=== PATIENT | male | born 1955 | race Native Hawaiian/Other Pacific Islander ===

== ENCOUNTER 2017-06-15 15:06 | Inpatient (IN) | payer OTHER ==
[2017-06-15 16:38] LABS: BASO # 0.1 K/uL (0.0-0.2); BASO % 0.7 % (0.0-2.0); EOS # 0.5 K/uL (0.0-0.7); LYMPH # 0.6 K/uL (1.0-4.3); MEAN CELL VOLUME 83.8 fL (80.0-94.0); MEAN CORPUSCULAR HEMOGLOBIN 27.2 pg (27.0-31.0); MEAN CORPUSCULAR HGB CONC 32.4 g/dL (33.0-37.0); MEAN PLATELET VOLUME 7.4 fL (7.2-11.7); MONO # 0.5 K/uL (0.0-0.8); MONO % 4.5 % (0.0-10.0); NEUT # 8.9 K/uL (1.8-7.0); NEUT % 83.8 % (50.0-75.0); NRBC % 0.1 % (0.0-2.0); PLATELET COUNT 265 K/uL (130-400); RBC 1.84 Mil/uL (4.40-5.90); RED CELL DISTRIBUTION WIDTH 15.8 % (11.5-14.5); WHITE BLOOD COUNT 10.6 K/uL (4.8-10.8)
[2017-06-15 16:48] LABS: INR 1.1; PROTHROMBIN TIME 12.4 SECONDS (9.7-12.2)
--- NOTE | 2017-06-15 16:54 | RAD ---
HISTORY: SOB, Renal failure, anemia COMPARISON: None available. TECHNIQUE: Chest, one view. FINDINGS: LUNGS: Patchy opacities within the lateral right upper lobe and bilateral lower lobes may reflect multifocal infiltrate or atelectasis. Increased lucencies especially within the bilateral upper lung erickson compatible with underlying emphysema. Please note that chest x-ray has limited sensitivity for the detection of pulmonary masses. PLEURA: No significant pleural effusion identified. No definite pneumothorax . CARDIOVASCULAR: Mild cardiomegaly. Atherosclerotic calcifications of an ectatic aorta. OSSEOUS STRUCTURES: No acute osseous abnormality identified. VISUALIZED UPPER ABDOMEN: Unremarkable. OTHER FINDINGS: None. IMPRESSION: Patchy opacities within the lateral right upper lobe and bilateral lower lobes may reflect multifocal infiltrate or atelectasis. Emphysematous changes.
[2017-06-15 16:55] LABS: ALB/GLOB RATIO 1.1 (1.0-2.1); ALBUMIN 3.4 g/dL (3.5-5.0); CALCIUM 6.5 mg/dl (8.6-10.4)
[2017-06-15 17:05] LABS: TROPONIN I 0.08 ng/mL (0.00-0.120)
[2017-06-15 17:58] LABS: ANISOCYTOSIS SLIGHT; EOSINOPHIL 7 % (0-4); LYMPHOCYTE 3 % (20-40); NEUTROPHIL 90 % (50-75); PLATELET ESTIMATE NORMAL (NORMAL); TOTAL CELLS COUNTED 100
[2017-06-15 18:03] LABS: HYPOCHROMIC SLIGHT; POLYCHROMIC SLIGHT
--- NOTE | 2017-06-15 18:18 | C.PDOC ---
Time Seen by Provider: 06/15/17 15:51 Chief Complaint (Nursing): Shortness Of Breath History Per: Patient Onset/Duration Of Symptoms: Days (about 2 weeks) Current Symptoms Are (Timing): Still Present Exacerbating Factor(s): Exertion Severity: Moderate Associated Symptoms: Light-headedness Reports Recently: Treated By A Physician Additional History Per: Prior Records Past Medical History Reviewed: Historical Data, Nursing Documentation, Vital Signs Vital Signs: Last Vital Signs Temp 97.6 F 06/15/17 15:12 Pulse 88 06/15/17 18:53 Resp 20 06/15/17 18:53 BP 152/89 H 06/15/17 18:59 Pulse Ox 100 06/15/17 18:53 - Medical History PMH: HTN (noncompliant with meds) Other PMH: GI bleed Family History: States: Unknown Family Hx - Social History Hx Alcohol Use: No Hx Substance Use: No Review Of Systems Except As Marked, All Systems Reviewed And Found Negative. Constitutional: Positive for: Weakness. Negative for: Fever Cardiovascular: Negative for: Chest Pain Respiratory: Positive for: SOB with Excertion. Negative for: Hemoptysis Gastrointestinal: Positive for: Hematochezia. Negative for: Vomiting, Abdominal Pain Genitourinary: Negative for: Dysuria Musculoskeletal: Negative for: Neck Pain, Back Pain Neurological: Negative for: Weakness, Numbness Physical Exam - Physical Exam Appears: Chronically Ill Skin: Warm, Dry, Pale Head: Atraumatic, Normacephalic Eye(s): bilateral: PERRL, EOMI, Conjunctiva Pale Neck: Normal ROM, Supple Cardiovascular: Rhythm Regular Respiratory: No Accessory Muscle Use, Rales (mild scattered) Gastrointestinal/Abdominal: Soft, No Tenderness Rectal: Heme Positive, Hemorrhoids, Other (Brown stool) Back: No CVA Tenderness Extremity: Normal ROM, No Pedal Edema, No Calf Tenderness Neurological/Psych: Oriented x3, Normal Motor, Normal Sensation ED Course And Treatment - Laboratory Results Result Diagrams: 06/15/17 16:35 06/15/17 16:35 Lab Interpretation: Abnormal Interpretation Of Abnormal: Severe anemia. Renal failure. UTI. ECG: Interpreted By Me, Viewed By Me ECG Rhythm: Sinus Rhythm, Nonspecific Changes ECG Interpretation: Abnormal Interpretation Of ECG: LVH Rate From EC O2 Sat by Pulse Oximetry: 100 Pulse Ox Interpretation: Normal - Radiology CXR: Viewed By Me, Read By Radiologist CXR Interpretation: Yes: COPD, Cardiomegaly, Other (Patchy opacities within the lateral right upper lobe and bilateral lower lobes may reflect multifocal infiltrate or atelectasis.) Progress Note: Blood transfusion ordered. - Physician Consult Information Physician Contacted: Barbara Mckeon (Renal) Outcome Of Conversation: She recommended hinojosa catheter, Lasix and she will see pt in the hospital. Progress - Interventions Interventions:: Observation, Oxygen - Medications Administered Intravenous: Diuretic, Other (PPI. Abx.) - Data Reviewed Data Reviewed: Lab, Diagnostic imaging, EKG, Old records - Patient Status Patient status: Partially improved - Critical Care Citical Care: Excluding Proc Time Critical Care Time: 45 minutes - Continuity of Care Discussed patient case with:: Patient, ED Nurse, On-call PMD-pt unassigned Discussed pt. case with is consultant/specialty: Nephrology - Patient Plan Patient Plan: Admission, Telemetry Disposition Discussed With DrLoyda: Javier Cunningham Comment: He accepted pt on hospitalist service. Counseled Patient/Family Regarding: Studies Performed, Diagnosis - Disposition Disposition: HOSPITALIZED Disposition Time: 18:00 Condition: SERIOUS - Clinical Impression Clinical Impression: ARF (acute renal failure), UTI (urinary tract infection), Severe anemia
[2017-06-15 19:18] LABS: URINE BACTERIA MOD (<OCC); URINE BILIRUBIN NEGATIVE (NEGATIVE); URINE BLOOD 1+ (NEGATIVE); URINE CLARITY Hazy (Clear); URINE COLOR YELLOW (YELLOW); URINE GLUCOSE (UA) NORMAL (Normal); URINE LEUKOCYTE ESTERASE 3+ Leu/uL (Negative); URINE PROTEIN 2+ mg/dL (NEGATIVE); URINE UROBILINOGEN NORMAL mg/dL (0.2-1.0)
[2017-06-15] MEDS ORDERED: cefTRIAXone IV 1 gm in Dextros 50 ML IVPB STA (19:24)
[2017-06-15 22:12] LABS: CREATININE, RANDOM URINE 65.7 mg/dL
[2017-06-15] MEDS ORDERED: Iohexol 240 (50 ml) ONE (23:16)
--- NOTE | 2017-06-15 23:58 | CP.PCM.HP ---
<Belkis ReaLoyda - Last Filed: 06/16/17 03:42> History of Present Illness - History of Present Illness History of Present Illness: HPI: Patient is a 61 y/o male with past medical history of HTN, upper GI bleed, TIA, and sleep apnea, who presents to the ED with complaint of shortness of breath, wheezing, and blood in stool. He states the shortness of breath began about 2 weeks ago as he was walking to work, and now he cannot walk more than 2 blocks without feeling short of breath. The shortness of breath worsens upon any physical exertion and gets better with rest. As per patient, the shortness of breath is also present while sleeping and he needs to prop himself up in bed in order to sleep. Furthermore, within the same two weeks, he also noticed bright red blood in the toilet after defecation. He states the stool itself is brown in color, but there is blood in the toilet and on the paper after he wipes himself. His last bowel movement was this morning. Patient denies any of these events happening in the past. Patient currently has dyspnea on exertion, chronic dry cough, lightheadedness, general weakness, hemtaochezia, nocturia, and orthopnea. He denies fever, chills, CASTRO, vision changes, sore throat, dizziness, CP, abdominal pain, n/v, weight changes, and recent sick contacts. PMD: Dr. Dottie Alonzo Nephro: Dr. 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 absent: Chills, Fever, Headache - EENT Eyes: absent: Change in Vision Ears: Dizziness - Cardiovascular Cardiovascular: Dyspnea, Dyspnea on Exertion. absent: Chest Pain, Edema, Leg Edema, Palpitations, Pedal Edema - Respiratory Respiratory: Cough (dry), Dyspnea on Exertion, Wheezing - Gastrointestinal Gastrointestinal: absent: Abdominal Pain, Constipation, Diarrhea, Hematemesis, Hematochezia, Nausea, Vomiting - Genitourinary Genitourinary: Nocturia. absent: Difficulty Urinating, Dysuria, Hematuria - Neurological Neurological: Dizziness, Weakness. absent: Headaches - Endocrine Endocrine: Polyuria. absent: Palpitations Past Patient History - Past Social History Smoking Status: Heavy Smoker > 10 Cigarettes Daily - CARDIAC Hx Hypertension: Yes (noncompliant with meds) - PSYCHIATRIC Hx Substance Use: No - SURGICAL HISTORY Hx Surgeries: Yes - ANESTHESIA Hx Anesthesia: Yes Hx Anesthesia Reactions: No Hx Malignant Hyperthermia: No Meds Allergies/Adverse Reactions: Allergies Allergy/AdvReac Type Severity Reaction Status Date / Time No Known Allergies Allergy Unverified 06/15/17 15:11 Physical Exam - Constitutional Appears: No Acute Distress - Head Exam Head Exam: ATRAUMATIC, NORMOCEPHALIC - Eye Exam Eye Exam: EOMI, Normal appearance, PERRL - ENT Exam ENT Exam: Mucous Membranes Moist - Neck Exam Neck exam: Positive for: Normal Inspection - Respiratory Exam Respiratory Exam: Rales, NORMAL BREATHING PATTERN. absent: Clear to Auscultation Bilateral, Rhonchi, Wheezes, Respiratory Distress - Cardiovascular Exam Cardiovascular Exam: REGULAR RHYTHM, +S1, +S2 - GI/Abdominal Exam GI & Abdominal Exam: Normal Bowel Sounds, Soft. absent: Distended, Firm, Guarding, Tenderness - Rectal Exam Rectal Exam: absent: Deferred (Performed by ER physician) - Extremities Exam Extremities exam: Positive for: pedal pulses present. Negative for: pedal edema , tenderness - Neurological Exam Neurological exam: Alert, Oriented x3 - Psychiatric Exam Psychiatric exam: Normal Affect, Normal Mood - Skin Skin Exam: Dry, Intact, Pallor, Warm Results - Vital Signs Recent Vital Signs: Last Vital Signs Temp 97.9 F 06/15/17 23:37 Pulse 87 06/15/17 23:37 Resp 23 06/15/17 23:37 BP 154/74 H 06/15/17 23:37 Pulse Ox 100 06/15/17 23:37 - Labs Result Diagrams: 06/15/17 16:35 06/15/17 16:35 Labs: Laboratory Results - last 24 hr 06/15/17 06/15/17 06/15/17 16:35 16:35 16:35 WBC 10.6 RBC 1.84 L Hgb 5.0 L* Hct 15.4 L MCV 83.8 MCH 27.2 MCHC 32.4 L RDW 15.8 H Plt Count 265 MPV 7.4 Neut % (Auto) 83.8 H Lymph % (Auto) 6.0 L [place] % (Auto) 4.5 Eos % (Auto) 5.0 H Baso % (Auto) 0.7 Neut # (Auto) 8.9 H Lymph # (Auto) 0.6 L [place] # (Auto) 0.5 Eos # (Auto) 0.5 Baso # (Auto) 0.1 Neutrophils % (Manual) 90 H Lymphocytes % (Manual) 3 L Monocytes % (Manual) TEST NOT PERFORMED Eosinophils % (Manual) 7 H Platelet Estimate Normal Polychromasia Slight Hypochromasia (manual) Slight Anisocytosis (manual) Slight PT 12.4 H INR 1.1 APTT 33 Sodium 140 Potassium 4.4 Chloride 107 Carbon Dioxide 13 L Anion Gap 25 H BUN 143 H* Creatinine 15.8 H* Est GFR ( Amer) 4 Est GFR (Non-Af Amer) 3 Random Glucose 105 Calcium 6.5 L Total Bilirubin 0.3 AST 20 ALT 27 Alkaline Phosphatase 61 Troponin I 0.0800 NT-Pro-B Natriuret Pep 64938 H Total Protein 6.4 Albumin 3.4 L Globulin 3.0 Albumin/Globulin Ratio 1.1 Urine Color Urine Clarity Urine pH Ur Specific [place] Urine Protein Urine Glucose (UA) Urine Ketones Urine Blood Urine Nitrate Urine Bilirubin Urine Urobilinogen Ur Leukocyte Esterase Urine WBC (Auto) Urine RBC (Auto) Urine Bacteria Ur Random Creatinine U Random Total Protein Stool Occult Blood Blood Type Blood Type Confirm Antibody Screen 06/15/17 06/15/17 06/15/17 16:35 16:44 19:03 WBC RBC Hgb Hct MCV MCH MCHC RDW Plt Count MPV Neut % (Auto) Lymph % (Auto) [place] % (Auto) Eos % (Auto) Baso % (Auto) Neut # (Auto) Lymph # (Auto) [place] # (Auto) Eos # (Auto) Baso # (Auto) Neutrophils % (Manual) Lymphocytes % (Manual) Monocytes % (Manual) Eosinophils % (Manual) Platelet Estimate Polychromasia Hypochromasia (manual) Anisocytosis (manual) PT INR APTT Sodium Potassium Chloride Carbon Dioxide Anion Gap BUN Creatinine Est GFR ( Amer) Est GFR (Non-Af Amer) Random Glucose Calcium Total Bilirubin AST ALT Alkaline Phosphatase Troponin I NT-Pro-B Natriuret Pep Total Protein Albumin Globulin Albumin/Globulin Ratio Urine Color Yellow Urine Clarity Hazy Urine pH 5.0 Ur Specific [place] 1.011 Urine Protein 2+ H Urine Glucose (UA) Normal Urine Ketones Negative Urine Blood 1+ H Urine Nitrate Negative Urine Bilirubin Negative Urine Urobilinogen Normal Ur Leukocyte Esterase 3+ H Urine WBC (Auto) 36 H Urine RBC (Auto) 4 H Urine Bacteria Mod H Ur Random Creatinine U Random Total Protein Stool Occult Blood Positive H Blood Type B POSITIVE Blood Type Confirm B POSITIVE Antibody Screen Negative 06/15/17 22:01 WBC RBC Hgb Hct MCV MCH MCHC RDW Plt Count MPV Neut % (Auto) Lymph % (Auto) [place] % (Auto) Eos % (Auto) Baso % (Auto) Neut # (Auto) Lymph # (Auto) [place] # (Auto) Eos # (Auto) Baso # (Auto) Neutrophils % (Manual) Lymphocytes % (Manual) Monocytes % (Manual) Eosinophils % (Manual) Platelet Estimate Polychromasia Hypochromasia (manual) Anisocytosis (manual) PT INR APTT Sodium Potassium Chloride Carbon Dioxide Anion Gap BUN Creatinine Est GFR ( Amer) Est GFR (Non-Af Amer) Random Glucose Calcium Total Bilirubin AST ALT Alkaline Phosphatase Troponin I NT-Pro-B Natriuret Pep Total Protein Albumin Globulin Albumin/Globulin Ratio Urine Color Urine Clarity Urine pH Ur Specific [place] Urine Protein Urine Glucose (UA) Urine Ketones Urine Blood Urine Nitrate Urine Bilirubin Urine Urobilinogen Ur Leukocyte Esterase Urine WBC (Auto) Urine RBC (Auto) Urine Bacteria Ur Random Creatinine 65.7 U Random Total Protein 136.0 H Stool Occult Blood Blood Type Blood Type Confirm Antibody Screen Assessment & Plan (1) Severe anemia Assessment and Plan: At admission: Hgb 5 Type and cross Transfusing 2 units PRBC Stool occult: + Iron studies: f/u results Monitor H/H Monitor on telemetry GI consulted, Dr. Barnard, help appreciated Status: Acute (2) Dyspnea on exertion Assessment and Plan: Possibly secondary to severe anemia In the ED, Lasix 40mg IV given once Chest xray: patchy opacities within lateral right upper lobe and b/l lower lobes may reflect multifocal infiltrate or atelectasis Echo: f/u results O2 via nasal cannula prn Status: Acute (3) ARF (acute renal failure) Assessment and Plan: At admission: BUN 147, Cr 15.8 Nephrology consulted, Dr. Mckeon; help appreciated Urine protein: f/u results Urine creatine: f/u results Urine eosinophils: f/u results Renal US: f/u results Abdomen/Pelv CT: f/u results Hepatitis panel: f/u result Complement: f/u results Monitor urine output Feliz Sodium Bicarb tablets Status: Acute (4) UTI (urinary tract infection) Assessment and Plan: UA: 2+ protein, 1+ blood, 3+ LE, 36 WBC, 4RBC, moderate bacteria Asymptomatic In the ED, Rocephin given once Urine cx: f/u results Status: Acute (5) Prophylactic measure Assessment and Plan: NO chemical anticoagulation due to severe anemia SCDs Protonix 40mg IV daily Renal diet Status: Acute <Alfredo Singh P - Last Filed: 06/16/17 07:29> Results - Vital Signs Recent Vital Signs: Last Vital Signs Temp 97.9 F 06/16/17 04:01 Pulse 82 06/16/17 04:01 Resp 22 06/16/17 04:01 BP 164/98 H 06/16/17 04:01 Pulse Ox 100 06/16/17 04:01 - Labs Result Diagrams: 06/16/17 06:18 06/16/17 06:18 Labs: Laboratory Results - last 24 hr 06/15/17 06/15/17 06/15/17 16:35 16:35 16:35 WBC 10.6 RBC 1.84 L Hgb 5.0 L* Hct 15.4 L MCV 83.8 MCH 27.2 MCHC 32.4 L RDW 15.8 H Plt Count 265 MPV 7.4 Neut % (Auto) 83.8 H Lymph % (Auto) 6.0 L [place] % (Auto) 4.5 Eos % (Auto) 5.0 H Baso % (Auto) 0.7 Neut # (Auto) 8.9 H Lymph # (Auto) 0.6 L [place] # (Auto) 0.5 Eos # (Auto) 0.5 Baso # (Auto) 0.1 Neutrophils % (Manual) 90 H Lymphocytes % (Manual) 3 L Monocytes % (Manual) TEST NOT PERFORMED Eosinophils % (Manual) 7 H Platelet Estimate Normal Polychromasia Slight Hypochromasia (manual) Slight Anisocytosis (manual) Slight PT 12.4 H INR 1.1 APTT 33 Sodium 140 Potassium 4.4 Chloride 107 Carbon Dioxide 13 L Anion Gap 25 H BUN 143 H* Creatinine 15.8 H* Est GFR ( Amer) 4 Est GFR (Non-Af Amer) 3 Random Glucose 105 Calcium 6.5 L Phosphorus Magnesium Iron TIBC % Saturation Total Bilirubin 0.3 AST 20 ALT 27 Alkaline Phosphatase 61 Troponin I 0.0800 NT-Pro-B Natriuret Pep 56196 H Total Protein 6.4 Albumin 3.4 L Globulin 3.0 Albumin/Globulin Ratio 1.1 Urine Color Urine Clarity Urine pH Ur Specific [place] Urine Protein Urine Glucose (UA) Urine Ketones Urine Blood Urine Nitrate Urine Bilirubin Urine Urobilinogen Ur Leukocyte Esterase Urine WBC (Auto) Urine RBC (Auto) Urine Bacteria Ur Random Creatinine U Random Total Protein Stool Occult Blood Blood Type Blood Type Confirm Antibody Screen 06/15/17 06/15/17 06/15/17 16:35 16:44 19:03 WBC RBC Hgb Hct MCV MCH MCHC RDW Plt Count MPV Neut % (Auto) Lymph % (Auto) [place] % (Auto) Eos % (Auto) Baso % (Auto) Neut # (Auto) Lymph # (Auto) [place] # (Auto) Eos # (Auto) Baso # (Auto) Neutrophils % (Manual) Lymphocytes % (Manual) Monocytes % (Manual) Eosinophils % (Manual) Platelet Estimate Polychromasia Hypochromasia (manual) Anisocytosis (manual) PT INR APTT Sodium Potassium Chloride Carbon Dioxide Anion Gap BUN Creatinine Est GFR ( Amer) Est GFR (Non-Af Amer) Random Glucose Calcium Phosphorus Magnesium Iron TIBC % Saturation Total Bilirubin AST ALT Alkaline Phosphatase Troponin I NT-Pro-B Natriuret Pep Total Protein Albumin Globulin Albumin/Globulin Ratio Urine Color Yellow Urine Clarity Hazy Urine pH 5.0 Ur Specific [place] 1.011 Urine Protein 2+ H Urine Glucose (UA) Normal Urine Ketones Negative Urine Blood 1+ H Urine Nitrate Negative Urine Bilirubin Negative Urine Urobilinogen Normal Ur Leukocyte Esterase 3+ H Urine WBC (Auto) 36 H Urine RBC (Auto) 4 H Urine Bacteria Mod H Ur Random Creatinine U Random Total Protein Stool Occult Blood Positive H Blood Type B POSITIVE Blood Type Confirm B POSITIVE Antibody Screen Negative 06/15/17 06/16/17 06/16/17 22:01 06:18 06:18 WBC 11.0 H RBC 2.08 L Hgb 5.8 L* Hct 17.2 L MCV 82.9 MCH 28.0 MCHC 33.8 RDW 15.2 H Plt Count 243 MPV 8.0 Neut % (Auto) 78.9 H Lymph % (Auto) 7.1 L [place] % (Auto) 6.8 Eos % (Auto) 6.5 H Baso % (Auto) 0.7 Neut # (Auto) 8.6 H Lymph # (Auto) 0.8 L [place] # (Auto) 0.7 Eos # (Auto) 0.7 Baso # (Auto) 0.1 Neutrophils % (Manual) Lymphocytes % (Manual) Monocytes % (Manual) Eosinophils % (Manual) Platelet Estimate Polychromasia Hypochromasia (manual) Anisocytosis (manual) PT INR APTT Sodium 140 Potassium 4.3 Chloride 111 H Carbon Dioxide 12 L Anion Gap 21 H BUN 137 H* Creatinine 15.5 H* Est GFR ( Amer) 4 Est GFR (Non-Af Amer) 3 Random Glucose 86 Calcium 6.1 L Phosphorus 9.1 H Magnesium 1.8 Iron TIBC % Saturation Total Bilirubin 0.3 AST 20 ALT 25 Alkaline Phosphatase 59 Troponin I NT-Pro-B Natriuret Pep Total Protein 5.8 L Albumin 3.0 L Globulin 2.9 Albumin/Globulin Ratio 1.0 Urine Color Urine Clarity Urine pH Ur Specific [place] Urine Protein Urine Glucose (UA) Urine Ketones Urine Blood Urine Nitrate Urine Bilirubin Urine Urobilinogen Ur Leukocyte Esterase Urine WBC (Auto) Urine RBC (Auto) Urine Bacteria Ur Random Creatinine 65.7 U Random Total Protein 136.0 H Stool Occult Blood Blood Type Blood Type Confirm Antibody Screen 06/16/17 06:18 WBC RBC Hgb Hct MCV MCH MCHC RDW Plt Count MPV Neut % (Auto) Lymph % (Auto) [place] % (Auto) Eos % (Auto) Baso % (Auto) Neut # (Auto) Lymph # (Auto) [place] # (Auto) Eos # (Auto) Baso # (Auto) Neutrophils % (Manual) Lymphocytes % (Manual) Monocytes % (Manual) Eosinophils % (Manual) Platelet Estimate Polychromasia Hypochromasia (manual) Anisocytosis (manual) PT INR APTT Sodium Potassium Chloride Carbon Dioxide Anion Gap BUN Creatinine Est GFR ( Amer) Est GFR (Non-Af Amer) Random Glucose Calcium Phosphorus Magnesium Iron 14 L TIBC 289 % Saturation 5 L Total Bilirubin AST ALT Alkaline Phosphatase Troponin I NT-Pro-B Natriuret Pep Total Protein Albumin Globulin Albumin/Globulin Ratio Urine Color Urine Clarity Urine pH Ur Specific [place] Urine Protein Urine Glucose (UA) Urine Ketones Urine Blood Urine Nitrate Urine Bilirubin Urine Urobilinogen Ur Leukocyte Esterase Urine WBC (Auto) Urine RBC (Auto) Urine Bacteria Ur Random Creatinine U Random Total Protein Stool Occult Blood Blood Type Blood Type Confirm Antibody Screen Attending/Attestation - Attestation I have personally seen and examined this patient.: Yes I have fully participated in the care of the patient.: Yes I have reviewed all pertinent clinical information: Yes Notes (Text): Assessment * Patient probably has some degree CRI and secondary anemia but both worsened with subacute gi bleeding apparent from form low iron and patient history suggesting lower gi bleeding, formed stool from blood. * Symptomatic anemia * Acute on chronic renal insufficiency, with raised creat, acidosis, euvolemic or on lower side volume, non oliguric. * H/o UGI bleeding * Lung disease apparent from ct with broncheactasis, h/o chronic tobacco abuse Plan * Prbc * PPI * CRI w/u with hepatitis panel, complement level, urinalysis, 24 hr quantity, protienuria * CT abd/pelvis without contrast see liver and kidney * USG, renal art doppler * Renal, GI consult * DVT prophylaxis scd.
--- NOTE | 2017-06-16 01:33 | CT ---
EXAM: CT Abdomen and Pelvis With Intravenous Contrast EXAM DATE/TIME: 06/15/2017 9:13 PM CLINICAL HISTORY: 61 years old, male; Pain; Abdominal pain and other: R/O bleed; Additional info: R/O gi bleed TECHNIQUE: Axial computed tomography images of the abdomen and pelvis with intravenous contrast. All CT scans at this facility use one or more dose reduction techniques, viz.: automated exposure control; ma/kV adjustment per patient size (including targeted exams where dose is matched to indication; i.e. head); or iterative reconstruction technique. Coronal and sagittal reformatted images were created and reviewed. CONTRAST: 240 mL of oral administered intravenously. COMPARISON: No relevant prior studies available. FINDINGS: Lower thorax: Extensive chronic disease in the lower lungs including fibrosis. ABDOMEN: The gallbladder, spleen, pancreas are grossly normal. Liver: There is a subcentimeter hypodense lesion within the right hepatic lobe image 49 incompletely characterized secondary to lack of intravenous contrast and small size. Gallbladder and bile ducts: Unremarkable. No calcified stones. No ductal dilation. Pancreas: Unremarkable. No mass. No ductal dilation. Spleen: Unremarkable. No splenomegaly. Adrenals: Unremarkable. No mass. Kidneys and ureters: Low-attenuation renal lesions some of which represent cysts some of which are too small to accurately characterize. Stomach and bowel: The gastric wall appears diffusely thickened at least partly due to incomplete distention. No stranding in the surrounding fat to suggest active inflammatory/infectious process Appendix: A normal appendix is identified [id number]. PELVIS: Bladder: Feliz catheter. There is air in the urinary bladder and diffuse wall thickening, findings felt to be secondary to Feliz placement and decompression. Correlation with urinalysis could be performed to exclude a superimposed infectious/inflammatory process. Reproductive: Unremarkable as visualized. ABDOMEN and PELVIS: Intraperitoneal space: Unremarkable. No free air. No significant fluid collection. Bones/joints: No acute fracture. No dislocation. Soft tissues: Unremarkable. Vasculature: Unremarkable. No abdominal aortic aneurysm. Lymph nodes: Unremarkable. No enlarged lymph nodes. IMPRESSION: Air in the urinary bladder and diffuse wall thickening, findings felt to be secondary to Feliz placement and decompression. Correlation with urinalysis could be performed to exclude a superimposed infectious/inflammatory process.
[2017-06-16 06:33] LABS: BASO # 0.1 K/uL (0.0-0.2); BASO % 0.7 % (0.0-2.0); EOS # 0.7 K/uL (0.0-0.7); EOS % 6.5 % (0.0-4.0); LYMPH # 0.8 K/uL (1.0-4.3); LYMPH % 7.1 % (20.0-40.0); MEAN CELL VOLUME 82.9 fL (80.0-94.0); MEAN CORPUSCULAR HGB CONC 33.8 g/dL (33.0-37.0); MONO # 0.7 K/uL (0.0-0.8); MONO % 6.8 % (0.0-10.0); NEUT # 8.6 K/uL (1.8-7.0); NEUT % 78.9 % (50.0-75.0); NRBC % 0.1 % (0.0-2.0); PLATELET COUNT 243 K/uL (130-400); RBC 2.08 Mil/uL (4.40-5.90); RED CELL DISTRIBUTION WIDTH 15.2 % (11.5-14.5)
[2017-06-16 06:44] LABS: IRON 14 ug/dL (49-181)
[2017-06-16 06:49] LABS: CALCIUM 6.1 mg/dl (8.6-10.4)
[2017-06-16 06:53] LABS: % IRON SATURATION 5 (20-55); TOTAL IRON BINDING CAPACITY 289 ug/dL (250-450)
[2017-06-16 07:07] LABS: HEMOGLOBIN 5.8 g/dL (12.0-18.0)
[2017-06-16 07:17] LABS: HEPATITIS B SURFACE AG Negative (NEGATIVE)
[2017-06-16 07:23] LABS: HEPATITIS A IGM NEGATIVE (NEGATIVE); HEPATITIS B CORE AB NEGATIVE (NEGATIVE)
[2017-06-16 07:34] LABS: HEPATITIS C ANTIBODY NEGATIVE (NEGATIVE)
[2017-06-16 09:07] LABS: EOSINOPHIL 9 % (0-4); LYMPHOCYTE 5 % (20-40); MONOCYTE 2 % (0-10); NEUTROPHIL 84 % (50-75); TOTAL CELLS COUNTED 100
[2017-06-16 09:08] LABS: ANISOCYTOSIS SLIGHT; PLATELET ESTIMATE NORMAL (NORMAL)
[2017-06-16 09:09] LABS: HYPOCHROMIC MODERATE; POLYCHROMIC SLIGHT; TARGET CELLS SLIGHT
[2017-06-16] MEDS ORDERED: Sodium Bicarbonate 8.4% 50 MEQ in Dextrose 5% In Water 1,000 ML IV SCH ×2 (09:30)
[2017-06-16] MEDS ORDERED: Desmopressin 15 MCG in Sodium Chloride 0.9% 50 ML IV ONE (10:45)
--- NOTE | 2017-06-16 11:37 | CP.PCM.CON ---
<Murtaza Tena - Last Filed: 06/16/17 12:49> History of Present Illness - History of Present Illness History of Present Illness: PGY-[address] Varner CC: Blood in stool and SOB HPI: 61 year old male with a PMHx of HTN, UGIB in 2012, TIA in 2010 and sleep apnea, was seen in ER with complaints of bright red blood in toilet bowel which began 2 weeks ago. The bloody stool has occurred once a day for the past two weeks. Last occurrence was yesterday. A few days ago the patient began feeling lightheaded and dizzy and also started becoming short of breath on ambulation. He went to his PMD Dr Dottie Jacome who performed blood work and upon seeing results directed the patient to the ER. In 2012 the patient had episodes of black stool and was worked up at [facility]. He is unsure of the exact diagnosis or EGD/Colonoscopy findings but stated that he was told to take omeprazole for 18 months. He denies fever/chills, dietary changes, weight loss, early satiety. PMD: Dr. Dottie Alonzo Nephro: Dr. 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 absent: Chills, Fever - EENT Eyes: absent: Change in Vision - Cardiovascular Cardiovascular: Dyspnea on Exertion, Lightheadedness. absent: Chest Pain, Dyspnea, Palpitations - Respiratory Respiratory: Dyspnea on Exertion. absent: Cough, Hemoptysis - Gastrointestinal Gastrointestinal: Hematochezia. absent: Abdominal Pain, Diarrhea, Hematemesis, Nausea, Vomiting - Genitourinary Genitourinary: absent: Dysuria - Integumentary Integumentary: absent: Bleeding Lesions Additional comments: 3 inch diameter ecchymotic lesion on left arm in cubital fossa - Neurological Neurological: Dizziness. absent: Focal Weakness Past Patient History - Past Social History Smoking Status: Heavy Smoker > 10 Cigarettes Daily - CARDIAC Hx Hypertension: Yes (noncompliant with meds) - PSYCHIATRIC Hx Substance Use: No - SURGICAL HISTORY Hx Surgeries: Yes - ANESTHESIA Hx Anesthesia: Yes Hx Anesthesia Reactions: No Hx Malignant Hyperthermia: No Meds Allergies/Adverse Reactions: Allergies Allergy/AdvReac Type Severity Reaction Status Date / Time No Known Allergies Allergy Unverified 06/15/17 15:11 - Medications Medications: Current Medications Calcium Acetate (Phoslo) 1,334 mg PO TIDCC SELINA Ferric Sodium Gluconate Complex (Ferrlecit) 125 mg IVPB DAILY SELINA Stop: 06/23/17 10:01 Sodium Bicarbonate 50 meq/ (Dextrose) 1,050 mls @ 60 mls/hr IV .[id number] SELINA Pantoprazole Sodium 80 mg/ (Sodium Chloride) 100 mls @ 10 mls/hr IV .Q10H SELINA PRN Reason: 8 MG/HR Vitamin B Complex/Vit C/Folic Acid (Nephro-Magdalena) 1 tab PO 0800 SELINA Physical Exam - Constitutional Appears: In Acute Distress - Head Exam Head Exam: ATRAUMATIC, NORMAL INSPECTION - Eye Exam Eye Exam: EOMI - ENT Exam ENT Exam: Mucous Membranes Moist - Respiratory Exam Respiratory Exam: Wheezes Additional comments: Diffuse bilateral wheezing - Cardiovascular Exam Cardiovascular Exam: REGULAR RHYTHM, +S1, +S2. absent: Bradycardia, Tachycardia , Systolic Murmur - GI/Abdominal Exam GI & Abdominal Exam: Normal Bowel Sounds, Soft. absent: Distended, Guarding, Tenderness - Rectal Exam Additional comments: Performed by ER physician, Heme Positive, Hemorrhoids, Other (Brown stool) - Neurological Exam Neurological exam: Oriented x3 - Skin Skin Exam: Dry, Intact, Normal Color, Warm Results - Vital Signs Recent Vital Signs: Last Vital Signs Temp 97.9 F 06/16/17 11:18 Pulse 84 06/16/17 11:18 Resp 18 06/16/17 11:18 BP 203/107 H 06/16/17 11:18 Pulse Ox 100 06/16/17 11:18 - Labs Result Diagrams: 06/16/17 06:18 06/16/17 06:18 Labs: Laboratory Results - last 24 hr 06/15/17 06/15/17 06/15/17 16:35 16:35 16:35 WBC 10.6 RBC 1.84 L Hgb 5.0 L* Hct 15.4 L MCV 83.8 MCH 27.2 MCHC 32.4 L RDW 15.8 H Plt Count 265 MPV 7.4 Neut % (Auto) 83.8 H Lymph % (Auto) 6.0 L Crosby % (Auto) 4.5 Eos % (Auto) 5.0 H Baso % (Auto) 0.7 Neut # (Auto) 8.9 H Lymph # (Auto) 0.6 L Crosby # (Auto) 0.5 Eos # (Auto) 0.5 Baso # (Auto) 0.1 Neutrophils % (Manual) 90 H Lymphocytes % (Manual) 3 L Monocytes % (Manual) TEST NOT PERFORMED Eosinophils % (Manual) 7 H Platelet Estimate Normal Polychromasia Slight Hypochromasia (manual) Slight Anisocytosis (manual) Slight Target Cells Retic Count PT 12.4 H INR 1.1 APTT 33 Sodium 140 Potassium 4.4 Chloride 107 Carbon Dioxide 13 L Anion Gap 25 H BUN 143 H* Creatinine 15.8 H* Est GFR ( Amer) 4 Est GFR (Non-Af Amer) 3 Random Glucose 105 Calcium 6.5 L Phosphorus Magnesium Iron TIBC % Saturation Ferritin Total Bilirubin 0.3 AST 20 ALT 27 Alkaline Phosphatase 61 Troponin I 0.0800 NT-Pro-B Natriuret Pep 15868 H Total Protein 6.4 Albumin 3.4 L Globulin 3.0 Albumin/Globulin Ratio 1.1 Urine Color Urine Clarity Urine pH Ur Specific Luther Urine Protein Urine Glucose (UA) Urine Ketones Urine Blood Urine Nitrate Urine Bilirubin Urine Urobilinogen Ur Leukocyte Esterase Urine WBC (Auto) Urine RBC (Auto) Urine Bacteria Urine Eosinophils Ur Random Creatinine U Random Total Protein Stool Occult Blood Hepatitis A IgM Ab Hep Bs Antigen Hep B Core IgM Ab Hepatitis C Antibody Blood Type Blood Type Confirm Antibody Screen 06/15/17 06/15/17 06/15/17 16:35 16:44 19:03 WBC RBC Hgb Hct MCV MCH MCHC RDW Plt Count MPV Neut % (Auto) Lymph % (Auto) Crosby % (Auto) Eos % (Auto) Baso % (Auto) Neut # (Auto) Lymph # (Auto) Crosby # (Auto) Eos # (Auto) Baso # (Auto) Neutrophils % (Manual) Lymphocytes % (Manual) Monocytes % (Manual) Eosinophils % (Manual) Platelet Estimate Polychromasia Hypochromasia (manual) Anisocytosis (manual) Target Cells Retic Count PT INR APTT Sodium Potassium Chloride Carbon Dioxide Anion Gap BUN Creatinine Est GFR ( Amer) Est GFR (Non-Af Amer) Random Glucose Calcium Phosphorus Magnesium Iron TIBC % Saturation Ferritin Total Bilirubin AST ALT Alkaline Phosphatase Troponin I NT-Pro-B Natriuret Pep Total Protein Albumin Globulin Albumin/Globulin Ratio Urine Color Yellow Urine Clarity Hazy Urine pH 5.0 Ur Specific Luther 1.011 Urine Protein 2+ H Urine Glucose (UA) Normal Urine Ketones Negative Urine Blood 1+ H Urine Nitrate Negative Urine Bilirubin Negative Urine Urobilinogen Normal Ur Leukocyte Esterase 3+ H Urine WBC (Auto) 36 H Urine RBC (Auto) 4 H Urine Bacteria Mod H Urine Eosinophils Ur Random Creatinine U Random Total Protein Stool Occult Blood Positive H Hepatitis A IgM Ab Hep Bs Antigen Hep B Core IgM Ab Hepatitis C Antibody Blood Type B POSITIVE Blood Type Confirm B POSITIVE Antibody Screen Negative 06/15/17 06/15/17 06/16/17 22:01 22:01 06:18 WBC 11.0 H RBC 2.08 L Hgb 5.8 L* Hct 17.2 L MCV 82.9 MCH 28.0 MCHC 33.8 RDW 15.2 H Plt Count 243 MPV 8.0 Neut % (Auto) 78.9 H Lymph % (Auto) 7.1 L Crosby % (Auto) 6.8 Eos % (Auto) 6.5 H Baso % (Auto) 0.7 Neut # (Auto) 8.6 H Lymph # (Auto) 0.8 L Crosby # (Auto) 0.7 Eos # (Auto) 0.7 Baso # (Auto) 0.1 Neutrophils % (Manual) 84 H Lymphocytes % (Manual) 5 L Monocytes % (Manual) 2 Eosinophils % (Manual) 9 H Platelet Estimate Normal Polychromasia Slight Hypochromasia (manual) Moderate Anisocytosis (manual) Slight Target Cells Slight Retic Count 3.1 H PT INR APTT Sodium Potassium Chloride Carbon Dioxide Anion Gap BUN Creatinine Est GFR ( Amer) Est GFR (Non-Af Amer) Random Glucose Calcium Phosphorus Magnesium Iron TIBC % Saturation Ferritin Total Bilirubin AST ALT Alkaline Phosphatase Troponin I NT-Pro-B Natriuret Pep Total Protein Albumin Globulin Albumin/Globulin Ratio Urine Color Urine Clarity Urine pH Ur Specific Luther Urine Protein Urine Glucose (UA) Urine Ketones Urine Blood Urine Nitrate Urine Bilirubin Urine Urobilinogen Ur Leukocyte Esterase Urine WBC (Auto) Urine RBC (Auto) Urine Bacteria Urine Eosinophils Positive H Ur Random Creatinine 65.7 U Random Total Protein 136.0 H Stool Occult Blood Hepatitis A IgM Ab Hep Bs Antigen Hep B Core IgM Ab Hepatitis C Antibody Blood Type Blood Type Confirm Antibody Screen 06/16/17 06/16/17 06/16/17 06:18 06:18 06:18 WBC RBC Hgb Hct MCV MCH MCHC RDW Plt Count MPV Neut % (Auto) Lymph % (Auto) Crosby % (Auto) Eos % (Auto) Baso % (Auto) Neut # (Auto) Lymph # (Auto) Crosby # (Auto) Eos # (Auto) Baso # (Auto) Neutrophils % (Manual) Lymphocytes % (Manual) Monocytes % (Manual) Eosinophils % (Manual) Platelet Estimate Polychromasia Hypochromasia (manual) Anisocytosis (manual) Target Cells Retic Count PT INR APTT Sodium 140 Potassium 4.3 Chloride 111 H Carbon Dioxide 12 L Anion Gap 21 H BUN 137 H* Creatinine 15.5 H* Est GFR ( Amer) 4 Est GFR (Non-Af Amer) 3 Random Glucose 86 Calcium 6.1 L Phosphorus 9.1 H Magnesium 1.8 Iron 14 L TIBC 289 % Saturation 5 L Ferritin Total Bilirubin 0.3 AST 20 ALT 25 Alkaline Phosphatase 59 Troponin I NT-Pro-B Natriuret Pep Total Protein 5.8 L Albumin 3.0 L Globulin 2.9 Albumin/Globulin Ratio 1.0 Urine Color Urine Clarity Urine pH Ur Specific Luther Urine Protein Urine Glucose (UA) Urine Ketones Urine Blood Urine Nitrate Urine Bilirubin Urine Urobilinogen Ur Leukocyte Esterase Urine WBC (Auto) Urine RBC (Auto) Urine Bacteria Urine Eosinophils Ur Random Creatinine U Random Total Protein Stool Occult Blood Hepatitis A IgM Ab Negative Hep Bs Antigen Negative Hep B Core IgM Ab Negative Hepatitis C Antibody Negative Blood Type Blood Type Confirm Antibody Screen 06/16/17 06:18 WBC RBC Hgb Hct MCV MCH MCHC RDW Plt Count MPV Neut % (Auto) Lymph % (Auto) Crosby % (Auto) Eos % (Auto) Baso % (Auto) Neut # (Auto) Lymph # (Auto) Crosby # (Auto) Eos # (Auto) Baso # (Auto) Neutrophils % (Manual) Lymphocytes % (Manual) Monocytes % (Manual) Eosinophils % (Manual) Platelet Estimate Polychromasia Hypochromasia (manual) Anisocytosis (manual) Target Cells Retic Count PT INR APTT Sodium Potassium Chloride Carbon Dioxide Anion Gap BUN Creatinine Est GFR ( Amer) Est GFR (Non-Af Amer) Random Glucose Calcium Phosphorus Magnesium Iron TIBC % Saturation Ferritin 41.3 Total Bilirubin AST ALT Alkaline Phosphatase Troponin I NT-Pro-B Natriuret Pep Total Protein Albumin Globulin Albumin/Globulin Ratio Urine Color Urine Clarity Urine pH Ur Specific Luther Urine Protein Urine Glucose (UA) Urine Ketones Urine Blood Urine Nitrate Urine Bilirubin Urine Urobilinogen Ur Leukocyte Esterase Urine WBC (Auto) Urine RBC (Auto) Urine Bacteria Urine Eosinophils Ur Random Creatinine U Random Total Protein Stool Occult Blood Hepatitis A IgM Ab Hep Bs Antigen Hep B Core IgM Ab Hepatitis C Antibody Blood Type Blood Type Confirm Antibody Screen Assessment & Plan - Assessment and Plan (Free Text) Assessment: 61 year old male w/ PMHx of HTN, UGIB, TIA here for anemia 2/2 BRBPR with inadequate response to pRBC transfusion, and also in ARF: GI: [facility] GI Dr Barnard on board * Will perform EGD today s/p 2 units pRBC - inadequate response, Hgb improved from 5.0 to 5.8 Will receive another 2 units pRBC today NPO Protonix Drip CT abd/pelvis w/ PO contrast: "Air in the urinary bladder and diffuse wall thickening, findings felt to be secondary to Feliz placement and decompression. 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 Findings likely represent interstitial pneumonitis and the differential consideration includes mainly UIP and less likely nonspecific interstitial pneumonitis, desquamative interstitial pneumonia and chronic hypersensitivity pneumonitis. Foci of consolidation noted at the right lung along the right fissure may represent lung nodule or pleural thickening 3 months follow-up reassessment is recommended. Mild emphysema seen. ID: UTI Urine Cx grew gram negative rods * Asymptomatic and without leukocytosis - will hold off on Abx for now F/U Blood Cx Cardio: Elevated ProBNP; Mild Cardiomegaly ProBNP 85383 CT Chest showed Mild Cardiomegaly Troponin NEGATIVE F/U Echo Report PPx: No ppx anticoagulation due to GI bleed On protonix drip <Isac Varner - Last Filed: 06/16/17 17:50> Meds - Medications Medications: Current Medications Calcium Acetate (Phoslo) 1,334 mg PO TIDCC SELINA Epoetin Connor (Procrit) 8,000 unit IV TTS SELINA Ferric Sodium Gluconate Complex (Ferrlecit) 125 mg IVPB DAILY SELINA Stop: 06/23/17 10:01 Pantoprazole Sodium 80 mg/ (Sodium Chloride) 100 mls @ 10 mls/hr IV .Q10H SELINA PRN Reason: 8 MG/HR Sodium Bicarbonate 50 meq/ (Dextrose) 1,050 mls @ 60 mls/hr IV .[id number] SELINA Vitamin B Complex/Vit C/Folic Acid (Nephro-Magdalena) 1 tab PO 0800 [facility] Results - Vital Signs Recent Vital Signs: Last Vital Signs Temp 98.1 F 06/16/17 17:00 Pulse 86 06/16/17 17:05 Resp 14 06/16/17 17:05 BP 194/104 H 06/16/17 17:05 Pulse Ox 98 06/16/17 17:05 - Labs Result Diagrams: 06/16/17 06:18 06/16/17 06:18 Labs: Laboratory Results - last 24 hr 06/15/17 06/15/17 06/15/17 16:35 16:35 16:35 WBC RBC Hgb Hct MCV MCH MCHC RDW Plt Count MPV Neut % (Auto) Lymph % (Auto) Crosby % (Auto) Eos % (Auto) Baso % (Auto) Neut # (Auto) Lymph # (Auto) Crosby # (Auto) Eos # (Auto) Baso # (Auto) Neutrophils % (Manual) 90 H Lymphocytes % (Manual) 3 L Monocytes % (Manual) TEST NOT PERFORMED Eosinophils % (Manual) 7 H Platelet Estimate Normal Polychromasia Slight Hypochromasia (manual) Slight Anisocytosis (manual) Slight Target Cells Retic Count Sodium Potassium Chloride Carbon Dioxide Anion Gap BUN 143 H* Creatinine Est GFR ( Amer) Est GFR (Non-Af Amer) Random Glucose Calcium Phosphorus Magnesium Iron TIBC % Saturation Ferritin Total Bilirubin AST ALT Alkaline Phosphatase Total Creatine Kinase CK-MB (Mass) Troponin I NT-Pro-B Natriuret Pep 29299 H Total Protein Albumin Globulin Albumin/Globulin Ratio Urine Color Urine Clarity Urine pH Ur Specific Luther Urine Protein Urine Glucose (UA) Urine Ketones Urine Blood Urine Nitrate Urine Bilirubin Urine Urobilinogen Ur Leukocyte Esterase Urine WBC (Auto) Urine RBC (Auto) Urine Bacteria Urine Eosinophils Ur Random Creatinine U Random Total Protein Complement C3 Complement C4 Hepatitis A IgM Ab Hep Bs Antigen Hep B Core IgM Ab Hepatitis C Antibody Blood Type B POSITIVE Blood Type Confirm B POSITIVE Antibody Screen Negative 06/15/17 06/15/17 06/15/17 19:03 22:01 22:01 WBC RBC Hgb Hct MCV MCH MCHC RDW Plt Count MPV Neut % (Auto) Lymph % (Auto) Crosby % (Auto) Eos % (Auto) Baso % (Auto) Neut # (Auto) Lymph # (Auto) Crosby # (Auto) Eos # (Auto) Baso # (Auto) Neutrophils % (Manual) Lymphocytes % (Manual) Monocytes % (Manual) Eosinophils % (Manual) Platelet Estimate Polychromasia Hypochromasia (manual) Anisocytosis (manual) Target Cells Retic Count Sodium Potassium Chloride Carbon Dioxide Anion Gap BUN Creatinine Est GFR ( Amer) Est GFR (Non-Af Amer) Random Glucose Calcium Phosphorus Magnesium Iron TIBC % Saturation Ferritin Total Bilirubin AST ALT Alkaline Phosphatase Total Creatine Kinase CK-MB (Mass) Troponin I NT-Pro-B Natriuret Pep Total Protein Albumin Globulin Albumin/Globulin Ratio Urine Color Yellow Urine Clarity Hazy Urine pH 5.0 Ur Specific Luther 1.011 Urine Protein 2+ H Urine Glucose (UA) Normal Urine Ketones Negative Urine Blood 1+ H Urine Nitrate Negative Urine Bilirubin Negative Urine Urobilinogen Normal Ur Leukocyte Esterase 3+ H Urine WBC (Auto) 36 H Urine RBC (Auto) 4 H Urine Bacteria Mod H Urine Eosinophils Positive H Ur Random Creatinine 65.7 U Random Total Protein 136.0 H Complement C3 Complement C4 Hepatitis A IgM Ab Hep Bs Antigen Hep B Core IgM Ab Hepatitis C Antibody Blood Type Blood Type Confirm Antibody Screen 06/16/17 06/16/17 06/16/17 06:18 06:18 06:18 WBC 11.0 H RBC 2.08 L Hgb 5.8 L* Hct 17.2 L MCV 82.9 MCH 28.0 MCHC 33.8 RDW 15.2 H Plt Count 243 MPV 8.0 Neut % (Auto) 78.9 H Lymph % (Auto) 7.1 L Crosby % (Auto) 6.8 Eos % (Auto) 6.5 H Baso % (Auto) 0.7 Neut # (Auto) 8.6 H Lymph # (Auto) 0.8 L Crosby # (Auto) 0.7 Eos # (Auto) 0.7 Baso # (Auto) 0.1 Neutrophils % (Manual) 84 H Lymphocytes % (Manual) 5 L Monocytes % (Manual) 2 Eosinophils % (Manual) 9 H Platelet Estimate Normal Polychromasia Slight Hypochromasia (manual) Moderate Anisocytosis (manual) Slight Target Cells Slight Retic Count 3.1 H Sodium 140 Potassium 4.3 Chloride 111 H Carbon Dioxide 12 L Anion Gap 21 H BUN 137 H* Creatinine 15.5 H* Est GFR ( Amer) 4 Est GFR (Non-Af Amer) 3 Random Glucose 86 Calcium 6.1 L Phosphorus 9.1 H Magnesium 1.8 Iron 14 L TIBC 289 % Saturation 5 L Ferritin Total Bilirubin 0.3 AST 20 ALT 25 Alkaline Phosphatase 59 Total Creatine Kinase CK-MB (Mass) Troponin I NT-Pro-B Natriuret Pep Total Protein 5.8 L Albumin 3.0 L Globulin 2.9 Albumin/Globulin Ratio 1.0 Urine Color Urine Clarity Urine pH Ur Specific Luther Urine Protein Urine Glucose (UA) Urine Ketones Urine Blood Urine Nitrate Urine Bilirubin Urine Urobilinogen Ur Leukocyte Esterase Urine WBC (Auto) Urine RBC (Auto) Urine Bacteria Urine Eosinophils Ur Random Creatinine U Random Total Protein Complement C3 Complement C4 Hepatitis A IgM Ab Hep Bs Antigen Hep B Core IgM Ab Hepatitis C Antibody Blood Type Blood Type Confirm Antibody Screen 06/16/17 06/16/17 06/16/17 06:18 06:18 11:38 WBC RBC Hgb Hct MCV MCH MCHC RDW Plt Count MPV Neut % (Auto) Lymph % (Auto) Crosby % (Auto) Eos % (Auto) Baso % (Auto) Neut # (Auto) Lymph # (Auto) Crosby # (Auto) Eos # (Auto) Baso # (Auto) Neutrophils % (Manual) Lymphocytes % (Manual) Monocytes % (Manual) Eosinophils % (Manual) Platelet Estimate Polychromasia Hypochromasia (manual) Anisocytosis (manual) Target Cells Retic Count Sodium Potassium Chloride Carbon Dioxide Anion Gap BUN Creatinine Est GFR ( Amer) Est GFR (Non-Af Amer) Random Glucose Calcium Phosphorus Magnesium Iron TIBC % Saturation Ferritin 41.3 Total Bilirubin AST ALT Alkaline Phosphatase Total Creatine Kinase CK-MB (Mass) Troponin I NT-Pro-B Natriuret Pep Total Protein Albumin Globulin Albumin/Globulin Ratio Urine Color Urine Clarity Urine pH Ur Specific Luther Urine Protein Urine Glucose (UA) Urine Ketones Urine Blood Urine Nitrate Urine Bilirubin Urine Urobilinogen Ur Leukocyte Esterase Urine WBC (Auto) Urine RBC (Auto) Urine Bacteria Urine Eosinophils Ur Random Creatinine U Random Total Protein Complement C3 104.0 Complement C4 36.2 Hepatitis A IgM Ab Negative Hep Bs Antigen Negative Hep B Core IgM Ab Negative Hepatitis C Antibody Negative Blood Type Blood Type Confirm Antibody Screen 06/16/17 11:38 WBC RBC Hgb Hct MCV MCH MCHC RDW Plt Count MPV Neut % (Auto) Lymph % (Auto) Crosby % (Auto) Eos % (Auto) Baso % (Auto) Neut # (Auto) Lymph # (Auto) Crosby # (Auto) Eos # (Auto) Baso # (Auto) Neutrophils % (Manual) Lymphocytes % (Manual) Monocytes % (Manual) Eosinophils % (Manual) Platelet Estimate Polychromasia Hypochromasia (manual) Anisocytosis (manual) Target Cells Retic Count Sodium Potassium Chloride Carbon Dioxide Anion Gap BUN Creatinine Est GFR ( Amer) Est GFR (Non-Af Amer) Random Glucose Calcium Phosphorus Magnesium Iron TIBC % Saturation Ferritin Total Bilirubin AST ALT Alkaline Phosphatase Total Creatine Kinase 264 H CK-MB (Mass) 3.77 H Troponin I 0.2710 H* NT-Pro-B Natriuret Pep Total Protein Albumin Globulin Albumin/Globulin Ratio Urine Color Urine Clarity Urine pH Ur Specific Luther Urine Protein Urine Glucose (UA) Urine Ketones Urine Blood Urine Nitrate Urine Bilirubin Urine Urobilinogen Ur Leukocyte Esterase Urine WBC (Auto) Urine RBC (Auto) Urine Bacteria Urine Eosinophils Ur Random Creatinine U Random Total Protein Complement C3 Complement C4 Hepatitis A IgM Ab Hep Bs Antigen Hep B Core IgM Ab Hepatitis C Antibody Blood Type Blood Type Confirm Antibody Screen Attending/Attestation - Attestation I have personally seen and examined this patient.: Yes I have fully participated in the care of the patient.: Yes I have reviewed all pertinent clinical information: Yes Notes (Text): 06/16/17 17:41 I have seen and examined the patient. Medical records, lab studies, and imaging were reviewed by me and a management plan was formulated on multidisciplinary rounds with resident Dr. De Leon. I agree with their documented assessment and plan. Patient is hemodynamically stable. EGD only found a non-bleeding ulcer. Transfusing 2 units PRBC. Patient now getting dialysis. Further workup for glomerulonephritis with kidney biopsy expected on Monday, Renal - Dr. Enciso. Critical Care Time 35 minutes. Multi-disciplinary rounds were performed with house staff, nursing, speech therapy, respiratory therapy, pharmacy and nutrition with integrated input from the primary team/attending and other consulting services. The documented time is cumulative and includes review of patient data/exams/labs/chart review and examination of the patient on rounds and throughout the day; time is exclusive of any procedures or teaching time. 06/16/17 17:49 06/16/17 17:50
--- NOTE | 2017-06-16 11:47 | CT ---
PROCEDURE: CT Chest without contrast HISTORY: sob COMPARISON: None. TECHNIQUE: Contiguous axial images were obtained through the chest without intravenous contrast enhancement. Sagittal and coronal reconstructions were performed. Radiation dose (DLP): 311.54 mGy-cm. This CT exam was performed using one or more of the following dose reduction techniques: Automated exposure control, adjustment of the mA and/or kV according to patient size, and/or use of iterative reconstruction technique. FINDINGS: LUNGS: There are foci of ground-glass opacity associated with interstitial septal thickening and mild bronchiectasis noted mainly at the mid and lower portion of the lungs bilaterally. Findings suspicious for pneumonitis and the differential consideration includes UIP, nonspecific interstitial pneumonia and desquamative interstitial pneumonia. The differential consideration also includes chronic hypersensitivity pneumonitis. There is spiculated portal focal consolidation/nodule noted at the right lung along the right fissure may represent lung nodule or focal thickening in the pleural. Mild central bronchiectasis is also noted. There is a 4 millimeter calcified nodule at the left lung upper lobe with adjacent linear opacity likely represent sequela of prior infection or inflammatory process. There are also scar tissue seen at upper lobes. Mild emphysematous changes are noted with the paraseptal emphysema predominant in the upper lobes. MEDIASTINUM: Ectatic thoracic aorta and focal mild dilate a marie of the aortic arch measures up to 3.8 centimeter is noted. The heart is mildly enlarged. Main pulmonary artery is mildly enlarged. Slightly prominent AP window and precarinal lymph nodes are noted. PLEURA: Foci of pleural thickening and possible trace pleural effusion noted at the lower portion of the chest bilaterally. BONES: No fracture. No destructive lesion. UPPER ABDOMEN: Mild diffuse enlargement of the adrenal glands noted bilaterally may represent adrenal hyperplasia. Cystic lesion noted in the visualized portion of the kidneys. OTHER FINDINGS: None. IMPRESSION: Patchy foci of ground-glass opacities associated with septal thickening and mild bronchiectasis and also associated with foci of honeycombing. Findings likely represent interstitial pneumonitis and the differential consideration includes mainly UIP and less likely nonspecific interstitial pneumonitis, desquamative interstitial pneumonia and chronic hypersensitivity pneumonitis. Foci of consolidation noted at the right lung along the right fissure may represent lung nodule or pleural thickening 3 months follow-up reassessment is recommended. Mild emphysema. Mild cardiomegaly.
[2017-06-16 12:08] LABS: COMPLEMENT C4 36.2 mg/dL (14.0-44.0)
[2017-06-16 12:18] LABS: CK-MB 3.77 ng/mL (0.0-3.38)
--- NOTE | 2017-06-16 12:51 | CP.PCM.CON ---
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 Will plan for HD today and tomorrow as ordered. d/w pt about risks/benefits/indications, pros/ cons, he understood and agreed with dialysis. consent obtained. please consult surgery to obtain dialysis access. Hypertension control with meds as ordered.No ACEI/ARB due to RUPERTO. can start norvasc 10 mg and prn hydralazine or labetalol IV after HD if BP remains elevated pt planned for endoscopic eval today by GI Monitor Input/Output, daily weights and renal function with basic metabolic panel will start phos binders, nephrovite, IV iron and epogen. pt for PRBC 06/16/17. d/c bicarb drip once pt on HD. renal artery doppler can be deferred. 24 hr urine collection not needed Checking further GN work up as KADEN, Anti dsDNA, ANCA (MPO and HI-3), Anti GBM antibody will plan for kidney biopsy early next week once pt stable and uti better empiric treatment such as steroid depending upon endoscopic eval, will consider if no upper GI/peptic ulcer bleed. Dose meds/antibiotics for reduced GFR. Avoid fleets enema/magnesium based laxatives. Avoid nephrotoxins/NSAIDs/ iodinated contrast (unless needed emergently) Glycemic control. pt to abstain from etoh and smoking Further work up/management as per primary team Thanks for allowing me to participate in care of your patient. Will follow patient with you. Please call if any Qs. d/w team. Dr Austyn Enciso Office: [phone] Chief Complaint; SOB and fatigue reason for consult: RPUERTO HPI: Pt is a 61 M with hx of hypertension (few years) when diagnosed with TIA, chronic sinusitis, activ smoker and etoh on weekends, hasn't been taking BP meds for last 1 year due to insurance issues presented with complaints of sickness x 2 weeks with fatigue, body aches and exertional dyspnoea. reports hx of hemrrhoids and bright red blood in stool and toilet paper Denies OTC/herbal meds or NSAIDs No recent iodinated contrast exposure. No obvious episodes of low BP. no recent antibiotics denies any renal issues in past ROS: Cardiovascular: No chest pain. Pulmonary: c/o shortness of breath Gastrointestinal: denies abdominal pain No nausea. No vomiting. c/o blood in stool Genitourinary: No pain while urinating. Denies blood in urine. All other negative except as in HPI Physical Examination: General Appearance: ill appearing, co-operative . Vitals reviewed and noted as below Head; Atraumatic, normocephalic ENT: no ulcers no thrush. Tongue is midline. Oropharynx: no rash or ulcers. EYES: Pupils are equal, round and reactive to light accommodation. Eye muscles and extraocular movement intact. Sclera is anicteric. Neck; supple no lymphadenopathy, no thyromegaly or bruit Lungs: Increased respiratory rate/effort. Breath sounds bilateral equal and with basal rales Heart: Normal rate. s1s2 normal. No rub or gallop. Extremities: no edema. No varicose veins Neurological: Patient is alert, awake and oriented to person, place and time. No focal deficit. Strength bilateral appropriate and equal Skin: Warm and dry. Normal turgor. No rash. Palpitation: Normal elasticity for age Abdomen: Abdomen is soft. Bowel sounds +. There is no abdominal tenderness, no guarding/rigidity no organomegaly Psych: normal insight and normal affect/mood MSK: no joint tenderness or swelling. Digits and nails normal, no deformity : kidney or bladder not palpable Labs/imaging reviewed. Past medical history, past surgical history, family history, social history, allergy reviewed and noted as below Family hx: no hx of CKD. Rest non-contributory Work up: UA done by me with 2+ protein and moderate blood with numerous WBC and RBC in microscopy, with cellular casts urine pro/cr: 2 gram/day normal complements and urine cx: GNR TSAT 5% Ferritin 40 imaging: no obstruction Past Patient History - Past Social History Smoking Status: Heavy Smoker > 10 Cigarettes Daily - CARDIAC Hx Hypertension: Yes (noncompliant with meds) - PSYCHIATRIC Hx Substance Use: No - SURGICAL HISTORY Hx Surgeries: Yes - ANESTHESIA Hx Anesthesia: Yes Hx Anesthesia Reactions: No Hx Malignant Hyperthermia: No Meds Allergies/Adverse Reactions: Allergies Allergy/AdvReac Type Severity Reaction Status Date / Time No Known Allergies Allergy Unverified 06/15/17 15:11 - Medications Medications: Current Medications Calcium Acetate (Phoslo) 1,334 mg PO TIDCC SELINA Epoetin Connor (Procrit) 8,000 unit IV TTS [facility] Ferric Sodium Gluconate Complex (Ferrlecit) 125 mg IVPB DAILY SELINA Stop: 06/23/17 10:01 Pantoprazole Sodium 80 mg/ (Sodium Chloride) 100 mls @ 10 mls/hr IV .Q10H SELINA PRN Reason: 8 MG/HR Sodium Bicarbonate 50 meq/ (Dextrose) 1,050 mls @ 60 mls/hr IV .[id number] SELINA Vitamin B Complex/Vit C/Folic Acid (Nephro-Magdalena) 1 tab PO 0800 [facility] Results - Vital Signs Recent Vital Signs: Last Vital Signs Temp 98.3 F 06/16/17 12:00 Pulse 82 06/16/17 12:00 Resp 24 06/16/17 12:00 BP 184/103 H 06/16/17 12:00 Pulse Ox 100 06/16/17 12:00 - Labs Result Diagrams: 06/16/17 06:18 06/16/17 06:18 Labs: Laboratory Results - last 24 hr 06/15/17 06/15/17 06/15/17 16:35 16:35 16:35 WBC 10.6 RBC 1.84 L Hgb 5.0 L* Hct 15.4 L MCV 83.8 MCH 27.2 MCHC 32.4 L RDW 15.8 H Plt Count 265 MPV 7.4 Neut % (Auto) 83.8 H Lymph % (Auto) 6.0 L Mccreary % (Auto) 4.5 Eos % (Auto) 5.0 H Baso % (Auto) 0.7 Neut # (Auto) 8.9 H Lymph # (Auto) 0.6 L Mccreary # (Auto) 0.5 Eos # (Auto) 0.5 Baso # (Auto) 0.1 Neutrophils % (Manual) 90 H Lymphocytes % (Manual) 3 L Monocytes % (Manual) TEST NOT PERFORMED Eosinophils % (Manual) 7 H Platelet Estimate Normal Polychromasia Slight Hypochromasia (manual) Slight Anisocytosis (manual) Slight Target Cells Retic Count PT 12.4 H INR 1.1 APTT 33 Sodium 140 Potassium 4.4 Chloride 107 Carbon Dioxide 13 L Anion Gap 25 H BUN 143 H* Creatinine 15.8 H* Est GFR ( Amer) 4 Est GFR (Non-Af Amer) 3 Random Glucose 105 Calcium 6.5 L Phosphorus Magnesium Iron TIBC % Saturation Ferritin Total Bilirubin 0.3 AST 20 ALT 27 Alkaline Phosphatase 61 Total Creatine Kinase CK-MB (Mass) Troponin I 0.0800 NT-Pro-B Natriuret Pep 55156 H Total Protein 6.4 Albumin 3.4 L Globulin 3.0 Albumin/Globulin Ratio 1.1 Urine Color Urine Clarity Urine pH Ur Specific [place] Urine Protein Urine Glucose (UA) Urine Ketones Urine Blood Urine Nitrate Urine Bilirubin Urine Urobilinogen Ur Leukocyte Esterase Urine WBC (Auto) Urine RBC (Auto) Urine Bacteria Urine Eosinophils Ur Random Creatinine U Random Total Protein Stool Occult Blood Complement C3 Complement C4 Hepatitis A IgM Ab Hep Bs Antigen Hep B Core IgM Ab Hepatitis C Antibody Blood Type Blood Type Confirm Antibody Screen 06/15/17 06/15/17 06/15/17 16:35 16:44 19:03 WBC RBC Hgb Hct MCV MCH MCHC RDW Plt Count MPV Neut % (Auto) Lymph % (Auto) Mccreary % (Auto) Eos % (Auto) Baso % (Auto) Neut # (Auto) Lymph # (Auto) Mccreary # (Auto) Eos # (Auto) Baso # (Auto) Neutrophils % (Manual) Lymphocytes % (Manual) Monocytes % (Manual) Eosinophils % (Manual) Platelet Estimate Polychromasia Hypochromasia (manual) Anisocytosis (manual) Target Cells Retic Count PT INR APTT Sodium Potassium Chloride Carbon Dioxide Anion Gap BUN Creatinine Est GFR ( Amer) Est GFR (Non-Af Amer) Random Glucose Calcium Phosphorus Magnesium Iron TIBC % Saturation Ferritin Total Bilirubin AST ALT Alkaline Phosphatase Total Creatine Kinase CK-MB (Mass) Troponin I NT-Pro-B Natriuret Pep Total Protein Albumin Globulin Albumin/Globulin Ratio Urine Color Yellow Urine Clarity Hazy Urine pH 5.0 Ur Specific [place] 1.011 Urine Protein 2+ H Urine Glucose (UA) Normal Urine Ketones Negative Urine Blood 1+ H Urine Nitrate Negative Urine Bilirubin Negative Urine Urobilinogen Normal Ur Leukocyte Esterase 3+ H Urine WBC (Auto) 36 H Urine RBC (Auto) 4 H Urine Bacteria Mod H Urine Eosinophils Ur Random Creatinine U Random Total Protein Stool Occult Blood Positive H Complement C3 Complement C4 Hepatitis A IgM Ab Hep Bs Antigen Hep B Core IgM Ab Hepatitis C Antibody Blood Type B POSITIVE Blood Type Confirm B POSITIVE Antibody Screen Negative 06/15/17 06/15/17 06/16/17 22:01 22:01 06:18 WBC 11.0 H RBC 2.08 L Hgb 5.8 L* Hct 17.2 L MCV 82.9 MCH 28.0 MCHC 33.8 RDW 15.2 H Plt Count 243 MPV 8.0 Neut % (Auto) 78.9 H Lymph % (Auto) 7.1 L Mccreary % (Auto) 6.8 Eos % (Auto) 6.5 H Baso % (Auto) 0.7 Neut # (Auto) 8.6 H Lymph # (Auto) 0.8 L Mccreary # (Auto) 0.7 Eos # (Auto) 0.7 Baso # (Auto) 0.1 Neutrophils % (Manual) 84 H Lymphocytes % (Manual) 5 L Monocytes % (Manual) 2 Eosinophils % (Manual) 9 H Platelet Estimate Normal Polychromasia Slight Hypochromasia (manual) Moderate Anisocytosis (manual) Slight Target Cells Slight Retic Count 3.1 H PT INR APTT Sodium Potassium Chloride Carbon Dioxide Anion Gap BUN Creatinine Est GFR ( Amer) Est GFR (Non-Af Amer) Random Glucose Calcium Phosphorus Magnesium Iron TIBC % Saturation Ferritin Total Bilirubin AST ALT Alkaline Phosphatase Total Creatine Kinase CK-MB (Mass) Troponin I NT-Pro-B Natriuret Pep Total Protein Albumin Globulin Albumin/Globulin Ratio Urine Color Urine Clarity Urine pH Ur Specific [place] Urine Protein Urine Glucose (UA) Urine Ketones Urine Blood Urine Nitrate Urine Bilirubin Urine Urobilinogen Ur Leukocyte Esterase Urine WBC (Auto) Urine RBC (Auto) Urine Bacteria Urine Eosinophils Positive H Ur Random Creatinine 65.7 U Random Total Protein 136.0 H Stool Occult Blood Complement C3 Complement C4 Hepatitis A IgM Ab Hep Bs Antigen Hep B Core IgM Ab Hepatitis C Antibody Blood Type Blood Type Confirm Antibody Screen 06/16/17 06/16/17 06/16/17 06:18 06:18 06:18 WBC RBC Hgb Hct MCV MCH MCHC RDW Plt Count MPV Neut % (Auto) Lymph % (Auto) Mccreary % (Auto) Eos % (Auto) Baso % (Auto) Neut # (Auto) Lymph # (Auto) Mccreary # (Auto) Eos # (Auto) Baso # (Auto) Neutrophils % (Manual) Lymphocytes % (Manual) Monocytes % (Manual) Eosinophils % (Manual) Platelet Estimate Polychromasia Hypochromasia (manual) Anisocytosis (manual) Target Cells Retic Count PT INR APTT Sodium 140 Potassium 4.3 Chloride 111 H Carbon Dioxide 12 L Anion Gap 21 H BUN 137 H* Creatinine 15.5 H* Est GFR ( Amer) 4 Est GFR (Non-Af Amer) 3 Random Glucose 86 Calcium 6.1 L Phosphorus 9.1 H Magnesium 1.8 Iron 14 L TIBC 289 % Saturation 5 L Ferritin Total Bilirubin 0.3 AST 20 ALT 25 Alkaline Phosphatase 59 Total Creatine Kinase CK-MB (Mass) Troponin I NT-Pro-B Natriuret Pep Total Protein 5.8 L Albumin 3.0 L Globulin 2.9 Albumin/Globulin Ratio 1.0 Urine Color Urine Clarity Urine pH Ur Specific [place] Urine Protein Urine Glucose (UA) Urine Ketones Urine Blood Urine Nitrate Urine Bilirubin Urine Urobilinogen Ur Leukocyte Esterase Urine WBC (Auto) Urine RBC (Auto) Urine Bacteria Urine Eosinophils Ur Random Creatinine U Random Total Protein Stool Occult Blood Complement C3 Complement C4 Hepatitis A IgM Ab Negative Hep Bs Antigen Negative Hep B Core IgM Ab Negative Hepatitis C Antibody Negative Blood Type Blood Type Confirm Antibody Screen 06/16/17 06/16/17 06/16/17 06:18 11:38 11:38 WBC RBC Hgb Hct MCV MCH MCHC RDW Plt Count MPV Neut % (Auto) Lymph % (Auto) Mccreary % (Auto) Eos % (Auto) Baso % (Auto) Neut # (Auto) Lymph # (Auto) Mccreary # (Auto) Eos # (Auto) Baso # (Auto) Neutrophils % (Manual) Lymphocytes % (Manual) Monocytes % (Manual) Eosinophils % (Manual) Platelet Estimate Polychromasia Hypochromasia (manual) Anisocytosis (manual) Target Cells Retic Count PT INR APTT Sodium Potassium Chloride Carbon Dioxide Anion Gap BUN Creatinine Est GFR ( Amer) Est GFR (Non-Af Amer) Random Glucose Calcium Phosphorus Magnesium Iron TIBC % Saturation Ferritin 41.3 Total Bilirubin AST ALT Alkaline Phosphatase Total Creatine Kinase 264 H CK-MB (Mass) 3.77 H Troponin I NT-Pro-B Natriuret Pep Total Protein Albumin Globulin Albumin/Globulin Ratio Urine Color Urine Clarity Urine pH Ur Specific [place] Urine Protein Urine Glucose (UA) Urine Ketones Urine Blood Urine Nitrate Urine Bilirubin Urine Urobilinogen Ur Leukocyte Esterase Urine WBC (Auto) Urine RBC (Auto) Urine Bacteria Urine Eosinophils Ur Random Creatinine U Random Total Protein Stool Occult Blood Complement C3 104.0 Complement C4 36.2 Hepatitis A IgM Ab Hep Bs Antigen Hep B Core IgM Ab Hepatitis C Antibody Blood Type Blood Type Confirm Antibody Screen
[2017-06-16 12:53] LABS: TROPONIN I 0.271 ng/mL (0.00-0.120)
--- NOTE | 2017-06-16 13:26 | CP.PCM.CON ---
History of Present Illness - History of Present Illness History of Present Illness: Vascular surgery consult note for Dr. Sotelo-Edwina Dos Santos, PGY-1 Pt S & E at bedside. 61M w/PMH sig for HTN, UGI bleed, hx TIA consulted for ARF requiring dialysis access. Pt reports continued generalized weakness, chills, ALBERTS, Bright red blood per rectum. Denies changes to bowel or bladder habits, melena, hematemesis , other complaints. Cr 15.5, BUN 137. PMH: HTN, UGI bleed, hx TIA w/residual generalized weakness PSH: septoplasty, Uvulopalatopharyngoplasty All: NKDA SH: Admits to 1/ ppd x 44 yrs, ETOH- 8 drinks per weekend, denies illicit drug use Initial Post-operative Note - Surgeon's Notes Surgeon: Dr. Sotelo Sawmill Tally Clerk: Edwina Dos Santos, PGY-1 Anesthesia Administered By: Local administered by surgery Pre-Operative Diagnosis: Acute renal failure requiring dialysis access Date of OP: 06/16/17 Procedure: Insertion of Right femoral dialysis catheter Post-Operative Diagnosis: Acute renal failure requiring dialysis access Decription of Operation: Right groin infiltrated with 5 cc lidocaine, ultrasound used to identify femoral vein, femoral vein accessed with 18 gauge venopuncture, guidewire introduced, needle removed, track dilated, catheter placed over guidewire. Guidewire removed, all ports with good blood return, flushed with 5 cc sterile saline. Catheter secured with bilateral sutures after lidocaine 5cc introduced into skin. Sterile dressing applied. Operative Findings: See op report Specimen Removed: None Estimated Blood Loss: 5 (insertion of catheter done under supervision of Dr. Sotelo) Review of Systems - Review of Systems All systems: reviewed and no additional remarkable complaints except - Constitutional Constitutional: Chills, Weakness (chronic). absent: Fever - EENT Eyes: absent: Change in Vision Ears: absent: Dizziness - Cardiovascular Cardiovascular: Dyspnea on Exertion. absent: Chest Pain, Lightheadedness, Syncope - Respiratory Respiratory: absent: Cough - Gastrointestinal Gastrointestinal: absent: Abdominal Pain, Nausea, Vomiting - Genitourinary Genitourinary: absent: Change in Urinary Stream - Musculoskeletal Musculoskeletal: absent: Numbness, Tingling - Integumentary Integumentary: absent: Rash - Neurological Neurological: Weakness (chronic since TIA) - Psychiatric Psychiatric: absent: Change in Appetite Past Patient History - Past Social History Smoking Status: Heavy Smoker > 10 Cigarettes Daily - CARDIAC Hx Hypertension: Yes (noncompliant with meds) - PSYCHIATRIC Hx Substance Use: No - SURGICAL HISTORY Hx Surgeries: Yes - ANESTHESIA Hx Anesthesia: Yes Hx Anesthesia Reactions: No Hx Malignant Hyperthermia: No Meds Allergies/Adverse Reactions: Allergies Allergy/AdvReac Type Severity Reaction Status Date / Time No Known Allergies Allergy Unverified 06/15/17 15:11 - Medications Medications: Current Medications Calcium Acetate (Phoslo) 1,334 mg PO TIDCC SELINA Epoetin Connor (Procrit) 8,000 unit IV TTS [facility] Ferric Sodium Gluconate Complex (Ferrlecit) 125 mg IVPB DAILY SELINA Stop: 06/23/17 10:01 Pantoprazole Sodium 80 mg/ (Sodium Chloride) 100 mls @ 10 mls/hr IV .Q10H SELINA PRN Reason: 8 MG/HR Sodium Bicarbonate 50 meq/ (Dextrose) 1,050 mls @ 60 mls/hr IV .[id number] SELINA Vitamin B Complex/Vit C/Folic Acid (Nephro-Magdalena) 1 tab PO 0800 SELINA Physical Exam - Constitutional Appears: Non-toxic, No Acute Distress - Head Exam Head Exam: ATRAUMATIC, NORMAL INSPECTION, NORMOCEPHALIC - Eye Exam Eye Exam: EOMI, Normal appearance - ENT Exam ENT Exam: Mucous Membranes Moist, Normal Exam - Neck Exam Neck exam: Positive for: Full Rom, Normal Inspection - Respiratory Exam Respiratory Exam: NORMAL BREATHING PATTERN - Cardiovascular Exam Cardiovascular Exam: REGULAR RHYTHM, +S1, +S2 - GI/Abdominal Exam GI & Abdominal Exam: Soft. absent: Tenderness - Extremities Exam Extremities exam: Positive for: normal inspection - Neurological Exam Neurological exam: Alert, CN II-XII Intact, Oriented x3 - Psychiatric Exam Psychiatric exam: Normal Affect, Normal Mood - Skin Skin Exam: Dry, Intact, Normal Color, Warm Results - Vital Signs Recent Vital Signs: Last Vital Signs Temp 98.3 F 06/16/17 12:00 Pulse 82 06/16/17 12:00 Resp 24 06/16/17 12:00 BP 184/103 H 06/16/17 12:00 Pulse Ox 100 06/16/17 12:00 - Labs Result Diagrams: 06/16/17 06:18 06/16/17 06:18 Labs: Laboratory Results - last 24 hr 06/15/17 06/15/17 06/15/17 16:35 16:35 16:35 WBC 10.6 RBC 1.84 L Hgb 5.0 L* Hct 15.4 L MCV 83.8 MCH 27.2 MCHC 32.4 L RDW 15.8 H Plt Count 265 MPV 7.4 Neut % (Auto) 83.8 H Lymph % (Auto) 6.0 L [place] % (Auto) 4.5 Eos % (Auto) 5.0 H Baso % (Auto) 0.7 Neut # (Auto) 8.9 H Lymph # (Auto) 0.6 L [place] # (Auto) 0.5 Eos # (Auto) 0.5 Baso # (Auto) 0.1 Neutrophils % (Manual) 90 H Lymphocytes % (Manual) 3 L Monocytes % (Manual) TEST NOT PERFORMED Eosinophils % (Manual) 7 H Platelet Estimate Normal Polychromasia Slight Hypochromasia (manual) Slight Anisocytosis (manual) Slight Target Cells Retic Count PT 12.4 H INR 1.1 APTT 33 Sodium 140 Potassium 4.4 Chloride 107 Carbon Dioxide 13 L Anion Gap 25 H BUN 143 H* Creatinine 15.8 H* Est GFR ( Amer) 4 Est GFR (Non-Af Amer) 3 Random Glucose 105 Calcium 6.5 L Phosphorus Magnesium Iron TIBC % Saturation Ferritin Total Bilirubin 0.3 AST 20 ALT 27 Alkaline Phosphatase 61 Total Creatine Kinase CK-MB (Mass) Troponin I 0.0800 NT-Pro-B Natriuret Pep 05671 H Total Protein 6.4 Albumin 3.4 L Globulin 3.0 Albumin/Globulin Ratio 1.1 Urine Color Urine Clarity Urine pH Ur Specific [place] Urine Protein Urine Glucose (UA) Urine Ketones Urine Blood Urine Nitrate Urine Bilirubin Urine Urobilinogen Ur Leukocyte Esterase Urine WBC (Auto) Urine RBC (Auto) Urine Bacteria Urine Eosinophils Ur Random Creatinine U Random Total Protein Stool Occult Blood Complement C3 Complement C4 Hepatitis A IgM Ab Hep Bs Antigen Hep B Core IgM Ab Hepatitis C Antibody Blood Type Blood Type Confirm Antibody Screen 06/15/17 06/15/17 06/15/17 16:35 16:44 19:03 WBC RBC Hgb Hct MCV MCH MCHC RDW Plt Count MPV Neut % (Auto) Lymph % (Auto) [place] % (Auto) Eos % (Auto) Baso % (Auto) Neut # (Auto) Lymph # (Auto) [place] # (Auto) Eos # (Auto) Baso # (Auto) Neutrophils % (Manual) Lymphocytes % (Manual) Monocytes % (Manual) Eosinophils % (Manual) Platelet Estimate Polychromasia Hypochromasia (manual) Anisocytosis (manual) Target Cells Retic Count PT INR APTT Sodium Potassium Chloride Carbon Dioxide Anion Gap BUN Creatinine Est GFR ( Amer) Est GFR (Non-Af Amer) Random Glucose Calcium Phosphorus Magnesium Iron TIBC % Saturation Ferritin Total Bilirubin AST ALT Alkaline Phosphatase Total Creatine Kinase CK-MB (Mass) Troponin I NT-Pro-B Natriuret Pep Total Protein Albumin Globulin Albumin/Globulin Ratio Urine Color Yellow Urine Clarity Hazy Urine pH 5.0 Ur Specific [place] 1.011 Urine Protein 2+ H Urine Glucose (UA) Normal Urine Ketones Negative Urine Blood 1+ H Urine Nitrate Negative Urine Bilirubin Negative Urine Urobilinogen Normal Ur Leukocyte Esterase 3+ H Urine WBC (Auto) 36 H Urine RBC (Auto) 4 H Urine Bacteria Mod H Urine Eosinophils Ur Random Creatinine U Random Total Protein Stool Occult Blood Positive H Complement C3 Complement C4 Hepatitis A IgM Ab Hep Bs Antigen Hep B Core IgM Ab Hepatitis C Antibody Blood Type B POSITIVE Blood Type Confirm B POSITIVE Antibody Screen Negative 06/15/17 06/15/17 06/16/17 22:01 22:01 06:18 WBC 11.0 H RBC 2.08 L Hgb 5.8 L* Hct 17.2 L MCV 82.9 MCH 28.0 MCHC 33.8 RDW 15.2 H Plt Count 243 MPV 8.0 Neut % (Auto) 78.9 H Lymph % (Auto) 7.1 L [place] % (Auto) 6.8 Eos % (Auto) 6.5 H Baso % (Auto) 0.7 Neut # (Auto) 8.6 H Lymph # (Auto) 0.8 L [place] # (Auto) 0.7 Eos # (Auto) 0.7 Baso # (Auto) 0.1 Neutrophils % (Manual) 84 H Lymphocytes % (Manual) 5 L Monocytes % (Manual) 2 Eosinophils % (Manual) 9 H Platelet Estimate Normal Polychromasia Slight Hypochromasia (manual) Moderate Anisocytosis (manual) Slight Target Cells Slight Retic Count 3.1 H PT INR APTT Sodium Potassium Chloride Carbon Dioxide Anion Gap BUN Creatinine Est GFR ( Amer) Est GFR (Non-Af Amer) Random Glucose Calcium Phosphorus Magnesium Iron TIBC % Saturation Ferritin Total Bilirubin AST ALT Alkaline Phosphatase Total Creatine Kinase CK-MB (Mass) Troponin I NT-Pro-B Natriuret Pep Total Protein Albumin Globulin Albumin/Globulin Ratio Urine Color Urine Clarity Urine pH Ur Specific [place] Urine Protein Urine Glucose (UA) Urine Ketones Urine Blood Urine Nitrate Urine Bilirubin Urine Urobilinogen Ur Leukocyte Esterase Urine WBC (Auto) Urine RBC (Auto) Urine Bacteria Urine Eosinophils Positive H Ur Random Creatinine 65.7 U Random Total Protein 136.0 H Stool Occult Blood Complement C3 Complement C4 Hepatitis A IgM Ab Hep Bs Antigen Hep B Core IgM Ab Hepatitis C Antibody Blood Type Blood Type Confirm Antibody Screen 06/16/17 06/16/17 06/16/17 06:18 06:18 06:18 WBC RBC Hgb Hct MCV MCH MCHC RDW Plt Count MPV Neut % (Auto) Lymph % (Auto) [place] % (Auto) Eos % (Auto) Baso % (Auto) Neut # (Auto) Lymph # (Auto) [place] # (Auto) Eos # (Auto) Baso # (Auto) Neutrophils % (Manual) Lymphocytes % (Manual) Monocytes % (Manual) Eosinophils % (Manual) Platelet Estimate Polychromasia Hypochromasia (manual) Anisocytosis (manual) Target Cells Retic Count PT INR APTT Sodium 140 Potassium 4.3 Chloride 111 H Carbon Dioxide 12 L Anion Gap 21 H BUN 137 H* Creatinine 15.5 H* Est GFR ( Amer) 4 Est GFR (Non-Af Amer) 3 Random Glucose 86 Calcium 6.1 L Phosphorus 9.1 H Magnesium 1.8 Iron 14 L TIBC 289 % Saturation 5 L Ferritin Total Bilirubin 0.3 AST 20 ALT 25 Alkaline Phosphatase 59 Total Creatine Kinase CK-MB (Mass) Troponin I NT-Pro-B Natriuret Pep Total Protein 5.8 L Albumin 3.0 L Globulin 2.9 Albumin/Globulin Ratio 1.0 Urine Color Urine Clarity Urine pH Ur Specific [place] Urine Protein Urine Glucose (UA) Urine Ketones Urine Blood Urine Nitrate Urine Bilirubin Urine Urobilinogen Ur Leukocyte Esterase Urine WBC (Auto) Urine RBC (Auto) Urine Bacteria Urine Eosinophils Ur Random Creatinine U Random Total Protein Stool Occult Blood Complement C3 Complement C4 Hepatitis A IgM Ab Negative Hep Bs Antigen Negative Hep B Core IgM Ab Negative Hepatitis C Antibody Negative Blood Type Blood Type Confirm Antibody Screen 06/16/17 06/16/17 06/16/17 06:18 11:38 11:38 WBC RBC Hgb Hct MCV MCH MCHC RDW Plt Count MPV Neut % (Auto) Lymph % (Auto) [place] % (Auto) Eos % (Auto) Baso % (Auto) Neut # (Auto) Lymph # (Auto) [place] # (Auto) Eos # (Auto) Baso # (Auto) Neutrophils % (Manual) Lymphocytes % (Manual) Monocytes % (Manual) Eosinophils % (Manual) Platelet Estimate Polychromasia Hypochromasia (manual) Anisocytosis (manual) Target Cells Retic Count PT INR APTT Sodium Potassium Chloride Carbon Dioxide Anion Gap BUN Creatinine Est GFR ( Amer) Est GFR (Non-Af Amer) Random Glucose Calcium Phosphorus Magnesium Iron TIBC % Saturation Ferritin 41.3 Total Bilirubin AST ALT Alkaline Phosphatase Total Creatine Kinase 264 H CK-MB (Mass) 3.77 H Troponin I 0.2710 H* NT-Pro-B Natriuret Pep Total Protein Albumin Globulin Albumin/Globulin Ratio Urine Color Urine Clarity Urine pH Ur Specific [place] Urine Protein Urine Glucose (UA) Urine Ketones Urine Blood Urine Nitrate Urine Bilirubin Urine Urobilinogen Ur Leukocyte Esterase Urine WBC (Auto) Urine RBC (Auto) Urine Bacteria Urine Eosinophils Ur Random Creatinine U Random Total Protein Stool Occult Blood Complement C3 104.0 Complement C4 36.2 Hepatitis A IgM Ab Hep Bs Antigen Hep B Core IgM Ab Hepatitis C Antibody Blood Type Blood Type Confirm Antibody Screen Assessment & Plan - Assessment and Plan (Free Text) Assessment: 61M w/ARF requiring dialysis Plan: Consent in chart Will place R groin HD catheter DW attending Raya, PGY-1 - Date & Time Date: 06/16/17 Time: 13:25
--- NOTE | 2017-06-16 13:47 | CP.PCM.PN ---
Subjective - Date & Time of Evaluation Date of Evaluation: 06/16/17 Time of Evaluation: 09:45 - Subjective Subjective: Patient was seen in the ER earlier in the morning. The patient as described in the above note by the resident was short of breath as well as reporting bright red blood per rectum. He was not actively bleeding when we saw him however he still looked tired and short of breath. It was found that he had a very elevated BUN/Creatine. When he came in overnight he had a Hgb of 5.0 and after two units of PRBCs it only came up to 5.8. His blood pressure was stable and when I talked to him he was appropriate to questions and exam. The new lab work however showed worsening metabolic acidosis with the serum bicarb dropping to 11 down from 15. We placed patient on a slow D5 with 1 amp of bicarb @ 60 cc /hr as well as additional PRBCs, and also DDAVP 30 mcg x 1 Because of his worsening acidosis as well as ongoing anemia, and he was still short of breath, he was moved to the ICU for further monitoring. Nephrology and GI has also already seen patient and he will need dialysis catheter as well as endoscopy. Objective - Vital Signs/Intake and Output Vital Signs (last 24 hours): Temp Pulse Resp BP Pulse Ox 98.3 F 82 24 184/103 H 100 06/16/17 12:00 06/16/17 12:00 06/16/17 12:00 06/16/17 12:00 06/16/17 12:00 Intake and Output: 06/16/17 06/16/17 06:59 18:59 Intake Total 1160 50 Output Total 1000 Balance 160 50 - Medications Medications: Current Medications Calcium Acetate (Phoslo) 1,334 mg PO TIDCC SELINA Epoetin Connor (Procrit) 8,000 unit IV TTS [facility] Ferric Sodium Gluconate Complex (Ferrlecit) 125 mg IVPB DAILY SELINA Stop: 06/23/17 10:01 Pantoprazole Sodium 80 mg/ (Sodium Chloride) 100 mls @ 10 mls/hr IV .Q10H SELINA PRN Reason: 8 MG/HR Sodium Bicarbonate 50 meq/ (Dextrose) 1,050 mls @ 60 mls/hr IV .[id number] [facility] Vitamin B Complex/Vit C/Folic Acid (Nephro-Magdalena) 1 tab PO 0800 SELINA - Labs Labs: 06/16/17 06:18 06/16/17 06:18 PT 12.4 SECONDS (9.7-12.2) H 06/15/17 16:35 INR 1.1 06/15/17 16:35 APTT 33 SECONDS (21-34) 06/15/17 16:35 - Constitutional Appears: Toxic, Unkempt, Chronically Ill - Head Exam Head Exam: NORMAL INSPECTION, NORMOCEPHALIC - Eye Exam Eye Exam: EOMI, Normal appearance - GI/Abdominal Exam GI & Abdominal Exam: Soft. absent: Guarding, Rigid, Tenderness, Diminished Bowel Sounds - Rectal Exam Rectal Exam: Bloody Stool - Neurological Exam Neurological Exam: Alert, Awake, CN II-XII Intact Neuro motor strength exam: Left Upper Extremity: 4, Right Upper Extremity: 4, Left Lower Extremity: 4, Right Lower Extremity: 4 - Psychiatric Exam Psychiatric exam: Depressed, Flat Affect - Skin Skin Exam: Dry, Warm Assessment and Plan - Assessment and Plan (Free Text) Assessment: Assessment & Plan (1) Severe anemia Assessment and Plan: 06/16: On admission Hgb was 5, however after two units of PRBCs only was 5.8 He was still short of breath. 2 More additional units ordered Because of uremia on labwork we also ordered 30 DDAVP x 1 dose now as he may have uremic bleeding Pending (2) Dyspnea on exertion Assessment and Plan: 06/16: Multifocal - he has severe anemia as well as some sort of underlying lung disease. We ordered a CT of the chest and the final read is pending however it looks almost honey combing/atelecatis appearance. Pending echo. Chest xray: patchy opacities within lateral right upper lobe and b/l lower lobes may reflect multifocal infiltrate or atelectasis (3) ARF (acute renal failure) Assessment and Plan: 06/16: Patient was seen by nephrology in the ER. Per discussion with nephrology he will need HD cather and dialysis later today. This maybe an autoimmune ARF At admission: BUN 147, Cr 15.8 Follow I and Os There is a pending renal ultrasound (4) Metabolic acidosis secondary to renal failure Assessment and Plan: 06/16: Per discussion with nephrology will need HD now He will be getting HD cathter today and HD today Pending ABG (5) UTI (urinary tract infection) Assessment and Plan: UA: 2+ protein, 1+ blood, 3+ LE, 36 WBC, 4RBC, moderate bacteria Follow urine cultures (5) Prophylactic measure Assessment and Plan: NO chemical anticoagulation due to severe anemia SCDs Protonix 40mg IV daily Renal diet
[2017-06-16] MEDS: Pantoprazole 80 MG in Sodium Chloride 0.9% 100 ML IV SCH ×2 (17:00→20:30)
--- NOTE | 2017-06-16 17:22 | NM ---
PROCEDURE: Nuclear medicine gastrointestinal bleeding scan. HISTORY: G I BLEEDING / ANEMIA COMPARISON: None available. TECHNIQUE: 4 cc of patient blood was withdrawn and mixed with 20 of technetium ultra tagged. Images of the abdomen and pelvis were obtained in the anterior and posterior projection at 1 min intervals over a period of 45 min. FINDINGS: The small area of increased activity in the same plane is the upper abdominal aorta which is a nonspecific finding and is unlikely to represent gastric active gastrointestinal bleeding as it does not move throughout the entire examination. This is something that may be seen in cases of tumor or better, abdominal aortic aneurysm. Neither of those is clearly evident in the unenhanced abdomen and pelvis CT examination 06/16/2017 earlier today just after midnight. Physiologic activity was seen in the heart, liver, spleen and blood vessels. IMPRESSION: No nuclear evidence of active gastrointestinal bleeding.
--- NOTE | 2017-06-16 17:31 | CARD ---
APPROVED REPORT EKG Measurement Heart [id number] <Conclusion> Normal sinus rhythm Minimal voltage criteria for LVH, may be normal variant T wave abnormality, consider lateral ischemia Prolonged QT Abnormal ECG
--- NOTE | 2017-06-16 18:13 | CARD ---
APPROVED REPORT EXAM: Two-dimensional and M-mode echocardiogram with Doppler and color Doppler. Other Information Quality : GoodRhythm : INDICATION Dyspnea RUPERTO, ACUTE RENAL FAILURE RISK FACTORS Hypertension 2D DIMENSIONS IVSd1.0 (0.7-1.1cm)LVDd5.7 (3.9-5.9cm) PWd1.0 (0.7-1.1cm)LVDs4.2 (2.5-4.0cm) FS (%) 26.4 %LVEF (%)51.0 (>50%) M-Mode DIMENSIONS RVDd1.88 (2.1-3.2cm)Left Atrium (MM)4.40 (2.5-4.0cm) IVSd1.25 (0.7-1.1cm)Aortic Root3.00 (2.2-3.7cm) LVDd5.79 (4.0-5.6cm)Aortic Cusp Exc.2.06 (1.5-2.0cm) PWd1.14 (0.7-1.1cm)FS (%) 24 % LVDs4.43 (2.0-3.8cm)LVEF (%)46 (>50%) Mitral Valve MV E Fzbcrbqw565.1cm/sMV A Kcywxdpd341.3cm/sE/A ratio0.7 TDI E/Lateral E'0.0E/Medial E'0.0 Tricuspid Valve TR Peak Fcawduty132ns/sTR Peak Gr.[id number] LEFT VENTRICLE The left ventricle is normal size. There is mild concentric left ventricular hypertrophy. The Ejection Fraction is 45-50%. There is global hypokinesis of the left ventricle. Transmitral Doppler flow pattern is Grade I-abnormal relaxation pattern. The left atrial pressure is moderately elevated. RIGHT VENTRICLE The right ventricle is normal size. The right ventricular systolic function is normal. ATRIA The left atrium is mildly dilated. The right atrium size is normal. The interatrial septum is intact with no evidence for an atrial septal defect. AORTIC VALVE The aortic valve is mildly sclerotic. The aortic valve is trileaflet. No aortic regurgitation is present. MITRAL VALVE The mitral valve is mildly thickened. Mitral regurgitation is moderate. TRICUSPID VALVE The tricuspid valve is normal in structure. There is mild tricuspid regurgitation. Right ventricular systolic pressure is estimated at 38 mmHg. There is mild pulmonary hypertension. PULMONIC VALVE The pulmonary valve is normal in structure. There is mild pulmonic valvular regurgitation. GREAT VESSELS The aortic root is normal in size. The IVC is normal in size and collapses >50% with inspiration. PERICARDIAL EFFUSION There is no pericardial effusion. <Conclusion> The left ventricle is normal size. There is mild concentric left ventricular hypertrophy. The Ejection Fraction is 45-50%. Transmitral Doppler flow pattern is Grade I-abnormal relaxation pattern. The left atrial pressure is moderately elevated. There is global hypokinesis of the left ventricle. The left atrium is mildly dilated. Mitral regurgitation is moderate. There is mild tricuspid regurgitation. Right ventricular systolic pressure is estimated at 38 mmHg. There is mild pulmonary hypertension.
[2017-06-16] MEDS: Ferric Sodium Gluconat Complex 62.5 mg/5 ml Vial IVPB SCH (18:58)
[2017-06-16] MEDS: Sodium Bicarbonate 8.4% 50 MEQ in Dextrose 5% In Water 1,000 ML IV SCH (19:00)
[2017-06-16 20:30] LABS: CK-MB 2.88 ng/mL (0.0-3.38); TROPONIN I 0.245 ng/mL (0.00-0.120)
[2017-06-16] MEDS ORDERED: Labetalol 25mg/5ml Syringe IVP STA ×2 (20:38→22:05)
[2017-06-16] MEDS ORDERED: Labetalol 25mg/5ml Syringe ONE (22:11)
[2017-06-16 23:08] LABS: EOS # 0.3 K/uL (0.0-0.7); NEUT # 10.2 K/uL (1.8-7.0); NRBC % 0.1 % (0.0-2.0); RED CELL DISTRIBUTION WIDTH 14.8 % (11.5-14.5)
[2017-06-16 23:13] LABS: BASO % 0.3 % (0.0-2.0); EOS % 2.3 % (0.0-4.0); LYMPH # 0.4 K/uL (1.0-4.3); LYMPH % 3.9 % (20.0-40.0); MEAN CELL VOLUME 83.8 fL (80.0-94.0); MEAN CORPUSCULAR HEMOGLOBIN 28.6 pg (27.0-31.0); MEAN CORPUSCULAR HGB CONC 34.1 g/dL (33.0-37.0); MEAN PLATELET VOLUME 7.6 fL (7.2-11.7); MONO # 0.4 K/uL (0.0-0.8); MONO % 3.8 % (0.0-10.0); NEUT % 89.7 % (50.0-75.0); PLATELET COUNT 225 K/uL (130-400); RBC 3.05 Mil/uL (4.40-5.90); WHITE BLOOD COUNT 11.4 K/uL (4.8-10.8)
[2017-06-16 23:21] LABS: HEMOGLOBIN 8.7 g/dL (12.0-18.0)
[2017-06-17 00:52] LABS: EOSINOPHIL 1 % (0-4); LYMPHOCYTE 1 % (20-40); MONOCYTE 2 % (0-10); NEUTROPHIL 93 % (50-75); PLATELET ESTIMATE NORMAL (NORMAL); REACTIVE LYMPHOCYTES 3 % (0-0); TOTAL CELLS COUNTED 100
[2017-06-17 00:53] LABS: ANISOCYTOSIS SLIGHT
[2017-06-17 00:54] LABS: POIKILOCYTOSIS SLIGHT
[2017-06-17 00:55] LABS: HELMET CELLS SLIGHT; OVALOCYTES SLIGHT
[2017-06-17] MEDS: Pantoprazole 80 MG in Sodium Chloride 0.9% 100 ML IV SCH ×3 (01:28→15:39)
[2017-06-17 06:58] LABS: BASO # 0.1 K/uL (0.0-0.2); BASO % 0.7 % (0.0-2.0); EOS # 0.5 K/uL (0.0-0.7); EOS % 4.8 % (0.0-4.0); HEMOGLOBIN 8.6 g/dL (12.0-18.0); LYMPH # 0.8 K/uL (1.0-4.3); LYMPH % 7.2 % (20.0-40.0); MEAN CELL VOLUME 83.9 fL (80.0-94.0); MEAN CORPUSCULAR HEMOGLOBIN 28.7 pg (27.0-31.0); MEAN CORPUSCULAR HGB CONC 34.2 g/dL (33.0-37.0); MEAN PLATELET VOLUME 8.2 fL (7.2-11.7); MONO # 0.6 K/uL (0.0-0.8); MONO % 5.7 % (0.0-10.0); NEUT # 8.8 K/uL (1.8-7.0); NEUT % 81.6 % (50.0-75.0); PLATELET COUNT 255 K/uL (130-400); RBC 2.99 Mil/uL (4.40-5.90); RED CELL DISTRIBUTION WIDTH 14.9 % (11.5-14.5); WHITE BLOOD COUNT 10.8 K/uL (4.8-10.8)
[2017-06-17 07:04] LABS: BARBITURATES, UR NEGATIVE (NEGATIVE); BENZODIAZEPINES, UR NEGATIVE (NEGATIVE); OPIATES, UR NEGATIVE (NEGATIVE); PHENCYCLIDINE, UR NEGATIVE (NEGATIVE)
[2017-06-17 07:40] LABS: ALB/GLOB RATIO 1.1 (1.0-2.1); ALBUMIN 3.1 g/dL (3.5-5.0); CALCIUM 6.8 mg/dl (8.6-10.4)
[2017-06-17] MEDS ORDERED: Multivitamin Vitamin B Complex (Nephro-Vite) Tab PO SCH (08:00)
--- NOTE | 2017-06-17 08:14 | RAD ---
Chest x-ray single frontal view History: Pneumonitis. Comparison: 06/13/2017 Findings: Confluent somewhat ill-defined opacity projecting over the lateral aspect of the right upper to mid lung zone. This is of uncertain clinical etiology and correlation with chest CT may be helpful if clinically indicated. Prominent diffuse increased interstitial lung markings which may represent underlying edema and or infiltrate. Fibrotic changes. Scattered nodular densities in both lung erickson. Right hilar prominence. Tortuous aorta. Degenerative changes in the spine and shoulders. Impression: Confluent somewhat ill-defined opacity projecting over the lateral aspect of the right upper to mid lung zone. This is of uncertain clinical etiology and correlation with chest CT may be helpful if clinically indicated. Prominent diffuse increased interstitial lung markings which may represent underlying edema and or infiltrate. Fibrotic changes. Scattered nodular densities in both lung erickson. Right hilar prominence.
[2017-06-17] MEDS: Sodium Bicarbonate 8.4% 50 MEQ in Dextrose 5% In Water 1,000 ML IV SCH (08:17)
[2017-06-17] MEDS: Multivitamin Vitamin B Complex (Nephro-Vite) Tab PO SCH (08:29)
[2017-06-17 09:46] LABS: EOSINOPHIL 8 % (0-4); LYMPHOCYTE 6 % (20-40); MONOCYTE 4 % (0-10); NEUTROPHIL 82 % (50-75); PLATELET ESTIMATE NORMAL (NORMAL); TOTAL CELLS COUNTED 100
[2017-06-17 09:52] LABS: ANISOCYTOSIS SLIGHT; HYPOCHROMIC SLIGHT; LARGE PLATELETS PRESENT; POLYCHROMIC SLIGHT; TOXIC GRANULATION PRESENT
[2017-06-17] MEDS ORDERED: EPOETIN ALFA 4,000 UNIT/ML ML Dialysis IV SCH (10:00)
--- NOTE | 2017-06-17 10:03 | CP.PCM.PN ---
Subjective - Date & Time of Evaluation Date of Evaluation: 06/17/17 Time of Evaluation: 08:00 - Subjective Subjective: Vascular Surgery- Dr. Sotelo Patient seen and examined at bedside this AM. no acute events overnight. R. femoral shiley in place. Feliz in. Underwent dialysis yesterday successfully. Denies F/C CP/SOB N/V/D Objective - Vital Signs/Intake and Output Vital Signs (last 24 hours): Temp Pulse Resp BP Pulse Ox 98.3 F 73 17 144/81 95 06/17/17 04:00 06/17/17 07:01 06/17/17 07:01 06/17/17 07:01 06/17/17 06:30 Intake and Output: 06/17/17 06/17/17 06:59 18:59 Intake Total 960 10 Output Total 250 0 Balance 710 10 - Medications Medications: Current Medications Calcium Acetate (Phoslo) 1,334 mg PO TIDCC [facility] Last Admin: 06/17/17 08:29 Dose: 1,334 mg Epoetin Connor (Procrit) 8,000 unit IV TTS [facility] Ferric Sodium Gluconate Complex (Ferrlecit) 125 mg IVPB DAILY [facility] Stop: 06/23/17 10:01 Last Admin: 06/16/17 18:58 Dose: Not Given Pantoprazole Sodium 80 mg/ (Sodium Chloride) 100 mls @ 10 mls/hr IV .Q10H [facility] PRN Reason: 8 MG/HR Last Admin: 06/17/17 06:13 Dose: Not Given Sodium Bicarbonate 50 meq/ (Dextrose) 1,050 mls @ 60 mls/hr IV .[id number] [facility] Last Admin: 06/17/17 08:17 Dose: Not Given Vitamin B Complex/Vit C/Folic Acid (Nephro-Magdalena) 1 tab PO 0800 [facility] Last Admin: 06/17/17 08:29 Dose: 1 tab - Labs Labs: 06/17/17 06:47 06/17/17 06:47 PT 12.4 SECONDS (9.7-12.2) H 06/15/17 16:35 INR 1.1 06/15/17 16:35 APTT 33 SECONDS (21-34) 06/15/17 16:35 - Constitutional Appears: Non-toxic, No Acute Distress - Head Exam Head Exam: ATRAUMATIC - Eye Exam Eye Exam: EOMI. absent: Scleral icterus - ENT Exam ENT Exam: Mucous Membranes Moist - Respiratory Exam Respiratory Exam: NORMAL BREATHING PATTERN. absent: Accessory Muscle Use, Respiratory Distress - Cardiovascular Exam Cardiovascular Exam: +S1, +S2. absent: Bradycardia, Tachycardia - GI/Abdominal Exam GI & Abdominal Exam: Soft. absent: Firm, Guarding, Rigid, Tenderness - Extremities Exam Additional comments: R. Femoral catheter in place Feliz in - Neurological Exam Neurological Exam: Alert, Awake, Oriented x3 - Skin Skin Exam: Intact, Warm Assessment and Plan - Assessment and Plan (Free Text) Assessment: 61M s/p R. Femoral temporary dialysis catheter placement Plan: -ok to use catheter for dialysis -medical management per primary and medical team -thank you for allowing us to participate in this patients care -reconsult PRN -further recs per Dr. Sotelo surgical attending Merchant [email or web address]
[2017-06-17] MEDS: Ferric Sodium Gluconat Complex 62.5 mg/5 ml Vial IVPB SCH (12:00)
--- NOTE | 2017-06-17 12:37 | CP.PCM.PN ---
Subjective - Date & Time of Evaluation Date of Evaluation: 06/17/17 Time of Evaluation: 12:15 - Subjective Subjective: Patient reported he was feeling ok. He now has a right side femoral dialysis catheter. The patient has now had two HD treatments His Hgb is now increased to 8.6. He had endoscopy yesterday which showed hiatal hernia, esophagitis, gastric ulcer, normal duodenum. He is on CLD Objective - Vital Signs/Intake and Output Vital Signs (last 24 hours): Temp Pulse Resp BP Pulse Ox 98 F 69 22 157/101 H 97 06/17/17 10:20 06/17/17 12:20 06/17/17 12:20 06/17/17 12:20 06/17/17 12:20 Intake and Output: 06/17/17 06/17/17 06:59 18:59 Intake Total 960 10 Output Total 250 0 Balance 710 10 - Medications Medications: Current Medications Acetaminophen (Tylenol 325mg Tab) 650 mg PO Q6 PRN PRN Reason: Pain, Mild (1-3) Calcium Acetate (Phoslo) 1,334 mg PO TIDCC [facility] Last Admin: 06/17/17 08:29 Dose: 1,334 mg Epoetin Connor (Procrit) 8,000 unit IV TTS [facility] Ferric Sodium Gluconate Complex (Ferrlecit) 125 mg IVPB DAILY [facility] Stop: 06/23/17 10:01 Last Admin: 06/16/17 18:58 Dose: Not Given Pantoprazole Sodium 80 mg/ (Sodium Chloride) 100 mls @ 10 mls/hr IV .Q10H [facility] PRN Reason: 8 MG/HR Last Admin: 06/17/17 06:13 Dose: Not Given Nifedipine (Procardia Xl) 60 mg PO DAILY [facility] Vitamin B Complex/Vit C/Folic Acid (Nephro-Magdalena) 1 tab PO 0800 [facility] Last Admin: 06/17/17 08:29 Dose: 1 tab - Labs Labs: 06/17/17 06:47 06/17/17 06:47 PT 12.4 SECONDS (9.7-12.2) H 06/15/17 16:35 INR 1.1 06/15/17 16:35 APTT 33 SECONDS (21-34) 06/15/17 16:35 - Constitutional Appears: No Acute Distress, Chronically Ill - Head Exam Head Exam: NORMAL INSPECTION, NORMOCEPHALIC - Eye Exam Eye Exam: EOMI, Normal appearance - ENT Exam ENT Exam: Mucous Membranes Moist - Respiratory Exam Respiratory Exam: Decreased Breath Sounds, Rales - Cardiovascular Exam Cardiovascular Exam: REGULAR RHYTHM - GI/Abdominal Exam GI & Abdominal Exam: Soft, Normal Bowel Sounds. absent: Firm, Guarding, Rigid, Tenderness - Neurological Exam Neurological Exam: Alert, Awake, CN II-XII Intact, Oriented x3 Neuro motor strength exam: Left Upper Extremity: 4, Right Upper Extremity: 4 - Psychiatric Exam Psychiatric exam: Normal Affect, Normal Mood - Skin Skin Exam: Normal Color, Warm Assessment and Plan - Assessment and Plan (Free Text) Assessment: Assessment & Plan (1) Severe anemia Assessment and Plan: 06/17: Hgb now 8.6, remains on Protonix ggt. He had endoscopy yesterday showing hiatal hernia, esophagitis, gastric ulcer, and a normal duodenum 06/16: On admission Hgb was 5, however after two units of PRBCs only was 5.8 He was still short of breath. 2 More additional units ordered Because of uremia on labwork we also ordered 30 DDAVP x 1 dose now as he may have uremic bleeding Pending (2) Dyspnea on exertion Assessment and Plan: 06/17: Patient reports not short of breath at rest. 06/16: Multifocal - he has severe anemia as well as some sort of underlying lung disease. We ordered a CT of the chest and the final read is pending however it looks almost honey combing/atelecatis appearance. Pending echo. Chest xray: patchy opacities within lateral right upper lobe and b/l lower lobes may reflect multifocal infiltrate or atelectasis (3) ARF (acute renal failure) Assessment and Plan: 06/17: Now has right femoral dialysis catheter, has had two HD so far today. The serum bicarb is better than yesterday. I held the IVF with bicarb in it. 06/16: Patient was seen by nephrology in the ER. Per discussion with nephrology he will need HD cather and dialysis later today. This maybe an autoimmune ARF At admission: BUN 147, Cr 15.8 Follow I and Os There is a pending renal ultrasound (4) Metabolic acidosis secondary to renal failure Assessment and Plan: 06/16: Per discussion with nephrology will need HD now He will be getting HD cathter today and HD today Pending ABG (5) UTI (urinary tract infection) Assessment and Plan: 06/17: The urine culture shows E coli. Will start abx now. 06/16: UA: 2+ protein, 1+ blood, 3+ LE, 36 WBC, 4RBC, moderate bacteria Follow urine cultures (5) Prophylactic measure Assessment and Plan: NO chemical anticoagulation due to severe anemia SCDs Protonix 40mg IV daily CLD
[2017-06-17] MEDS: NIFEdipine 60 mg ER Tab PO SCH (13:33)
--- NOTE | 2017-06-17 18:47 | CP.PCM.PN ---
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 severe Anemia with iron def and GI blood loss acidosis Hyperphosphatemia (E83.39), HTN (I12.9) active smoker and etoh on weekends hx of TIA, chronic sinusitis possible UTI Plan renal replacement therapy initiation at this time indicated. HD second session today serologies back, complements normal UA positive for blood and about 1.5 grams of protein I have ordered a renal USG to evaluate the kidney. assess tomorrow for hd needs ] Hypertension control with meds as ordered pt planned for endoscopic eval today by GI Monitor Input/Output, daily weights and renal function with basic metabolic panel will start phos binders, nephrovite, IV iron and epogen. Physical Examination: General Appearance: ill appearing, co-operative . Head; Atraumatic, normocephalic ENT: no ulcers no thrush. Tongue is midline. Oropharynx: no rash or ulcers. EYES:. Sclera is anicteric. Neck; supple no lymphadenopathy, no thyromegaly or bruit Lungs: Increased respiratory rate/effort. Breath sounds bilateral equal and with basal rales Heart: Normal rate. s1s2 normal. No rub or gallop. Extremities: no edema. No varicose veins Neurological: Patient is alert, awake and oriented to person, place and time. No focal deficit. Strength bilateral appropriate and equal Skin: Warm and dry. Normal turgor. No rash. Palpitation: Normal elasticity for age Abdomen: Abdomen is soft. Bowel sounds +. There is no abdominal tenderness, no guarding/rigidity no organomegaly Psych: normal insight and normal affect/mood Objective - Vital Signs/Intake and Output Vital Signs (last 24 hours): Temp Pulse Resp BP Pulse Ox 97.9 F 69 17 193/83 H 100 06/17/17 12:00 06/17/17 13:07 06/17/17 13:07 06/17/17 13:07 06/17/17 13:07 Intake and Output: 06/17/17 06/17/17 06:59 18:59 Intake Total 960 50 Output Total 250 0 Balance 710 50 - Medications Medications: Current Medications Acetaminophen (Tylenol 325mg Tab) 650 mg PO Q6 PRN PRN Reason: Pain, Mild (1-3) Last Admin: 06/17/17 18:00 Dose: 650 mg Calcium Acetate (Phoslo) 1,334 mg PO TIDCC [facility] Last Admin: 06/17/17 18:00 Dose: 1,334 mg Epoetin Connor (Procrit) 8,000 unit IV TTS [facility] Last Admin: 06/17/17 12:39 Dose: 8,000 unit Ferric Sodium Gluconate Complex (Ferrlecit) 125 mg IVPB DAILY [facility] Stop: 06/23/17 10:01 Last Admin: 06/17/17 12:00 Dose: 125 mg Pantoprazole Sodium 80 mg/ (Sodium Chloride) 100 mls @ 10 mls/hr IV .Q10H [facility] PRN Reason: 8 MG/HR Last Admin: 06/17/17 15:39 Dose: 10 mls/hr Nifedipine (Procardia Xl) 60 mg PO DAILY [facility] Last Admin: 06/17/17 13:33 Dose: 60 mg Vitamin B Complex/Vit C/Folic Acid (Nephro-Magdalena) 1 tab PO 0800 [facility] Last Admin: 06/17/17 08:29 Dose: 1 tab - Labs Labs: 06/17/17 06:47 06/17/17 06:47 PT 12.4 SECONDS (9.7-12.2) H 06/15/17 16:35 INR 1.1 06/15/17 16:35 APTT 33 SECONDS (21-34) 06/15/17 16:35
[2017-06-18] MEDS: Pantoprazole 80 MG in Sodium Chloride 0.9% 100 ML IV SCH ×3 (03:00→22:19)
[2017-06-18 06:25] LABS: BASO # 0.1 K/uL (0.0-0.2); BASO % 0.8 % (0.0-2.0); EOS # 0.6 K/uL (0.0-0.7); EOS % 5.4 % (0.0-4.0); HEMOGLOBIN 8.9 g/dL (12.0-18.0); LYMPH % 8.9 % (20.0-40.0); MEAN CORPUSCULAR HEMOGLOBIN 27.9 pg (27.0-31.0); MEAN CORPUSCULAR HGB CONC 33.2 g/dL (33.0-37.0); MONO # 0.9 K/uL (0.0-0.8); MONO % 7.9 % (0.0-10.0); NEUT # 8.8 K/uL (1.8-7.0); NRBC % 0.1 % (0.0-2.0); PLATELET COUNT 242 K/uL (130-400); RBC 3.19 Mil/uL (4.40-5.90); RED CELL DISTRIBUTION WIDTH 14.8 % (11.5-14.5); WHITE BLOOD COUNT 11.4 K/uL (4.8-10.8)
[2017-06-18 06:48] LABS: CALCIUM 6.8 mg/dl (8.6-10.4)
[2017-06-18 08:25] LABS: EOSINOPHIL 6 % (0-4); LYMPHOCYTE 8 % (20-40); MONOCYTE 4 % (0-10); NEUTROPHIL 82 % (50-75); PLATELET ESTIMATE NORMAL (NORMAL); TOTAL CELLS COUNTED 100
[2017-06-18] MEDS: Multivitamin Vitamin B Complex (Nephro-Vite) Tab PO SCH (08:25)
[2017-06-18 08:26] LABS: ANISOCYTOSIS SLIGHT; HYPOCHROMIC SLIGHT; POLYCHROMIC SLIGHT
[2017-06-18 08:27] LABS: POIKILOCYTOSIS SLIGHT; TOXIC GRANULATION PRESENT
[2017-06-18 08:28] LABS: OVALOCYTES SLIGHT
[2017-06-18] MEDS: Ferric Sodium Gluconat Complex 62.5 mg/5 ml Vial IVPB SCH (10:17)
[2017-06-18] MEDS: NIFEdipine 60 mg ER Tab PO SCH (10:18)
--- NOTE | 2017-06-18 12:07 | CP.PCM.PN ---
Subjective - Date & Time of Evaluation Date of Evaluation: 06/18/17 Time of Evaluation: 11:30 - Subjective Subjective: Patient was seen and examined by me He reports feeling well overnight. He denied chest pain, denied shortness of breath, denied palpitations, denied abdominal pain, denied headache, denied fever. He had a BM this morning and reported seeing again bright red blood when wiping. The Hgb is 8.9 today He has had 2 sessions of HD so far. The serum bicarb is now 26. I stopped the IVF with bicarb in it yesterday since he was notw getting HD Objective - Vital Signs/Intake and Output Vital Signs (last 24 hours): Temp Pulse Resp BP Pulse Ox 98.2 F 73 17 130/79 96 06/18/17 04:00 06/18/17 04:00 06/18/17 04:00 06/18/17 04:00 06/18/17 04:00 Intake and Output: 06/18/17 06/18/17 06:59 18:59 Intake Total 400 Output Total 350 Balance 50 - Medications Medications: Current Medications Acetaminophen (Tylenol 325mg Tab) 650 mg PO Q6 PRN PRN Reason: Pain, Mild (1-3) Last Admin: 06/17/17 18:00 Dose: 650 mg Calcium Acetate (Phoslo) 1,334 mg PO TIDCC [facility] Last Admin: 06/18/17 11:22 Dose: 1,334 mg Epoetin Connor (Procrit) 8,000 unit IV TTS [facility] Last Admin: 06/17/17 12:39 Dose: 8,000 unit Ferric Sodium Gluconate Complex (Ferrlecit) 125 mg IVPB DAILY [facility] Stop: 06/23/17 10:01 Last Admin: 06/18/17 10:17 Dose: 125 mg Pantoprazole Sodium 80 mg/ (Sodium Chloride) 100 mls @ 10 mls/hr IV .Q10H [facility] PRN Reason: 8 MG/HR Last Admin: 06/18/17 03:00 Dose: 10 mls/hr Nifedipine (Procardia Xl) 60 mg PO DAILY [facility] Last Admin: 06/18/17 10:18 Dose: 60 mg Vitamin B Complex/Vit C/Folic Acid (Nephro-Magdalena) 1 tab PO 0800 [facility] Last Admin: 06/18/17 08:25 Dose: 1 tab - Labs Labs: 06/18/17 06:18 06/18/17 06:18 PT 12.4 SECONDS (9.7-12.2) H 06/15/17 16:35 INR 1.1 06/15/17 16:35 APTT 33 SECONDS (21-34) 06/15/17 16:35 - Constitutional Appears: No Acute Distress, Unkempt, Chronically Ill - Head Exam Head Exam: NORMAL INSPECTION, NORMOCEPHALIC - Eye Exam Eye Exam: EOMI, Normal appearance - ENT Exam ENT Exam: Mucous Membranes Moist - Respiratory Exam Respiratory Exam: Clear to Ausculation Bilateral, NORMAL BREATHING PATTERN - Cardiovascular Exam Cardiovascular Exam: REGULAR RHYTHM - GI/Abdominal Exam GI & Abdominal Exam: Soft, Normal Bowel Sounds. absent: Guarding, Rigid, Tenderness - Neurological Exam Neurological Exam: Alert, Awake, Oriented x3 Neuro motor strength exam: Left Upper Extremity: 5, Right Upper Extremity: 5, Left Lower Extremity: 5, Right Lower Extremity: 5 - Psychiatric Exam Psychiatric exam: Normal Affect, Normal Mood - Skin Skin Exam: Normal Color, Warm Assessment and Plan - Assessment and Plan (Free Text) Assessment: Assessment & Plan (1) Severe anemia from a lower GI etiology and from renal failure. Assessment and Plan: 06/18: Today 8.9, he had a GI bleeding nuclear study done - this reported negative. That being said earlier today he had a BM and reportedly he saw blood when he was wiping. He is getting IV ferrlcit 06/17: Hgb now 8.6, remains on Protonix ggt. He had endoscopy yesterday showing hiatal hernia, esophagitis, gastric ulcer, and a normal duodenum 06/16: On admission Hgb was 5, however after two units of PRBCs only was 5.8 He was still short of breath. 2 More additional units ordered Because of uremia on labwork we also ordered 30 DDAVP x 1 dose now as he may have uremic bleeding Pending (2) Dyspnea on exertion Assessment and Plan: 06/18: Echo returned, there is global left ventricular hypokinesis, moderate pulmonary HTN, and also EF 45% 06/17: Patient reports not short of breath at rest. 06/16: Multifocal - he has severe anemia as well as some sort of underlying lung disease. We ordered a CT of the chest and the final read is pending however it looks almost honey combing/atelecatis appearance. Pending echo. Chest xray: patchy opacities within lateral right upper lobe and b/l lower lobes may reflect multifocal infiltrate or atelectasis (3) ARF (acute renal failure) Assessment and Plan: 06/18: He has had two HD sessions now. The hinojosa was removed 06/17: Now has right femoral dialysis catheter, has had two HD so far today. The serum bicarb is better than yesterday. I held the IVF with bicarb in it. 06/16: Patient was seen by nephrology in the ER. Per discussion with nephrology he will need HD cather and dialysis later today. This maybe an autoimmune ARF At admission: BUN 147, Cr 15.8 Follow I and Os There is a pending renal ultrasound (4) Metabolic acidosis secondary to renal failure Assessment and Plan: 06/18: Yesterday I stopped the IVF with bicarb in it. He's now had two sessions of HD, today serum bicarb is ok 06/16: Per discussion with nephrology will need HD now He will be getting HD cathter today and HD today Pending ABG (5) UTI (urinary tract infection) Assessment and Plan: 06/17: The urine culture shows E coli. Will start abx now. 06/16: UA: 2+ protein, 1+ blood, 3+ LE, 36 WBC, 4RBC, moderate bacteria Follow urine cultures (5) Prophylactic measure Assessment and Plan: NO chemical anticoagulation due to severe anemia SCDs Protonix 40mg IV daily [facility]
--- NOTE | 2017-06-18 14:32 | US ---
Renal ultrasound History: Acute renal insufficiency. Comparison: None available. Technique: Real-time sonography was performed through the kidneys. Findings: Right kidney: 8.1 x 3.1 x 3.9 centimeters. Increased echogenicity of the renal parenchymal cortex suggestive for medical renal disease. Multiple small hypoechoic cysts for example in the upper pole measuring 1.1 x 0.8 x 1.0 centimeters. No calculi or hydronephrosis. Left kidney: 8.7 x 4.9 x 4.1 centimeters. Increased echogenicity of the renal parenchymal cortex suggestive for medical renal disease. No calculi or hydronephrosis. Small hypoechoic cystic foci/cysts. The largest of which is seen in the midpole measuring 1.8 x 1.8 x 1.8 centimeters. Visualized aorta is preserved. Calcification and plaque within the aorta. Underdistended urinary bladder somewhat limits evaluation. Partially imaged spleen appears grossly preserved. Impression: Increased echogenicity of the bilateral renal parenchymal cortices suggestive for medical renal disease. Bilateral renal cysts.
--- NOTE | 2017-06-18 16:31 | CP.PCM.PN ---
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 severe Anemia with iron def and GI blood loss acidosis Hyperphosphatemia (E83.39), HTN (I12.9) active smoker and etoh on weekends hx of TIA, chronic sinusitis possible UTI Plan no hd today, will assess tomorrow serologies back, complements normal UA positive for blood and about 1.5 grams of protein USG reviewed, echogenic kidneys 8cm size b/l Hypertension control with meds as ordered pt planned for endoscopic eval today by GI Monitor Input/Output, daily weights and renal function with basic metabolic panel continue phos binders, nephrovite, IV iron and epogen. Physical Examination: General Appearance: ill appearing, co-operative . Head; Atraumatic, normocephalic ENT: no ulcers no thrush. Tongue is midline. EYES:. Sclera is anicteric. Neck; supple no lymphadenopathy, no thyromegaly or bruit Lungs: Increased respiratory rate/effort. Breath sounds bilateral equal and with basal rales Heart: Normal rate. s1s2 normal. No rub or gallop. Extremities: no edema. No varicose veins Neurological: Patient is alert, awake and oriented to person, place and time. No focal deficit. Strength bilateral appropriate and equal Skin: Warm and dry. Normal turgor. No rash. Palpitation: Normal elasticity for age Abdomen: Abdomen is soft. Bowel sounds +. There is no abdominal tenderness, no guarding/rigidity no organomegaly Psych: normal insight and normal affect/mood Objective - Vital Signs/Intake and Output Vital Signs (last 24 hours): Temp Pulse Resp BP Pulse Ox 98.0 F 76 18 130/79 97 06/18/17 12:00 06/18/17 12:00 06/18/17 12:00 06/18/17 04:00 06/18/17 12:00 Intake and Output: 06/18/17 06/18/17 06:59 18:59 Intake Total 400 Output Total 350 Balance 50 - Medications Medications: Current Medications Acetaminophen (Tylenol 325mg Tab) 650 mg PO Q6 PRN PRN Reason: Pain, Mild (1-3) Last Admin: 06/17/17 18:00 Dose: 650 mg Calcium Acetate (Phoslo) 1,334 mg PO TIDCC [facility] Last Admin: 06/18/17 11:22 Dose: 1,334 mg Epoetin Connor (Procrit) 8,000 unit IV TTS [facility] Last Admin: 06/17/17 12:39 Dose: 8,000 unit Ferric Sodium Gluconate Complex (Ferrlecit) 125 mg IVPB DAILY [facility] Stop: 06/23/17 10:01 Last Admin: 06/18/17 10:17 Dose: 125 mg Pantoprazole Sodium 80 mg/ (Sodium Chloride) 100 mls @ 10 mls/hr IV .Q10H [facility] PRN Reason: 8 MG/HR Last Admin: 06/18/17 12:00 Dose: 10 mls/hr Nifedipine (Procardia Xl) 60 mg PO DAILY [facility] Last Admin: 06/18/17 10:18 Dose: 60 mg Vitamin B Complex/Vit C/Folic Acid (Nephro-Magdalena) 1 tab PO 0800 [facility] Last Admin: 06/18/17 08:25 Dose: 1 tab - Labs Labs: 06/18/17 06:18 06/18/17 06:18 PT 12.4 SECONDS (9.7-12.2) H 06/15/17 16:35 INR 1.1 06/15/17 16:35 APTT 33 SECONDS (21-34) 06/15/17 16:35
[2017-06-19] MEDS: Albuterol-Ipratrop 3 mg / 0.5 (3 ml) UD INH SCH ×3 (08:38→19:32)
[2017-06-19] MEDS: Pantoprazole 80 MG in Sodium Chloride 0.9% 100 ML IV SCH (08:44)
[2017-06-19] MEDS: Multivitamin Vitamin B Complex (Nephro-Vite) Tab PO SCH (08:44)
[2017-06-19] MEDS: Ferric Sodium Gluconat Complex 62.5 mg/5 ml Vial IVPB SCH (10:01)
[2017-06-19] MEDS: NIFEdipine 60 mg ER Tab PO SCH (11:00)
--- NOTE | 2017-06-19 14:49 | CP.PCM.PN ---
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 No ACEI/ARB for now due to possible RUPERTO. add coreg. Monitor Input/Output, daily weights and renal function with basic metabolic panel continue with phos binders, nephrovite, IV iron and epogen. pt had PRBC 06/16/17. GN work up as KADEN, Anti dsDNA, ANCA (MPO and MN-3), Anti GBM antibody pending will plan for kidney biopsy to clarify on RUPERTO versus ESRD. plan for kidney biopsy tomorrow Dose meds/antibiotics for reduced GFR. Avoid fleets enema/magnesium based laxatives. Avoid nephrotoxins/NSAIDs/ iodinated contrast (unless needed emergently) Glycemic control. pt to abstain from etoh and smoking Further work up/management as per primary team SW consult for outpt HD placement initiation Thanks for allowing me to participate in care of your patient. Will follow patient with you. Please call if any Qs. d/w team. Dr Austyn Enciso Office: [phone] HPI: Pt is a 61 M with hx of hypertension (few years) when diagnosed with TIA, chronic sinusitis, activ smoker and etoh on weekends, hasn't been taking BP meds for last 1 year due to insurance issues presented with complaints of sickness x 2 weeks with fatigue, body aches and exertional dyspnoea. reports hx of hemrrhoids and bright red blood in stool and toilet paper Denies OTC/herbal meds or NSAIDs No recent iodinated contrast exposure. No obvious episodes of low BP. no recent antibiotics denies any renal issues in past ROS: Cardiovascular: No chest pain. Pulmonary: improved shortness of breath Gastrointestinal: denies abdominal pain No nausea. No vomiting. c/o bright blood per rectum in stool Genitourinary: No pain while urinating. Denies blood in urine. All other negative except as in HPI Physical Examination: General Appearance: ill appearing, co-operative . Vitals reviewed and noted as below Head; Atraumatic, normocephalic ENT: no ulcers no thrush. Tongue is midline. Oropharynx: no rash or ulcers. EYES: Pupils are equal, round and reactive to light accommodation. Eye muscles and extraocular movement intact. Sclera is anicteric. Neck; supple no lymphadenopathy, no thyromegaly or bruit Lungs: normal respiratory rate/effort. Breath sounds bilateral equal and with basal rales Heart: Normal rate. s1s2 normal. No rub or gallop. Extremities: no edema. No varicose veins Neurological: Patient is alert, awake and oriented to person, place and time. No focal deficit. Strength bilateral appropriate and equal Skin: Warm and dry. Normal turgor. No rash. Palpitation: Normal elasticity for age Abdomen: Abdomen is soft. Bowel sounds +. There is no abdominal tenderness, no guarding/rigidity no organomegaly Psych: normal insight and normal affect/mood MSK: no joint tenderness or swelling. Digits and nails normal, no deformity : kidney or bladder not palpable Labs/imaging reviewed. Past medical history, past surgical history, family history, social history, allergy reviewed and noted as below Family hx: no hx of CKD. Rest non-contributory Work up: urine pro/cr: 2 gram/day normal complements and urine cx: GNR TSAT 5% Ferritin 40 imaging: no obstruction Objective - Vital Signs/Intake and Output Vital Signs (last 24 hours): Temp Pulse Resp BP Pulse Ox 97.6 F 92 H 20 173/90 H 95 06/19/17 08:00 06/19/17 08:00 06/19/17 08:00 06/19/17 08:00 06/19/17 08:00 Intake and Output: 06/19/17 06/19/17 06:59 18:59 Intake Total 260 Balance 260 - Medications Medications: Current Medications Acetaminophen (Tylenol 325mg Tab) 650 mg PO Q6 PRN PRN Reason: Pain, Mild (1-3) Last Admin: 06/17/17 18:00 Dose: 650 mg Albuterol/Ipratropium (Duoneb 3 Mg/0.5 Mg (3 Ml) Ud) 3 ml INH RQ6 [facility] Last Admin: 06/19/17 13:38 Dose: 3 ml Calcium Acetate (Phoslo) 1,334 mg PO TIDCC [facility] Last Admin: 06/19/17 12:19 Dose: Not Given Ciprofloxacin (Cipro) 250 mg PO BID [facility] Stop: 06/24/17 18:01 Epoetin Connor (Procrit) 8,000 unit IV MWF [facility] Ferric Sodium Gluconate Complex (Ferrlecit) 125 mg IVPB DAILY [facility] Stop: 06/23/17 10:01 Last Admin: 06/19/17 10:01 Dose: 125 mg Fluconazole (Diflucan) 50 mg PO DAILY [facility] Stop: 07/03/17 10:01 Fluconazole (Diflucan) 100 mg PO ONCE ONE Stop: 06/19/17 19:01 Nifedipine (Procardia Xl) 60 mg PO DAILY [facility] Last Admin: 06/19/17 11:00 Dose: 60 mg Pantoprazole Sodium (Protonix Inj) 40 mg IVP Q12H [facility] Vitamin B Complex/Vit C/Folic Acid (Nephro-Magdalena) 1 tab PO 0800 [facility] Last Admin: 06/19/17 08:44 Dose: Not Given - Labs Labs: 06/18/17 06:18 06/18/17 06:18 PT 12.4 SECONDS (9.7-12.2) H 06/15/17 16:35 INR 1.1 06/15/17 16:35 APTT 33 SECONDS (21-34) 06/15/17 16:35
[2017-06-19] MEDS ORDERED: HEPARIN-NS 5,000 UNITS/500 ML 0 UNIT/0 ML BAG IV ONE (14:57)
[2017-06-19] MEDS ORDERED: Lidocaine 1% Inj (20ml) ONE (14:57)
[2017-06-19] MEDS ORDERED: Iohexol 240 (50 ml) ONE (15:28)
[2017-06-19] MEDS ORDERED: Midazolam 2 MG/2 ML VIAL ONE (15:35)
[2017-06-19] MEDS ORDERED: HYDROmorphone 0.5 mg/0.5 ml ISec IVP PRN (16:00)
--- NOTE | 2017-06-19 16:08 | PCM.SURG1 ---
Surgeon's Initial Post Op Note - Surgeon's Notes Surgeon: Dr. Sotelo Coupler: PGY1 Pre-Operative Diagnosis: Acute Kidney Injury Operative Findings: see op note Post-Operative Diagnosis: as above Operation Performed: Caitlyn ANTUNEZ Permacath placement Specimen/Specimens Removed: none Estimated Blood Loss: EBL {In ML}: 5 Post-Op Condition: Good Date of Surgery/Procedure: 06/19/17 Time of Surgery/Procedure: 16:07
--- NOTE | 2017-06-19 17:01 | RAD ---
HISTORY: s/p Permacath placement COMPARISON: Chest x-ray performed 06/17/17 TECHNIQUE: Chest, one view. FINDINGS: Right-sided PermCath extends to the right atrium/ SVC junction. LUNGS: Patchy/ streaky ill-defined opacity within the lateral right upper lobe. Mildly prominent interstitial markings. Fibrotic changes. Please note that chest x-ray has limited sensitivity for the detection of pulmonary masses. PLEURA: No significant pleural effusion identified. No definite pneumothorax. CARDIOVASCULAR: Heart size appears top normal. Atherosclerotic calcification of the aortic knob. OSSEOUS STRUCTURES: No acute osseous abnormality identified. VISUALIZED UPPER ABDOMEN: Unremarkable. OTHER FINDINGS: None. IMPRESSION: Right-sided PermCath extends to the right atrium/ SVC junction. Patchy/ streaky ill-defined opacity within the lateral right upper lobe. Mildly prominent interstitial markings. Fibrotic changes.
--- NOTE | 2017-06-19 17:31 | CP.PCM.PN ---
<Marimar John - Last Filed: 06/19/17 17:07> Subjective - Date & Time of Evaluation Date of Evaluation: 06/19/17 Time of Evaluation: 09:00 - Subjective Subjective: Medicine Note for Hospitalist Service- Dr. Roy Patient was seen and examined at bedside. Patient reports he feels better today. Ambulating well and was tolerating diet, prior to being NPO. Denied fever , chills, chest pain, abdominal pain, n/v/d/c, or urinary symptoms. Objective - Vital Signs/Intake and Output Vital Signs (last 24 hours): Temp Pulse Resp BP Pulse Ox 97.6 F 92 H 20 173/90 H 95 06/19/17 08:00 06/19/17 08:00 06/19/17 08:00 06/19/17 08:00 06/19/17 08:00 Intake and Output: 06/19/17 06/19/17 06:59 18:59 Intake Total 260 100 Balance 260 100 - Medications Medications: Current Medications Acetaminophen (Tylenol 325mg Tab) 650 mg PO Q6 PRN PRN Reason: Pain, Mild (1-3) Last Admin: 06/17/17 18:00 Dose: 650 mg Albuterol/Ipratropium (Duoneb 3 Mg/0.5 Mg (3 Ml) Ud) 3 ml INH RQ6 [facility] Last Admin: 06/19/17 13:38 Dose: 3 ml Calcium Acetate (Phoslo) 1,334 mg PO TIDCC [facility] Last Admin: 06/19/17 12:19 Dose: Not Given Carvedilol (Coreg) 6.25 mg PO BID [facility] Ciprofloxacin (Cipro) 250 mg PO BID [facility] Stop: 06/24/17 18:01 Epoetin Connor (Procrit) 8,000 unit IV MWF [facility] Ferric Sodium Gluconate Complex (Ferrlecit) 125 mg IVPB DAILY [facility] Stop: 06/23/17 10:01 Last Admin: 06/19/17 10:01 Dose: 125 mg Fluconazole (Diflucan) 50 mg PO DAILY [facility] Stop: 07/03/17 10:01 Fluconazole (Diflucan) 100 mg PO ONCE ONE Stop: 06/19/17 19:01 Hydromorphone HCl (Dilaudid) 0.5 mg IVP Q10M PRN PRN Reason: Pain, moderate (4-7) Stop: 06/19/17 18:01 Last Admin: 06/19/17 16:58 Dose: 0.5 mg Nifedipine (Procardia Xl) 60 mg PO DAILY [facility] Last Admin: 06/19/17 11:00 Dose: 60 mg Ondansetron HCl (Zofran Inj) 4 mg IVP ONCE PRN PRN Reason: Nausea/Vomiting Stop: 06/19/17 18:02 Pantoprazole Sodium (Protonix Inj) 40 mg IVP Q12H [facility] Vitamin B Complex/Vit C/Folic Acid (Nephro-Magdalena) 1 tab PO 0800 [facility] Last Admin: 06/19/17 08:44 Dose: Not Given - Labs Labs: 06/18/17 06:18 06/18/17 06:18 PT 12.4 SECONDS (9.7-12.2) H 06/15/17 16:35 INR 1.1 06/15/17 16:35 APTT 33 SECONDS (21-34) 06/15/17 16:35 - Additional Findings Additional findings: - Constitutional Appears: No Acute Distress, Unkempt, Chronically Ill - Head Exam Head Exam: NORMAL INSPECTION, NORMOCEPHALIC - Eye Exam Eye Exam: EOMI, Normal appearance - ENT Exam ENT Exam: Mucous Membranes Moist - Respiratory Exam Respiratory Exam: Clear to Ausculation Bilateral, NORMAL BREATHING PATTERN - Cardiovascular Exam Cardiovascular Exam: REGULAR RHYTHM - GI/Abdominal Exam GI & Abdominal Exam: Soft, Normal Bowel Sounds. 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 Sotelo consulted - help appreciated Nephrology- Dr. Mckeon - help appreciated S/P Permacath 06/19/17 Dialysis MWF Renal Biopsy - tomorrow with IR F/U nephro workup Imaging: Renal US: Increased echogenicity of the bilateral renal parenchymal cortices suggestive for medical renal disease. Bilateral renal cysts. Meds: Procrit MWF, Nephro-Magdalena, Phoslo Nonbleeding Gastric Ulcer Severe anemia from a lower GI Etiology and from renal failure GI consulted - Dr. Barnard- help appreciated On admission Hgb was 5 Because of uremia on labwork we also ordered 30 DDAVP x 1 dose now as he may have uremic bleeding S/P EGD: showing hiatal hernia, esophagitis, gastric ulcer, and a normal duodenum Nuclear Bleeding Scan: negative S/P 4 units PRBCs Anemia Ferrlecit x 8 days UTI (urinary tract infection) UA: 2+ protein, 1+ blood, 3+ LE, 36 WBC, 4RBC, moderate bacteria The urine culture shows E. Coli Started Cipro 250mg PO BID, f/u repeat UC Esophageal Candiasis Started diflucan 100mg PO once, then Diflucan 50mg PO daily x 13 Dyspnea on exertion Echo: global left ventricular hypokinesis, moderate pulmonary HTN, and also EF 45% Chest xray: patchy opacities within lateral right upper lobe and b/l lower lobes may reflect multifocal infiltrate or atelectasis CT Chest: Patchy foci of ground-glass opacities associated with septal thickening and mild bronchiectasis and also associated with foci of honeycombing. Findings likely represent interstitial pneumonitis and the differential consideration includes mainly UIP and less likely nonspecific interstitial pneumonitis, desquamative interstitial pneumonia and chronic hypersensitivity pneumonitis. Foci of consolidation noted at the right lung along the right fissure may represent lung nodule or pleural thickening 3 months follow-up reassessment is recommended. Mild emphysema. Mild cardiomegaly. Hx of HTN Echo: global left ventricular hypokinesis, moderate pulmonary HTN, and also EF 45% Coreg 6.25mg PO BID Procardia XL 60mg PO daily Prophylactic measure NO chemical anticoagulation due to severe anemia SCDs Protonix 40mg IV Q12H PT EVAL Marimar Nava Dr., DO, PGY-1 <Aylin Roy - Last Filed: 06/20/17 18:52> Objective - Vital Signs/Intake and Output Vital Signs (last 24 hours): Temp Pulse Resp BP Pulse Ox 98.1 F 69 20 157/88 H 94 L 06/20/17 16:34 06/20/17 16:34 06/20/17 16:34 06/20/17 16:34 06/20/17 16:34 Intake and Output: 06/20/17 06/20/17 06:59 18:59 Intake Total 250 Balance 250 - Medications Medications: Current Medications Acetaminophen (Tylenol 325mg Tab) 650 mg PO Q6 PRN PRN Reason: Pain, Mild (1-3) Last Admin: 06/17/17 18:00 Dose: 650 mg Albuterol/Ipratropium (Duoneb 3 Mg/0.5 Mg (3 Ml) Ud) 3 ml INH RQ6 [facility] Last Admin: 06/20/17 13:24 Dose: 3 ml Calcium Acetate (Phoslo) 1,334 mg PO TIDCC [facility] Last Admin: 06/20/17 18:08 Dose: 1,334 mg Carvedilol (Coreg) 6.25 mg PO BID [facility] Last Admin: 06/20/17 18:08 Dose: 6.25 mg Ciprofloxacin (Cipro) 250 mg PO BID [facility] Stop: 06/24/17 18:01 Last Admin: 06/20/17 18:08 Dose: 250 mg Epoetin Connor (Procrit) 8,000 unit IV MWF [facility] Last Admin: 06/19/17 21:33 Dose: 8,000 unit Ergocalciferol (Drisdol 50,000 Intl Units Cap) 1 cap PO Q7D [facility] Last Admin: 06/20/17 09:53 Dose: 1 cap Ferric Sodium Gluconate Complex (Ferrlecit) 125 mg IVPB DAILY [facility] Stop: 06/23/17 10:01 Last Admin: 06/20/17 09:53 Dose: 125 mg Fluconazole (Diflucan) 50 mg PO DAILY [facility] Stop: 07/03/17 10:01 Last Admin: 06/20/17 09:53 Dose: 50 mg Nifedipine (Procardia Xl) 60 mg PO DAILY [facility] Last Admin: 06/20/17 09:54 Dose: 60 mg Pantoprazole Sodium (Protonix Inj) 40 mg IVP Q12H [facility] Last Admin: 06/20/17 09:54 Dose: 40 mg Tramadol HCl (Ultram) 25 mg PO TID PRN PRN Reason: Pain, severe (8-10) Vitamin B Complex/Vit C/Folic Acid (Nephro-Magdalena) 1 tab PO 0800 [facility] Last Admin: 06/20/17 08:48 Dose: 1 tab - Labs Labs: 06/20/17 06:42 06/20/17 06:42 PT 13.0 SECONDS (9.7-12.2) H 06/20/17 06:42 INR 1.2 06/20/17 06:42 APTT 35 SECONDS (21-34) H 06/20/17 06:42 Attending/Attestation - Attestation I have personally seen and examined this patient.: Yes I have fully participated in the care of the patient.: Yes I have reviewed all pertinent clinical information, including history, physical exam and plan: Yes Notes (Text): Patient was seen and examined Denies pain,no sob Plan discussed with Dr Enciso spoke to CW about out patient dialysis arrangements Kidney biopsy tomorrow. remove femoral line after perma cath On Cipro for UTI,started on diflucan renal dose for Esophageal candidiasis I agree with the resident's documentation of the assessment and the plan
[2017-06-19] MEDS: EPOETIN ALFA 4,000 UNIT/ML ML Dialysis IV SCH (21:33)
[2017-06-20] MEDS: Albuterol-Ipratrop 3 mg / 0.5 (3 ml) UD INH SCH ×4 (02:21→19:56)
--- NOTE | 2017-06-20 02:37 | OP ---
PROCEDURE DATE: 06/19/2017 PREOPERATIVE DIAGNOSIS: Renal failure. POSTOPERATIVE DIAGNOSIS: Renal failure. PROCEDURE CARRIED OUT: Perm-A-Cath in right jugular vein with C-arm fluoroscopy with ultrasound-guided puncture and micropuncture technique. SURGEON: Nahum Sotelo Jr., MD DIRECTOR INDEX: Dr. Rubin. ANESTHESIOLOGIST: Dr. Dave. INDICATION: The patient is a middle-aged man with renal insufficiency with a temporary femoral catheter inserted who now requires a Perm-A-Cath for more permanent access. OPERATIVE FINDINGS: Using ultrasound guidance and micropuncture technique, the right jugular vein was punctured. Under fluoroscopic control, the guidewire was advanced centrally. This was subsequently exchanged for a #35 wire and sheath dilator was passed over this. Catheter was then positioned on the right chest wall originating and chest wall terminating through the jugular vein and in the superior vena cava right atrium. It was flushed with heparinized saline with good return and was secured to the skin with sutures. Blood loss during the procedure was less than 5 cc. The operation carried out was Perm-A-Cath in right jugular vein with C-arm fluoroscopy with ultrasound-guided puncture and micropuncture technique. Ultrasound images of the neck showed that the vein was 12 mm in diameter with normal compressibility, and no intraluminal thrombosis. Nahum Sotelo Jr., MD
[2017-06-20 07:00] LABS: BASO # 0.1 K/uL (0.0-0.2); BASO % 0.8 % (0.0-2.0); EOS # 0.6 K/uL (0.0-0.7); EOS % 5.9 % (0.0-4.0); LYMPH # 0.7 K/uL (1.0-4.3); LYMPH % 6.7 % (20.0-40.0); MEAN CELL VOLUME 84.7 fL (80.0-94.0); MEAN CORPUSCULAR HGB CONC 34.2 g/dL (33.0-37.0); MEAN PLATELET VOLUME 7.9 fL (7.2-11.7); MONO # 0.8 K/uL (0.0-0.8); MONO % 7.2 % (0.0-10.0); NEUT # 8.6 K/uL (1.8-7.0); NEUT % 79.4 % (50.0-75.0); NRBC % 0.1 % (0.0-2.0); PLATELET COUNT 287 K/uL (130-400); RBC 3.09 Mil/uL (4.40-5.90); RED CELL DISTRIBUTION WIDTH 14.7 % (11.5-14.5); WHITE BLOOD COUNT 10.8 K/uL (4.8-10.8)
[2017-06-20 07:04] LABS: INR 1.2
[2017-06-20 07:20] LABS: ALB/GLOB RATIO 1.1 (1.0-2.1); ALBUMIN 3.1 g/dL (3.5-5.0); CALCIUM 7.7 mg/dl (8.6-10.4)
--- NOTE | 2017-06-20 08:18 | CP.PCM.PN ---
<Marimar John - Last Filed: 06/20/17 10:23> Subjective - Date & Time of Evaluation Date of Evaluation: 06/20/17 Time of Evaluation: 07:00 - Subjective Subjective: Medicine Note for Hospitalist Service- Dr. Roy Patient was seen and examined at bedside. Patient reports he is feeling well. He ambulates well and is tolerating diet. He is currently NPO for renal biopsy. He reports being unable to lay flat so he must sleep at a 45' angle. He denied any SOB when ambulating to the bathroom. He will be working with PT today after the renal biopsy. Denied fever, chills, chest pain, SOB, abdominal pain, n/v/d/c , or urinary symptoms. Objective - Vital Signs/Intake and Output Vital Signs (last 24 hours): Temp Pulse Resp BP Pulse Ox 98.2 F 82 20 134/82 98 06/20/17 01:00 06/20/17 01:00 06/20/17 01:00 06/20/17 01:00 06/20/17 01:00 Intake and Output: 06/20/17 06/20/17 06:59 18:59 Intake Total 250 Balance 250 - Medications Medications: Current Medications Acetaminophen (Tylenol 325mg Tab) 650 mg PO Q6 PRN PRN Reason: Pain, Mild (1-3) Last Admin: 06/17/17 18:00 Dose: 650 mg Albuterol/Ipratropium (Duoneb 3 Mg/0.5 Mg (3 Ml) Ud) 3 ml INH RQ6 [facility] Last Admin: 06/20/17 07:39 Dose: 3 ml Calcium Acetate (Phoslo) 1,334 mg PO TIDCC [facility] Last Admin: 06/19/17 17:45 Dose: 1,334 mg Carvedilol (Coreg) 6.25 mg PO BID [facility] Last Admin: 06/19/17 17:58 Dose: 6.25 mg Ciprofloxacin (Cipro) 250 mg PO BID [facility] Stop: 06/24/17 18:01 Last Admin: 06/19/17 17:20 Dose: 250 mg Epoetin Connor (Procrit) 8,000 unit IV MWF [facility] Last Admin: 06/19/17 21:33 Dose: 8,000 unit Ferric Sodium Gluconate Complex (Ferrlecit) 125 mg IVPB DAILY [facility] Stop: 06/23/17 10:01 Last Admin: 06/19/17 10:01 Dose: 125 mg Fluconazole (Diflucan) 50 mg PO DAILY [facility] Stop: 07/03/17 10:01 Nifedipine (Procardia Xl) 60 mg PO DAILY [facility] Last Admin: 06/19/17 11:00 Dose: 60 mg Pantoprazole Sodium (Protonix Inj) 40 mg IVP Q12H [facility] Last Admin: 06/19/17 22:55 Dose: 40 mg Vitamin B Complex/Vit C/Folic Acid (Nephro-Magdalena) 1 tab PO 0800 [facility] Last Admin: 06/19/17 08:44 Dose: Not Given - Labs Labs: 06/20/17 06:42 06/20/17 06:42 PT 13.0 SECONDS (9.7-12.2) H 06/20/17 06:42 INR 1.2 06/20/17 06:42 APTT 35 SECONDS (21-34) H 06/20/17 06:42 - Additional Findings Additional findings: - Constitutional Appears: No Acute Distress, Unkempt, Chronically Ill - Head Exam Head Exam: NORMAL INSPECTION, NORMOCEPHALIC - Eye Exam Eye Exam: EOMI, Normal appearance - ENT Exam ENT Exam: Mucous Membranes Moist - Respiratory Exam Respiratory Exam: Clear to Ausculation Bilateral, NORMAL BREATHING PATTERN - Cardiovascular Exam Cardiovascular Exam: REGULAR RHYTHM - GI/Abdominal Exam GI & Abdominal Exam: Soft, Normal Bowel Sounds. 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 Sotelo consulted - help appreciated Nephrology- Dr. Mckeon/ Dr. Enciso - help appreciated S/P Permacath 06/19/17 Dialysis MWF Creatinine improving Renal Biopsy - today with IR F/U nephro workup Imaging: Renal US: Increased echogenicity of the bilateral renal parenchymal cortices suggestive for medical renal disease. Bilateral renal cysts. Meds: Procrit MWF, Nephro-Magdalena, Phoslo Nonbleeding Gastric Ulcer Severe anemia from a lower GI Etiology and from renal failure GI consulted - Dr. Xander lua appreciated On admission Hgb was 5 Because of uremia on labwork we also ordered 30 DDAVP x 1 dose now as he may have uremic bleeding S/P EGD: showing hiatal hernia, esophagitis, gastric ulcer, and a normal duodenum Nuclear Bleeding Scan: negative S/P 4 units PRBCs Anemia Bacteriuria Ferrlecit x 8 days Continue to monitor Asymptomatic Bacturia UA: 2+ protein, 1+ blood, 3+ LE, 36 WBC, 4RBC, moderate bacteria The urine culture shows E. Coli Started Cipro 250mg PO BID x 5 days, f/u repeat UC Esophageal Candiasis Started diflucan 100mg PO once, then Diflucan 50mg PO daily x 13 Dyspnea on exertion Pulmonology consulted - Dr. Karen lua appreciated Echo: global left ventricular hypokinesis, moderate pulmonary HTN, and also EF 45% Chest xray: patchy opacities within lateral right upper lobe and b/l lower lobes may reflect multifocal infiltrate or atelectasis CT Chest: Patchy foci of ground-glass opacities associated with septal thickening and mild bronchiectasis and also associated with foci of honeycombing. Findings likely represent interstitial pneumonitis and the differential consideration includes mainly UIP and less likely nonspecific interstitial pneumonitis, desquamative interstitial pneumonia and chronic hypersensitivity pneumonitis. Foci of consolidation noted at the right lung along the right fissure may represent lung nodule or pleural thickening 3 months follow-up reassessment is recommended. Mild emphysema. Mild cardiomegaly. Hx of HTN Echo: global left ventricular hypokinesis, moderate pulmonary HTN, and also EF 45% Coreg 6.25mg PO BID Procardia XL 60mg PO daily Prophylactic measure NO chemical anticoagulation due to severe anemia SCDs Protonix 40mg IV Q12H PT [facility] Marimar Nava Dr., DO, PGY-1 <Aylin Roy - Last Filed: 06/20/17 18:59> Objective - Vital Signs/Intake and Output Vital Signs (last 24 hours): Temp Pulse Resp BP Pulse Ox 98.1 F 69 20 157/88 H 94 L 06/20/17 16:34 06/20/17 16:34 06/20/17 16:34 06/20/17 16:34 06/20/17 16:34 Intake and Output: 06/20/17 06/20/17 06:59 18:59 Intake Total 250 Balance 250 - Medications Medications: Current Medications Acetaminophen (Tylenol 325mg Tab) 650 mg PO Q6 PRN PRN Reason: Pain, Mild (1-3) Last Admin: 06/17/17 18:00 Dose: 650 mg Albuterol/Ipratropium (Duoneb 3 Mg/0.5 Mg (3 Ml) Ud) 3 ml INH RQ6 [facility] Last Admin: 06/20/17 13:24 Dose: 3 ml Calcium Acetate (Phoslo) 1,334 mg PO TIDCC [facility] Last Admin: 06/20/17 18:08 Dose: 1,334 mg Carvedilol (Coreg) 6.25 mg PO BID [facility] Last Admin: 06/20/17 18:08 Dose: 6.25 mg Ciprofloxacin (Cipro) 250 mg PO BID [facility] Stop: 06/24/17 18:01 Last Admin: 06/20/17 18:08 Dose: 250 mg Epoetin Connor (Procrit) 8,000 unit IV MWF [facility] Last Admin: 06/19/17 21:33 Dose: 8,000 unit Ergocalciferol (Drisdol 50,000 Intl Units Cap) 1 cap PO Q7D [facility] Last Admin: 06/20/17 09:53 Dose: 1 cap Ferric Sodium Gluconate Complex (Ferrlecit) 125 mg IVPB DAILY [facility] Stop: 06/23/17 10:01 Last Admin: 06/20/17 09:53 Dose: 125 mg Fluconazole (Diflucan) 50 mg PO DAILY [facility] Stop: 07/03/17 10:01 Last Admin: 06/20/17 09:53 Dose: 50 mg Nifedipine (Procardia Xl) 60 mg PO DAILY [facility] Last Admin: 06/20/17 09:54 Dose: 60 mg Pantoprazole Sodium (Protonix Inj) 40 mg IVP Q12H [facility] Last Admin: 06/20/17 09:54 Dose: 40 mg Tramadol HCl (Ultram) 25 mg PO TID PRN PRN Reason: Pain, severe (8-10) Last Admin: 06/20/17 18:46 Dose: 25 mg Vitamin B Complex/Vit C/Folic Acid (Nephro-Magdalena) 1 tab PO 0800 [facility] Last Admin: 06/20/17 08:48 Dose: 1 tab - Labs Labs: 06/20/17 06:42 06/20/17 06:42 PT 13.0 SECONDS (9.7-12.2) H 06/20/17 06:42 INR 1.2 06/20/17 06:42 APTT 35 SECONDS (21-34) H 06/20/17 06:42 Attending/Attestation - Attestation I have personally seen and examined this patient.: Yes I have fully participated in the care of the patient.: Yes I have reviewed all pertinent clinical information, including history, physical exam and plan: Yes Notes (Text): Patient was seen and examined s/p renal biopsy. complaining of pain at the site.No bleeding or swelling at the site Femoral line removed Continue dialysis as per nephrology. CT chest with multiple lung pathology - Pulmonary consult requested Echo showed EF 45% and global hypokinesis of left ventricle- Asked for time clock repairer evaluation I agree with the documentation of the resident's assessment and the plan ]
[2017-06-20 08:26] LABS: ANISOCYTOSIS SLIGHT; EOSINOPHIL 6 % (0-4); HYPOCHROMIC SLIGHT; LYMPHOCYTE 10 % (20-40); MONOCYTE 6 % (0-10); NEUTROPHIL 78 % (50-75); PLATELET ESTIMATE NORMAL (NORMAL); POIKILOCYTOSIS SLIGHT; TOTAL CELLS COUNTED 100
[2017-06-20 08:27] LABS: BURR CELLS SLIGHT; GIANT PLATELETS PRESENT; LARGE PLATELETS PRESENT; MICROCYTOSIS SLIGHT; OVALOCYTES SLIGHT; TEARDROP CELLS SLIGHT
[2017-06-20] MEDS: Multivitamin Vitamin B Complex (Nephro-Vite) Tab PO SCH (08:48)
--- NOTE | 2017-06-20 09:04 | CP.PCM.PN ---
Subjective - Date & Time of Evaluation Date of Evaluation: 06/20/17 Time of Evaluation: 08:30 - Subjective Subjective: Vascular Surgery- Dr. Sotelo patient seen and examined at bedside this AM. No acute events overnight. RIJ permcath in place. dressing C/D/I Objective - Vital Signs/Intake and Output Vital Signs (last 24 hours): Temp Pulse Resp BP Pulse Ox 98.2 F 82 20 134/82 98 06/20/17 01:00 06/20/17 01:00 06/20/17 01:00 06/20/17 01:00 06/20/17 01:00 Intake and Output: 06/20/17 06/20/17 06:59 18:59 Intake Total 250 Balance 250 - Medications Medications: Current Medications Acetaminophen (Tylenol 325mg Tab) 650 mg PO Q6 PRN PRN Reason: Pain, Mild (1-3) Last Admin: 06/17/17 18:00 Dose: 650 mg Albuterol/Ipratropium (Duoneb 3 Mg/0.5 Mg (3 Ml) Ud) 3 ml INH RQ6 [facility] Last Admin: 06/20/17 07:39 Dose: 3 ml Calcium Acetate (Phoslo) 1,334 mg PO TIDCC [facility] Last Admin: 06/20/17 08:48 Dose: 1,334 mg Carvedilol (Coreg) 6.25 mg PO BID [facility] Last Admin: 06/19/17 17:58 Dose: 6.25 mg Ciprofloxacin (Cipro) 250 mg PO BID [facility] Stop: 06/24/17 18:01 Last Admin: 06/19/17 17:20 Dose: 250 mg Epoetin Connor (Procrit) 8,000 unit IV MWF [facility] Last Admin: 06/19/17 21:33 Dose: 8,000 unit Ferric Sodium Gluconate Complex (Ferrlecit) 125 mg IVPB DAILY [facility] Stop: 06/23/17 10:01 Last Admin: 06/19/17 10:01 Dose: 125 mg Fluconazole (Diflucan) 50 mg PO DAILY [facility] Stop: 07/03/17 10:01 Nifedipine (Procardia Xl) 60 mg PO DAILY [facility] Last Admin: 06/19/17 11:00 Dose: 60 mg Pantoprazole Sodium (Protonix Inj) 40 mg IVP Q12H [facility] Last Admin: 02/26/18 22:55 Dose: 40 mg Vitamin B Complex/Vit C/Folic Acid (Nephro-Magdalena) 1 tab PO 0800 [facility] Last Admin: 06/20/17 08:48 Dose: 1 tab - Labs Labs: 06/20/17 06:42 06/20/17 06:42 PT 13.0 SECONDS (9.7-12.2) H 06/20/17 06:42 INR 1.2 06/20/17 06:42 APTT 35 SECONDS (21-34) H 06/20/17 06:42 - Constitutional Appears: Non-toxic, No Acute Distress - Head Exam Head Exam: ATRAUMATIC - Eye Exam Eye Exam: EOMI. absent: Scleral icterus - ENT Exam ENT Exam: Mucous Membranes Moist - Respiratory Exam Respiratory Exam: NORMAL BREATHING PATTERN. absent: Accessory Muscle Use, Respiratory Distress - Cardiovascular Exam Cardiovascular Exam: +S1, +S2. absent: Bradycardia, Tachycardia - GI/Abdominal Exam GI & Abdominal Exam: Soft. absent: Distended, Firm, Guarding, Rigid, Tenderness - Extremities Exam Additional comments: R.IJ permcath in place. C/D/I - Neurological Exam Neurological Exam: Alert, Awake, Oriented x3 - Psychiatric Exam Psychiatric exam: Normal Affect - Skin Skin Exam: Intact, Warm Assessment and Plan - Assessment and Plan (Free Text) Assessment: 61M s/p R.IJ permacath placement Plan: - will remove shiley today - ok to use R.IJ permacath for dialysis - medical management per primary and nephro team - discussed w/ Dr. Sotelo surgical attending PGY1
[2017-06-20] MEDS: Ferric Sodium Gluconat Complex 62.5 mg/5 ml Vial IVPB SCH (09:53)
[2017-06-20] MEDS: Ergocalciferol 50,000 Intl Units Cap PO SCH (09:53)
[2017-06-20] MEDS: NIFEdipine 60 mg ER Tab PO SCH (09:54)
[2017-06-20] MEDS ORDERED: Midazolam 2 MG/2 ML VIAL ONE (10:33)
[2017-06-20] MEDS ORDERED: Absorbable Gelatin Sponge Size 12-7 ONE (10:43)
--- NOTE | 2017-06-20 10:57 | CP.PCM.PN ---
Subjective - Date & Time of Evaluation Date of Evaluation: 06/20/17 Time of Evaluation: 10:57 - Subjective Subjective: pt not seen as he was getting kidney biopsy plan for HD tomorrow started vit D used permacath yesterday, please d/c femoral shiley today Objective - Vital Signs/Intake and Output Vital Signs (last 24 hours): Temp Pulse Resp BP Pulse Ox 98.2 F 82 20 134/82 98 06/20/17 01:00 06/20/17 01:00 06/20/17 01:00 06/20/17 01:00 06/20/17 01:00 Intake and Output: 06/20/17 06/20/17 06:59 18:59 Intake Total 250 Balance 250 - Medications Medications: Current Medications Acetaminophen (Tylenol 325mg Tab) 650 mg PO Q6 PRN PRN Reason: Pain, Mild (1-3) Last Admin: 06/17/17 18:00 Dose: 650 mg Albuterol/Ipratropium (Duoneb 3 Mg/0.5 Mg (3 Ml) Ud) 3 ml INH RQ6 [facility] Last Admin: 06/20/17 07:39 Dose: 3 ml Calcium Acetate (Phoslo) 1,334 mg PO TIDCC [facility] Last Admin: 06/20/17 08:48 Dose: 1,334 mg Carvedilol (Coreg) 6.25 mg PO BID [facility] Last Admin: 06/20/17 09:53 Dose: 6.25 mg Ciprofloxacin (Cipro) 250 mg PO BID [facility] Stop: 06/24/17 18:01 Last Admin: 06/20/17 09:53 Dose: 250 mg Epoetin Connor (Procrit) 8,000 unit IV MWF [facility] Last Admin: 06/19/17 21:33 Dose: 8,000 unit Ergocalciferol (Drisdol 50,000 Intl Units Cap) 1 cap PO Q7D [facility] Last Admin: 06/20/17 09:53 Dose: 1 cap Ferric Sodium Gluconate Complex (Ferrlecit) 125 mg IVPB DAILY [facility] Stop: 06/23/17 10:01 Last Admin: 06/20/17 09:53 Dose: 125 mg Fluconazole (Diflucan) 50 mg PO DAILY [facility] Stop: 07/03/17 10:01 Last Admin: 06/20/17 09:53 Dose: 50 mg Nifedipine (Procardia Xl) 60 mg PO DAILY [facility] Last Admin: 06/20/17 09:54 Dose: 60 mg Pantoprazole Sodium (Protonix Inj) 40 mg IVP Q12H [facility] Last Admin: 06/20/17 09:54 Dose: 40 mg Vitamin B Complex/Vit C/Folic Acid (Nephro-Magdalena) 1 tab PO 0800 [facility] Last Admin: 06/20/17 08:48 Dose: 1 tab - Labs Labs: 06/20/17 06:42 06/20/17 06:42 PT 13.0 SECONDS (9.7-12.2) H 06/20/17 06:42 INR 1.2 06/20/17 06:42 APTT 35 SECONDS (21-34) H 06/20/17 06:42
--- NOTE | 2017-06-20 11:06 | PCM.SURG1 ---
Surgeon's Initial Post Op Note - Surgeon's Notes Surgeon: Enma Figueroa Guest Service Host: NONE Type of Anesthesia: IV Sedation Pre-Operative Diagnosis: Renal failure Operative Findings: US showed echogenic kidneys. CT showed cysts within the left kidney. Post-Operative Diagnosis: Renal failure Operation Performed: CT guided right renal biopsy. Five 18 gauge core specimen obtained. Biopsy tract embolized with gelfoam. Specimen/Specimens Removed: 18 g core x 5 Estimated Blood Loss: EBL {In ML}: 1 Blood Products Given: N/A Drains Used: No Drains Post-Op Condition: Fair Date of Surgery/Procedure: 06/20/17 Time of Surgery/Procedure: 11:00
--- NOTE | 2017-06-20 12:34 | RAD ---
PROCEDURE: HISTORY: COMPARISON: None TECHNIQUE: Total fluoroscopic time utilized during the procedure: 3.9 seconds ; 0.17 mGy cm 2 FINDINGS: Submitted images from the current procedure: 2 Please refer to the physician's notes performing the procedure. IMPRESSION: Less than 1 hour fluoroscopic time utilized during performance of the procedure
[2017-06-20] MEDS ORDERED: Tramadol 25 mg PO ONE (13:15)
--- NOTE | 2017-06-20 13:44 | CT ---
PROCEDURE: Date of procedure: 06/20/2017 Procedure: CT-guided right renal biopsy, CPT 45594 CT scan guidance for biopsy, [address]111 Medications: The patient sedated by anesthesiologist along with physiologic monitoring. 8cc 1 percent lidocaine Radiation: 583.72 mGy-cm HISTORY: Renal failure TECHNIQUE: Following informed consent, the Pt's back was marked. The Pt was placed prone on the CT table and procedure time out was performed. A noncontrast CT scan was performed. The patient's back was prepped and draped in the usual sterile fashion. After patient sedated by the anesthesiologist and the skin anesthetized with 1% lidocaine, an 18 gauge core needle was advanced percutaneously towards the lower pole cortex of the right kidney. Upon confirmation of needle position, five-18 gauge core specimens were obtained and sent for routine pathology. There was no bleeding. The biopsy track was then embolized with Gelfoam. A post biopsy CT scan showed no hematoma. There were no immediate complications. IMPRESSION: CT-guided biopsy of right kidney.
[2017-06-20] MEDS ORDERED: Tramadol 25 mg PO PRN (18:25)
[2017-06-21] MEDS: Albuterol-Ipratrop 3 mg / 0.5 (3 ml) UD INH SCH ×4 (01:18→20:16)
[2017-06-21 02:08] LABS: ANCA SCREEN NEGATIVE (NEGATIVE)
[2017-06-21 07:29] LABS: BASO # 0.1 K/uL (0.0-0.2); BASO % 0.8 % (0.0-2.0); EOS # 0.6 K/uL (0.0-0.7); EOS % 5.1 % (0.0-4.0); HEMOGLOBIN 8.5 g/dL (12.0-18.0); LYMPH # 0.9 K/uL (1.0-4.3); LYMPH % 8.1 % (20.0-40.0); MEAN CELL VOLUME 85.8 fL (80.0-94.0); MEAN CORPUSCULAR HEMOGLOBIN 29.1 pg (27.0-31.0); MEAN CORPUSCULAR HGB CONC 33.9 g/dL (33.0-37.0); MEAN PLATELET VOLUME 7.8 fL (7.2-11.7); MONO # 0.8 K/uL (0.0-0.8); MONO % 7.3 % (0.0-10.0); NEUT # 8.9 K/uL (1.8-7.0); NEUT % 78.7 % (50.0-75.0); NRBC % 0.1 % (0.0-2.0); PLATELET COUNT 252 K/uL (130-400); RBC 2.92 Mil/uL (4.40-5.90); RED CELL DISTRIBUTION WIDTH 15.2 % (11.5-14.5); WHITE BLOOD COUNT 11.3 K/uL (4.8-10.8)
[2017-06-21 08:16] LABS: ALBUMIN 2.9 g/dL (3.5-5.0); CALCIUM 7.5 mg/dl (8.6-10.4)
[2017-06-21] MEDS: Multivitamin Vitamin B Complex (Nephro-Vite) Tab PO SCH (08:37)
[2017-06-21 09:00] LABS: ANISOCYTOSIS SLIGHT; BANDS 1 % (0-2); EOSINOPHIL 5 % (0-4); HYPOCHROMIC SLIGHT; LYMPHOCYTE 8 % (20-40); MONOCYTE 5 % (0-10); NEUTROPHIL 81 % (50-75); PLATELET ESTIMATE NORMAL (NORMAL); POIKILOCYTOSIS SLIGHT; TARGET CELLS SLIGHT; TOTAL CELLS COUNTED 100
[2017-06-21 09:01] LABS: OVALOCYTES SLIGHT; TOXIC GRANULATION PRESENT
--- NOTE | 2017-06-21 10:18 | CP.PCM.PN ---
<Josh Johna - Last Filed: 06/21/17 10:14> Subjective - Date & Time of Evaluation Date of Evaluation: 06/21/17 Time of Evaluation: 09:00 - Subjective Subjective: Medicine Note for Hospitalist Service- Dr. Roy Patient was seen and examined at bedside. Patient reported he felt better today. No more pain from the renal biopsy. Denied fever, chills, chest pain, SOB , abdominal pain, n/v/d/c, or urinary symptoms. Objective - Vital Signs/Intake and Output Vital Signs (last 24 hours): Temp Pulse Resp BP Pulse Ox 98.2 F 75 16 168/95 H 99 06/21/17 09:10 06/21/17 09:40 06/21/17 09:40 06/21/17 09:40 06/21/17 09:40 Intake and Output: 06/21/17 06/21/17 06:59 18:59 Intake Total 480 Balance 480 - Medications Medications: Current Medications Acetaminophen (Tylenol 325mg Tab) 650 mg PO Q6 PRN PRN Reason: Pain, Mild (1-3) Last Admin: 06/17/17 18:00 Dose: 650 mg Albuterol/Ipratropium (Duoneb 3 Mg/0.5 Mg (3 Ml) Ud) 3 ml INH RQ6 [facility] Last Admin: 06/21/17 07:00 Dose: 3 ml Calcium Acetate (Phoslo) 1,334 mg PO TIDCC [facility] Last Admin: 06/21/17 08:37 Dose: 1,334 mg Carvedilol (Coreg) 6.25 mg PO BID [facility] Last Admin: 06/20/17 18:08 Dose: 6.25 mg Ciprofloxacin (Cipro) 250 mg PO BID [facility] Stop: 06/24/17 18:01 Last Admin: 06/20/17 18:08 Dose: 250 mg Epoetin Connor (Procrit) 8,000 unit IV MWF [facility] Last Admin: 06/19/17 21:33 Dose: 8,000 unit Ergocalciferol (Drisdol 50,000 Intl Units Cap) 1 cap PO Q7D [facility] Last Admin: 06/20/17 09:53 Dose: 1 cap Ferric Sodium Gluconate Complex (Ferrlecit) 125 mg IVPB DAILY [facility] Stop: 06/23/17 10:01 Last Admin: 06/20/17 09:53 Dose: 125 mg Fluconazole (Diflucan) 50 mg PO DAILY [facility] Stop: 07/03/17 10:01 Last Admin: 06/20/17 09:53 Dose: 50 mg Nifedipine (Procardia Xl) 60 mg PO DAILY [facility] Last Admin: 06/20/17 09:54 Dose: 60 mg Pantoprazole Sodium (Protonix Inj) 40 mg IVP Q12H [facility] Last Admin: 06/20/17 21:53 Dose: 40 mg Tramadol HCl (Ultram) 25 mg PO TID PRN PRN Reason: Pain, severe (8-10) Last Admin: 06/20/17 18:46 Dose: 25 mg Vitamin B Complex/Vit C/Folic Acid (Nephro-Magdalena) 1 tab PO 0800 [facility] Last Admin: 06/21/17 08:37 Dose: 1 tab - Labs Labs: 06/21/17 07:12 06/21/17 07:12 PT 13.0 SECONDS (9.7-12.2) H 06/20/17 06:42 INR 1.2 06/20/17 06:42 APTT 35 SECONDS (21-34) H 06/20/17 06:42 - Additional Findings Additional findings: - Constitutional Appears: No Acute Distress - Head Exam Head Exam: NORMAL INSPECTION, NORMOCEPHALIC - Eye Exam Eye Exam: EOMI, Normal appearance - ENT Exam ENT Exam: Mucous Membranes Moist - Respiratory Exam Respiratory Exam: Clear to Ausculation Bilateral, NORMAL BREATHING PATTERN - Cardiovascular Exam Cardiovascular Exam: REGULAR RHYTHM - GI/Abdominal Exam GI & Abdominal Exam: Soft, Normal Bowel Sounds. 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 Sotelo consulted - help appreciated Nephrology- Dr. Mckeon/ Dr. Enciso - help appreciated S/P Permacath 06/19/17 Dialysis MWF Creatinine improving S/P Renal Biopsy - with IR - pending pathology F/U nephro workup Imaging: Renal US: Increased echogenicity of the bilateral renal parenchymal cortices suggestive for medical renal disease. Bilateral renal cysts. Meds: Procrit MWF, Nephro-Magdalena, Phoslo Nonbleeding Gastric Ulcer Severe anemia from a lower GI Etiology and from renal failure GI consulted - Dr. Barnard- chanell appreciated On admission Hgb was 5 Because of uremia on labwork we also ordered 30 DDAVP x 1 dose now as he may have uremic bleeding S/P EGD: showing hiatal hernia, esophagitis, gastric ulcer, and a normal duodenum Nuclear Bleeding Scan: negative S/P 4 units PRBCs Anemia Bacteriuria Ferrlecit x 8 days Continue to monitor Asymptomatic Bacturia UA: 2+ protein, 1+ blood, 3+ LE, 36 WBC, 4RBC, moderate bacteria The urine culture shows E. Coli Started Cipro 250mg PO BID x 5 days, f/u repeat UC Esophageal Candiasis Started diflucan 100mg PO once, then Diflucan 50mg PO daily x 13 Dyspnea on exertion Pulmonology consulted - Dr. Pierson- chanell appreciated Echo: global left ventricular hypokinesis, moderate pulmonary HTN, and also EF 45% Chest xray: patchy opacities within lateral right upper lobe and b/l lower lobes may reflect multifocal infiltrate or atelectasis CT Chest: Patchy foci of ground-glass opacities associated with septal thickening and mild bronchiectasis and also associated with foci of honeycombing. Findings likely represent interstitial pneumonitis and the differential consideration includes mainly UIP and less likely nonspecific interstitial pneumonitis, desquamative interstitial pneumonia and chronic hypersensitivity pneumonitis. Foci of consolidation noted at the right lung along the right fissure may represent lung nodule or pleural thickening 3 months follow-up reassessment is recommended. Mild emphysema. Mild cardiomegaly. Hx of HTN Echo: global left ventricular hypokinesis, moderate pulmonary HTN, and also EF 45% Coreg 6.25mg PO BID Procardia XL 60mg PO daily Prophylactic measure NO chemical anticoagulation due to severe anemia SCDs Protonix 40mg IV Q12H PT EVAL - DC HOME: RESTING RA-95%, ROOM AIR EXERTION AMB 50 F X 1- SPO2 88%, 2L NC O2 EXERTION AMB AND T/.F 50 F SPO2 95% Disposition: Pending results of renal biopsy. Pending outpatient dialysis set up by case management. Will continue PT - to assess if patient needs home O2. DW Marimar Barfield DO, PGY-1 <Aylin Roy - Last Filed: 06/21/17 16:41> Objective - Vital Signs/Intake and Output Vital Signs (last 24 hours): Temp Pulse Resp BP Pulse Ox 98.2 F 70 16 181/101 H 83 L 06/21/17 09:10 06/21/17 12:30 06/21/17 12:30 06/21/17 12:30 06/21/17 12:00 Intake and Output: 06/21/17 06/21/17 06:59 18:59 Intake Total 480 Balance 480 - Medications Medications: Current Medications Acetaminophen (Tylenol 325mg Tab) 650 mg PO Q6 PRN PRN Reason: Pain, Mild (1-3) Last Admin: 06/17/17 18:00 Dose: 650 mg Albuterol/Ipratropium (Duoneb 3 Mg/0.5 Mg (3 Ml) Ud) 3 ml INH RQ6 [facility] Last Admin: 06/21/17 13:23 Dose: 3 ml Calcium Acetate (Phoslo) 1,334 mg PO TIDCC [facility] Last Admin: 06/21/17 12:14 Dose: Not Given Carvedilol (Coreg) 12.5 mg PO BID [facility] Ciprofloxacin (Cipro) 250 mg PO BID [facility] Stop: 06/24/17 18:01 Last Admin: 06/21/17 10:19 Dose: Not Given Epoetin Connor (Procrit) 8,000 unit IV MWF [facility] Last Admin: 06/21/17 11:05 Dose: 8,000 unit Ergocalciferol (Drisdol 50,000 Intl Units Cap) 1 cap PO Q7D [facility] Last Admin: 06/20/17 09:53 Dose: 1 cap Ferric Sodium Gluconate Complex (Ferrlecit) 125 mg IVPB DAILY [facility] Stop: 06/23/17 10:01 Last Admin: 06/21/17 11:47 Dose: 125 mg Fluconazole (Diflucan) 50 mg PO DAILY [facility] Stop: 07/03/17 10:01 Last Admin: 06/21/17 10:20 Dose: Not Given Losartan Potassium (Cozaar) 50 mg PO QPM [facility] Nifedipine (Procardia Xl) 60 mg PO DAILY [facility] Last Admin: 06/21/17 15:50 Dose: 60 mg Pantoprazole Sodium (Protonix Inj) 40 mg IVP Q12H [facility] Last Admin: 06/21/17 10:19 Dose: Not Given Vitamin B Complex/Vit C/Folic Acid (Nephro-Magdalena) 1 tab PO 0800 [facility] Last Admin: 06/21/17 08:37 Dose: 1 tab - Labs Labs: 06/21/17 07:12 06/21/17 07:12 PT 13.0 SECONDS (9.7-12.2) H 06/20/17 06:42 INR 1.2 06/20/17 06:42 APTT 35 SECONDS (21-34) H 06/20/17 06:42 Attending/Attestation - Attestation I have personally seen and examined this patient.: Yes I have fully participated in the care of the patient.: Yes I have reviewed all pertinent clinical information, including history, physical exam and plan: Yes Notes (Text): Patient was seen at dialysis unit No complain.Feels better. No pain s/p Renal biopsy. follow biopsy report. Dialysis as per local government legislator. patient's BP is high .continue lorsartan,coreg and nifedipine monitor BP continue cipro for 5 days for UTI Diflucan renal dose for Esophageal shonna I agree with the resident's documented of the assessment and the plan.
[2017-06-21] MEDS: NIFEdipine 60 mg ER Tab PO SCH ×2 (10:19→15:50)
[2017-06-21] MEDS: EPOETIN ALFA 4,000 UNIT/ML ML Dialysis IV SCH (11:05)
[2017-06-21] MEDS: Ferric Sodium Gluconat Complex 62.5 mg/5 ml Vial IVPB SCH (11:47)
--- NOTE | 2017-06-21 12:38 | CP.PCM.CON ---
History of Present Illness - History of Present Illness History of Present Illness: 61-year-old with history of hypertension, obstructive sleep apnea post corrective surgery was admitted with acute kidney injury planned to be on hemodialysis today. His creatinine improved to 6. Renal biopsy was done. From the cardiac viewpoint he had a borderline LV systolic function on echocardiogram. The ejection fraction was 50-55%. He is with shortness of breath on beta vincenzo. [place] inhibitor will be added once he is on hemodialysis and workup of ischemic etiology would be done as outpatient. No shortness of breath is probably a diastolic dysfunction due to renal failure. Review of Systems - Constitutional Constitutional: Anorexia, Weakness - EENT Eyes: absent: Discharge Ears: absent: Ear Discharge, Dizziness Nose/Mouth/Throat: absent: Epistaxis - Cardiovascular Cardiovascular: absent: Acrocyanosis, Chest Pain, Diaphoresis - Respiratory Respiratory: absent: Cough, Dyspnea, Hemoptysis - Gastrointestinal Gastrointestinal: absent: Abdominal Pain - Genitourinary Genitourinary: Change in Urinary Stream Past Patient History - Past Medical History & Family History Past Medical History?: Yes - Past Social History Smoking Status: Light Smoker < 10 Cigarettes Daily - CARDIAC Hx Hypertension: Yes (noncompliant with meds) - MUSCULOSKELETAL/RHEUMATOLOGICAL Hx Falls: No - PSYCHIATRIC Hx Substance Use: No - SURGICAL HISTORY Hx Surgeries: Yes - ANESTHESIA Hx Anesthesia: Yes Hx Anesthesia Reactions: No Hx Malignant Hyperthermia: No Meds Allergies/Adverse Reactions: Allergies Allergy/AdvReac Type Severity Reaction Status Date / Time No Known Allergies Allergy Unverified 06/15/17 15:11 - Medications Medications: Current Medications Acetaminophen (Tylenol 325mg Tab) 650 mg PO Q6 PRN PRN Reason: Pain, Mild (1-3) Last Admin: 06/17/17 18:00 Dose: 650 mg Albuterol/Ipratropium (Duoneb 3 Mg/0.5 Mg (3 Ml) Ud) 3 ml INH RQ6 [facility] Last Admin: 06/21/17 07:00 Dose: 3 ml Calcium Acetate (Phoslo) 1,334 mg PO TIDCC [facility] Last Admin: 06/21/17 12:14 Dose: Not Given Carvedilol (Coreg) 12.5 mg PO BID [facility] Ciprofloxacin (Cipro) 250 mg PO BID [facility] Stop: 06/24/17 18:01 Last Admin: 06/21/17 10:19 Dose: Not Given Epoetin Connor (Procrit) 8,000 unit IV MWF [facility] Last Admin: 06/21/17 11:05 Dose: 8,000 unit Ergocalciferol (Drisdol 50,000 Intl Units Cap) 1 cap PO Q7D [facility] Last Admin: 06/20/17 09:53 Dose: 1 cap Ferric Sodium Gluconate Complex (Ferrlecit) 125 mg IVPB DAILY [facility] Stop: 06/23/17 10:01 Last Admin: 06/21/17 11:47 Dose: 125 mg Fluconazole (Diflucan) 50 mg PO DAILY [facility] Stop: 07/03/17 10:01 Last Admin: 06/21/17 10:20 Dose: Not Given Losartan Potassium (Cozaar) 50 mg PO QPM [facility] Nifedipine (Procardia Xl) 60 mg PO DAILY [facility] Last Admin: 06/21/17 10:19 Dose: Not Given Pantoprazole Sodium (Protonix Inj) 40 mg IVP Q12H [facility] Last Admin: 06/21/17 10:19 Dose: Not Given Vitamin B Complex/Vit C/Folic Acid (Nephro-Magdalena) 1 tab PO 0800 [facility] Last Admin: 06/21/17 08:37 Dose: 1 tab Physical Exam - Constitutional Appears: Non-toxic - Head Exam Head Exam: ATRAUMATIC - Eye Exam Eye Exam: EOMI - ENT Exam ENT Exam: Mucous Membranes Moist - Neck Exam Neck exam: Negative for: Lymphadenopathy, Thyromegaly - Respiratory Exam Respiratory Exam: Clear to Auscultation Bilateral. absent: Rales - Cardiovascular Exam Cardiovascular Exam: REGULAR RHYTHM, Systolic Murmur - GI/Abdominal Exam GI & Abdominal Exam: Normal Bowel Sounds. absent: Organomegaly - Rectal Exam Rectal Exam: Deferred - Extremities Exam Extremities exam: Positive for: normal capillary refill. Negative for: calf tenderness - Neurological Exam Neurological exam: Alert, Oriented x3 - Psychiatric Exam Psychiatric exam: Normal Mood - Skin Skin Exam: Dry Results - Vital Signs Recent Vital Signs: Last Vital Signs Temp 98.2 F 06/21/17 09:10 Pulse 70 06/21/17 12:30 Resp 16 06/21/17 12:30 BP 181/101 H 06/21/17 12:30 Pulse Ox 83 L 06/21/17 12:00 - Labs Result Diagrams: 06/21/17 07:12 06/21/17 07:12 Labs: Laboratory Results - last 24 hr 06/16/17 06/21/17 06/21/17 11:38 07:12 07:12 WBC 11.3 H RBC 2.92 L Hgb 8.5 L Hct 25.1 L MCV 85.8 MCH 29.1 MCHC 33.9 RDW 15.2 H Plt Count 252 MPV 7.8 Neut % (Auto) 78.7 H Lymph % (Auto) 8.1 L Elbert % (Auto) 7.3 Eos % (Auto) 5.1 H Baso % (Auto) 0.8 Neut # (Auto) 8.9 H Lymph # (Auto) 0.9 L Elbert # (Auto) 0.8 Eos # (Auto) 0.6 Baso # (Auto) 0.1 Neutrophils % (Manual) 81 H Band Neutrophils % 1 Lymphocytes % (Manual) 8 L Monocytes % (Manual) 5 Eosinophils % (Manual) 5 H Toxic Granulation Present Platelet Estimate Normal Hypochromasia (manual) Slight Poikilocytosis (manual Slight Anisocytosis (manual) Slight Macrocytosis (manual) Slight Target Cells Slight Ovalocytes Slight Sodium 135 Potassium 4.1 Chloride 97 L Carbon Dioxide 25 Anion Gap 18 BUN 36 H Creatinine 8.7 H* D Est GFR ( Amer) 8 Est GFR (Non-Af Amer) 6 Random Glucose 82 Calcium 7.5 L Phosphorus 5.7 H Magnesium 1.7 Total Bilirubin 0.4 AST 30 ALT 23 Alkaline Phosphatase 62 Total Protein 5.7 L Albumin 2.9 L Globulin 2.8 Albumin/Globulin Ratio 1.0 KADEN Nuclear Membr Pat Positive H ANCA Screen Negative c-ANCA Titer TNP Proteinase 3 (PR3) <1.0 p-ANCA Titer TNP Atypical p-ANCA Titer TNP Myeloperoxidase Ab <1.0 Assessment & Plan (1) CHF (congestive heart failure), NYHA class II Status: Acute Comment: Acute over chronic diastolic left ventricular heart failure due to renal failure and water retention. Will be on hemodialysis to manage with it. Normal ejection fraction heart failure. [place] inhibitor should be added once he is on hemodialysis, ischemic workup as outpatient (2) ARF (acute renal failure) Status: Acute (3) Severe anemia Status: Acute
--- NOTE | 2017-06-21 17:21 | CP.PCM.PN ---
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 Also discussed with the patient about other dialysis Options such as PD patient will think and decided on. Hypertension control with meds as ordered. Will start losartan also increase Coreg Monitor Input/Output, daily weights and renal function with basic metabolic panel continue with phos binders, nephrovite, IV iron and epogen. pt had PRBC 06/16/17. Follow-up kidney biopsy results Dose meds/antibiotics for reduced GFR. Avoid fleets enema/magnesium based laxatives. Avoid nephrotoxins/NSAIDs/ iodinated contrast (unless needed emergently) Glycemic control. pt to abstain from etoh and smoking Further work up/management as per primary team SW consult for outpt HD placement initiation. Thanks for allowing me to participate in care of your patient. Will follow patient with you. Please call if any Qs. d/w team. Dr Austyn Enciso Office: [phone] HPI: Pt is a 61 M with hx of hypertension (few years) when diagnosed with TIA, chronic sinusitis, activ smoker and etoh on weekends, hasn't been taking BP meds for last 1 year due to insurance issues presented with complaints of sickness x 2 weeks with fatigue, body aches and exertional dyspnoea. reports hx of hemrrhoids and bright red blood in stool and toilet paper Denies OTC/herbal meds or NSAIDs No recent iodinated contrast exposure. No obvious episodes of low BP. no recent antibiotics denies any renal issues in past ROS: Cardiovascular: No chest pain. Pulmonary: improved shortness of breath Gastrointestinal: denies abdominal pain No nausea. No vomiting. Genitourinary: No pain while urinating. Denies blood in urine. All other negative except as in HPI Physical Examination: General Appearance: better appearing, co-operative . Vitals reviewed and noted as below Head; Atraumatic, normocephalic ENT: no ulcers no thrush. Tongue is midline. Oropharynx: no rash or ulcers. EYES: Pupils are equal, round and reactive to light accommodation. Eye muscles and extraocular movement intact. Sclera is anicteric. Neck; supple no lymphadenopathy, no thyromegaly or bruit Lungs: normal respiratory rate/effort. Breath sounds bilateral equal and with basal rales Heart: Normal rate. s1s2 normal. No rub or gallop. Extremities: no edema. No varicose veins Neurological: Patient is alert, awake and oriented to person, place and time. No focal deficit. Strength bilateral appropriate and equal Skin: Warm and dry. Normal turgor. No rash. Palpitation: Normal elasticity for age Abdomen: Abdomen is soft. Bowel sounds +. There is no abdominal tenderness, no guarding/rigidity no organomegaly Psych: normal insight and normal affect/mood MSK: no joint tenderness or swelling. Digits and nails normal, no deformity : kidney or bladder not palpable Dialysis accessIn right chest permacath Labs/imaging reviewed. Past medical history, past surgical history, family history, social history, allergy reviewed and noted as below Family hx: no hx of CKD. Rest non-contributory Work up: urine pro/cr: 2 gram/day normal complements and urine cx: GNR TSAT 5% Ferritin 40 imaging: no obstruction Objective - Vital Signs/Intake and Output Vital Signs (last 24 hours): Temp Pulse Resp BP Pulse Ox 98.7 F 86 20 141/88 95 06/21/17 16:43 06/21/17 16:43 06/21/17 16:43 06/21/17 16:43 06/21/17 16:43 Intake and Output: 06/21/17 06/21/17 06:59 18:59 Intake Total 480 Balance 480 - Medications Medications: Current Medications Acetaminophen (Tylenol 325mg Tab) 650 mg PO Q6 PRN PRN Reason: Pain, Mild (1-3) Last Admin: 06/17/17 18:00 Dose: 650 mg Albuterol/Ipratropium (Duoneb 3 Mg/0.5 Mg (3 Ml) Ud) 3 ml INH RQ6 [facility] Last Admin: 06/21/17 13:23 Dose: 3 ml Calcium Acetate (Phoslo) 1,334 mg PO TIDCC [facility] Last Admin: 06/21/17 12:14 Dose: Not Given Carvedilol (Coreg) 12.5 mg PO BID [facility] Ciprofloxacin (Cipro) 250 mg PO BID [facility] Stop: 06/24/17 18:01 Last Admin: 06/21/17 10:19 Dose: Not Given Epoetin Connor (Procrit) 8,000 unit IV MWF [facility] Last Admin: 06/21/17 11:05 Dose: 8,000 unit Ergocalciferol (Drisdol 50,000 Intl Units Cap) 1 cap PO Q7D [facility] Last Admin: 06/20/17 09:53 Dose: 1 cap Ferric Sodium Gluconate Complex (Ferrlecit) 125 mg IVPB DAILY [facility] Stop: 06/23/17 10:01 Last Admin: 06/21/17 11:47 Dose: 125 mg Fluconazole (Diflucan) 50 mg PO DAILY [facility] Stop: 07/03/17 10:01 Last Admin: 06/21/17 10:20 Dose: Not Given Losartan Potassium (Cozaar) 50 mg PO QPM [facility] Nifedipine (Procardia Xl) 60 mg PO DAILY [facility] Last Admin: 06/21/17 15:50 Dose: 60 mg Pantoprazole Sodium (Protonix Inj) 40 mg IVP Q12H [facility] Last Admin: 06/21/17 10:19 Dose: Not Given Vitamin B Complex/Vit C/Folic Acid (Nephro-Magdalena) 1 tab PO 0800 [facility] Last Admin: 06/21/17 08:37 Dose: 1 tab - Labs Labs: 06/21/17 07:12 06/21/17 07:12 PT 13.0 SECONDS (9.7-12.2) H 06/20/17 06:42 INR 1.2 06/20/17 06:42 APTT 35 SECONDS (21-34) H 06/20/17 06:42
[2017-06-22] MEDS: Albuterol-Ipratrop 3 mg / 0.5 (3 ml) UD INH SCH ×4 (02:16→20:20)
[2017-06-22 07:30] LABS: BASO # 0.1 K/uL (0.0-0.2); BASO % 0.6 % (0.0-2.0); EOS # 0.4 K/uL (0.0-0.7); EOS % 2.6 % (0.0-4.0); HEMOGLOBIN 8.5 g/dL (12.0-18.0); LYMPH # 0.9 K/uL (1.0-4.3); LYMPH % 5.8 % (20.0-40.0); MEAN CELL VOLUME 86.8 fL (80.0-94.0); MEAN CORPUSCULAR HEMOGLOBIN 28.4 pg (27.0-31.0); MEAN CORPUSCULAR HGB CONC 32.7 g/dL (33.0-37.0); MEAN PLATELET VOLUME 7.7 fL (7.2-11.7); MONO # 1.4 K/uL (0.0-0.8); NEUT # 12.3 K/uL (1.8-7.0); NRBC % 0.3 % (0.0-2.0); PLATELET COUNT 253 K/uL (130-400); RBC 2.98 Mil/uL (4.40-5.90); RED CELL DISTRIBUTION WIDTH 15.7 % (11.5-14.5); WHITE BLOOD COUNT 15.1 K/uL (4.8-10.8)
[2017-06-22] MEDS: Multivitamin Vitamin B Complex (Nephro-Vite) Tab PO SCH (07:54)
[2017-06-22 09:17] LABS: ANISOCYTOSIS SLIGHT; EOSINOPHIL 2 % (0-4); LYMPHOCYTE 3 % (20-40); MONOCYTE 3 % (0-10); NEUTROPHIL 92 % (50-75); PLATELET ESTIMATE NORMAL (NORMAL); TOTAL CELLS COUNTED 100
[2017-06-22 09:18] LABS: HYPOCHROMIC SLIGHT; POLYCHROMIC SLIGHT
[2017-06-22 09:20] LABS: ALBUMIN 2.9 g/dL (3.5-5.0); CALCIUM 7.2 mg/dl (8.6-10.4)
[2017-06-22] MEDS: Ferric Sodium Gluconat Complex 62.5 mg/5 ml Vial IVPB SCH (09:48)
[2017-06-22] MEDS: NIFEdipine 60 mg ER Tab PO SCH (09:50)
--- NOTE | 2017-06-22 09:52 | CP.PCM.PN ---
<Josh Johna - Last Filed: 06/22/17 12:17> Subjective - Date & Time of Evaluation Date of Evaluation: 06/22/17 Time of Evaluation: 09:00 - Subjective Subjective: Medicine Note for Hospitalist Service- Dr. Roy Patient was seen and examined at bedside. Patient has no acute complaints. Pending renal biopsy results and outpatient dialysis placement. Denied fever, chills, chest pain, SOB, abdominal pain, n/v/d/c, or urinary symptoms. Objective - Vital Signs/Intake and Output Vital Signs (last 24 hours): Temp Pulse Resp BP Pulse Ox 98.9 F 92 H 20 135/83 95 06/22/17 08:53 06/22/17 08:53 06/22/17 08:53 06/22/17 08:53 06/22/17 08:53 Intake and Output: 06/22/17 06/22/17 06:59 18:59 Intake Total 350 Balance 350 - Medications Medications: Current Medications Acetaminophen (Tylenol 325mg Tab) 650 mg PO Q6 PRN PRN Reason: Pain, Mild (1-3) Last Admin: 06/17/17 18:00 Dose: 650 mg Albuterol/Ipratropium (Duoneb 3 Mg/0.5 Mg (3 Ml) Ud) 3 ml INH RQ6 [facility] Last Admin: 06/22/17 07:33 Dose: 3 ml Calcium Acetate (Phoslo) 1,334 mg PO TIDCC [facility] Last Admin: 06/22/17 07:54 Dose: 1,334 mg Carvedilol (Coreg) 12.5 mg PO BID [facility] Last Admin: 06/21/17 18:02 Dose: 12.5 mg Ciprofloxacin (Cipro) 250 mg PO BID [facility] Stop: 06/24/17 18:01 Last Admin: 06/21/17 18:01 Dose: 250 mg Epoetin Connor (Procrit) 8,000 unit IV MWF [facility] Last Admin: 06/21/17 11:05 Dose: 8,000 unit Ergocalciferol (Drisdol 50,000 Intl Units Cap) 1 cap PO Q7D [facility] Last Admin: 06/20/17 09:53 Dose: 1 cap Ferric Sodium Gluconate Complex (Ferrlecit) 125 mg IVPB DAILY [facility] Stop: 06/23/17 10:01 Last Admin: 06/21/17 11:47 Dose: 125 mg Fluconazole (Diflucan) 50 mg PO DAILY [facility] Stop: 07/03/17 10:01 Last Admin: 06/21/17 10:20 Dose: Not Given Losartan Potassium (Cozaar) 50 mg PO QPM [facility] Last Admin: 06/21/17 18:04 Dose: 50 mg Nifedipine (Procardia Xl) 60 mg PO DAILY [facility] Last Admin: 06/21/17 15:50 Dose: 60 mg Pantoprazole Sodium (Protonix Inj) 40 mg IVP DAILY [facility] Vitamin B Complex/Vit C/Folic Acid (Nephro-Magdalena) 1 tab PO 0800 [facility] Last Admin: 06/22/17 07:54 Dose: 1 tab - Labs Labs: 06/22/17 07:16 06/22/17 07:16 PT 13.0 SECONDS (9.7-12.2) H 06/20/17 06:42 INR 1.2 06/20/17 06:42 APTT 35 SECONDS (21-34) H 06/20/17 06:42 - Additional Findings Additional findings: - Constitutional Appears: No Acute Distress - Head Exam Head Exam: NORMAL INSPECTION, NORMOCEPHALIC - Eye Exam Eye Exam: EOMI, Normal appearance - ENT Exam ENT Exam: Mucous Membranes Moist - Respiratory Exam Respiratory Exam: Clear to Ausculation Bilateral, NORMAL BREATHING PATTERN - Cardiovascular Exam Cardiovascular Exam: REGULAR RHYTHM - GI/Abdominal Exam GI & Abdominal Exam: Soft, Normal Bowel Sounds. absent: Guarding, Rigid, Tenderness - Neurological Exam Neurological Exam: Alert, Awake, Oriented x3 Neuro motor strength exam: Left Upper Extremity: 5, Right Upper Extremity: 5, Left Lower Extremity: 5, Right Lower Extremity: 5 - Psychiatric Exam Psychiatric exam: Normal Affect, Normal Mood - Skin Skin Exam: Normal Color, Warm Assessment and Plan - Assessment and Plan (Free Text) Plan: Severe RUPERTO Underlying CKD General Surgery- Dr. Sotelo consulted - help appreciated Nephrology- Dr. Mckeon/ Dr. Enciso - help appreciated S/P Permacath 06/19/17 Dialysis MWF Creatinine improving S/P Renal Biopsy - with IR - Vascular sclerosis, hypertensive renovascular disease. Patient is ESRD will need dialysis indefinitely. Imaging: Renal US: Increased echogenicity of the bilateral renal parenchymal cortices suggestive for medical renal disease. Bilateral renal cysts. Meds: Procrit MWF, Nephro-Magdalena, Phoslo Leukocytosis Currently being treated for asymptomatic bacturia on Cipro Pending repeat Urine Culture CXR ordered - no infiltrates or effusion noted, patient is asymptomatic - will continue to monitor COPD Pulmonology consulted - Dr. Pierson- chanell appreciated Chest xray: patchy opacities within lateral right upper lobe and b/l lower lobes may reflect multifocal infiltrate or atelectasis CT Chest: Patchy foci of ground-glass opacities associated with septal thickening and mild bronchiectasis and also associated with foci of honeycombing. Findings likely represent interstitial pneumonitis and the differential consideration includes mainly UIP and less likely nonspecific interstitial pneumonitis, desquamative interstitial pneumonia and chronic hypersensitivity pneumonitis. Foci of consolidation noted at the right lung along the right fissure may represent lung nodule or pleural thickening 3 months follow-up reassessment is recommended. Mild emphysema. Mild cardiomegaly. PT has been ambulating with patient and he starts to desaturate to 87-88% upon walking; pending recommendations from Pulmonary. Patient will most likely need home oxygen. Hx CHF Cardiology consulted - Dr. Cobb- workup of ischemic etiology would be done as outpatient. No shortness of breath is probably a diastolic dysfunction due to renal failure. Echo: global left ventricular hypokinesis, moderate pulmonary HTN, and also EF 45% Asymptomatic Bacturia UA: 2+ protein, 1+ blood, 3+ LE, 36 WBC, 4RBC, moderate bacteria The urine culture shows E. Coli Started Cipro 250mg PO BID x 5 days, f/u repeat UC Esophageal Candiasis Started diflucan 100mg PO once, then Diflucan 50mg PO daily x 13 Nonbleeding Gastric Ulcer Severe anemia from a lower GI Etiology and from renal failure GI consulted - Dr. Barnard- help appreciated On admission Hgb was 5 Because of uremia on labwork we also ordered 30 DDAVP x 1 dose now as he may have uremic bleeding S/P EGD: showing hiatal hernia, esophagitis, gastric ulcer, and a normal duodenum Nuclear Bleeding Scan: negative S/P 4 units PRBCs Anemia Ferrlecit x 8 days Continue to monitor Hx of HTN Echo: global left ventricular hypokinesis, moderate pulmonary HTN, and also EF 45% Coreg 12.5mg PO BID, Cozaar 50mg PO daily Procardia XL 60mg PO daily Prophylactic measure NO chemical anticoagulation due to severe anemia SCDs Protonix 40mg IV Q12H PT EVAL - DC HOME: RESTING RA-95%, ROOM AIR EXERTION AMB 50 F X 1- SPO2 88%, 2L NC O2 EXERTION AMB AND T/.F 50 F SPO2 95% Disposition: Pending results of renal biopsy. Pending outpatient dialysis set up by case management. Will continue PT - to assess if patient needs home O2. DW Marimar Barfield DO, PGY-1 <Aylin Roy - Last Filed: 06/22/17 17:37> Objective - Vital Signs/Intake and Output Vital Signs (last 24 hours): Temp Pulse Resp BP Pulse Ox 98.9 F 87 20 135/83 90 L 06/22/17 08:53 06/22/17 12:22 06/22/17 08:53 06/22/17 12:22 06/22/17 12:22 Intake and Output: 06/22/17 06/22/17 06:59 18:59 Intake Total 350 560 Balance 350 560 - Medications Medications: Current Medications Acetaminophen (Tylenol 325mg Tab) 650 mg PO Q6 PRN PRN Reason: Pain, Mild (1-3) Last Admin: 06/17/17 18:00 Dose: 650 mg Albuterol/Ipratropium (Duoneb 3 Mg/0.5 Mg (3 Ml) Ud) 3 ml INH RQ6 [facility] Last Admin: 06/22/17 13:35 Dose: 3 ml Calcium Acetate (Phoslo) 667 mg PO TIDCC [facility] Last Admin: 06/22/17 11:22 Dose: 667 mg Carvedilol (Coreg) 12.5 mg PO BID [facility] Last Admin: 06/22/17 09:49 Dose: 12.5 mg Ciprofloxacin (Cipro) 250 mg PO BID [facility] Stop: 06/24/17 18:01 Last Admin: 06/22/17 09:49 Dose: 250 mg Epoetin Connor (Procrit) 8,000 unit IV MWF [facility] Last Admin: 06/21/17 11:05 Dose: 8,000 unit Ergocalciferol (Drisdol 50,000 Intl Units Cap) 1 cap PO Q7D [facility] Last Admin: 06/20/17 09:53 Dose: 1 cap Ferric Sodium Gluconate Complex (Ferrlecit) 125 mg IVPB DAILY [facility] Stop: 06/23/17 10:01 Last Admin: 06/22/17 09:48 Dose: 125 mg Fluconazole (Diflucan) 50 mg PO DAILY [facility] Stop: 07/03/17 10:01 Last Admin: 06/22/17 09:49 Dose: 50 mg Losartan Potassium (Cozaar) 50 mg PO QPM [facility] Last Admin: 06/21/17 18:04 Dose: 50 mg Nifedipine (Procardia Xl) 60 mg PO DAILY [facility] Last Admin: 06/22/17 09:50 Dose: 60 mg Pantoprazole Sodium (Protonix Inj) 40 mg IVP DAILY [facility] Last Admin: 06/22/17 09:48 Dose: 40 mg Vitamin B Complex/Vit C/Folic Acid (Nephro-Magdalena) 1 tab PO 0800 [facility] Last Admin: 06/22/17 07:54 Dose: 1 tab - Labs Labs: 06/22/17 07:16 06/22/17 07:16 PT 13.0 SECONDS (9.7-12.2) H 06/20/17 06:42 INR 1.2 06/20/17 06:42 APTT 35 SECONDS (21-34) H 06/20/17 06:42 Attending/Attestation - Attestation I have personally seen and examined this patient.: Yes I have fully participated in the care of the patient.: Yes I have reviewed all pertinent clinical information, including history, physical exam and plan: Yes Notes (Text): Seen and examined Biopsy report discussed with the credit and collections representative patient has no complain continue dialysis as per nephrology follow CW for out patient dialysis arrangements d/w PT Patient become hypoxic on ambulation. he may need home oxygen we will follow pulmonary recommendation WBC is increasing. continue cipro for UTI. Monitor wbc. chest x ray looks chronic lung disease d/w resident I agree with the resident's documentation of the assessment and the plan
--- NOTE | 2017-06-22 11:28 | RAD ---
HISTORY: cough COMPARISON: Chest x-ray performed 06/19/17 TECHNIQUE: Chest, one view. FINDINGS: Right-sided PermCath extends to the right atrium/ SVC junction. LUNGS: Patchy/ streaky ill-defined opacity within the lateral right upper lobe. Mildly prominent interstitial markings. Fibrotic changes. Please note that chest x-ray has limited sensitivity for the detection of pulmonary masses. PLEURA: No significant pleural effusion identified. No definite pneumothorax . CARDIOVASCULAR: Cardiomegaly. Ectatic aorta. Atherosclerotic calcifications. OSSEOUS STRUCTURES: No acute osseous abnormality identified. VISUALIZED UPPER ABDOMEN: Unremarkable. OTHER FINDINGS: None. IMPRESSION: Right-sided PermCath extends to the right atrium/ SVC junction. Patchy/ streaky ill-defined opacity within the lateral right upper lobe. Mildly prominent interstitial markings. Fibrotic changes.
--- NOTE | 2017-06-22 15:26 | CP.PCM.PN ---
Subjective - Date & Time of Evaluation Date of Evaluation: 06/22/17 Time of Evaluation: 15:25 - Subjective Subjective: Nephrology Consultation: Assessment: stable ESRD due to HTN severe Anemia with iron def and GI blood loss acidosis Hyperphosphatemia (E83.39), HTN (I12.9) active smoker and etoh on weekends hx of TIA, chronic sinusitis possible UTI, esophageal candidiasis, gastric ulcer Systolic CHF LVEF 45-50% Plan plan for HD today as ordered. Also discussed with the patient about other dialysis Options such as PD patient will think and decided on. Hypertension control with meds as ordered. Will start losartan also increase Coreg Monitor Input/Output, daily weights and renal function with basic metabolic panel continue with phos binders, nephrovite, IV iron and epogen. pt had PRBC 06/16/17. kidney biopsy results suggest ESRD due to HTN Dose meds/antibiotics for reduced GFR. Avoid fleets enema/magnesium based laxatives. Avoid nephrotoxins/NSAIDs/ iodinated contrast (unless needed emergently) Glycemic control. pt to abstain from etoh and smoking Further work up/management as per primary team SW consult for outpt HD placement initiation. pt stable for d/c from renal perspective when has outpt spot for HD Thanks for allowing me to participate in care of your patient. Will follow patient with you. Please call if any Qs. d/w team. Dr Austyn Enciso Office: [phone] HPI: Pt is a 61 M with hx of hypertension (few years) when diagnosed with TIA, chronic sinusitis, activ smoker and etoh on weekends, hasn't been taking BP meds for last 1 year due to insurance issues presented with complaints of sickness x 2 weeks with fatigue, body aches and exertional dyspnoea. reports hx of hemrrhoids and bright red blood in stool and toilet paper Denies OTC/herbal meds or NSAIDs No recent iodinated contrast exposure. No obvious episodes of low BP. no recent antibiotics denies any renal issues in past ROS: Cardiovascular: No chest pain. Pulmonary: improved shortness of breath Gastrointestinal: denies abdominal pain No nausea. No vomiting. Genitourinary: No pain while urinating. Denies blood in urine. All other negative except as in HPI Physical Examination: General Appearance: better appearing, co-operative . Vitals reviewed and noted as below Head; Atraumatic, normocephalic ENT: no ulcers no thrush. Tongue is midline. Oropharynx: no rash or ulcers. EYES: Pupils are equal, round and reactive to light accommodation. Eye muscles and extraocular movement intact. Sclera is anicteric. Neck; supple no lymphadenopathy, no thyromegaly or bruit Lungs: normal respiratory rate/effort. Breath sounds bilateral equal and with basal rales Heart: Normal rate. s1s2 normal. No rub or gallop. Extremities: no edema. No varicose veins Neurological: Patient is alert, awake and oriented to person, place and time. No focal deficit. Strength bilateral appropriate and equal Skin: Warm and dry. Normal turgor. No rash. Palpitation: Normal elasticity for age Abdomen: Abdomen is soft. Bowel sounds +. There is no abdominal tenderness, no guarding/rigidity no organomegaly Psych: normal insight and normal affect/mood MSK: no joint tenderness or swelling. Digits and nails normal, no deformity : kidney or bladder not palpable Dialysis accessIn right chest permacath Labs/imaging reviewed. Past medical history, past surgical history, family history, social history, allergy reviewed and noted as below Family hx: no hx of CKD. Rest non-contributory Work up: urine pro/cr: 2 gram/day normal complements and urine cx: GNR TSAT 5% Ferritin 40 imaging: no obstruction Objective - Vital Signs/Intake and Output Vital Signs (last 24 hours): Temp Pulse Resp BP Pulse Ox 98.9 F 87 20 135/83 90 L 06/22/17 08:53 06/22/17 12:22 06/22/17 08:53 06/22/17 12:22 06/22/17 12:22 Intake and Output: 06/22/17 06/22/17 06:59 18:59 Intake Total 350 560 Balance 350 560 - Medications Medications: Current Medications Acetaminophen (Tylenol 325mg Tab) 650 mg PO Q6 PRN PRN Reason: Pain, Mild (1-3) Last Admin: 06/17/17 18:00 Dose: 650 mg Albuterol/Ipratropium (Duoneb 3 Mg/0.5 Mg (3 Ml) Ud) 3 ml INH RQ6 [facility] Last Admin: 06/22/17 13:35 Dose: 3 ml Calcium Acetate (Phoslo) 667 mg PO TIDCC [facility] Last Admin: 06/22/17 11:22 Dose: 667 mg Carvedilol (Coreg) 12.5 mg PO BID [facility] Last Admin: 06/22/17 09:49 Dose: 12.5 mg Ciprofloxacin (Cipro) 250 mg PO BID [facility] Stop: 06/24/17 18:01 Last Admin: 06/22/17 09:49 Dose: 250 mg Epoetin Connor (Procrit) 8,000 unit IV MWF [facility] Last Admin: 06/21/17 11:05 Dose: 8,000 unit Ergocalciferol (Drisdol 50,000 Intl Units Cap) 1 cap PO Q7D [facility] Last Admin: 06/20/17 09:53 Dose: 1 cap Ferric Sodium Gluconate Complex (Ferrlecit) 125 mg IVPB DAILY [facility] Stop: 06/23/17 10:01 Last Admin: 06/22/17 09:48 Dose: 125 mg Fluconazole (Diflucan) 50 mg PO DAILY [facility] Stop: 07/03/17 10:01 Last Admin: 06/22/17 09:49 Dose: 50 mg Losartan Potassium (Cozaar) 50 mg PO QPM [facility] Last Admin: 06/21/17 18:04 Dose: 50 mg Nifedipine (Procardia Xl) 60 mg PO DAILY [facility] Last Admin: 06/22/17 09:50 Dose: 60 mg Pantoprazole Sodium (Protonix Inj) 40 mg IVP DAILY [facility] Last Admin: 06/22/17 09:48 Dose: 40 mg Vitamin B Complex/Vit C/Folic Acid (Nephro-Magdalena) 1 tab PO 0800 [facility] Last Admin: 06/22/17 07:54 Dose: 1 tab - Labs Labs: 06/22/17 07:16 06/22/17 07:16 PT 13.0 SECONDS (9.7-12.2) H 06/20/17 06:42 INR 1.2 06/20/17 06:42 APTT 35 SECONDS (21-34) H 06/20/17 06:42
[2017-06-23] MEDS: Albuterol-Ipratrop 3 mg / 0.5 (3 ml) UD INH SCH ×4 (01:08→19:19)
[2017-06-23] MEDS: Multivitamin Vitamin B Complex (Nephro-Vite) Tab PO SCH (07:45)
[2017-06-23 07:56] LABS: BASO # 0.1 K/uL (0.0-0.2); BASO % 0.8 % (0.0-2.0); EOS # 0.6 K/uL (0.0-0.7); EOS % 4.2 % (0.0-4.0); HEMOGLOBIN 8.1 g/dL (12.0-18.0); LYMPH # 0.9 K/uL (1.0-4.3); LYMPH % 6.2 % (20.0-40.0); MEAN CELL VOLUME 86.6 fL (80.0-94.0); MEAN CORPUSCULAR HEMOGLOBIN 28.8 pg (27.0-31.0); MEAN CORPUSCULAR HGB CONC 33.2 g/dL (33.0-37.0); MEAN PLATELET VOLUME 7.9 fL (7.2-11.7); MONO # 1.2 K/uL (0.0-0.8); MONO % 8.6 % (0.0-10.0); NEUT # 11.2 K/uL (1.8-7.0); NEUT % 80.2 % (50.0-75.0); NRBC % 0.1 % (0.0-2.0); PLATELET COUNT 231 K/uL (130-400); RBC 2.83 Mil/uL (4.40-5.90); RED CELL DISTRIBUTION WIDTH 16.1 % (11.5-14.5); WHITE BLOOD COUNT 13.9 K/uL (4.8-10.8)
[2017-06-23 08:45] LABS: ALBUMIN 2.8 g/dL (3.5-5.0); CALCIUM 7.4 mg/dl (8.6-10.4)
[2017-06-23 09:10] LABS: ANISOCYTOSIS SLIGHT; EOSINOPHIL 5 % (0-4); HYPOCHROMIC SLIGHT; LYMPHOCYTE 4 % (20-40); MONOCYTE 5 % (0-10); NEUTROPHIL 86 % (50-75); PLATELET ESTIMATE NORMAL (NORMAL); POLYCHROMIC SLIGHT; TOTAL CELLS COUNTED 100
--- NOTE | 2017-06-23 10:28 | CP.PCM.CON ---
History of Present Illness - History of Present Illness History of Present Illness: Pulmonary consult; covering Dr Pierson Reason for consult: Honeycombing on CT. Hx smoking This patient was seen and examined at bedside, medical records reviewed, and management issues were discussed and formulated with the house staff. Mr Mcleod is a 61 year old male heavy smoker with PMHx of HTN, upper GI bleed, TIA, ONELIA. The patient presented to the ED on 06/15 for evaluation of shortness of breath, wheezing, and blood in stool. Symptoms began 2 weeks prior to this date. Patient received one dose of Lasix 40mg IV in ED On admission, Hgb 5, positive FOBT, received 2 units PRBC Initial chest XR 06/15: Patchy opacities within the lateral right upper lobe and bilateral lower lobes may reflect multifocal infiltrate or atelectasis. Emphysematous changes. Chest CT 06/16: Patchy foci of ground-glass opacities associated with septal thickening and mild bronchiectasis and also associated with foci of honeycombing. Findings likely represent interstitial pneumonitis and the differential consideration includes mainly UIP and less likely nonspecific interstitial pneumonitis, desquamative interstitial pneumonia and chronic hypersensitivity pneumonitis. Foci of consolidation noted at the right lung along the right fissure may represent lung nodule or pleural thickening 3 months follow-up reassessment is recommended. Mild emphysema. Mild cardiomegaly. Recent chest XR 06/22: Patchy/streaky ill-defined opacity within the lateral right upper lobe. Mildly prominent interstitial markings. Fibrotic changes. Patient currently denies shortness of breath, cough, hemoptysis, wheezing, chest pain, fever/chills. Scheduled for hemodialysis MW, will go today. s/p renal biopsy on 06/20 On exam, lungs clear to auscultation bilaterally, no wheeze/rales/rhonchi Will follow up with chest CT on Monday and will consider bronchoscopy based on results for Monday Review of Systems - Constitutional Constitutional: absent: Chills, Fever - Cardiovascular Cardiovascular: absent: Chest Pain, Chest Pain at Rest, Chest Pain with Activity , Claudication, Diaphoresis, Dyspnea on Exertion, Palpitations - Respiratory Respiratory: absent: Cough, Dyspnea, Hemoptysis, Dyspnea on Exertion, Wheezing, Stridor - Gastrointestinal Gastrointestinal: absent: Abdominal Pain, Hematochezia, Melena, Nausea, Vomiting Past Patient History - Past Medical History & Family History Past Medical History?: Yes - Past Social History Smoking Status: Light Smoker < 10 Cigarettes Daily - CARDIAC Hx Hypertension: Yes (noncompliant with meds) - MUSCULOSKELETAL/RHEUMATOLOGICAL Hx Falls: No - PSYCHIATRIC Hx Substance Use: No - SURGICAL HISTORY Hx Surgeries: Yes - ANESTHESIA Hx Anesthesia: Yes Hx Anesthesia Reactions: No Hx Malignant Hyperthermia: No Meds Allergies/Adverse Reactions: Allergies Allergy/AdvReac Type Severity Reaction Status Date / Time No Known Allergies Allergy Unverified 06/15/17 15:11 - Medications Medications: Current Medications Acetaminophen (Tylenol 325mg Tab) 650 mg PO Q6 PRN PRN Reason: Pain, Mild (1-3) Last Admin: 06/17/17 18:00 Dose: 650 mg Albuterol/Ipratropium (Duoneb 3 Mg/0.5 Mg (3 Ml) Ud) 3 ml INH RQ6 [facility] Last Admin: 06/23/17 08:47 Dose: Not Given Calcium Acetate (Phoslo) 1,334 mg PO TIDCC [facility] Carvedilol (Coreg) 12.5 mg PO BID [facility] Last Admin: 06/22/17 18:17 Dose: 12.5 mg Ciprofloxacin (Cipro) 250 mg PO BID [facility] Stop: 06/24/17 18:01 Last Admin: 06/22/17 18:17 Dose: 250 mg Epoetin Connor (Procrit) 12,000 unit IV MWF [facility] Ergocalciferol (Drisdol 50,000 Intl Units Cap) 1 cap PO Q7D [facility] Last Admin: 06/20/17 09:53 Dose: 1 cap Fluconazole (Diflucan) 50 mg PO DAILY [facility] Stop: 07/03/17 10:01 Last Admin: 06/22/17 09:49 Dose: 50 mg Losartan Potassium (Cozaar) 50 mg PO QPM [facility] Last Admin: 06/22/17 18:17 Dose: 50 mg Nifedipine (Procardia Xl) 60 mg PO DAILY [facility] Last Admin: 06/22/17 09:50 Dose: 60 mg Pantoprazole Sodium (Protonix Inj) 40 mg IVP DAILY [facility] Last Admin: 06/22/17 09:48 Dose: 40 mg Vitamin B Complex/Vit C/Folic Acid (Nephro-Magdalena) 1 tab PO 0800 [facility] Last Admin: 06/23/17 07:45 Dose: Not Given Physical Exam - Constitutional Appears: Well, Non-toxic, No Acute Distress - Head Exam Head Exam: ATRAUMATIC, NORMOCEPHALIC - Eye Exam Eye Exam: EOMI Pupil Exam: PERRL - ENT Exam ENT Exam: Mucous Membranes Moist - Neck Exam Neck exam: Positive for: Full Rom. Negative for: Lymphadenopathy, Tenderness - Respiratory Exam Respiratory Exam: Clear to Auscultation Bilateral, NORMAL BREATHING PATTERN. absent: Accessory Muscle Use, Chest Wall Tenderness, Decreased Breath Sounds, Prolonged Expiratory Phase, Rales, Rhonchi, Wheezes, Respiratory Distress, Stridor - Cardiovascular Exam Cardiovascular Exam: +S1, +S2. absent: Diastolic murmur, Systolic Murmur - GI/Abdominal Exam GI & Abdominal Exam: Normal Bowel Sounds, Soft. absent: Distended, Firm, Guarding, Rigid, Tenderness - Extremities Exam Extremities exam: Positive for: normal inspection. Negative for: calf tenderness, pedal edema - Neurological Exam Neurological exam: Alert, Oriented x3 Results - Vital Signs Recent Vital Signs: Last Vital Signs Temp 97.9 F 06/23/17 08:15 Pulse 84 06/23/17 08:15 Resp 20 06/23/17 08:15 BP 120/79 06/23/17 09:45 Pulse Ox 97 06/23/17 08:15 - Labs Result Diagrams: 06/23/17 07:47 06/23/17 07:47 Labs: Laboratory Results - last 24 hr 06/23/17 06/23/17 07:47 07:47 WBC 13.9 H RBC 2.83 L Hgb 8.1 L Hct 24.5 L MCV 86.6 MCH 28.8 MCHC 33.2 RDW 16.1 H Plt Count 231 MPV 7.9 Neut % (Auto) 80.2 H Lymph % (Auto) 6.2 L Elbert % (Auto) 8.6 Eos % (Auto) 4.2 H Baso % (Auto) 0.8 Neut # (Auto) 11.2 H Lymph # (Auto) 0.9 L Elbert # (Auto) 1.2 H Eos # (Auto) 0.6 Baso # (Auto) 0.1 Neutrophils % (Manual) 86 H Lymphocytes % (Manual) 4 L Monocytes % (Manual) 5 Eosinophils % (Manual) 5 H Platelet Estimate Normal Polychromasia Slight Hypochromasia (manual) Slight Anisocytosis (manual) Slight Sodium 134 Potassium 4.4 Chloride 96 L Carbon Dioxide 24 Anion Gap 18 BUN 39 H Creatinine 9.6 H* D Est GFR ( Amer) 7 Est GFR (Non-Af Amer) 6 Random Glucose 92 Calcium 7.4 L Phosphorus 6.1 H Magnesium 1.7 Total Bilirubin 0.4 AST 26 ALT 31 Alkaline Phosphatase 58 Total Protein 5.7 L Albumin 2.8 L Globulin 2.8 Albumin/Globulin Ratio 1.0 Assessment & Plan (1) Interstitial lung disease Status: Acute Comment: Patient is hypoxemic, likely combination of pulmonary interstitial disorder plus acute fluid overload. Now with dialysis and fluid removal, seems more comfortable. Please repeat CT scan with high resolution on Monday after optimizing fluid status. Will follow up with chest CT on Monday and will consider bronchoscopy based on results for Monday. Please get ABG on room air prior to discharge to evaluate the need for home oxygen. Also 6 minutes walking test (2) ARF (acute renal failure) Status: Acute (3) CHF (congestive heart failure), NYHA class II Status: Acute
[2017-06-23] MEDS: Ferric Sodium Gluconat Complex 62.5 mg/5 ml Vial IVPB SCH (11:00)
[2017-06-23] MEDS ORDERED: EPOETIN ALFA 4,000 UNIT/ML ML Dialysis IV ONE (11:01)
--- NOTE | 2017-06-23 11:24 | CP.PCM.PN ---
Subjective - Date & Time of Evaluation Date of Evaluation: 06/23/17 Time of Evaluation: 11:23 - Subjective Subjective: Nephrology Consultation: Assessment: stable ESRD due to HTN severe Anemia with iron def and GI blood loss acidosis Hyperphosphatemia (E83.39), HTN (I12.9) active smoker and etoh on weekends hx of TIA, chronic sinusitis possible UTI, esophageal candidiasis, gastric ulcer Systolic CHF LVEF 45-50% Plan plan for HD today as ordered. Also discussed with the patient about other dialysis Options such as PD patient will think and decide later on. Hypertension control with meds as ordered. Will start losartan also increase Coreg Monitor Input/Output, daily weights and renal function with basic metabolic panel continue with phos binders, nephrovite, IV iron (1 gram loading dose) and epogen. pt had PRBC 06/16/17. kidney biopsy results suggest ESRD due to HTN Dose meds/antibiotics for reduced GFR. Avoid fleets enema/magnesium based laxatives. Avoid nephrotoxins/NSAIDs/ iodinated contrast (unless needed emergently) Glycemic control. pt to abstain from etoh and smoking Further work up/management as per primary team SW consult for outpt HD placement initiation. pt stable for d/c from renal perspective when has outpt spot for HD Thanks for allowing me to participate in care of your patient. Will follow patient with you. Please call if any Qs. d/w team. Dr Austyn Enciso Office: [phone] HPI: Pt is a 61 M with hx of hypertension (few years) when diagnosed with TIA, chronic sinusitis, activ smoker and etoh on weekends, hasn't been taking BP meds for last 1 year due to insurance issues presented with complaints of sickness x 2 weeks with fatigue, body aches and exertional dyspnoea. reports hx of hemrrhoids and bright red blood in stool and toilet paper Denies OTC/herbal meds or NSAIDs No recent iodinated contrast exposure. No obvious episodes of low BP. no recent antibiotics denies any renal issues in past ROS: Cardiovascular: No chest pain. Pulmonary: improved shortness of breath Gastrointestinal: denies abdominal pain No nausea. No vomiting. Genitourinary: No pain while urinating. Denies blood in urine. All other negative except as in HPI Physical Examination: seen on HD General Appearance: comfortable, co-operative . Vitals reviewed and noted as below Head; Atraumatic, normocephalic ENT: no ulcers no thrush. Tongue is midline. Oropharynx: no rash or ulcers. EYES: Pupils are equal, round and reactive to light accommodation. Eye muscles and extraocular movement intact. Sclera is anicteric. Neck; supple no lymphadenopathy, no thyromegaly or bruit Lungs: normal respiratory rate/effort. Breath sounds bilateral equal and with basal rales Heart: Normal rate. s1s2 normal. No rub or gallop. Extremities: no edema. No varicose veins Neurological: Patient is alert, awake and oriented to person, place and time. No focal deficit. Strength bilateral appropriate and equal Skin: Warm and dry. Normal turgor. No rash. Palpitation: Normal elasticity for age Abdomen: Abdomen is soft. Bowel sounds +. There is no abdominal tenderness, no guarding/rigidity no organomegaly Psych: normal insight and normal affect/mood MSK: no joint tenderness or swelling. Digits and nails normal, no deformity : kidney or bladder not palpable Dialysis access: right chest permacath Labs/imaging reviewed. Past medical history, past surgical history, family history, social history, allergy reviewed and noted as below Family hx: no hx of CKD. Rest non-contributory Work up: urine pro/cr: 2 gram/day normal complements and urine cx: GNR TSAT 5% Ferritin 40 imaging: no obstruction Objective - Vital Signs/Intake and Output Vital Signs (last 24 hours): Temp Pulse Resp BP Pulse Ox 97.9 F 84 20 128/77 97 06/23/17 08:15 06/23/17 08:15 06/23/17 08:15 06/23/17 10:45 06/23/17 08:15 Intake and Output: 06/23/17 06/23/17 06:59 18:59 Intake Total 500 Balance 500 - Medications Medications: Current Medications Acetaminophen (Tylenol 325mg Tab) 650 mg PO Q6 PRN PRN Reason: Pain, Mild (1-3) Last Admin: 06/17/17 18:00 Dose: 650 mg Albuterol/Ipratropium (Duoneb 3 Mg/0.5 Mg (3 Ml) Ud) 3 ml INH RQ6 [facility] Last Admin: 06/23/17 08:47 Dose: Not Given Calcium Acetate (Phoslo) 1,334 mg PO TIDCC [facility] Carvedilol (Coreg) 12.5 mg PO BID [facility] Last Admin: 06/22/17 18:17 Dose: 12.5 mg Ciprofloxacin (Cipro) 250 mg PO BID [facility] Stop: 06/24/17 18:01 Last Admin: 06/22/17 18:17 Dose: 250 mg Epoetin Connor (Procrit) 12,000 unit IV MWF [facility] Ergocalciferol (Drisdol 50,000 Intl Units Cap) 1 cap PO Q7D [facility] Last Admin: 06/20/17 09:53 Dose: 1 cap Fluconazole (Diflucan) 50 mg PO DAILY [facility] Stop: 07/03/17 10:01 Last Admin: 06/22/17 09:49 Dose: 50 mg Losartan Potassium (Cozaar) 50 mg PO QPM [facility] Last Admin: 06/22/17 18:17 Dose: 50 mg Nifedipine (Procardia Xl) 60 mg PO DAILY [facility] Last Admin: 06/22/17 09:50 Dose: 60 mg Pantoprazole Sodium (Protonix Inj) 40 mg IVP DAILY [facility] Last Admin: 06/22/17 09:48 Dose: 40 mg Vitamin B Complex/Vit C/Folic Acid (Nephro-Magdalena) 1 tab PO 0800 [facility] Last Admin: 06/23/17 07:45 Dose: Not Given - Labs Labs: 06/23/17 07:47 06/23/17 07:47 PT 13.0 SECONDS (9.7-12.2) H 06/20/17 06:42 INR 1.2 06/20/17 06:42 APTT 35 SECONDS (21-34) H 06/20/17 06:42
[2017-06-23] MEDS: NIFEdipine 60 mg ER Tab PO SCH (11:28)
--- NOTE | 2017-06-23 13:25 | CP.PCM.PN ---
<BrigidoMarimar stephen - Last Filed: 06/23/17 14:32> Subjective - Date & Time of Evaluation Date of Evaluation: 06/23/17 Time of Evaluation: 09:00 - Subjective Subjective: Medicine Note for Hospitalist Service- Dr. Roy Patient was seen and examined at bedside. Patient has no acute complaints. Patient reports he is ambulating well, tolerating diet. I spoke to the patient and his at length about the course of the patient's conditions and our plan while he is hospitalized. All questions answered. Denied fever, chills, chest pain, SOB, abdominal pain, n/v/d/c, or urinary symptoms. Objective - Vital Signs/Intake and Output Vital Signs (last 24 hours): Temp Pulse Resp BP Pulse Ox 97.8 F 79 18 134/80 96 06/23/17 11:45 06/23/17 11:45 06/23/17 11:45 06/23/17 11:45 06/23/17 11:45 Intake and Output: 06/23/17 06/23/17 06:59 18:59 Intake Total 500 Balance 500 - Medications Medications: Current Medications Acetaminophen (Tylenol 325mg Tab) 650 mg PO Q6 PRN PRN Reason: Pain, Mild (1-3) Last Admin: 06/17/17 18:00 Dose: 650 mg Albuterol/Ipratropium (Duoneb 3 Mg/0.5 Mg (3 Ml) Ud) 3 ml INH RQ6 [facility] Last Admin: 06/23/17 08:47 Dose: Not Given Calcium Acetate (Phoslo) 1,334 mg PO TIDCC [facility] Last Admin: 06/23/17 12:18 Dose: 1,334 mg Carvedilol (Coreg) 12.5 mg PO BID [facility] Last Admin: 06/23/17 11:27 Dose: Not Given Epoetin Connor (Procrit) 12,000 unit IV MWF [facility] Ergocalciferol (Drisdol 50,000 Intl Units Cap) 1 cap PO Q7D [facility] Last Admin: 06/20/17 09:53 Dose: 1 cap Fluconazole (Diflucan) 50 mg PO DAILY [facility] Stop: 07/03/17 10:01 Last Admin: 06/23/17 12:18 Dose: 50 mg Linezolid (Zyvox 600mg/300ml D5w) 600 mg in 300 mls @ 200 mls/hr IVPB Q12H [facility] Losartan Potassium (Cozaar) 50 mg PO QPM [facility] Last Admin: 06/22/17 18:17 Dose: 50 mg Nifedipine (Procardia Xl) 60 mg PO DAILY [facility] Last Admin: 06/23/17 11:28 Dose: Not Given Pantoprazole Sodium (Protonix Inj) 40 mg IVP DAILY [facility] Last Admin: 06/23/17 11:28 Dose: Not Given Vitamin B Complex/Vit C/Folic Acid (Nephro-Magdalena) 1 tab PO 0800 [facility] Last Admin: 06/23/17 07:45 Dose: Not Given - Labs Labs: 06/23/17 07:47 06/23/17 07:47 PT 13.0 SECONDS (9.7-12.2) H 06/20/17 06:42 INR 1.2 06/20/17 06:42 APTT 35 SECONDS (21-34) H 06/20/17 06:42 - Constitutional Appears: No Acute Distress - Head Exam Head Exam: NORMAL INSPECTION, NORMOCEPHALIC - Eye Exam Eye Exam: EOMI, Normal appearance, PERRL - ENT Exam ENT Exam: Mucous Membranes Moist - Respiratory Exam Respiratory Exam: Decreased Breath Sounds, NORMAL BREATHING PATTERN - Cardiovascular Exam Cardiovascular Exam: REGULAR RHYTHM - GI/Abdominal Exam GI & Abdominal Exam: Soft, Normal Bowel Sounds. absent: Distended, Tenderness - Rectal Exam Rectal Exam: Deferred - Extremities Exam Extremities Exam: Normal Inspection. absent: Pedal Edema, Tenderness - Neurological Exam Neurological Exam: Alert, Awake, CN II-XII Intact, Normal Gait, Oriented x3 - Psychiatric Exam Psychiatric exam: Normal Affect, Normal Mood - Skin Skin Exam: Dry, Intact, Normal Color, Warm Assessment and Plan - Assessment and Plan (Free Text) Plan: ESRD General Surgery- Dr. Sotelo consulted - help appreciated Nephrology- Dr. Mckeon/ Dr. Enciso - help appreciated S/P Permacath 06/19/17 Dialysis MWF Creatinine improving S/P Renal Biopsy - with IR - Vascular sclerosis, hypertensive renovascular disease. Patient is ESRD will need dialysis indefinitely. Will speak to Vascular Surgery about plans for AV Fistula in near future. Imaging: Renal US: Increased echogenicity of the bilateral renal parenchymal cortices suggestive for medical renal disease. Bilateral renal cysts. Meds: Procrit MWF, Nephro-Magdalena, Phoslo COPD Pulmonology consulted - Dr. Pierson- help appreciated - Dr. Bell is covering Chest xray: patchy opacities within lateral right upper lobe and b/l lower lobes may reflect multifocal infiltrate or atelectasis CT Chest: Patchy foci of ground-glass opacities associated with septal thickening and mild bronchiectasis and also associated with foci of honeycombing. Findings likely represent interstitial pneumonitis and the differential consideration includes mainly UIP and less likely nonspecific interstitial pneumonitis, desquamative interstitial pneumonia and chronic hypersensitivity pneumonitis. Foci of consolidation noted at the right lung along the right fissure may represent lung nodule or pleural thickening 3 months follow-up reassessment is recommended. Mild emphysema. Mild cardiomegaly. CXR ordered - no infiltrates or effusion noted, patient is asymptomatic - will continue to monitor PT has been ambulating with patient and he starts to desaturate to 87-88% upon walking; pending recommendations from Pulmonary. Patient will most likely need home oxygen. Spoke to Dr. Bell, covering for Dr. Pierson - anticipate bronchoscopy 06/26 or 06/27 VRE + UTI ON CONTACT Precautions ID Consulted - Dr. Joshua - chanell appreciated UA: 2+ protein, 1+ blood, 3+ LE, 36 WBC, 4RBC, moderate bacteria The urine culture shows E. Coli Started Cipro 250mg PO BID x 5 days, UC - 06/21/17 - VRE+ Spoke to Dr. Joshua - patient started on Zyvox 600mg IVP Q12H, will repeat UC in a few days Esophageal Candiasis Started diflucan 100mg PO once, then Diflucan 50mg PO daily x 13 Anemia Ferrlecit x 8 days Continue to monitor Hx CHF Cardiology consulted - Dr. Cobb- workup of ischemic etiology would be done as outpatient. No shortness of breath is probably a diastolic dysfunction due to renal failure. Echo: global left ventricular hypokinesis, moderate pulmonary HTN, and also EF 45% Nonbleeding Gastric Ulcer Severe anemia from a lower GI Etiology and from renal failure GI consulted - Dr. Barnard- help appreciated On admission Hgb was 5 Because of uremia on labwork we also ordered 30 DDAVP x 1 dose now as he may have uremic bleeding S/P EGD: showing hiatal hernia, esophagitis, gastric ulcer, and a normal duodenum Nuclear Bleeding Scan: negative S/P 4 units PRBCs Hx of HTN Echo: global left ventricular hypokinesis, moderate pulmonary HTN, and also EF 45% Coreg 12.5mg PO BID, Cozaar 50mg PO daily Procardia XL 60mg PO daily Prophylactic measure NO chemical anticoagulation due to severe anemia SCDs Protonix 40mg IV Q12H PT EVAL - DC HOME: RESTING RA-95%, ROOM AIR EXERTION AMB 50 F X 1- SPO2 88%, 2L NC O2 EXERTION AMB AND T/.F 50 F SPO2 95% Disposition: Pending outpatient dialysis set up by case management. Will continue PT - to assess if patient needs home O2. DW Marimar Barfield DO, PGY-1 <Aylin Roy - Last Filed: 06/23/17 17:59> Objective - Vital Signs/Intake and Output Vital Signs (last 24 hours): Temp Pulse Resp BP Pulse Ox 98.2 F 119 H 20 99/61 L 95 06/23/17 16:23 06/23/17 16:23 06/23/17 16:23 06/23/17 16:23 06/23/17 16:23 Intake and Output: 06/23/17 06/23/17 06:59 18:59 Intake Total 500 700 Balance 500 700 - Medications Medications: Current Medications Acetaminophen (Tylenol 325mg Tab) 650 mg PO Q6 PRN PRN Reason: Pain, Mild (1-3) Last Admin: 06/17/17 18:00 Dose: 650 mg Albuterol/Ipratropium (Duoneb 3 Mg/0.5 Mg (3 Ml) Ud) 3 ml INH RQ6 [facility] Last Admin: 06/23/17 13:51 Dose: Not Given Calcium Acetate (Phoslo) 1,334 mg PO TIDCC [facility] Last Admin: 06/23/17 12:18 Dose: 1,334 mg Carvedilol (Coreg) 12.5 mg PO BID [facility] Last Admin: 06/23/17 11:27 Dose: Not Given Epoetin Connor (Procrit) 12,000 unit IV MWF [facility] Ergocalciferol (Drisdol 50,000 Intl Units Cap) 1 cap PO Q7D [facility] Last Admin: 06/20/17 09:53 Dose: 1 cap Fluconazole (Diflucan) 50 mg PO DAILY [facility] Stop: 07/03/17 10:01 Last Admin: 06/23/17 12:18 Dose: 50 mg Linezolid (Zyvox 600mg/300ml D5w) 600 mg in 300 mls @ 200 mls/hr IVPB Q12H [facility] Last Admin: 06/23/17 13:59 Dose: 200 mls/hr Losartan Potassium (Cozaar) 50 mg PO QPM [facility] Last Admin: 06/22/17 18:17 Dose: 50 mg Nifedipine (Procardia Xl) 60 mg PO DAILY [facility] Last Admin: 06/23/17 11:28 Dose: Not Given Pantoprazole Sodium (Protonix Inj) 40 mg IVP DAILY [facility] Last Admin: 06/23/17 11:28 Dose: Not Given Vitamin B Complex/Vit C/Folic Acid (Nephro-Magdalena) 1 tab PO 0800 [facility] Last Admin: 06/23/17 07:45 Dose: Not Given - Labs Labs: 06/23/17 07:47 06/23/17 07:47 PT 13.0 SECONDS (9.7-12.2) H 06/20/17 06:42 INR 1.2 06/20/17 06:42 APTT 35 SECONDS (21-34) H 06/20/17 06:42 Attending/Attestation - Attestation I have personally seen and examined this patient.: Yes I have fully participated in the care of the patient.: Yes I have reviewed all pertinent clinical information, including history, physical exam and plan: Yes Notes (Text): Seen and examined No complain. patient was seen by pulmonary. d/w Dr Bell Patient will have repeat CT chest on monday and will be followed by pulmonary I agree with the documentation of the assessment and the plan of the resident plan discussed with the resident
[2017-06-23] MEDS: Linezolid 600 mg in D5W 300 ml 600 MG/300 ML BAG IVPB SCH (13:59)
--- NOTE | 2017-06-23 18:26 | CP.PCM.CON ---
History of Present Illness - History of Present Illness History of Present Illness: 61 y/o male with past medical history of HTN, upper GI bleed, TIA, and sleep apnea, who presents to the ED with complaint of shortness of breath, wheezing, and blood in stool. He states the shortness of breath began about 2 weeks ago as he was walking to work, and now he cannot walk more than 2 blocks without feeling short of breath. 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 Allergies: NKDA Meds: denies Review of Systems - Review of Systems All systems: reviewed and no additional remarkable complaints except - Constitutional Constitutional: As Per HPI - EENT Eyes: absent: As Per HPI, Blind Spots, Blurred Vision, Change in Vision, Decreased Night Vision, Diplopia, Discharge, Dry Eye, Exophthalmos, Floaters, Irritation, Itchy Eyes, Loss of Peripheral Vision, Pain, Photophobia, Requires Corrective Lenses, Sees Flashes, Spots in Vision, Tunnel Vision, Other Visual Disturbances, Loss of Vision, Other Ears: absent: As Per HPI, Decreased Hearing, Ear Discharge, Ear Pain, Tinnitus, Abnormal Hearing, Disequilibrium, Dizziness, Other Nose/Mouth/Throat: absent: As Per HPI, Epistaxis, Nasal Congestion, Nasal Discharge, Nasal Obstruction, Nasal Trauma, Nose Pain, Post Nasal Drip, Sinus Pain, Sinus Pressure, Bleeding Gums, Change in Voice, Dental Pain, Dry Mouth, Dysphagia, Halitosis, Hoarsness, Lip Swelling, Mouth Lesions, Mouth Pain, Odynophagia, Sore Throat, Throat Swelling, Tongue Swelling, Facial Pain, Neck Pain, Neck Mass, Other - Cardiovascular Cardiovascular: absent: As Per HPI, Acrocyanosis, Chest Pain, Chest Pain at Rest , Chest Pain with Activity, Claudication, Diaphoresis, Dyspnea, Dyspnea on Exertion, Edema, Irregular Heart Rhythm, Pain Radiating to Arm/Neck/Jaw, Leg Edema, Leg Ulcers, Lightheadedness, Orthopnea, Palpitations, Paroxysmal Nocturnal Dyspnea, Pedal Edema, Radiating Pain, Rapid Heart Rate, Slow Heart Rate, Syncope, Other - Respiratory Respiratory: As Per HPI, Cough, Dyspnea. absent: Hemoptysis - Gastrointestinal Gastrointestinal: absent: As Per HPI, Abdominal Pain, Belching, Bloating, Change in Bowel Habits, Change in Stool Character, Coffee Ground Emesis, Constipation, Cramping, Diarrhea, Dyspepsia, Dysphagia, Early Satiety, Excessive Flatus, Fecal Incontinence, Heartburn, Hematemesis, Hematochezia, Loose Stools, Melena, Nausea, Odynophagia, Temesmus, Vomiting, Other - Genitourinary Genitourinary: As Per HPI - Musculoskeletal Musculoskeletal: absent: As Per HPI, Abnormal Gait, Arthralgias, Atrophy, Back Pain, Deformity, Joint Swelling, Limited Range of Motion, Loss of Height, Muscle Cramps, Muscle Weakness, Myalgias, Neck Pain, Numbness, Radiating Pain into Limb, Stiffness, Tingling, Other - Integumentary Integumentary: absent: As Per HPI, Acne, Alopecia, Bleeding Lesions, Change in Hair, Change in Nails, Change in Pigmentation, Changing Lesions, Dry Skin, Erythema, Furuncle, Hirsutism, Lesions, New Lesions, Non-Healing Lesions, Photosensitivity, Pruritus, Rash, Skin Pain, Skin Ulcer, Sores, Striae, Swelling , Unusual Bruising, Wounds, Jaundice, Other - Neurological Neurological: absent: As Per HPI, Abnormal Gait, Abnormal Hearing, Abnormal Movements, Abnormal Speech, Behavioral Changes, Burning Sensations, Confusion, Convulsions, Disequilibrium, Dizziness, Numbness, Focal Weakness, Frequent Falls , Headaches, Lack of Coordination, Loss of Vision, Memory Loss, Paresthesias, Radicular Pain, Restless Legs, Sensory Deficit, Syncope, Tingling, Tremor, Vertigo, Weakness, Other Visual Disturbances, Other - Psychiatric Psychiatric: absent: As Per HPI, Abnormal Sleep Pattern, Anhedonia, Anxiety, Auditory Hallucinations, Behavioral Changes, Change in Appetite, Change in Libido, Confusion, Depression, Difficulty Concentrating, Hallucinations, Homicidal Ideation, Hopelessness, Irritability, Memory Loss, Mood Swings, Panic Attacks, Paranoia, Suicidal Ideation, Visual Hallucinations, Tactile Hallucinations, Other - Endocrine Endocrine: absent: As Per HPI, Change in Body Appearance, Change in Libido, Cold Intolorance, Deepening of Voice, Excessive Sweating, Fatigue, Flushing, Heat Intolorance, Increase in Ring/Shoe/Hat Size, Palpitations, Polydipsia, Polyphagia, Polyuria, Other - Hematologic/Lymphatic Hematologic: absent: As Per HPI, Easy Bleeding, Easy Bruising, Lymphadenopathy, Other Past Patient History - Past Medical History & Family History Past Medical History?: Yes - Past Social History Smoking Status: Light Smoker < 10 Cigarettes Daily - CARDIAC Hx Hypertension: Yes (noncompliant with meds) - MUSCULOSKELETAL/RHEUMATOLOGICAL Hx Falls: No - PSYCHIATRIC Hx Substance Use: No - SURGICAL HISTORY Hx Surgeries: Yes - ANESTHESIA Hx Anesthesia: Yes Hx Anesthesia Reactions: No Hx Malignant Hyperthermia: No Meds Allergies/Adverse Reactions: Allergies Allergy/AdvReac Type Severity Reaction Status Date / Time No Known Allergies Allergy Unverified 06/15/17 15:11 - Medications Medications: Current Medications Acetaminophen (Tylenol 325mg Tab) 650 mg PO Q6 PRN PRN Reason: Pain, Mild (1-3) Last Admin: 06/17/17 18:00 Dose: 650 mg Albuterol/Ipratropium (Duoneb 3 Mg/0.5 Mg (3 Ml) Ud) 3 ml INH RQ6 [facility] Last Admin: 06/23/17 13:51 Dose: Not Given Calcium Acetate (Phoslo) 1,334 mg PO TIDCC [facility] Last Admin: 06/23/17 17:58 Dose: 1,334 mg Carvedilol (Coreg) 12.5 mg PO BID [facility] Last Admin: 06/23/17 17:58 Dose: 12.5 mg Epoetin Connor (Procrit) 12,000 unit IV MWF [facility] Ergocalciferol (Drisdol 50,000 Intl Units Cap) 1 cap PO Q7D [facility] Last Admin: 06/20/17 09:53 Dose: 1 cap Fluconazole (Diflucan) 50 mg PO DAILY [facility] Stop: 07/03/17 10:01 Last Admin: 06/23/17 12:18 Dose: 50 mg Linezolid (Zyvox 600mg/300ml D5w) 600 mg in 300 mls @ 200 mls/hr IVPB Q12H [facility] Last Admin: 06/23/17 13:59 Dose: 200 mls/hr Losartan Potassium (Cozaar) 50 mg PO QPM [facility] Last Admin: 06/23/17 17:58 Dose: 50 mg Nifedipine (Procardia Xl) 60 mg PO DAILY [facility] Last Admin: 06/23/17 11:28 Dose: Not Given Pantoprazole Sodium (Protonix Inj) 40 mg IVP DAILY [facility] Last Admin: 06/23/17 11:28 Dose: Not Given Vitamin B Complex/Vit C/Folic Acid (Nephro-Magdalena) 1 tab PO 0800 [facility] Last Admin: 06/23/17 07:45 Dose: Not Given Physical Exam - Constitutional Appears: Non-toxic, Chronically Ill - Head Exam Head Exam: NORMOCEPHALIC - Eye Exam Eye Exam: PERRL. absent: Scleral icterus - ENT Exam ENT Exam: Mucous Membranes Dry - Neck Exam Neck exam: Negative for: Lymphadenopathy - Respiratory Exam Respiratory Exam: Decreased Breath Sounds, Clear to Auscultation Bilateral - Cardiovascular Exam Cardiovascular Exam: REGULAR RHYTHM, +S1, +S2 - GI/Abdominal Exam GI & Abdominal Exam: Diminished Bowel Sounds, Soft. absent: Tenderness - Rectal Exam Rectal Exam: Deferred - Exam Exam: NORMAL INSPECTION - Extremities Exam Extremities exam: Negative for: pedal edema - Back Exam Back exam: absent: CVA tenderness (L), CVA tenderness (R) - Neurological Exam Neurological exam: Alert, CN II-XII Intact, Oriented x3, Reflexes Normal - Psychiatric Exam Psychiatric exam: Normal Mood - Skin Skin Exam: Dry Results - Vital Signs Recent Vital Signs: Last Vital Signs Temp 98.2 F 06/23/17 16:23 Pulse 119 H 06/23/17 16:23 Resp 20 06/23/17 16:23 BP 149/84 06/23/17 17:58 Pulse Ox 95 06/23/17 16:23 - Labs Result Diagrams: 06/23/17 07:47 06/23/17 07:47 Labs: Laboratory Results - last 24 hr 06/23/17 06/23/17 07:47 07:47 WBC 13.9 H RBC 2.83 L Hgb 8.1 L Hct 24.5 L MCV 86.6 MCH 28.8 MCHC 33.2 RDW 16.1 H Plt Count 231 MPV 7.9 Neut % (Auto) 80.2 H Lymph % (Auto) 6.2 L [place] % (Auto) 8.6 Eos % (Auto) 4.2 H Baso % (Auto) 0.8 Neut # (Auto) 11.2 H Lymph # (Auto) 0.9 L [place] # (Auto) 1.2 H Eos # (Auto) 0.6 Baso # (Auto) 0.1 Neutrophils % (Manual) 86 H Lymphocytes % (Manual) 4 L Monocytes % (Manual) 5 Eosinophils % (Manual) 5 H Platelet Estimate Normal Polychromasia Slight Hypochromasia (manual) Slight Anisocytosis (manual) Slight Sodium 134 Potassium 4.4 Chloride 96 L Carbon Dioxide 24 Anion Gap 18 BUN 39 H Creatinine 9.6 H* D Est GFR ( Amer) 7 Est GFR (Non-Af Amer) 6 Random Glucose 92 Calcium 7.4 L Phosphorus 6.1 H Magnesium 1.7 Total Bilirubin 0.4 AST 26 ALT 31 Alkaline Phosphatase 58 Total Protein 5.7 L Albumin 2.8 L Globulin 2.8 Albumin/Globulin Ratio 1.0 Assessment & Plan (1) ARF (acute renal failure) Status: Acute (2) CHF (congestive heart failure), NYHA class II Status: Acute (3) Dyspnea on exertion Status: Acute (4) Interstitial lung disease Status: Acute (5) Severe anemia Status: Acute (6) UTI (urinary tract infection) Status: Acute - Assessment and Plan (Free Text) Assessment: add zyvox for VRE consider MARIANA [place]
--- NOTE | 2017-06-23 20:06 | CP.PCM.CON ---
History of Present Illness - History of Present Illness History of Present Illness: Vascular Surgery Consult note. Dr. Sotelo 61yo M with PMHx of HTN, UGI bleed, TIA here for COPD exacerbation and newly diagnosed hypertensive renal disease. Vascular surgery re-consulted for AVF creation. Patient denies any acute complaints. States that he has had uncontrolled hypertension for a long time, unable to quantify. He denies any N/V /D. No Headaches. No CP. No SOB currently. Denies fevers or chills. Is agreeable to undergo AVF creation if indicated. Does not offer any other complaints. PMHx: HTN, UGI bleeding, TIA PSHx: Septoplasty, Uvulopalatopharyngoplasty Family Hx: Mother and Brother - DM Social Hx: Current 1/2ppd smoker for 44 years. Current weekend ETOH use. Denies illicit drugs. Lives with . NKDA Review of Systems - Review of Systems All systems: reviewed and no additional remarkable complaints except - Constitutional Constitutional: absent: Anorexia, Chills, Fever - Cardiovascular Cardiovascular: absent: Chest Pain, Dyspnea - Respiratory Respiratory: absent: Cough, Dyspnea - Gastrointestinal Gastrointestinal: absent: Abdominal Pain, Diarrhea, Nausea, Vomiting - Neurological Neurological: absent: Headaches Past Patient History - Past Medical History & Family History Past Medical History?: Yes - Past Social History Smoking Status: Light Smoker < 10 Cigarettes Daily - CARDIAC Hx Hypertension: Yes (noncompliant with meds) - MUSCULOSKELETAL/RHEUMATOLOGICAL Hx Falls: No - PSYCHIATRIC Hx Substance Use: No - SURGICAL HISTORY Hx Surgeries: Yes - ANESTHESIA Hx Anesthesia: Yes Hx Anesthesia Reactions: No Hx Malignant Hyperthermia: No Meds Allergies/Adverse Reactions: Allergies Allergy/AdvReac Type Severity Reaction Status Date / Time No Known Allergies Allergy Unverified 06/15/17 15:11 - Medications Medications: Current Medications Acetaminophen (Tylenol 325mg Tab) 650 mg PO Q6 PRN PRN Reason: Pain, Mild (1-3) Last Admin: 06/17/17 18:00 Dose: 650 mg Albuterol/Ipratropium (Duoneb 3 Mg/0.5 Mg (3 Ml) Ud) 3 ml INH RQ6 [facility] Last Admin: 06/23/17 19:19 Dose: 3 ml Calcium Acetate (Phoslo) 1,334 mg PO TIDCC [facility] Last Admin: 06/23/17 17:58 Dose: 1,334 mg Carvedilol (Coreg) 12.5 mg PO BID [facility] Last Admin: 06/23/17 17:58 Dose: 12.5 mg Epoetin Connor (Procrit) 12,000 unit IV MWF [facility] Ergocalciferol (Drisdol 50,000 Intl Units Cap) 1 cap PO Q7D [facility] Last Admin: 06/20/17 09:53 Dose: 1 cap Fluconazole (Diflucan) 50 mg PO DAILY [facility] Stop: 07/03/17 10:01 Last Admin: 06/23/17 12:18 Dose: 50 mg Linezolid (Zyvox 600mg/300ml D5w) 600 mg in 300 mls @ 200 mls/hr IVPB Q12H [facility] Last Admin: 06/23/17 13:59 Dose: 200 mls/hr Losartan Potassium (Cozaar) 50 mg PO QPM [facility] Last Admin: 06/23/17 17:58 Dose: 50 mg Nifedipine (Procardia Xl) 60 mg PO DAILY [facility] Last Admin: 06/23/17 11:28 Dose: Not Given Pantoprazole Sodium (Protonix Inj) 40 mg IVP DAILY [facility] Last Admin: 06/23/17 11:28 Dose: Not Given Vitamin B Complex/Vit C/Folic Acid (Nephro-Magdalena) 1 tab PO 0800 [facility] Last Admin: 06/23/17 07:45 Dose: Not Given Physical Exam - Constitutional Appears: Well, Non-toxic, No Acute Distress - Head Exam Head Exam: ATRAUMATIC, NORMAL INSPECTION, NORMOCEPHALIC - Eye Exam Eye Exam: EOMI, Normal appearance - ENT Exam ENT Exam: Mucous Membranes Moist - Respiratory Exam Respiratory Exam: NORMAL BREATHING PATTERN. absent: Accessory Muscle Use, Respiratory Distress - Cardiovascular Exam Cardiovascular Exam: absent: JVD - GI/Abdominal Exam GI & Abdominal Exam: Soft. absent: Distended, Guarding, Rebound, Rigid - Extremities Exam Extremities exam: Positive for: normal inspection. Negative for: calf tenderness Additional comments: No IVs in left arm. Ecchymosis noted around left antecubital fossa. Left radial pulse palpable. - Neurological Exam Neurological exam: Alert, Oriented x3 - Psychiatric Exam Psychiatric exam: Normal Affect, Normal Mood - Skin Skin Exam: Dry, Intact, Warm Results - Vital Signs Recent Vital Signs: Last Vital Signs Temp 98.2 F 06/23/17 16:23 Pulse 119 H 06/23/17 16:23 Resp 20 06/23/17 16:23 BP 149/84 06/23/17 17:58 Pulse Ox 95 06/23/17 16:23 - Labs Result Diagrams: 06/23/17 07:47 06/23/17 07:47 Labs: Laboratory Results - last 24 hr 06/23/17 06/23/17 07:47 07:47 WBC 13.9 H RBC 2.83 L Hgb 8.1 L Hct 24.5 L MCV 86.6 MCH 28.8 MCHC 33.2 RDW 16.1 H Plt Count 231 MPV 7.9 Neut % (Auto) 80.2 H Lymph % (Auto) 6.2 L [place] % (Auto) 8.6 Eos % (Auto) 4.2 H Baso % (Auto) 0.8 Neut # (Auto) 11.2 H Lymph # (Auto) 0.9 L [place] # (Auto) 1.2 H Eos # (Auto) 0.6 Baso # (Auto) 0.1 Neutrophils % (Manual) 86 H Lymphocytes % (Manual) 4 L Monocytes % (Manual) 5 Eosinophils % (Manual) 5 H Platelet Estimate Normal Polychromasia Slight Hypochromasia (manual) Slight Anisocytosis (manual) Slight Sodium 134 Potassium 4.4 Chloride 96 L Carbon Dioxide 24 Anion Gap 18 BUN 39 H Creatinine 9.6 H* D Est GFR ( Amer) 7 Est GFR (Non-Af Amer) 6 Random Glucose 92 Calcium 7.4 L Phosphorus 6.1 H Magnesium 1.7 Total Bilirubin 0.4 AST 26 ALT 31 Alkaline Phosphatase 58 Total Protein 5.7 L Albumin 2.8 L Globulin 2.8 Albumin/Globulin Ratio 1.0 Assessment & Plan - Assessment and Plan (Free Text) Assessment: 61yo M with newly diagnosed ESRD due uncontrolled hypertension Plan: - Left arm precautions - Vein mapping as ordered - Possible AVF creation early next week - Continue HD via permacath for now. Scheduled for MWF Further recs as per Dr. Ashleigh Artis PGY1 surgery pager: [phone]
[2017-06-24] MEDS: Linezolid 600 mg in D5W 300 ml 600 MG/300 ML BAG IVPB SCH ×2 (00:25→13:25)
--- NOTE | 2017-06-24 00:26 | CP.PCM.PN ---
<Daniela Roberts - Last Filed: 06/24/17 00:23> Subjective - Date & Time of Evaluation Date of Evaluation: 06/24/17 Time of Evaluation: 00:24 - Subjective Subjective: Patient seen and examined at bedside. Patient resting comfortably in bed with no new complaints at this time. Patient is tolerating her diet. She denies fever , chills, chest pain, SOB, abdominal pain, n/v/d/c, or urinary symptoms. Objective - Vital Signs/Intake and Output Vital Signs (last 24 hours): Temp Pulse Resp BP Pulse Ox 98.2 F 119 H 20 149/84 95 06/23/17 16:23 06/23/17 16:23 06/23/17 16:23 06/23/17 17:58 06/23/17 16:23 Intake and Output: 06/23/17 06/24/17 18:59 06:59 Intake Total 700 520 Balance 700 520 - Medications Medications: Current Medications Acetaminophen (Tylenol 325mg Tab) 650 mg PO Q6 PRN PRN Reason: Pain, Mild (1-3) Last Admin: 06/17/17 18:00 Dose: 650 mg Albuterol/Ipratropium (Duoneb 3 Mg/0.5 Mg (3 Ml) Ud) 3 ml INH RQ6 [facility] Last Admin: 06/23/17 19:19 Dose: 3 ml Calcium Acetate (Phoslo) 1,334 mg PO TIDCC [facility] Last Admin: 06/23/17 17:58 Dose: 1,334 mg Carvedilol (Coreg) 12.5 mg PO BID [facility] Last Admin: 06/23/17 17:58 Dose: 12.5 mg Epoetin Connor (Procrit) 12,000 unit IV MWF [facility] Ergocalciferol (Drisdol 50,000 Intl Units Cap) 1 cap PO Q7D [facility] Last Admin: 06/20/17 09:53 Dose: 1 cap Fluconazole (Diflucan) 50 mg PO DAILY [facility] Stop: 07/03/17 10:01 Last Admin: 06/23/17 12:18 Dose: 50 mg Linezolid (Zyvox 600mg/300ml D5w) 600 mg in 300 mls @ 200 mls/hr IVPB Q12H [facility] Last Admin: 06/23/17 13:59 Dose: 200 mls/hr Losartan Potassium (Cozaar) 50 mg PO QPM [facility] Last Admin: 06/23/17 17:58 Dose: 50 mg Nifedipine (Procardia Xl) 60 mg PO DAILY [facility] Last Admin: 06/23/17 11:28 Dose: Not Given Pantoprazole Sodium (Protonix Inj) 40 mg IVP DAILY [facility] Last Admin: 06/23/17 11:28 Dose: Not Given Vitamin B Complex/Vit C/Folic Acid (Nephro-Magdalena) 1 tab PO 0800 [facility] Last Admin: 06/23/17 07:45 Dose: Not Given - Labs Labs: 06/23/17 07:47 06/23/17 07:47 PT 13.0 SECONDS (9.7-12.2) H 06/20/17 06:42 INR 1.2 06/20/17 06:42 APTT 35 SECONDS (21-34) H 06/20/17 06:42 - Additional Findings Additional findings: - Constitutional Appears: No Acute Distress - Head Exam Head Exam: NORMAL INSPECTION, NORMOCEPHALIC - Eye Exam Eye Exam: EOMI, Normal appearance, PERRL - ENT Exam ENT Exam: Mucous Membranes Moist - Respiratory Exam Respiratory Exam: Decreased Breath Sounds, NORMAL BREATHING PATTERN - Cardiovascular Exam Cardiovascular Exam: REGULAR RHYTHM - GI/Abdominal Exam GI & Abdominal Exam: Soft, Normal Bowel Sounds. absent: Distended, Tenderness - Rectal Exam Rectal Exam: Deferred - Extremities Exam Extremities Exam: Normal Inspection. absent: Pedal Edema, Tenderness - Neurological Exam Neurological Exam: Alert, Awake, CN II-XII Intact, Normal Gait, Oriented x3 - Psychiatric Exam Psychiatric exam: Normal Affect, Normal Mood - Skin Skin Exam: Dry, Intact, Normal Color, Warm Assessment and Plan - Assessment and Plan (Free Text) Plan: ESRD General Surgery- Dr. Sotelo consulted - help appreciated Nephrology- Dr. Mckeon/ Dr. Enciso - help appreciated S/P Permacath 06/19/17 Dialysis MWF Creatinine improving S/P Renal Biopsy - with IR - Vascular sclerosis, hypertensive renovascular disease. Patient is ESRD will need dialysis indefinitely. Will speak to Vascular Surgery about plans for AV Fistula in near future. Imaging: Renal US: Increased echogenicity of the bilateral renal parenchymal cortices suggestive for medical renal disease. Bilateral renal cysts. Meds: Procrit MWF, Nephro-Magdalena, Phoslo COPD Pulmonology consulted - Dr. Pierson- chanell appreciated - Dr. Bell is covering Chest xray: patchy opacities within lateral right upper lobe and b/l lower lobes may reflect multifocal infiltrate or atelectasis CT Chest: Patchy foci of ground-glass opacities associated with septal thickening and mild bronchiectasis and also associated with foci of honeycombing. Findings likely represent interstitial pneumonitis and the differential consideration includes mainly UIP and less likely nonspecific interstitial pneumonitis, desquamative interstitial pneumonia and chronic hypersensitivity pneumonitis. Foci of consolidation noted at the right lung along the right fissure may represent lung nodule or pleural thickening 3 months follow-up reassessment is recommended. Mild emphysema. Mild cardiomegaly. CXR ordered - no infiltrates or effusion noted, patient is asymptomatic - will continue to monitor PT has been ambulating with patient and he starts to desaturate to 87-88% upon walking; pending recommendations from Pulmonary. Patient will most likely need home oxygen. Spoke to Dr. Bell, covering for Dr. Pierson - anticipate bronchoscopy 06/26 or 06/27 VRE + UTI ON CONTACT Precautions ID Consulted - Dr. Joshua - chanell appreciated UA: 2+ protein, 1+ blood, 3+ LE, 36 WBC, 4RBC, moderate bacteria The urine culture shows E. Coli Started Cipro 250mg PO BID x 5 days, UC - 06/21/17 - VRE+ Spoke to Dr. Joshua - patient started on Zyvox 600mg IVP Q12H, will repeat UC in a few days Esophageal Candiasis Started diflucan 100mg PO once, then Diflucan 50mg PO daily x 13 Anemia Ferrlecit x 8 days Continue to monitor Hx CHF Cardiology consulted - Dr. Cobb- workup of ischemic etiology would be done as outpatient. No shortness of breath is probably a diastolic dysfunction due to renal failure. Echo: global left ventricular hypokinesis, moderate pulmonary HTN, and also EF 45% Nonbleeding Gastric Ulcer Severe anemia from a lower GI Etiology and from renal failure GI consulted - Dr. Barnard- chanell appreciated On admission Hgb was 5 Because of uremia on labwork we also ordered 30 DDAVP x 1 dose now as he may have uremic bleeding S/P EGD: showing hiatal hernia, esophagitis, gastric ulcer, and a normal duodenum Nuclear Bleeding Scan: negative S/P 4 units PRBCs Hx of HTN Echo: global left ventricular hypokinesis, moderate pulmonary HTN, and also EF 45% Coreg 12.5mg PO BID, Cozaar 50mg PO daily Procardia XL 60mg PO daily Prophylactic measure NO chemical anticoagulation due to severe anemia SCDs Protonix 40mg IV Q12H PT EVAL - DC HOME: RESTING RA-95%, ROOM AIR EXERTION AMB 50 F X 1- SPO2 88%, 2L NC O2 EXERTION AMB AND T/.F 50 F SPO2 95% Disposition: Pending outpatient dialysis set up by case management. Will continue PT - to assess if patient needs home O2. <Aylin Roy - Last Filed: 06/28/17 13:56> Objective - Vital Signs/Intake and Output Vital Signs (last 24 hours): Temp Pulse Resp BP Pulse Ox 97.6 F 79 18 84/57 L 99 06/28/17 12:05 06/28/17 12:05 06/28/17 12:05 06/28/17 12:05 06/28/17 12:05 Intake and Output: 06/28/17 06/28/17 06:59 18:59 Intake Total 600 350 Balance 600 350 - Medications Medications: Current Medications Acetaminophen (Tylenol 325mg Tab) 650 mg PO Q6 PRN PRN Reason: Pain, Mild (1-3) Last Admin: 06/17/17 18:00 Dose: 650 mg Albuterol/Ipratropium (Duoneb 3 Mg/0.5 Mg (3 Ml) Ud) 3 ml INH RQ6 [facility] Last Admin: 06/28/17 07:38 Dose: 3 ml Calcium Acetate (Phoslo) 1,334 mg PO T[facility]CC [facility] Last Admin: 06/28/17 13:44 Dose: 1,334 mg Carvedilol (Coreg) 25 mg PO BID [facility] Epoetin Connor (Procrit) 12,000 unit IV MWF [facility] Last Admin: 06/28/17 12:06 Dose: 12,000 unit Ergocalciferol (Drisdol 50,000 Intl Units Cap) 1 cap PO Q7D [facility] Last Admin: 06/27/17 09:36 Dose: 1 cap Fluconazole (Diflucan) 50 mg PO DAILY [facility] Stop: 07/03/17 10:01 Last Admin: 03/07/18 13:44 Dose: 50 mg Hydralazine HCl (Apresoline) 25 mg PO Q4 PRN PRN Reason: Other Linezolid (Zyvox) 600 mg PO Q12H [facility] Last Admin: 06/28/17 13:44 Dose: 600 mg Losartan Potassium (Cozaar) 100 mg PO QPM [facility] Last Admin: 06/27/17 17:35 Dose: 100 mg Nifedipine (Procardia Xl) 60 mg PO DAILY [facility] Last Admin: 06/28/17 10:33 Dose: 60 mg Pantoprazole Sodium (Protonix Ec Tab) 40 mg PO DAILY [facility] Last Admin: 06/28/17 13:44 Dose: 40 mg Vitamin B Complex/Vit C/Folic Acid (Nephro-Magdalena) 1 tab PO 0800 [facility] Last Admin: 06/28/17 13:44 Dose: 1 tab - Labs Labs: 06/28/17 06:20 06/28/17 06:20 PT 13.0 SECONDS (9.7-12.2) H 06/20/17 06:42 INR 1.2 06/20/17 06:42 APTT 35 SECONDS (21-34) H 06/20/17 06:42 Attending/Attestation - Attestation I have personally seen and examined this patient.: Yes I have fully participated in the care of the patient.: Yes I have reviewed all pertinent clinical information, including history, physical exam and plan: Yes
[2017-06-24] MEDS: Albuterol-Ipratrop 3 mg / 0.5 (3 ml) UD INH SCH ×4 (01:41→19:27)
[2017-06-24] MEDS: Multivitamin Vitamin B Complex (Nephro-Vite) Tab PO SCH (08:23)
[2017-06-24 09:09] LABS: BASO # 0.1 K/uL (0.0-0.2); BASO % 0.9 % (0.0-2.0); EOS # 0.6 K/uL (0.0-0.7); EOS % 5.5 % (0.0-4.0); HEMOGLOBIN 9.4 g/dL (12.0-18.0); LYMPH # 0.6 K/uL (1.0-4.3); LYMPH % 5.5 % (20.0-40.0); MEAN CORPUSCULAR HEMOGLOBIN 29.2 pg (27.0-31.0); MEAN PLATELET VOLUME 7.7 fL (7.2-11.7); MONO # 0.5 K/uL (0.0-0.8); MONO % 4.5 % (0.0-10.0); NEUT # 8.5 K/uL (1.8-7.0); NEUT % 83.6 % (50.0-75.0); PLATELET COUNT 293 K/uL (130-400); RBC 3.22 Mil/uL (4.40-5.90); RED CELL DISTRIBUTION WIDTH 16.6 % (11.5-14.5); WHITE BLOOD COUNT 10.1 K/uL (4.8-10.8)
[2017-06-24] MEDS: NIFEdipine 60 mg ER Tab PO SCH (09:11)
[2017-06-24 09:39] LABS: ALB/GLOB RATIO 0.9 (1.0-2.1); ALBUMIN 3.1 g/dL (3.5-5.0); CALCIUM 8.2 mg/dl (8.6-10.4)
[2017-06-24 10:30] LABS: BANDS 1 % (0-2); EOSINOPHIL 3 % (0-4); LYMPHOCYTE 6 % (20-40); MONOCYTE 1 % (0-10); NEUTROPHIL 89 % (50-75); PLATELET ESTIMATE NORMAL (NORMAL); TOTAL CELLS COUNTED 100
[2017-06-24 10:31] LABS: ANISOCYTOSIS SLIGHT; HYPOCHROMIC SLIGHT; MICROCYTOSIS SLIGHT; POIKILOCYTOSIS SLIGHT; POLYCHROMIC SLIGHT
[2017-06-24 10:34] LABS: GIANT PLATELETS PRESENT; OVALOCYTES SLIGHT
--- NOTE | 2017-06-24 12:46 | VASCLAB ---
PROCEDURE: Upper Extremity Venous Duplex Exam HISTORY: AVF eval Pre-op examination, ESRD PRIORS: None. TECHNIQUE: Bilateral upper extremity, internal jugular, subclavian, axillary, brachial, ulnar, radial, basilic and upper cephalic veins were evaluated. Flow was assessed with color Doppler, compressibility, assessment of phasic flow and augmentation response. Report prepared by Chago Coffey, RVT FINDINGS: RIGHT: 1. Internal Jugular Vein: Compressibility - Fully compressible: Thrombus - None : Flow - phasic 2. Subclavian Vein:Compressibility - Not evaluated due to hemo access cath in place: Thrombus - : Flow - 3. Axillary Vein: Compressibility - Fully compressible: Thrombus - None 4. Brachial Vein: Compressibility - Fully compressible: Thrombus - None 5. Ulnar Vein:Compressibility - Fully compressible: Thrombus - None 6. Radial Vein:Compressibility - Fully compressible: Thrombus - None 7. Cephalic Vein: Compressibility - Incompressible: thrombus - Acute 7.1. Upper Arm: Proximal Diameter: 0.34cm. Mid Diameter: 0.30cm. Distal Diameter: 0.23cm. 7.2. Forearm: Proximal Diameter: 0.31cm. Mid Diameter:0.22cm. Distal Diameter: 0.45cm 8. Basilic Vein:Compressibility - Fully compressible: thrombus - None 8.1. Upper Arm:Proximal Diameter: 0.40cm. Mid Diameter: 0.37cm. Distal Diameter: 0.40cm. 8.2. Forearm: Proximal Diameter: 0.25cm. Mid Diameter:0.15cm. Distal Diameter: 0.14cm. LEFT: 1. Internal Jugular Vein: Compressibility - Fully compressible: Thrombus - None : Flow - Phasic 2. Subclavian Vein:Compressibility - Fully compressible: Thrombus - None : Flow - Phasic 3. Axillary Vein: Compressibility - Fully compressible: Thrombus - None 4. Brachial Vein: Compressibility - Fully compressible: Thrombus - None 5. Ulnar Vein:Compressibility - Fully compressible: Thrombus - None 6. Radial Vein:Compressibility - Fully compressible: Thrombus - None 7. Cephalic Vein: Compressibility - Fully compressible: thrombus - None 7.1. Upper Arm: Proximal Diameter: 0.35cm. Mid Diameter: 0.41cm. Distal Diameter: 0.40cm. 7.2. Forearm: Proximal Diameter: 0.36cm. Mid Diameter:0.30cm. Distal Diameter: 0.31cm 8. Basilic Vein:Compressibility - Fully compressible: thrombus - None 8.1. Upper Arm:Proximal Diameter: 0.30cm. Mid Diameter: 0.40cm. Distal Diameter: 0.26cm. 8.2. Forearm: Proximal Diameter: 0.16cm. Mid Diameter:0.11cm. Distal Diameter: cm. OTHER FINDINGS: Bilateral internal jugular, subclavian, axillary, brachial, ulnar, basilar and cephalic veins are compressible. The right brachial artery mean measurement was 0.47 cm with normal doppler signal and velocity of 61.9 cm/s. The radial artery mean measurement was 0.22 cm with normal Doppler signal and velocity of 62.7 cm/s. The left brachial artery mean measurement was 0.37 cm with normal doppler signal and velocity of 62.7 cm/s. The radial artery mean measurement was 0.26 cm with normal Doppler signal and velocity of 54.9 cm/s. IMPRESSION: Right: The cephalic vein from distal forearm down to the wrist area was dilated and occluded with echolucent THROMBUS. Positive study for acute superficial thrombophlebitis. Diameter measurements of the right cephalic vein is measured between 0.45 cm and 0.22 cm and basilic vein is measured between 0.40 cm and 0.14 cm. Findings conveyed to SILVA Robbins by Dr. Mckeon at 12:39 pm on 06/24/2017. Left: Diameter measurements of the left cephalic vein is measured between 0.41 cm and 0.30 cm and basilic vein is measured between 0.40cm and 0.11cm.
--- NOTE | 2017-06-24 15:17 | CP.PCM.PN ---
Subjective - Date & Time of Evaluation Date of Evaluation: 06/24/17 Time of Evaluation: 12:30 - Subjective Subjective: Nephrology Consultation: Assessment: stable ESRD due to HTN severe Anemia with iron def and GI blood loss acidosis Hyperphosphatemia (E83.39), HTN (I12.9) active smoker and etoh on weekends hx of TIA, chronic sinusitis possible UTI, esophageal candidiasis, gastric ulcer Systolic CHF LVEF 45-50% Plan HD MWF awaiting outpt chair placement bp stable on epo nephrocap kiddney biopsy results suggest ESRD due to HTN abx per primary team dose for ESRD D S: seen and examined, feels good Physical Examination: General Appearance: comfortable, co-operative . Vitals reviewed and noted as below Head; Atraumatic, normocephalic ENT: no ulcers no thrush. Tongue is midline. Oropharynx: no rash or ulcers. EYES: Pupils are equal, round and reactive to light accommodation. Eye muscles and extraocular movement intact. Sclera is anicteric. Neck; supple no lymphadenopathy, no thyromegaly or bruit Lungs: normal respiratory rate/effort. Breath sounds bilateral equal and with basal rales Heart: Normal rate. s1s2 normal. No rub or gallop. Extremities: no edema. No varicose veins Neurological: Patient is alert, awake and oriented to person, place and time. No focal deficit. Strength bilateral appropriate and equal Skin: Warm and dry. Normal turgor. No rash. Palpitation: Normal elasticity for age Abdomen: Abdomen is soft. Bowel sounds +. There is no abdominal tenderness, no guarding/rigidity no organomegaly Psych: normal insight and normal affect/mood MSK: no joint tenderness or swelling. Digits and nails normal, no deformity : kidney or bladder not palpable Dialysis access: right chest permacath Labs/imaging reviewed. Past medical history, past surgical history, family history, social history, allergy reviewed and noted as below Family hx: no hx of CKD. Rest non-contributory Work up: urine pro/cr: 2 gram/day normal complements and urine cx: GNR TSAT 5% Ferritin 40 imaging: no obstruction Objective - Vital Signs/Intake and Output Vital Signs (last 24 hours): Temp Pulse Resp BP Pulse Ox 98.1 F 73 20 170/94 H 94 L 06/24/17 07:00 06/24/17 07:00 06/24/17 07:00 06/24/17 09:11 06/24/17 07:00 Intake and Output: 06/24/17 06/24/17 06:59 18:59 Intake Total 820 780 Balance 820 780 - Medications Medications: Current Medications Acetaminophen (Tylenol 325mg Tab) 650 mg PO Q6 PRN PRN Reason: Pain, Mild (1-3) Last Admin: 06/17/17 18:00 Dose: 650 mg Albuterol/Ipratropium (Duoneb 3 Mg/0.5 Mg (3 Ml) Ud) 3 ml INH RQ6 [facility] Last Admin: 06/24/17 13:00 Dose: 3 ml Calcium Acetate (Phoslo) 1,334 mg PO TIDCC [facility] Last Admin: 06/24/17 13:00 Dose: 1,334 mg Carvedilol (Coreg) 12.5 mg PO BID [facility] Last Admin: 06/24/17 09:11 Dose: 12.5 mg Epoetin Connor (Procrit) 12,000 unit IV MWF [facility] Ergocalciferol (Drisdol 50,000 Intl Units Cap) 1 cap PO Q7D [facility] Last Admin: 06/20/17 09:53 Dose: 1 cap Fluconazole (Diflucan) 50 mg PO DAILY [facility] Stop: 07/03/17 10:01 Last Admin: 06/24/17 09:11 Dose: 50 mg Linezolid (Zyvox 600mg/300ml D5w) 600 mg in 300 mls @ 200 mls/hr IVPB Q12H [facility] Last Admin: 06/24/17 13:25 Dose: 200 mls/hr Losartan Potassium (Cozaar) 50 mg PO QPM [facility] Last Admin: 06/23/17 17:58 Dose: 50 mg Nifedipine (Procardia Xl) 60 mg PO DAILY [facility] Last Admin: 06/24/17 09:11 Dose: 60 mg Pantoprazole Sodium (Protonix Ec Tab) 40 mg PO DAILY [facility] Vitamin B Complex/Vit C/Folic Acid (Nephro-Magdalena) 1 tab PO 0800 [facility] Last Admin: 06/24/17 08:23 Dose: 1 tab - Labs Labs: 06/24/17 08:57 06/24/17 08:57 PT 13.0 SECONDS (9.7-12.2) H 06/20/17 06:42 INR 1.2 06/20/17 06:42 APTT 35 SECONDS (21-34) H 06/20/17 06:42
[2017-06-25] MEDS: Linezolid 600 mg in D5W 300 ml 600 MG/300 ML BAG IVPB SCH ×2 (00:15→12:01)
[2017-06-25] MEDS: Albuterol-Ipratrop 3 mg / 0.5 (3 ml) UD INH SCH ×4 (03:07→19:22)
--- NOTE | 2017-06-25 04:00 | CP.PCM.PN ---
<Daniela Roberts - Last Filed: 06/25/17 03:59> Subjective - Date & Time of Evaluation Date of Evaluation: 06/25/17 Time of Evaluation: 03:59 - Subjective Subjective: Patient seen and examined at bedside. Patient resting comfortably in bed with no new complaints at this time. Patient is tolerating her diet. She denies fever , chills, chest pain, SOB, abdominal pain, n/v/d/c, or urinary symptoms. Objective - Vital Signs/Intake and Output Vital Signs (last 24 hours): Temp Pulse Resp BP Pulse Ox 98.2 F 69 20 132/72 94 L 06/25/17 00:00 06/25/17 00:00 06/25/17 00:00 06/25/17 00:00 06/25/17 00:00 Intake and Output: 06/24/17 06/25/17 18:59 06:59 Intake Total 780 340 Balance 780 340 - Medications Medications: Current Medications Acetaminophen (Tylenol 325mg Tab) 650 mg PO Q6 PRN PRN Reason: Pain, Mild (1-3) Last Admin: 06/17/17 18:00 Dose: 650 mg Albuterol/Ipratropium (Duoneb 3 Mg/0.5 Mg (3 Ml) Ud) 3 ml INH RQ6 [facility] Last Admin: 06/25/17 03:07 Dose: Not Given Calcium Acetate (Phoslo) 1,334 mg PO TIDCC [facility] Last Admin: 06/24/17 17:49 Dose: 1,334 mg Carvedilol (Coreg) 12.5 mg PO BID [facility] Last Admin: 06/24/17 17:48 Dose: 12.5 mg Epoetin Connor (Procrit) 12,000 unit IV MWF [facility] Ergocalciferol (Drisdol 50,000 Intl Units Cap) 1 cap PO Q7D [facility] Last Admin: 06/20/17 09:53 Dose: 1 cap Fluconazole (Diflucan) 50 mg PO DAILY [facility] Stop: 07/03/17 10:01 Last Admin: 06/24/17 09:11 Dose: 50 mg Linezolid (Zyvox 600mg/300ml D5w) 600 mg in 300 mls @ 200 mls/hr IVPB Q12H [facility] Last Admin: 06/25/17 00:15 Dose: 200 mls/hr Losartan Potassium (Cozaar) 50 mg PO QPM [facility] Last Admin: 06/24/17 17:48 Dose: 50 mg Nifedipine (Procardia Xl) 60 mg PO DAILY [facility] Last Admin: 06/24/17 09:11 Dose: 60 mg Pantoprazole Sodium (Protonix Ec Tab) 40 mg PO DAILY [facility] Vitamin B Complex/Vit C/Folic Acid (Nephro-Magdalena) 1 tab PO 0800 [facility] Last Admin: 06/24/17 08:23 Dose: 1 tab - Labs Labs: 06/24/17 08:57 06/24/17 08:57 PT 13.0 SECONDS (9.7-12.2) H 06/20/17 06:42 INR 1.2 06/20/17 06:42 APTT 35 SECONDS (21-34) H 06/20/17 06:42 - Additional Findings Additional findings: - Constitutional Appears: No Acute Distress - Head Exam Head Exam: NORMAL INSPECTION, NORMOCEPHALIC - Eye Exam Eye Exam: EOMI, Normal appearance, PERRL - ENT Exam ENT Exam: Mucous Membranes Moist - Respiratory Exam Respiratory Exam: Decreased Breath Sounds, NORMAL BREATHING PATTERN - Cardiovascular Exam Cardiovascular Exam: REGULAR RHYTHM - GI/Abdominal Exam GI & Abdominal Exam: Soft, Normal Bowel Sounds. absent: Distended, Tenderness - Rectal Exam Rectal Exam: Deferred - Extremities Exam Extremities Exam: Normal Inspection. absent: Pedal Edema, Tenderness - Neurological Exam Neurological Exam: Alert, Awake, CN II-XII Intact, Normal Gait, Oriented x3 - Psychiatric Exam Psychiatric exam: Normal Affect, Normal Mood - Skin Skin Exam: Dry, Intact, Normal Color, Warm Assessment and Plan - Assessment and Plan (Free Text) Plan: ESRD General Surgery- Dr. Sotelo consulted - help appreciated Nephrology- Dr. Mckeon/ Dr. Enciso - help appreciated S/P Permacath 06/19/17 Dialysis MWF Creatinine improving S/P Renal Biopsy - with IR - Vascular sclerosis, hypertensive renovascular disease. Patient is ESRD will need dialysis indefinitely. Will speak to Vascular Surgery about plans for AV Fistula in near future. Imaging: Renal US: Increased echogenicity of the bilateral renal parenchymal cortices suggestive for medical renal disease. Bilateral renal cysts. Meds: Procrit MWF, Nephro-Magdalena, Phoslo COPD Pulmonology consulted - Dr. Pierson- help appreciated - Dr. Bell is covering Chest xray: patchy opacities within lateral right upper lobe and b/l lower lobes may reflect multifocal infiltrate or atelectasis CT Chest: Patchy foci of ground-glass opacities associated with septal thickening and mild bronchiectasis and also associated with foci of honeycombing. Findings likely represent interstitial pneumonitis and the differential consideration includes mainly UIP and less likely nonspecific interstitial pneumonitis, desquamative interstitial pneumonia and chronic hypersensitivity pneumonitis. Foci of consolidation noted at the right lung along the right fissure may represent lung nodule or pleural thickening 3 months follow-up reassessment is recommended. Mild emphysema. Mild cardiomegaly. CXR ordered - no infiltrates or effusion noted, patient is asymptomatic - will continue to monitor PT has been ambulating with patient and he starts to desaturate to 87-88% upon walking; pending recommendations from Pulmonary. Patient will most likely need home oxygen. Spoke to Dr. Bell, covering for Dr. Pierson - anticipate bronchoscopy 06/26 or 06/27 VRE + UTI ON CONTACT Precautions ID Consulted - Dr. Joshua - chanell appreciated UA: 2+ protein, 1+ blood, 3+ LE, 36 WBC, 4RBC, moderate bacteria The urine culture shows E. Coli Started Cipro 250mg PO BID x 5 days, UC - 06/21/17 - VRE+ Spoke to Dr. Joshua - patient started on Zyvox 600mg IVP Q12H, will repeat UC in a few days Esophageal Candiasis Started diflucan 100mg PO once, then Diflucan 50mg PO daily x 13 Anemia Ferrlecit x 8 days Continue to monitor Hx CHF Cardiology consulted - Dr. Cobb- workup of ischemic etiology would be done as outpatient. No shortness of breath is probably a diastolic dysfunction due to renal failure. Echo: global left ventricular hypokinesis, moderate pulmonary HTN, and also EF 45% Nonbleeding Gastric Ulcer Severe anemia from a lower GI Etiology and from renal failure GI consulted - Dr. Barnard- chanell appreciated On admission Hgb was 5 Because of uremia on labwork we also ordered 30 DDAVP x 1 dose now as he may have uremic bleeding S/P EGD: showing hiatal hernia, esophagitis, gastric ulcer, and a normal duodenum Nuclear Bleeding Scan: negative S/P 4 units PRBCs Hx of HTN Echo: global left ventricular hypokinesis, moderate pulmonary HTN, and also EF 45% Coreg 12.5mg PO BID, Cozaar 50mg PO daily Procardia XL 60mg PO daily Prophylactic measure NO chemical anticoagulation due to severe anemia SCDs Protonix 40mg IV Q12H PT EVAL - DC HOME: RESTING RA-95%, ROOM AIR EXERTION AMB 50 F X 1- SPO2 88%, 2L NC O2 EXERTION AMB AND T/.F 50 F SPO2 95% Disposition: Pending outpatient dialysis set up by case management. Will continue PT - to assess if patient needs home O2. <Aylin Roy - Last Filed: 06/25/17 15:33> Objective - Vital Signs/Intake and Output Vital Signs (last 24 hours): Temp Pulse Resp BP Pulse Ox 98.1 F 86 20 160/84 H 98 06/25/17 09:48 06/25/17 09:48 06/25/17 09:48 06/25/17 10:09 06/25/17 09:48 Intake and Output: 06/25/17 06/25/17 06:59 18:59 Intake Total 940 780 Balance 940 780 - Medications Medications: Current Medications Acetaminophen (Tylenol 325mg Tab) 650 mg PO Q6 PRN PRN Reason: Pain, Mild (1-3) Last Admin: 06/17/17 18:00 Dose: 650 mg Albuterol/Ipratropium (Duoneb 3 Mg/0.5 Mg (3 Ml) Ud) 3 ml INH RQ6 [facility] Last Admin: 06/25/17 13:12 Dose: 3 ml Calcium Acetate (Phoslo) 1,334 mg PO TIDCC [facility] Last Admin: 06/25/17 12:01 Dose: 1,334 mg Carvedilol (Coreg) 12.5 mg PO BID [facility] Last Admin: 06/25/17 10:09 Dose: 12.5 mg Epoetin Connor (Procrit) 12,000 unit IV MWF [facility] Ergocalciferol (Drisdol 50,000 Intl Units Cap) 1 cap PO Q7D [facility] Last Admin: 06/20/17 09:53 Dose: 1 cap Fluconazole (Diflucan) 50 mg PO DAILY [facility] Stop: 07/03/17 10:01 Last Admin: 06/25/17 10:09 Dose: 50 mg Linezolid (Zyvox 600mg/300ml D5w) 600 mg in 300 mls @ 200 mls/hr IVPB Q12H [facility] Last Admin: 06/25/17 12:01 Dose: 200 mls/hr Losartan Potassium (Cozaar) 50 mg PO QPM [facility] Last Admin: 06/24/17 17:48 Dose: 50 mg Nifedipine (Procardia Xl) 60 mg PO DAILY [facility] Last Admin: 06/25/17 10:09 Dose: 60 mg Pantoprazole Sodium (Protonix Ec Tab) 40 mg PO DAILY [facility] Last Admin: 06/25/17 10:08 Dose: 40 mg Vitamin B Complex/Vit C/Folic Acid (Nephro-Magdalena) 1 tab PO 0800 [facility] Last Admin: 06/25/17 08:29 Dose: 1 tab - Labs Labs: 06/25/17 08:42 06/25/17 08:42 PT 13.0 SECONDS (9.7-12.2) H 06/20/17 06:42 INR 1.2 06/20/17 06:42 APTT 35 SECONDS (21-34) H 06/20/17 06:42 Attending/Attestation - Attestation I have personally seen and examined this patient.: Yes I have fully participated in the care of the patient.: Yes I have reviewed all pertinent clinical information, including history, physical exam and plan: Yes
[2017-06-25] MEDS: Multivitamin Vitamin B Complex (Nephro-Vite) Tab PO SCH (08:29)
--- NOTE | 2017-06-25 08:52 | CP.PCM.PN ---
Subjective - Date & Time of Evaluation Date of Evaluation: 06/25/17 Time of Evaluation: 08:51 - Subjective Subjective: Nephrology Consultation: Assessment: stable ESRD due to HTN severe Anemia with iron def and GI blood loss acidosis Hyperphosphatemia (E83.39), HTN (I12.9) active smoker and etoh on weekends hx of TIA, chronic sinusitis UTI esophageal candidiasis, gastric ulcer Systolic CHF LVEF 45-50% Plan HD MWF awaiting outpt chair placement bp well controlled on epo nephrocap kiddney biopsy results suggest ESRD due to HTN abx per primary team dose for ESRD S: seen and examined denies n/v Physical Examination: General Appearance: comfortable, co-operative . Vitals reviewed and noted as below Head; Atraumatic, normocephalic ENT: no ulcers no thrush. Tongue is midline. Oropharynx: no rash or ulcers. EYES: Pupils are equal, round and reactive to light accommodation. Eye muscles and extraocular movement intact. Sclera is anicteric. Neck; supple no lymphadenopathy, no thyromegaly or bruit Lungs: normal respiratory rate/effort. Breath sounds bilateral equal and with basal rales Heart: Normal rate. s1s2 normal. No rub or gallop. Extremities: no edema. No varicose veins Neurological: Patient is alert, awake and oriented to person, place and time. No focal deficit. Strength bilateral appropriate and equal Skin: Warm and dry. Normal turgor. No rash. Palpitation: Normal elasticity for age Abdomen: Abdomen is soft. Bowel sounds +. There is no abdominal tenderness, no guarding/rigidity no organomegaly Psych: normal insight and normal affect/mood MSK: no joint tenderness or swelling. Digits and nails normal, no deformity : kidney or bladder not palpable Dialysis access: right chest permacath Labs/imaging reviewed. Past medical history, past surgical history, family history, social history, allergy reviewed and noted as below Family hx: no hx of CKD. Rest non-contributory Objective - Vital Signs/Intake and Output Vital Signs (last 24 hours): Temp Pulse Resp BP Pulse Ox 98.2 F 69 20 132/72 94 L 06/25/17 00:00 06/25/17 00:00 06/25/17 00:00 06/25/17 00:00 06/25/17 00:00 Intake and Output: 06/25/17 06/25/17 06:59 18:59 Intake Total 940 Balance 940 - Medications Medications: Current Medications Acetaminophen (Tylenol 325mg Tab) 650 mg PO Q6 PRN PRN Reason: Pain, Mild (1-3) Last Admin: 06/17/17 18:00 Dose: 650 mg Albuterol/Ipratropium (Duoneb 3 Mg/0.5 Mg (3 Ml) Ud) 3 ml INH RQ6 [facility] Last Admin: 06/25/17 07:23 Dose: 3 ml Calcium Acetate (Phoslo) 1,334 mg PO TIDCC [facility] Last Admin: 06/25/17 08:25 Dose: 1,334 mg Carvedilol (Coreg) 12.5 mg PO BID [facility] Last Admin: 06/24/17 17:48 Dose: 12.5 mg Epoetin Connor (Procrit) 12,000 unit IV MWF [facility] Ergocalciferol (Drisdol 50,000 Intl Units Cap) 1 cap PO Q7D [facility] Last Admin: 06/20/17 09:53 Dose: 1 cap Fluconazole (Diflucan) 50 mg PO DAILY [facility] Stop: 07/03/17 10:01 Last Admin: 06/24/17 09:11 Dose: 50 mg Linezolid (Zyvox 600mg/300ml D5w) 600 mg in 300 mls @ 200 mls/hr IVPB Q12H [facility] Last Admin: 06/25/17 00:15 Dose: 200 mls/hr Losartan Potassium (Cozaar) 50 mg PO QPM [facility] Last Admin: 06/24/17 17:48 Dose: 50 mg Nifedipine (Procardia Xl) 60 mg PO DAILY [facility] Last Admin: 06/24/17 09:11 Dose: 60 mg Pantoprazole Sodium (Protonix Ec Tab) 40 mg PO DAILY [facility] Vitamin B Complex/Vit C/Folic Acid (Nephro-Magdalena) 1 tab PO 0800 [facility] Last Admin: 06/25/17 08:29 Dose: 1 tab - Labs Labs: 06/24/17 08:57 06/24/17 08:57 PT 13.0 SECONDS (9.7-12.2) H 06/20/17 06:42 INR 1.2 06/20/17 06:42 APTT 35 SECONDS (21-34) H 06/20/17 06:42
[2017-06-25 09:06] LABS: BASO # 0.1 K/uL (0.0-0.2); BASO % 0.8 % (0.0-2.0); EOS # 0.8 K/uL (0.0-0.7); EOS % 7.3 % (0.0-4.0); HEMOGLOBIN 9.2 g/dL (12.0-18.0); LYMPH % 9.8 % (20.0-40.0); MEAN CELL VOLUME 86.1 fL (80.0-94.0); MEAN CORPUSCULAR HEMOGLOBIN 28.9 pg (27.0-31.0); MEAN CORPUSCULAR HGB CONC 33.6 g/dL (33.0-37.0); MEAN PLATELET VOLUME 7.9 fL (7.2-11.7); MONO % 9.1 % (0.0-10.0); NEUT # 7.6 K/uL (1.8-7.0); PLATELET COUNT 292 K/uL (130-400); RBC 3.17 Mil/uL (4.40-5.90); RED CELL DISTRIBUTION WIDTH 16.5 % (11.5-14.5); WHITE BLOOD COUNT 10.4 K/uL (4.8-10.8)
[2017-06-25 09:23] LABS: ALB/GLOB RATIO 0.9 (1.0-2.1); CALCIUM 8.2 mg/dl (8.6-10.4)
[2017-06-25] MEDS: Pantoprazole 40 mg EC Tab PO SCH (10:08)
[2017-06-25] MEDS: NIFEdipine 60 mg ER Tab PO SCH (10:09)
[2017-06-25 10:45] LABS: ANISOCYTOSIS SLIGHT; EOSINOPHIL 7 % (0-4); LYMPHOCYTE 9 % (20-40); MONOCYTE 9 % (0-10); NEUTROPHIL 75 % (50-75); PLATELET ESTIMATE NORMAL (NORMAL); TOTAL CELLS COUNTED 100
[2017-06-25 10:46] LABS: POIKILOCYTOSIS SLIGHT
[2017-06-25 10:47] LABS: MICROCYTOSIS SLIGHT; OVALOCYTES SLIGHT; POLYCHROMIC SLIGHT; SCHISTOCYTES SLIGHT
--- NOTE | 2017-06-25 13:45 | CP.PCM.PN ---
Subjective - Date & Time of Evaluation Date of Evaluation: 06/25/17 Time of Evaluation: 08:00 - Subjective Subjective: afeb on IV antibiotics NAD Objective - Vital Signs/Intake and Output Vital Signs (last 24 hours): Temp Pulse Resp BP Pulse Ox 98.1 F 86 20 160/84 H 98 06/25/17 09:48 06/25/17 09:48 06/25/17 09:48 06/25/17 10:09 06/25/17 09:48 Intake and Output: 06/25/17 06/25/17 06:59 18:59 Intake Total 940 Balance 940 - Medications Medications: Current Medications Acetaminophen (Tylenol 325mg Tab) 650 mg PO Q6 PRN PRN Reason: Pain, Mild (1-3) Last Admin: 06/17/17 18:00 Dose: 650 mg Albuterol/Ipratropium (Duoneb 3 Mg/0.5 Mg (3 Ml) Ud) 3 ml INH RQ6 [facility] Last Admin: 06/25/17 13:12 Dose: 3 ml Calcium Acetate (Phoslo) 1,334 mg PO TIDCC [facility] Last Admin: 06/25/17 12:01 Dose: 1,334 mg Carvedilol (Coreg) 12.5 mg PO BID [facility] Last Admin: 06/25/17 10:09 Dose: 12.5 mg Epoetin Connor (Procrit) 12,000 unit IV MWF [facility] Ergocalciferol (Drisdol 50,000 Intl Units Cap) 1 cap PO Q7D [facility] Last Admin: 06/20/17 09:53 Dose: 1 cap Fluconazole (Diflucan) 50 mg PO DAILY [facility] Stop: 07/03/17 10:01 Last Admin: 06/25/17 10:09 Dose: 50 mg Linezolid (Zyvox 600mg/300ml D5w) 600 mg in 300 mls @ 200 mls/hr IVPB Q12H [facility] Last Admin: 06/25/17 12:01 Dose: 200 mls/hr Losartan Potassium (Cozaar) 50 mg PO QPM [facility] Last Admin: 06/24/17 17:48 Dose: 50 mg Nifedipine (Procardia Xl) 60 mg PO DAILY [facility] Last Admin: 06/25/17 10:09 Dose: 60 mg Pantoprazole Sodium (Protonix Ec Tab) 40 mg PO DAILY [facility] Last Admin: 06/25/17 10:08 Dose: 40 mg Vitamin B Complex/Vit C/Folic Acid (Nephro-Magdalena) 1 tab PO 0800 [facility] Last Admin: 06/25/17 08:29 Dose: 1 tab - Labs Labs: 06/25/17 08:42 06/25/17 08:42 PT 13.0 SECONDS (9.7-12.2) H 06/20/17 06:42 INR 1.2 06/20/17 06:42 APTT 35 SECONDS (21-34) H 06/20/17 06:42 - Constitutional Appears: Non-toxic, Chronically Ill - Head Exam Head Exam: NORMOCEPHALIC - Eye Exam Eye Exam: PERRL. absent: Scleral icterus - ENT Exam ENT Exam: Mucous Membranes Dry - Neck Exam Neck Exam: Normal Inspection - Respiratory Exam Respiratory Exam: Decreased Breath Sounds - Cardiovascular Exam Cardiovascular Exam: REGULAR RHYTHM - GI/Abdominal Exam GI & Abdominal Exam: Distended, Soft - Rectal Exam Rectal Exam: Deferred - Exam Exam: NORMAL INSPECTION - Extremities Exam Extremities Exam: absent: Pedal Edema - Back Exam Back Exam: absent: CVA tenderness (L), CVA tenderness (R) Assessment and Plan (1) ARF (acute renal failure) Status: Acute (2) CHF (congestive heart failure), NYHA class II Status: Acute (3) Dyspnea on exertion Status: Acute (4) Interstitial lung disease Status: Acute (5) Severe anemia Status: Acute (6) UTI (urinary tract infection) Status: Acute - Assessment and Plan (Free Text) Assessment: ESRD due to HTN severe Anemia with iron def and GI blood loss acidosis Hyperphosphatemia (E83.39), HTN (I12.9) active smoker and etoh on weekends hx of TIA, chronic sinusitis UTI esophageal candidiasis, gastric ulcer Systolic CHF LVEF 45-50% cont iv rx for VRE/ E Coli
--- NOTE | 2017-06-25 16:04 | CP.PCM.PN ---
Subjective - Date & Time of Evaluation Date of Evaluation: 06/25/17 Time of Evaluation: 16:04 - Subjective Subjective: The patient was Seen/interviewed and examined by me at the bedside, Events reviewed Patient currently denies shortness of breath, cough, hemoptysis, wheezing, chest pain, fever/chills. Scheduled for hemodialysis [facility], will go today. s/p renal biopsy on 06/20 On exam, lungs clear to auscultation bilaterally, no wheeze/rales/rhonchi Patient currently on IV antibiotics with Linezolid 600 mg IVPB Q12H Will follow up with chest CT on Monday to further evauate lung Parenchyma and will consider bronchoscopy based on results for Monday Objective - Vital Signs/Intake and Output Vital Signs (last 24 hours): Temp Pulse Resp BP Pulse Ox 98.1 F 86 20 160/84 H 98 06/25/17 09:48 06/25/17 09:48 06/25/17 09:48 06/25/17 10:09 06/25/17 09:48 Intake and Output: 06/25/17 06/25/17 06:59 18:59 Intake Total 940 780 Balance 940 780 - Medications Medications: Current Medications Acetaminophen (Tylenol 325mg Tab) 650 mg PO Q6 PRN PRN Reason: Pain, Mild (1-3) Last Admin: 06/17/17 18:00 Dose: 650 mg Albuterol/Ipratropium (Duoneb 3 Mg/0.5 Mg (3 Ml) Ud) 3 ml INH RQ6 [facility] Last Admin: 06/25/17 13:12 Dose: 3 ml Calcium Acetate (Phoslo) 1,334 mg PO TIDCC [facility] Last Admin: 06/25/17 12:01 Dose: 1,334 mg Carvedilol (Coreg) 12.5 mg PO BID [facility] Last Admin: 06/25/17 10:09 Dose: 12.5 mg Epoetin Connor (Procrit) 12,000 unit IV [facility] [place] Ergocalciferol (Drisdol 50,000 Intl Units Cap) 1 cap PO Q7D [facility] Last Admin: 06/20/17 09:53 Dose: 1 cap Fluconazole (Diflucan) 50 mg PO DAILY [facility] Stop: 07/03/17 10:01 Last Admin: 06/25/17 10:09 Dose: 50 mg Linezolid (Zyvox 600mg/300ml D5w) 600 mg in 300 mls @ 200 mls/hr IVPB Q12H [facility] Last Admin: 06/25/17 12:01 Dose: 200 mls/hr Losartan Potassium (Cozaar) 50 mg PO QPM [facility] Last Admin: 06/24/17 17:48 Dose: 50 mg Nifedipine (Procardia Xl) 60 mg PO DAILY [facility] Last Admin: 06/25/17 10:09 Dose: 60 mg Pantoprazole Sodium (Protonix Ec Tab) 40 mg PO DAILY [facility] Last Admin: 06/25/17 10:08 Dose: 40 mg Vitamin B Complex/Vit C/Folic Acid (Nephro-Magdalena) 1 tab PO 0800 [facility] Last Admin: 06/25/17 08:29 Dose: 1 tab - Labs Labs: 06/25/17 08:42 06/25/17 08:42 PT 13.0 SECONDS (9.7-12.2) H 06/20/17 06:42 INR 1.2 06/20/17 06:42 APTT 35 SECONDS (21-34) H 06/20/17 06:42 - Constitutional Appears: Well, Non-toxic, No Acute Distress - Head Exam Head Exam: ATRAUMATIC, NORMAL INSPECTION - Eye Exam Eye Exam: absent: Conjunctival injection - ENT Exam ENT Exam: Mucous Membranes Dry - Neck Exam Neck Exam: Full ROM, Normal Inspection. absent: Lymphadenopathy, Meningismus, Tenderness, Thyromegaly - Respiratory Exam Respiratory Exam: Decreased Breath Sounds. absent: Accessory Muscle Use, Chest Wall Tenderness, Rales, Rhonchi - Cardiovascular Exam Cardiovascular Exam: REGULAR RHYTHM, RRR. absent: Bradycardia, Tachycardia, JVD - Extremities Exam Extremities Exam: Full ROM, Normal Capillary Refill, Normal Inspection. absent : Joint Swelling, Pedal Edema - Back Exam Back Exam: absent: CVA tenderness (L), CVA tenderness (R) - Neurological Exam Neurological Exam: Alert, Awake, CN II-XII Intact Assessment and Plan (1) Respiratory failure with hypoxia Assessment & Plan: The patient claims that his respiratory symptoms which includes shortness of breath, wheezing are of subacute onset rather chronic nature, All started about 2 weeks prior to admission. And most of the CT scan findings appears more acute/subacute. Initial consult was called since he starts to desaturate to 87-88% upon walking with PT. Patient has been saturation 94-98% on RA since that time and CT scan finding could represent fluid overload (pulm edema can present atypically), chronic aspiration with bronchectasis Vs fibrotic changes Social history not supporting any occupational exposures Continue HD as per renal to optimize fluid status Recommend checking spt for bact cx, fungal cx, and AFB x3. NO need for respiratory isolation. Patient currently on IV antibiotics with Linezolid 600 mg IVPB Q12H Will follow up with chest CT on Monday to further evauate lung Parenchyma and will consider bronchoscopy based on results for Monday Status: Acute (2) Interstitial lung disease Status: Acute (3) ARF (acute renal failure) Status: Acute (4) CHF (congestive heart failure), NYHA class II Status: Acute
--- NOTE | 2017-06-25 16:34 | CP.PCM.PN ---
Subjective - Date & Time of Evaluation Date of Evaluation: 06/25/17 Time of Evaluation: 16:31 - Subjective Subjective: Vascular Surgery; Dr. Sotelo Pt seen and examined. No acute overnight events. Tolerating diet. Denies N/V, F/ C. Objective - Vital Signs/Intake and Output Vital Signs (last 24 hours): Temp Pulse Resp BP Pulse Ox 98.1 F 86 20 160/84 H 98 06/25/17 09:48 06/25/17 09:48 06/25/17 09:48 06/25/17 10:09 06/25/17 09:48 Intake and Output: 06/25/17 06/25/17 06:59 18:59 Intake Total 940 780 Balance 940 780 - Medications Medications: Current Medications Acetaminophen (Tylenol 325mg Tab) 650 mg PO Q6 PRN PRN Reason: Pain, Mild (1-3) Last Admin: 06/17/17 18:00 Dose: 650 mg Albuterol/Ipratropium (Duoneb 3 Mg/0.5 Mg (3 Ml) Ud) 3 ml INH RQ6 [facility] Last Admin: 06/25/17 13:12 Dose: 3 ml Calcium Acetate (Phoslo) 1,334 mg PO TIDCC [facility] Last Admin: 06/25/17 12:01 Dose: 1,334 mg Carvedilol (Coreg) 12.5 mg PO BID [facility] Last Admin: 06/25/17 10:09 Dose: 12.5 mg Epoetin Connor (Procrit) 12,000 unit IV MWF [facility] Ergocalciferol (Drisdol 50,000 Intl Units Cap) 1 cap PO Q7D [facility] Last Admin: 06/20/17 09:53 Dose: 1 cap Fluconazole (Diflucan) 50 mg PO DAILY [facility] Stop: 07/03/17 10:01 Last Admin: 06/25/17 10:09 Dose: 50 mg Linezolid (Zyvox 600mg/300ml D5w) 600 mg in 300 mls @ 200 mls/hr IVPB Q12H [facility] Last Admin: 06/25/17 12:01 Dose: 200 mls/hr Losartan Potassium (Cozaar) 50 mg PO QPM [facility] Last Admin: 06/24/17 17:48 Dose: 50 mg Nifedipine (Procardia Xl) 60 mg PO DAILY [facility] Last Admin: 06/25/17 10:09 Dose: 60 mg Pantoprazole Sodium (Protonix Ec Tab) 40 mg PO DAILY [facility] Last Admin: 06/25/17 10:08 Dose: 40 mg Vitamin B Complex/Vit C/Folic Acid (Nephro-Magdalena) 1 tab PO 0800 [facility] Last Admin: 06/25/17 08:29 Dose: 1 tab - Labs Labs: 06/25/17 08:42 06/25/17 08:42 PT 13.0 SECONDS (9.7-12.2) H 06/20/17 06:42 INR 1.2 06/20/17 06:42 APTT 35 SECONDS (21-34) H 06/20/17 06:42 - Constitutional Appears: No Acute Distress - ENT Exam ENT Exam: Mucous Membranes Moist - Cardiovascular Exam Cardiovascular Exam: RRR - GI/Abdominal Exam GI & Abdominal Exam: Soft. absent: Tenderness - Neurological Exam Neurological Exam: Alert, Awake - Skin Skin Exam: Dry, Warm Assessment and Plan - Assessment and Plan (Free Text) Assessment: 61M with ESRD on HD; surg consulted for permanent HD access Plan: - as per primary, pt to go for CT of chest in AM to eval lung parenchyma due to interstitial lung disease - plan for AVF sometime this week once pt medically optimized - cont HD MWF as per nephro recs - d/w Dr. Sotelo who agrees with above Neil, PGY-3 Surgery
[2017-06-26] MEDS: Linezolid 600 mg in D5W 300 ml 600 MG/300 ML BAG IVPB SCH ×2 (00:45→15:00)
[2017-06-26] MEDS: Albuterol-Ipratrop 3 mg / 0.5 (3 ml) UD INH SCH ×4 (01:03→19:17)
[2017-06-26 06:45] LABS: BASO # 0.1 K/uL (0.0-0.2); BASO % 0.9 % (0.0-2.0); EOS # 0.7 K/uL (0.0-0.7); EOS % 7.4 % (0.0-4.0); HEMOGLOBIN 8.9 g/dL (12.0-18.0); LYMPH # 0.9 K/uL (1.0-4.3); LYMPH % 9.1 % (20.0-40.0); MEAN CELL VOLUME 85.8 fL (80.0-94.0); MEAN CORPUSCULAR HEMOGLOBIN 29.1 pg (27.0-31.0); MEAN CORPUSCULAR HGB CONC 33.9 g/dL (33.0-37.0); MEAN PLATELET VOLUME 7.5 fL (7.2-11.7); MONO # 0.9 K/uL (0.0-0.8); MONO % 9.2 % (0.0-10.0); NEUT # 7.1 K/uL (1.8-7.0); NEUT % 73.4 % (50.0-75.0); PLATELET COUNT 289 K/uL (130-400); RBC 3.05 Mil/uL (4.40-5.90); RED CELL DISTRIBUTION WIDTH 16.5 % (11.5-14.5); WHITE BLOOD COUNT 9.7 K/uL (4.8-10.8)
[2017-06-26 07:16] LABS: CALCIUM 7.8 mg/dl (8.6-10.4)
[2017-06-26 08:34] LABS: ANISOCYTOSIS SLIGHT; EOSINOPHIL 8 % (0-4); HYPOCHROMIC SLIGHT; LYMPHOCYTE 10 % (20-40); MONOCYTE 8 % (0-10); NEUTROPHIL 74 % (50-75); PLATELET ESTIMATE NORMAL (NORMAL); POIKILOCYTOSIS SLIGHT; TOTAL CELLS COUNTED 100
[2017-06-26] MEDS: Multivitamin Vitamin B Complex (Nephro-Vite) Tab PO SCH (08:38)
[2017-06-26] MEDS: Pantoprazole 40 mg EC Tab PO SCH (09:48)
[2017-06-26] MEDS: NIFEdipine 60 mg ER Tab PO SCH (09:49)
--- NOTE | 2017-06-26 10:28 | CP.PCM.PN ---
<Marimar John - Last Filed: 06/26/17 10:19> Subjective - Date & Time of Evaluation Date of Evaluation: 06/26/17 Time of Evaluation: 09:00 - Subjective Subjective: Medicine Note for Hospitalist Service- Dr. Mcallister Patient was seen and examined at bedside. Patient has no acute complaints. Patient reports he is ambulating well, tolerating diet. I spoke to the patient and his at length about the course of the patient's conditions and our plan while he is hospitalized. All questions answered. Denied fever, chills, chest pain, SOB, abdominal pain, n/v/d/c, or urinary symptoms. Patient needs to be evaluated by pulmonology. Possible Bronchoscopy Monday. AVF later this week with Dr. Sotelo. Objective - Vital Signs/Intake and Output Vital Signs (last 24 hours): Temp Pulse Resp BP Pulse Ox 98.4 F 94 H 20 158/82 H 97 06/26/17 08:15 06/26/17 08:15 06/26/17 08:15 06/26/17 08:15 06/26/17 08:15 Intake and Output: 06/26/17 06/26/17 06:59 18:59 Intake Total 850 Balance 850 - Medications Medications: Current Medications Acetaminophen (Tylenol 325mg Tab) 650 mg PO Q6 PRN PRN Reason: Pain, Mild (1-3) Last Admin: 06/17/17 18:00 Dose: 650 mg Albuterol/Ipratropium (Duoneb 3 Mg/0.5 Mg (3 Ml) Ud) 3 ml INH RQ6 [facility] Last Admin: 06/26/17 07:38 Dose: Not Given Calcium Acetate (Phoslo) 1,334 mg PO TIDCC [facility] Last Admin: 06/26/17 08:37 Dose: 1,334 mg Carvedilol (Coreg) 12.5 mg PO BID [facility] Last Admin: 06/26/17 09:46 Dose: Not Given Epoetin Connor (Procrit) 12,000 unit IV MWF [facility] Ergocalciferol (Drisdol 50,000 Intl Units Cap) 1 cap PO Q7D [facility] Last Admin: 06/20/17 09:53 Dose: 1 cap Fluconazole (Diflucan) 50 mg PO DAILY [facility] Stop: 07/03/17 10:01 Last Admin: 06/26/17 09:48 Dose: 50 mg Linezolid (Zyvox 600mg/300ml D5w) 600 mg in 300 mls @ 200 mls/hr IVPB Q12H [facility] Last Admin: 06/26/17 00:45 Dose: 200 mls/hr Losartan Potassium (Cozaar) 50 mg PO QPM [facility] Last Admin: 06/25/17 17:59 Dose: 50 mg Nifedipine (Procardia Xl) 60 mg PO DAILY [facility] Last Admin: 06/26/17 09:49 Dose: 60 mg Pantoprazole Sodium (Protonix Ec Tab) 40 mg PO DAILY [facility] Last Admin: 06/26/17 09:48 Dose: 40 mg Vitamin B Complex/Vit C/Folic Acid (Nephro-Magdalena) 1 tab PO 0800 [facility] Last Admin: 06/26/17 08:38 Dose: 1 tab - Labs Labs: 06/26/17 06:33 06/26/17 06:33 PT 13.0 SECONDS (9.7-12.2) H 06/20/17 06:42 INR 1.2 06/20/17 06:42 APTT 35 SECONDS (21-34) H 06/20/17 06:42 - Additional Findings Additional findings: - Constitutional Appears: No Acute Distress - Head Exam Head Exam: NORMAL INSPECTION, NORMOCEPHALIC - Eye Exam Eye Exam: EOMI, Normal appearance, PERRL - ENT Exam ENT Exam: Mucous Membranes Moist - Respiratory Exam Respiratory Exam: Decreased Breath Sounds, NORMAL BREATHING PATTERN - Cardiovascular Exam Cardiovascular Exam: REGULAR RHYTHM, right PERMACATH - GI/Abdominal Exam GI & Abdominal Exam: Soft, Normal Bowel Sounds. absent: Distended, Tenderness - Rectal Exam Rectal Exam: Deferred - Extremities Exam Extremities Exam: Normal Inspection. absent: Pedal Edema, Tenderness - Neurological Exam Neurological Exam: Alert, Awake, CN II-XII Intact, Normal Gait, Oriented x3 - Psychiatric Exam Psychiatric exam: Normal Affect, Normal Mood - Skin Skin Exam: Dry, Intact, Normal Color, Warm Assessment and Plan - Assessment and Plan (Free Text) Plan: COPD Pulmonology consulted - Dr. Pierson- help appreciated - Dr. Bell is covering Chest xray: patchy opacities within lateral right upper lobe and b/l lower lobes may reflect multifocal infiltrate or atelectasis CT Chest: Patchy foci of ground-glass opacities associated with septal thickening and mild bronchiectasis and also associated with foci of honeycombing. Findings likely represent interstitial pneumonitis and the differential consideration includes mainly UIP and less likely nonspecific interstitial pneumonitis, desquamative interstitial pneumonia and chronic hypersensitivity pneumonitis. Foci of consolidation noted at the right lung along the right fissure may represent lung nodule or pleural thickening 3 months follow-up reassessment is recommended. Mild emphysema. Mild cardiomegaly. CXR ordered - no infiltrates or effusion noted, patient is asymptomatic - will continue to monitor F/U CT CHEST PT has been ambulating with patient and he starts to desaturate to 87-88% upon walking; pending recommendations from Pulmonary. Patient will most likely need home oxygen. Spoke to Dr. Bell, covering for Dr. Pierson - anticipate bronchoscopy 06/26 or 06/27 - will need to follow up VRE + UTI ON CONTACT Precautions ID Consulted - Dr. Joshua - help appreciated UA: 2+ protein, 1+ blood, 3+ LE, 36 WBC, 4RBC, moderate bacteria The urine culture shows E. Coli Started Cipro 250mg PO BID x 5 days, UC - 06/21/17 - VRE+ Spoke to Dr. Joshua - patient started on Zyvox 600mg IVP Q12H, F/U repeat UC ESRD General Surgery- Dr. Sotelo consulted - help appreciated Nephrology- Dr. Mckeon/ Dr. Enciso - help appreciated S/P Permacath 06/19/17 Dialysis MWF Creatinine improving S/P Renal Biopsy - with IR - Vascular sclerosis, hypertensive renovascular disease. Patient is ESRD will need dialysis indefinitely. Plan for AVF sometime this week Imaging: Renal US: Increased echogenicity of the bilateral renal parenchymal cortices suggestive for medical renal disease. Bilateral renal cysts. Meds: Procrit MWF, Nephro-Magdalena, Phoslo Esophageal Candiasis Started diflucan 100mg PO once, then Diflucan 50mg PO daily x 13 Anemia Ferrlecit x 8 days Continue to monitor Hx CHF Cardiology consulted - Dr. Cobb- workup of ischemic etiology would be done as outpatient. No shortness of breath is probably a diastolic dysfunction due to renal failure. Echo: global left ventricular hypokinesis, moderate pulmonary HTN, and also EF 45% Nonbleeding Gastric Ulcer Severe anemia from a lower GI Etiology and from renal failure GI consulted - Dr. Barnard- help appreciated On admission Hgb was 5 Because of uremia on labwork we also ordered 30 DDAVP x 1 dose now as he may have uremic bleeding S/P EGD: showing hiatal hernia, esophagitis, gastric ulcer, and a normal duodenum Nuclear Bleeding Scan: negative S/P 4 units PRBCs Hx of HTN Echo: global left ventricular hypokinesis, moderate pulmonary HTN, and also EF 45% Coreg 12.5mg PO BID, Cozaar 50mg PO daily Procardia XL 60mg PO daily Prophylactic measure NO chemical anticoagulation due to severe anemia SCDs Protonix 40mg IV Q12H PT EVAL - DC HOME: RESTING RA-95%, ROOM AIR EXERTION AMB 50 F X 1- SPO2 88%, 2L NC O2 EXERTION AMB AND T/.F 50 F SPO2 95% Disposition: Pending outpatient dialysis set up by case management. Will continue PT - to assess if patient needs home O2. DW Dr. Mcallister, Marimar John DO, PGY-1 <Farzad Mcallister - Last Filed: 06/26/17 16:57> Objective - Vital Signs/Intake and Output Vital Signs (last 24 hours): Temp Pulse Resp BP Pulse Ox 98.7 F 100 H 20 171/101 H 95 06/26/17 15:20 06/26/17 15:20 06/26/17 15:20 06/26/17 15:20 06/26/17 15:20 Intake and Output: 06/26/17 06/26/17 06:59 18:59 Intake Total 850 Balance 850 - Medications Medications: Current Medications Acetaminophen (Tylenol 325mg Tab) 650 mg PO Q6 PRN PRN Reason: Pain, Mild (1-3) Last Admin: 06/17/17 18:00 Dose: 650 mg Albuterol/Ipratropium (Duoneb 3 Mg/0.5 Mg (3 Ml) Ud) 3 ml INH RQ6 [facility] Last Admin: 06/26/17 13:26 Dose: Not Given Calcium Acetate (Phoslo) 1,334 mg PO TIDCC [facility] Last Admin: 06/26/17 15:39 Dose: Not Given Carvedilol (Coreg) 12.5 mg PO BID [facility] Last Admin: 06/26/17 09:46 Dose: Not Given Epoetin Connor (Procrit) 12,000 unit IV MWF [facility] Last Admin: 06/26/17 12:33 Dose: 12,000 unit Ergocalciferol (Drisdol 50,000 Intl Units Cap) 1 cap PO Q7D [facility] Last Admin: 06/20/17 09:53 Dose: 1 cap Fluconazole (Diflucan) 50 mg PO DAILY [facility] Stop: 07/03/17 10:01 Last Admin: 06/26/17 09:48 Dose: 50 mg Linezolid (Zyvox 600mg/300ml D5w) 600 mg in 300 mls @ 200 mls/hr IVPB Q12H [facility] Last Admin: 06/26/17 15:00 Dose: 200 mls/hr Losartan Potassium (Cozaar) 50 mg PO QPM [facility] Last Admin: 06/25/17 17:59 Dose: 50 mg Nifedipine (Procardia Xl) 60 mg PO DAILY [facility] Last Admin: 06/26/17 09:49 Dose: 60 mg Pantoprazole Sodium (Protonix Ec Tab) 40 mg PO DAILY [facility] Last Admin: 06/26/17 09:48 Dose: 40 mg Vitamin B Complex/Vit C/Folic Acid (Nephro-Magdalena) 1 tab PO 0800 [facility] Last Admin: 06/26/17 08:38 Dose: 1 tab - Labs Labs: 06/26/17 06:33 06/26/17 06:33 PT 13.0 SECONDS (9.7-12.2) H 06/20/17 06:42 INR 1.2 06/20/17 06:42 APTT 35 SECONDS (21-34) H 06/20/17 06:42 Attending/Attestation - Attestation I have personally seen and examined this patient.: Yes I have fully participated in the care of the patient.: Yes I have reviewed all pertinent clinical information, including history, physical exam and plan: Yes Notes (Text): 06/26/17 16:57 Medical attending: Patient was seen and examined by me, agrees the above note by the biomedical engineering technologist. I recall this patient from the previous week when he was admitted Since then he's been getting hemodialysis via a permacatheter. He's had done several times now on Wednesdays and Fridays he had done earlier in the morning he tolerated it very well At this moment the plan is for him to get an AV fistula/AV graft the left arm. He is also pending a possible bronchoscopy as well He is currently on contact precautions at this time as a urine culture did grow out VRE. He's currently on IV Zyvo.[id number] at this moment At this time were waiting for potentially outpatient dialysis to be set up Thank you very much, Farzad Mcallister
--- NOTE | 2017-06-26 10:54 | CT ---
PROCEDURE: CT Chest without contrast HISTORY: COPD, interstitial fibrosis Relevant interventional procedure(s): 06/20/2017 CT directed biopsy left kidney COMPARISON: 06/16/2017 CT thorax TECHNIQUE: Contiguous axial images were obtained through the chest without intravenous contrast enhancement. Sagittal and coronal reconstructions were performed. Radiation dose (DLP): 320.50 mGy-cm. This CT exam was performed using one or more of the following dose reduction techniques: Automated exposure control, adjustment of the mA and/or kV according to patient size, and/or use of iterative reconstruction technique. FINDINGS: LUNGS: Interval improvement in interstitial lung disease identified previously. New a dependent atelectasis/infiltrate subsegmental and approximately symmetrical. Underlying bronchiectatic changes and residual interstitial findings at the lung bases. MEDIASTINUM: Unremarkable thoracic aorta. No aneurysm. Normal sized heart. Main pulmonary artery unremarkable. No vascular congestion. No lymphadenopathy. PLEURA: No pleural fluid. No pneumothorax. BONES: No fracture. No destructive lesion. UPPER ABDOMEN: Stable bilateral adrenal enlargement. Hemorrhagic findings which are incompletely visualized affecting the upper pole of the right kidney. These are new findings compared to the prior study. The findings likely relate to prior CT-guided biopsy right renal mass performed 06/20/2017 OTHER FINDINGS: None. IMPRESSION: Interval improvement in interstitial lung disease identified previously. Newer atelectatic/dependent consolidative changes primarily affecting both lower lobes. Post biopsy changes in the right kidney which are incompletely visualized.
[2017-06-26] MEDS: EPOETIN ALFA 4,000 UNIT/ML ML Dialysis IV SCH (12:33)
--- NOTE | 2017-06-26 15:06 | CP.PCM.PN ---
Subjective - Date & Time of Evaluation Date of Evaluation: 06/26/17 Time of Evaluation: 15:05 - Subjective Subjective: Nephrology Consultation: Assessment: stable ESRD due to HTN severe Anemia with iron def and GI blood loss acidosis Hyperphosphatemia (E83.39), HTN (I12.9) active smoker and etoh on weekends hx of TIA, chronic sinusitis possible UTI, esophageal candidiasis, gastric ulcer Systolic CHF LVEF 45-50% Plan plan for HD today as ordered. Also discussed with the patient about other dialysis Options such as PD patient will think and decide later on. Hypertension control with meds as ordered. on losartan and Coreg Monitor Input/Output, daily weights and renal function with basic metabolic panel continue with phos binders, nephrovite, IV iron (s/p 1 gram loading dose) and epogen. pt had PRBC 06/16/17. avoid left arm phlebotomy. vascular surgery following for AVF kidney biopsy results suggest ESRD due to HTN Dose meds/antibiotics for reduced GFR. Avoid fleets enema/magnesium based laxatives. Avoid nephrotoxins/NSAIDs/ iodinated contrast (unless needed emergently) Glycemic control. pt to abstain from etoh and smoking Further work up/management as per primary team SW consult for outpt HD placement initiation. pt stable for d/c from renal perspective when has outpt spot for HD Thanks for allowing me to participate in care of your patient. Will follow patient with you. Please call if any Qs. Dr Austyn Enciso Office: [phone] HPI: Pt is a 61 M with hx of hypertension (few years) when diagnosed with TIA, chronic sinusitis, activ smoker and etoh on weekends, hasn't been taking BP meds for last 1 year due to insurance issues presented with complaints of sickness x 2 weeks with fatigue, body aches and exertional dyspnoea. reports hx of hemrrhoids and bright red blood in stool and toilet paper Denies OTC/herbal meds or NSAIDs No recent iodinated contrast exposure. No obvious episodes of low BP. no recent antibiotics denies any renal issues in past ROS: Cardiovascular: No chest pain. Pulmonary: improved shortness of breath Gastrointestinal: denies abdominal pain No nausea. No vomiting. Genitourinary: No pain while urinating. Denies blood in urine. All other negative except as in HPI Physical Examination: General Appearance: comfortable, co-operative . Vitals reviewed and noted as below Head; Atraumatic, normocephalic ENT: no ulcers no thrush. Tongue is midline. Oropharynx: no rash or ulcers. EYES: Pupils are equal, round and reactive to light accommodation. Eye muscles and extraocular movement intact. Sclera is anicteric. Neck; supple no lymphadenopathy, no thyromegaly or bruit Lungs: normal respiratory rate/effort. Breath sounds bilateral equal and with basal rales Heart: Normal rate. s1s2 normal. No rub or gallop. Extremities: no edema. No varicose veins Neurological: Patient is alert, awake and oriented to person, place and time. No focal deficit. Strength bilateral appropriate and equal Skin: Warm and dry. Normal turgor. No rash. Palpitation: Normal elasticity for age Abdomen: Abdomen is soft. Bowel sounds +. There is no abdominal tenderness, no guarding/rigidity no organomegaly Psych: normal insight and normal affect/mood MSK: no joint tenderness or swelling. Digits and nails normal, no deformity : kidney or bladder not palpable Dialysis access: right chest permacath Labs/imaging reviewed. Past medical history, past surgical history, family history, social history, allergy reviewed and noted as below Family hx: no hx of CKD. Rest non-contributory Work up: urine pro/cr: 2 gram/day normal complements and urine cx: GNR TSAT 5% Ferritin 40 imaging: no obstruction Objective - Vital Signs/Intake and Output Vital Signs (last 24 hours): Temp Pulse Resp BP Pulse Ox 97.5 F L 65 16 165/100 H 98 06/26/17 12:40 06/26/17 12:40 06/26/17 12:40 06/26/17 12:40 06/26/17 12:40 Intake and Output: 06/26/17 06/26/17 06:59 18:59 Intake Total 850 Balance 850 - Medications Medications: Current Medications Acetaminophen (Tylenol 325mg Tab) 650 mg PO Q6 PRN PRN Reason: Pain, Mild (1-3) Last Admin: 06/17/17 18:00 Dose: 650 mg Albuterol/Ipratropium (Duoneb 3 Mg/0.5 Mg (3 Ml) Ud) 3 ml INH RQ6 [facility] Last Admin: 06/26/17 13:26 Dose: Not Given Calcium Acetate (Phoslo) 1,334 mg PO TIDCC [facility] Last Admin: 06/26/17 08:37 Dose: 1,334 mg Carvedilol (Coreg) 12.5 mg PO BID [facility] Last Admin: 06/26/17 09:46 Dose: Not Given Epoetin Connor (Procrit) 12,000 unit IV MWF [facility] Last Admin: 06/26/17 12:33 Dose: 12,000 unit Ergocalciferol (Drisdol 50,000 Intl Units Cap) 1 cap PO Q7D [facility] Last Admin: 06/20/17 09:53 Dose: 1 cap Fluconazole (Diflucan) 50 mg PO DAILY [facility] Stop: 07/03/17 10:01 Last Admin: 06/26/17 09:48 Dose: 50 mg Linezolid (Zyvox 600mg/300ml D5w) 600 mg in 300 mls @ 200 mls/hr IVPB Q12H [facility] Last Admin: 06/26/17 15:00 Dose: 200 mls/hr Losartan Potassium (Cozaar) 50 mg PO QPM [facility] Last Admin: 06/25/17 17:59 Dose: 50 mg Nifedipine (Procardia Xl) 60 mg PO DAILY [facility] Last Admin: 06/26/17 09:49 Dose: 60 mg Pantoprazole Sodium (Protonix Ec Tab) 40 mg PO DAILY [facility] Last Admin: 06/26/17 09:48 Dose: 40 mg Vitamin B Complex/Vit C/Folic Acid (Nephro-Magdalena) 1 tab PO 0800 [facility] Last Admin: 06/26/17 08:38 Dose: 1 tab - Labs Labs: 06/26/17 06:33 06/26/17 06:33 PT 13.0 SECONDS (9.7-12.2) H 06/20/17 06:42 INR 1.2 06/20/17 06:42 APTT 35 SECONDS (21-34) H 06/20/17 06:42
--- NOTE | 2017-06-26 20:37 | CP.PCM.PN ---
Subjective - Date & Time of Evaluation Date of Evaluation: 06/26/17 Time of Evaluation: 20:36 - Subjective Subjective: Pulmonary follow up; covering Dr Pierson The patient was seen and examined at the bedside, medical records reviewed, and management issues were discussed and formulated with the house staff. 61 year old male with PMHx of HTN, upper GI bleed, TIA, ONELIA who presented to the ED on 06/15 for evaluation of shortness of breath, wheezing, and blood in stool Hospital course noted for anemia with positive FOBT and PRBC transfusion, RUPERTO secondary to HTN with hemodialysis and renal biopsy Hemodialysis scheduled MWF Per nephrology and vascular surgery, planning for AV fistula Last 24 hour events Most recent chest CT on 06/26: Interval improvement in interstitial lung disease identified previously. Newer atelectatic/dependent consolidative changes primarily affecting both lower lobes. Patient underwent hemodialysis today patient has been hemodynamically stable Adequate saturation of 94-98% on room air Stable respiratory status Afebrile Objective - Vital Signs/Intake and Output Vital Signs (last 24 hours): Temp Pulse Resp BP Pulse Ox 98.7 F 100 H 20 171/100 H 95 06/26/17 15:20 06/26/17 15:20 06/26/17 15:20 06/26/17 17:48 06/26/17 15:20 Intake and Output: 06/26/17 06/27/17 18:59 06:59 Intake Total 700 Balance 700 - Medications Medications: Current Medications Acetaminophen (Tylenol 325mg Tab) 650 mg PO Q6 PRN PRN Reason: Pain, Mild (1-3) Last Admin: 06/17/17 18:00 Dose: 650 mg Albuterol/Ipratropium (Duoneb 3 Mg/0.5 Mg (3 Ml) Ud) 3 ml INH RQ6 [facility] Last Admin: 06/26/17 19:17 Dose: 3 ml Calcium Acetate (Phoslo) 1,334 mg PO TIDCC [facility] Last Admin: 06/26/17 17:49 Dose: 1,334 mg Carvedilol (Coreg) 12.5 mg PO BID [facility] Last Admin: 06/26/17 17:48 Dose: 12.5 mg Epoetin Connor (Procrit) 12,000 unit IV MWF [facility] Last Admin: 06/26/17 12:33 Dose: 12,000 unit Ergocalciferol (Drisdol 50,000 Intl Units Cap) 1 cap PO Q7D [facility] Last Admin: 06/20/17 09:53 Dose: 1 cap Fluconazole (Diflucan) 50 mg PO DAILY [facility] Stop: 07/03/17 10:01 Last Admin: 06/26/17 09:48 Dose: 50 mg Linezolid (Zyvox 600mg/300ml D5w) 600 mg in 300 mls @ 200 mls/hr IVPB Q12H [facility] Last Admin: 06/26/17 15:00 Dose: 200 mls/hr Losartan Potassium (Cozaar) 50 mg PO QPM [facility] Last Admin: 06/26/17 17:48 Dose: 50 mg Nifedipine (Procardia Xl) 60 mg PO DAILY [facility] Last Admin: 06/26/17 09:49 Dose: 60 mg Pantoprazole Sodium (Protonix Ec Tab) 40 mg PO DAILY [facility] Last Admin: 06/26/17 09:48 Dose: 40 mg Vitamin B Complex/Vit C/Folic Acid (Nephro-Magdalena) 1 tab PO 0800 [facility] Last Admin: 06/26/17 08:38 Dose: 1 tab - Labs Labs: 06/26/17 06:33 06/26/17 06:33 PT 13.0 SECONDS (9.7-12.2) H 06/20/17 06:42 INR 1.2 06/20/17 06:42 APTT 35 SECONDS (21-34) H 06/20/17 06:42 - Constitutional Appears: Well, Non-toxic, No Acute Distress - Head Exam Head Exam: ATRAUMATIC, NORMAL INSPECTION, NORMOCEPHALIC - Eye Exam Eye Exam: EOMI, Normal appearance. absent: Conjunctival injection Pupil Exam: NORMAL ACCOMODATION - ENT Exam ENT Exam: Mucous Membranes Dry - Neck Exam Neck Exam: Full ROM, Normal Inspection. absent: Lymphadenopathy, Meningismus, Tenderness, Thyromegaly - Respiratory Exam Respiratory Exam: Clear to Ausculation Bilateral. absent: Accessory Muscle Use , Chest Wall Tenderness, Decreased Breath Sounds, Prolonged Expiratory Phase, Rales, Rhonchi, Wheezes, Respiratory Distress - Cardiovascular Exam Cardiovascular Exam: REGULAR RHYTHM, RRR, +S1, +S2, Murmur. absent: Bradycardia , Tachycardia, JVD - GI/Abdominal Exam GI & Abdominal Exam: Soft, Normal Bowel Sounds. absent: Distended, Guarding, Rigid, Tenderness - Extremities Exam Extremities Exam: Full ROM, Normal Capillary Refill, Normal Inspection. absent : Calf Tenderness, Joint Swelling, Pedal Edema, Tenderness - Back Exam Back Exam: absent: CVA tenderness (L), CVA tenderness (R) - Neurological Exam Neurological Exam: Alert, Awake, CN II-XII Intact Assessment and Plan (1) Respiratory failure with hypoxia Status: Acute (2) Interstitial lung disease Status: Acute (3) ARF (acute renal failure) Status: Acute (4) CHF (congestive heart failure), NYHA class II Status: Acute - Assessment and Plan (Free Text) Assessment: The patient claims that his respiratory symptoms which includes shortness of breath, wheezing are of subacute onset rather chronic nature, All started about 2 weeks prior to admission. And most of the CT scan findings appears more acute/subacute. Initial consult was called since he starts to desaturate to 87-88% upon walking with PT. Patient has been saturation 94-98% on RA since that time and CT scan finding could represent fluid overload (pulm edema can present atypically), chronic aspiration with bronchectasis Vs fibrotic changes Social history not supporting any occupational exposures Continue HD as per renal to optimize fluid status No need for respiratory isolation. Patient currently on IV antibiotics with Linezolid 600 mg IVPB Q12H Most recent chest CT on 06/26: Interval improvement in interstitial lung disease identified previously. Newer atelectatic/dependent consolidative changes primarily affecting both lower lobes. Based on above stable respiratory status and adequate saturation and acuity of symptoms that does not support the possibility of chronic pulmonary interstitial fibrosis and also based on the option of watchful waiting at this point, I would defer bronchoscopy and continue current management with the antibiotic and hemodialysis to optimize patient's fluid status. patient will need to follow up with a pulmonary clinic and repeat CT scan in 3 months after discharge and if the parenchymal changes persist or his symptoms become chronic or unresolving, then at that point we will consider bronchoscopy with BAL and possible biopsy Recommend checking spt for bact cx, fungal cx, and AFB x3.
[2017-06-27] MEDS: Linezolid 600 mg in D5W 300 ml 600 MG/300 ML BAG IVPB SCH ×2 (01:10→12:18)
[2017-06-27] MEDS: Albuterol-Ipratrop 3 mg / 0.5 (3 ml) UD INH SCH ×4 (02:32→19:07)
[2017-06-27 06:26] LABS: BASO # 0.1 K/uL (0.0-0.2); BASO % 0.9 % (0.0-2.0); EOS # 0.4 K/uL (0.0-0.7); EOS % 4.8 % (0.0-4.0); HEMOGLOBIN 9.5 g/dL (12.0-18.0); LYMPH # 0.9 K/uL (1.0-4.3); LYMPH % 9.9 % (20.0-40.0); MEAN CORPUSCULAR HEMOGLOBIN 28.3 pg (27.0-31.0); MEAN CORPUSCULAR HGB CONC 32.9 g/dL (33.0-37.0); MONO # 1.3 K/uL (0.0-0.8); MONO % 14.7 % (0.0-10.0); NEUT % 69.7 % (50.0-75.0); PLATELET COUNT 273 K/uL (130-400); RBC 3.37 Mil/uL (4.40-5.90); RED CELL DISTRIBUTION WIDTH 16.9 % (11.5-14.5); WHITE BLOOD COUNT 8.7 K/uL (4.8-10.8)
[2017-06-27 06:41] LABS: ALBUMIN 3.2 g/dL (3.5-5.0); CALCIUM 8.1 mg/dl (8.6-10.4)
[2017-06-27] MEDS: Multivitamin Vitamin B Complex (Nephro-Vite) Tab PO SCH (08:22)
[2017-06-27 08:42] LABS: EOSINOPHIL 6 % (0-4); LYMPHOCYTE 4 % (20-40); MONOCYTE 7 % (0-10); NEUTROPHIL 83 % (50-75); TOTAL CELLS COUNTED 100
[2017-06-27 08:43] LABS: ANISOCYTOSIS SLIGHT; PLATELET ESTIMATE NORMAL (NORMAL)
[2017-06-27 08:44] LABS: HYPOCHROMIC SLIGHT; POLYCHROMIC SLIGHT
[2017-06-27] MEDS: NIFEdipine 60 mg ER Tab PO SCH (09:35)
[2017-06-27] MEDS: Pantoprazole 40 mg EC Tab PO SCH (09:36)
[2017-06-27] MEDS: Ergocalciferol 50,000 Intl Units Cap PO SCH (09:36)
--- NOTE | 2017-06-27 11:38 | CP.PCM.PN ---
Subjective - Date & Time of Evaluation Date of Evaluation: 06/27/17 Time of Evaluation: 11:35 - Subjective Subjective: Vascular Surgery: Dr Sotelo Pt S&E. Resting comfortably. NAEO. Pt is ready for OR tomorrow for fistula. All questions answered. Objective - Vital Signs/Intake and Output Vital Signs (last 24 hours): Temp Pulse Resp BP Pulse Ox 98.4 F 96 H 20 144/90 97 06/27/17 08:35 06/27/17 08:35 06/27/17 08:35 06/27/17 09:36 06/27/17 08:35 Intake and Output: 06/27/17 06/27/17 06:59 18:59 Intake Total 250 300 Balance 250 300 - Medications Medications: Current Medications Acetaminophen (Tylenol 325mg Tab) 650 mg PO Q6 PRN PRN Reason: Pain, Mild (1-3) Last Admin: 06/17/17 18:00 Dose: 650 mg Albuterol/Ipratropium (Duoneb 3 Mg/0.5 Mg (3 Ml) Ud) 3 ml INH RQ6 [facility] Last Admin: 06/27/17 08:30 Dose: 3 ml Calcium Acetate (Phoslo) 1,334 mg PO TIDCC [facility] Last Admin: 06/27/17 08:21 Dose: 1,334 mg Carvedilol (Coreg) 12.5 mg PO BID [facility] Last Admin: 06/27/17 09:36 Dose: 12.5 mg Epoetin Connor (Procrit) 12,000 unit IV MWF [facility] Last Admin: 06/26/17 12:33 Dose: 12,000 unit Ergocalciferol (Drisdol 50,000 Intl Units Cap) 1 cap PO Q7D [facility] Last Admin: 06/27/17 09:36 Dose: 1 cap Fluconazole (Diflucan) 50 mg PO DAILY [facility] Stop: 07/03/17 10:01 Last Admin: 06/27/17 09:36 Dose: 50 mg Linezolid (Zyvox 600mg/300ml D5w) 600 mg in 300 mls @ 200 mls/hr IVPB Q12H [facility] Last Admin: 06/27/17 01:10 Dose: 200 mls/hr Losartan Potassium (Cozaar) 100 mg PO QPM [facility] Nifedipine (Procardia Xl) 60 mg PO DAILY [facility] Last Admin: 06/27/17 09:35 Dose: 60 mg Pantoprazole Sodium (Protonix Ec Tab) 40 mg PO DAILY [facility] Last Admin: 06/27/17 09:36 Dose: 40 mg Vitamin B Complex/Vit C/Folic Acid (Nephro-Magdalena) 1 tab PO 0800 [facility] Last Admin: 06/27/17 08:22 Dose: 1 tab - Labs Labs: 06/27/17 06:10 06/27/17 06:10 PT 13.0 SECONDS (9.7-12.2) H 06/20/17 06:42 INR 1.2 06/20/17 06:42 APTT 35 SECONDS (21-34) H 06/20/17 06:42 - Constitutional Appears: Non-toxic, No Acute Distress - Respiratory Exam Respiratory Exam: absent: Accessory Muscle Use, Respiratory Distress - Cardiovascular Exam Cardiovascular Exam: REGULAR RHYTHM - GI/Abdominal Exam GI & Abdominal Exam: Soft. absent: Distended, Firm, Tenderness - Neurological Exam Neurological Exam: Alert, Awake, Oriented x3 Assessment and Plan - Assessment and Plan (Free Text) Assessment: 61M with ESRD Plan: AVF in left arm tomorrow NPO @ [place] will d/w Dr Ashleigh Bradley, PGY3
--- NOTE | 2017-06-27 16:27 | CP.PCM.PN ---
<Marimar John - Last Filed: 06/27/17 16:23> Subjective - Date & Time of Evaluation Date of Evaluation: 06/27/17 Time of Evaluation: 09:00 - Subjective Subjective: Medicine Note for Hospitalist Service- Dr. Mcallister Patient was seen and examined at bedside. Patient has no acute complaints. Patient reports he is ambulating well, tolerating diet. I spoke to the patient and his at length about the course of the patient's conditions and our plan while he is hospitalized. All questions answered. Denied fever, chills, chest pain, SOB, abdominal pain, n/v/d/c, or urinary symptoms. Patient is for AVF tomorrow 06/28/[address] Sotelo. Objective - Vital Signs/Intake and Output Vital Signs (last 24 hours): Temp Pulse Resp BP Pulse Ox 98.4 F 96 H 20 144/90 97 06/27/17 08:35 06/27/17 08:35 06/27/17 08:35 06/27/17 09:36 06/27/17 08:35 Intake and Output: 06/27/17 06/27/17 06:59 18:59 Intake Total 250 300 Balance 250 300 - Medications Medications: Current Medications Acetaminophen (Tylenol 325mg Tab) 650 mg PO Q6 PRN PRN Reason: Pain, Mild (1-3) Last Admin: 06/17/17 18:00 Dose: 650 mg Albuterol/Ipratropium (Duoneb 3 Mg/0.5 Mg (3 Ml) Ud) 3 ml INH RQ6 [facility] Last Admin: 06/27/17 13:41 Dose: 3 ml Calcium Acetate (Phoslo) 1,334 mg PO TIDCC [facility] Last Admin: 06/27/17 12:18 Dose: 1,334 mg Carvedilol (Coreg) 12.5 mg PO BID [facility] Last Admin: 06/27/17 09:36 Dose: 12.5 mg Epoetin Connor (Procrit) 12,000 unit IV MWF [facility] Last Admin: 06/26/17 12:33 Dose: 12,000 unit Ergocalciferol (Drisdol 50,000 Intl Units Cap) 1 cap PO Q7D [facility] Last Admin: 06/27/17 09:36 Dose: 1 cap Fluconazole (Diflucan) 50 mg PO DAILY [facility] Stop: 07/03/17 10:01 Last Admin: 06/27/17 09:36 Dose: 50 mg Linezolid (Zyvox 600mg/300ml D5w) 600 mg in 300 mls @ 200 mls/hr IVPB Q12H [facility] Last Admin: 06/27/17 12:18 Dose: 200 mls/hr Losartan Potassium (Cozaar) 100 mg PO QPM [facility] Nifedipine (Procardia Xl) 60 mg PO DAILY [facility] Last Admin: 06/27/17 09:35 Dose: 60 mg Pantoprazole Sodium (Protonix Ec Tab) 40 mg PO DAILY [facility] Last Admin: 06/27/17 09:36 Dose: 40 mg Vitamin B Complex/Vit C/Folic Acid (Nephro-Magdalena) 1 tab PO 0800 [facility] Last Admin: 06/27/17 08:22 Dose: 1 tab - Labs Labs: 06/27/17 06:10 06/27/17 06:10 PT 13.0 SECONDS (9.7-12.2) H 06/20/17 06:42 INR 1.2 06/20/17 06:42 APTT 35 SECONDS (21-34) H 06/20/17 06:42 - Additional Findings Additional findings: - Constitutional Appears: No Acute Distress - Head Exam Head Exam: NORMAL INSPECTION, NORMOCEPHALIC - Eye Exam Eye Exam: EOMI, Normal appearance, PERRL - ENT Exam ENT Exam: Mucous Membranes Moist - Respiratory Exam Respiratory Exam: Decreased Breath Sounds, NORMAL BREATHING PATTERN - Cardiovascular Exam Cardiovascular Exam: REGULAR RHYTHM, right PERMACATH - GI/Abdominal Exam GI & Abdominal Exam: Soft, Normal Bowel Sounds. absent: Distended, Tenderness - Rectal Exam Rectal Exam: Deferred - Extremities Exam Extremities Exam: Normal Inspection. absent: Pedal Edema, Tenderness - Neurological Exam Neurological Exam: Alert, Awake, CN II-XII Intact, Normal Gait, Oriented x3 - Psychiatric Exam Psychiatric exam: Normal Affect, Normal Mood - Skin Skin Exam: Dry, Intact, Normal Color, Warm Assessment and Plan - Assessment and Plan (Free Text) Plan: ESRD General Surgery- Dr. Sotelo consulted - help appreciated Nephrology- Dr. Mckeon/ Dr. Enciso - help appreciated S/P Permacath 06/19/17 Dialysis MWF Creatinine improving S/P Renal Biopsy - with IR - Vascular sclerosis, hypertensive renovascular disease. Patient is ESRD will need dialysis indefinitely. Patient is for AVF tomorrow 06/28/[address] Sotelo. Imaging: Renal US: Increased echogenicity of the bilateral renal parenchymal cortices suggestive for medical renal disease. Bilateral renal cysts. Meds: Procrit MWF, Nephro-Magdalena, Phoslo VRE + UTI ON CONTACT Precautions ID Consulted - Dr. Joshua - help appreciated UA: 2+ protein, 1+ blood, 3+ LE, 36 WBC, 4RBC, moderate bacteria The urine culture shows E. Coli Started Cipro 250mg PO BID x 5 days, UC - 06/21/17 - VRE+ Spoke to Dr. Joshua - patient started on Zyvox 600mg IVP Q12H, F/U repeat UC COPD Pulmonology consulted - Dr. Pierson- help appreciated - Dr. Bell is covering Chest xray: patchy opacities within lateral right upper lobe and b/l lower lobes may reflect multifocal infiltrate or atelectasis CT Chest: Patchy foci of ground-glass opacities associated with septal thickening and mild bronchiectasis and also associated with foci of honeycombing. Findings likely represent interstitial pneumonitis and the differential consideration includes mainly UIP and less likely nonspecific interstitial pneumonitis, desquamative interstitial pneumonia and chronic hypersensitivity pneumonitis. Foci of consolidation noted at the right lung along the right fissure may represent lung nodule or pleural thickening 3 months follow-up reassessment is recommended. Mild emphysema. Mild cardiomegaly. CXR ordered - no infiltrates or effusion noted, patient is asymptomatic - will continue to monitor CT CHEST 06/26/17: Interval improvement in interstitial lung disease identified previously. New a dependent atelectasis/infiltrate subsegmental and approximately symmetrical. Underlying bronchiectatic changes and residual interstitial findings at the lung bases. PT has been ambulating with patient and he starts to desaturate to 87-88% upon walking; pending recommendations from Pulmonary. Patient will most likely need home oxygen. Spoke to Dr. Bell, covering for Dr. Pierson - Will need outpatient bronchoscopy Esophageal Candiasis Started diflucan 100mg PO once, then Diflucan 50mg PO daily x 13 Anemia Ferrlecit x 8 days Continue to monitor Hx CHF Cardiology consulted - Dr. Cobb- workup of ischemic etiology would be done as outpatient. No shortness of breath is probably a diastolic dysfunction due to renal failure. Echo: global left ventricular hypokinesis, moderate pulmonary HTN, and also EF 45% Nonbleeding Gastric Ulcer Severe anemia from a lower GI Etiology and from renal failure GI consulted - Dr. Barnard- help appreciated On admission Hgb was 5 Because of uremia on labwork we also ordered 30 DDAVP x 1 dose now as he may have uremic bleeding S/P EGD: showing hiatal hernia, esophagitis, gastric ulcer, and a normal duodenum Nuclear Bleeding Scan: negative S/P 4 units PRBCs Hx of HTN Echo: global left ventricular hypokinesis, moderate pulmonary HTN, and also EF 45% Coreg 12.5mg PO BID, Cozaar 50mg PO daily Procardia XL 60mg PO daily Prophylactic Measures NO chemical anticoagulation due to severe anemia SCDs Protonix 40mg IV Q12H PT EVAL - DC HOME: RESTING RA-95%, ROOM AIR EXERTION AMB 50 F X 1- SPO2 88%, 2L NC O2 EXERTION AMB AND T/.F 50 F SPO2 95% Disposition: Pending outpatient dialysis set up by case management. Will continue PT - to assess if patient needs home O2. DW Dr. Mcallister, Marimar John DO, PGY-1 <Farzad Mcallister H - Last Filed: 06/27/17 17:59> Objective - Vital Signs/Intake and Output Vital Signs (last 24 hours): Temp Pulse Resp BP Pulse Ox 98.0 F 84 20 157/84 H 94 L 06/27/17 17:29 06/27/17 17:29 06/27/17 17:29 06/27/17 17:35 06/27/17 17:29 Intake and Output: 06/27/17 06/27/17 06:59 18:59 Intake Total 250 300 Balance 250 300 - Medications Medications: Current Medications Acetaminophen (Tylenol 325mg Tab) 650 mg PO Q6 PRN PRN Reason: Pain, Mild (1-3) Last Admin: 06/17/17 18:00 Dose: 650 mg Albuterol/Ipratropium (Duoneb 3 Mg/0.5 Mg (3 Ml) Ud) 3 ml INH RQ6 [facility] Last Admin: 06/27/17 13:41 Dose: 3 ml Calcium Acetate (Phoslo) 1,334 mg PO TIDCC [facility] Last Admin: 06/27/17 17:36 Dose: 1,334 mg Carvedilol (Coreg) 12.5 mg PO BID [facility] Last Admin: 06/27/17 17:35 Dose: 12.5 mg Epoetin Connor (Procrit) 12,000 unit IV MWF [facility] Last Admin: 06/26/17 12:33 Dose: 12,000 unit Ergocalciferol (Drisdol 50,000 Intl Units Cap) 1 cap PO Q7D [facility] Last Admin: 06/27/17 09:36 Dose: 1 cap Fluconazole (Diflucan) 50 mg PO DAILY [facility] Stop: 07/03/17 10:01 Last Admin: 06/27/17 09:36 Dose: 50 mg Linezolid (Zyvox 600mg/300ml D5w) 600 mg in 300 mls @ 200 mls/hr IVPB Q12H [facility] Last Admin: 06/27/17 12:18 Dose: 200 mls/hr Losartan Potassium (Cozaar) 100 mg PO QPM [facility] Last Admin: 06/27/17 17:35 Dose: 100 mg Nifedipine (Procardia Xl) 60 mg PO DAILY [facility] Last Admin: 06/27/17 09:35 Dose: 60 mg Pantoprazole Sodium (Protonix Ec Tab) 40 mg PO DAILY [facility] Last Admin: 06/27/17 09:36 Dose: 40 mg Vitamin B Complex/Vit C/Folic Acid (Nephro-Magdalena) 1 tab PO 0800 [facility] Last Admin: 06/27/17 08:22 Dose: 1 tab - Labs Labs: 06/27/17 06:10 06/27/17 06:10 PT 13.0 SECONDS (9.7-12.2) H 06/20/17 06:42 INR 1.2 06/20/17 06:42 APTT 35 SECONDS (21-34) H 06/20/17 06:42 Attending/Attestation - Attestation I have personally seen and examined this patient.: Yes I have fully participated in the care of the patient.: Yes I have reviewed all pertinent clinical information, including history, physical exam and plan: Yes Notes (Text): 06/27/17 17:59 Medical attending: Patient was seen and examined by me as well. Agree with the above note by the resident. Patient was not in any acute distress when we saw him. He reported that he felt a lot better since being here. He is not short of breath, denied chest pain, denied palpitations He was sitting up in bed eating lunch The plan is for tomorrow with the patient have creation of an AVF. Also pending a repeat urine cultures well. thank you Farzad Mcallister
--- NOTE | 2017-06-27 20:13 | CP.PCM.PN ---
Subjective - Date & Time of Evaluation Date of Evaluation: 06/27/17 Time of Evaluation: 08:00 - Subjective Subjective: events noted for av fistula Objective - Vital Signs/Intake and Output Vital Signs (last 24 hours): Temp Pulse Resp BP Pulse Ox 98.0 F 84 20 157/84 H 94 L 06/27/17 17:29 06/27/17 17:29 06/27/17 17:29 06/27/17 17:35 06/27/17 17:29 Intake and Output: 06/27/17 06/28/17 18:59 06:59 Intake Total 300 Balance 300 - Medications Medications: Current Medications Acetaminophen (Tylenol 325mg Tab) 650 mg PO Q6 PRN PRN Reason: Pain, Mild (1-3) Last Admin: 06/17/17 18:00 Dose: 650 mg Albuterol/Ipratropium (Duoneb 3 Mg/0.5 Mg (3 Ml) Ud) 3 ml INH RQ6 [facility] Last Admin: 06/27/17 19:07 Dose: 3 ml Calcium Acetate (Phoslo) 1,334 mg PO TIDCC [facility] Last Admin: 06/27/17 17:36 Dose: 1,334 mg Carvedilol (Coreg) 12.5 mg PO BID [facility] Last Admin: 06/27/17 17:35 Dose: 12.5 mg Epoetin Connor (Procrit) 12,000 unit IV MWF [facility] Last Admin: 06/26/17 12:33 Dose: 12,000 unit Ergocalciferol (Drisdol 50,000 Intl Units Cap) 1 cap PO Q7D [facility] Last Admin: 06/27/17 09:36 Dose: 1 cap Fluconazole (Diflucan) 50 mg PO DAILY [facility] Stop: 07/03/17 10:01 Last Admin: 06/27/17 09:36 Dose: 50 mg Linezolid (Zyvox 600mg/300ml D5w) 600 mg in 300 mls @ 200 mls/hr IVPB Q12H [facility] Last Admin: 06/27/17 12:18 Dose: 200 mls/hr Losartan Potassium (Cozaar) 100 mg PO QPM [facility] Last Admin: 06/27/17 17:35 Dose: 100 mg Nifedipine (Procardia Xl) 60 mg PO DAILY [facility] Last Admin: 06/27/17 09:35 Dose: 60 mg Pantoprazole Sodium (Protonix Ec Tab) 40 mg PO DAILY [facility] Last Admin: 06/27/17 09:36 Dose: 40 mg Vitamin B Complex/Vit C/Folic Acid (Nephro-Magdalena) 1 tab PO 0800 [facility] Last Admin: 06/27/17 08:22 Dose: 1 tab - Labs Labs: 06/27/17 06:10 06/27/17 06:10 PT 13.0 SECONDS (9.7-12.2) H 06/20/17 06:42 INR 1.2 06/20/17 06:42 APTT 35 SECONDS (21-34) H 06/20/17 06:42 - Constitutional Appears: Non-toxic, Chronically Ill - Head Exam Head Exam: NORMOCEPHALIC - Eye Exam Eye Exam: PERRL - ENT Exam ENT Exam: Mucous Membranes Dry - Neck Exam Neck Exam: absent: Lymphadenopathy - Respiratory Exam Respiratory Exam: Decreased Breath Sounds Assessment and Plan (1) ARF (acute renal failure) Status: Acute (2) CHF (congestive heart failure), NYHA class II Status: Acute (3) Dyspnea on exertion Status: Acute (4) Interstitial lung disease Status: Acute (5) Severe anemia Status: Acute (6) UTI (urinary tract infection) Status: Acute - Assessment and Plan (Free Text) Assessment: cont rx for uti 10-14 days
[2017-06-28] MEDS: Linezolid 600 mg in D5W 300 ml 600 MG/300 ML BAG IVPB SCH (00:34)
[2017-06-28] MEDS: Albuterol-Ipratrop 3 mg / 0.5 (3 ml) UD INH SCH ×4 (01:52→19:00)
[2017-06-28 06:27] LABS: BASO # 0.1 K/uL (0.0-0.2); BASO % 1.3 % (0.0-2.0); EOS # 0.5 K/uL (0.0-0.7); EOS % 6.2 % (0.0-4.0); HEMOGLOBIN 8.8 g/dL (12.0-18.0); LYMPH # 0.7 K/uL (1.0-4.3); MEAN CELL VOLUME 85.3 fL (80.0-94.0); MEAN CORPUSCULAR HEMOGLOBIN 28.4 pg (27.0-31.0); MEAN CORPUSCULAR HGB CONC 33.3 g/dL (33.0-37.0); MEAN PLATELET VOLUME 7.2 fL (7.2-11.7); MONO # 1.2 K/uL (0.0-0.8); MONO % 15.7 % (0.0-10.0); NEUT % 67.8 % (50.0-75.0); PLATELET COUNT 266 K/uL (130-400); RED CELL DISTRIBUTION WIDTH 16.2 % (11.5-14.5); WHITE BLOOD COUNT 7.4 K/uL (4.8-10.8)
[2017-06-28 06:51] LABS: ALB/GLOB RATIO 1.2 (1.0-2.1); CALCIUM 7.7 mg/dl (8.6-10.4)
[2017-06-28] MEDS: Multivitamin Vitamin B Complex (Nephro-Vite) Tab PO SCH ×2 (08:07→13:44)
--- NOTE | 2017-06-28 08:26 | CP.PCM.PN ---
<Marimar John - Last Filed: 06/28/17 08:24> Subjective - Date & Time of Evaluation Date of Evaluation: 06/28/17 Time of Evaluation: 08:00 - Subjective Subjective: Medicine Note for Hospitalist Service- Dr. Mcallister Patient was seen and examined at bedside. Patient has no acute complaints. Patient reports he is ambulating well, tolerating diet. I spoke to the patient and his at length about the course of the patient's conditions and our plan while he is hospitalized. All questions answered. Denied fever, chills, chest pain, SOB, abdominal pain, n/v/d/c, or urinary symptoms. Patient is for AVF today 06/28/[address] Sotelo and dialysis today. Objective - Vital Signs/Intake and Output Vital Signs (last 24 hours): Temp Pulse Resp BP Pulse Ox 98.3 F 79 20 162/87 H 95 06/28/17 00:00 06/28/17 00:00 06/28/17 00:00 06/28/17 00:00 06/28/17 00:00 Intake and Output: 06/28/17 06/28/17 06:59 18:59 Intake Total 600 Balance 600 - Medications Medications: Current Medications Acetaminophen (Tylenol 325mg Tab) 650 mg PO Q6 PRN PRN Reason: Pain, Mild (1-3) Last Admin: 06/17/17 18:00 Dose: 650 mg Albuterol/Ipratropium (Duoneb 3 Mg/0.5 Mg (3 Ml) Ud) 3 ml INH RQ6 [facility] Last Admin: 06/28/17 07:38 Dose: 3 ml Calcium Acetate (Phoslo) 1,334 mg PO TIDCC [facility] Last Admin: 06/28/17 08:07 Dose: Not Given Carvedilol (Coreg) 12.5 mg PO BID [facility] Last Admin: 06/27/17 17:35 Dose: 12.5 mg Epoetin Connor (Procrit) 12,000 unit IV MWF [facility] Last Admin: 06/26/17 12:33 Dose: 12,000 unit Ergocalciferol (Drisdol 50,000 Intl Units Cap) 1 cap PO Q7D [facility] Last Admin: 06/27/17 09:36 Dose: 1 cap Fluconazole (Diflucan) 50 mg PO DAILY [facility] Stop: 07/03/17 10:01 Last Admin: 06/27/17 09:36 Dose: 50 mg Linezolid (Zyvox 600mg/300ml D5w) 600 mg in 300 mls @ 200 mls/hr IVPB Q12H [facility] Last Admin: 06/28/17 00:34 Dose: 200 mls/hr Losartan Potassium (Cozaar) 100 mg PO QPM [facility] Last Admin: 06/27/17 17:35 Dose: 100 mg Nifedipine (Procardia Xl) 60 mg PO DAILY [facility] Last Admin: 06/27/17 09:35 Dose: 60 mg Pantoprazole Sodium (Protonix Ec Tab) 40 mg PO DAILY [facility] Last Admin: 06/27/17 09:36 Dose: 40 mg Vitamin B Complex/Vit C/Folic Acid (Nephro-Magdalena) 1 tab PO 0800 [facility] Last Admin: 06/28/17 08:07 Dose: Not Given - Labs Labs: 06/28/17 06:20 06/28/17 06:20 PT 13.0 SECONDS (9.7-12.2) H 06/20/17 06:42 INR 1.2 06/20/17 06:42 APTT 35 SECONDS (21-34) H 06/20/17 06:42 - Additional Findings Additional findings: - Constitutional Appears: No Acute Distress - Head Exam Head Exam: NORMAL INSPECTION, NORMOCEPHALIC - Eye Exam Eye Exam: EOMI, Normal appearance, PERRL - ENT Exam ENT Exam: Mucous Membranes Moist - Respiratory Exam Respiratory Exam: Decreased Breath Sounds, NORMAL BREATHING PATTERN - Cardiovascular Exam Cardiovascular Exam: REGULAR RHYTHM, right PERMACATH - GI/Abdominal Exam GI & Abdominal Exam: Soft, Normal Bowel Sounds. absent: Distended, Tenderness - Rectal Exam Rectal Exam: Deferred - Extremities Exam Extremities Exam: Normal Inspection. absent: Pedal Edema, Tenderness - Neurological Exam Neurological Exam: Alert, Awake, CN II-XII Intact, Normal Gait, Oriented x3 - Psychiatric Exam Psychiatric exam: Normal Affect, Normal Mood - Skin Skin Exam: Dry, Intact, Normal Color, Warm Assessment and Plan - Assessment and Plan (Free Text) Plan: ESRD General Surgery- Dr. Sotelo consulted - help appreciated Nephrology- Dr. Mckeon/ Dr. Enciso - help appreciated S/P Permacath 06/19/17 Dialysis MWF Creatinine improving S/P Renal Biopsy - with IR - Vascular sclerosis, hypertensive renovascular disease. Patient is ESRD will need dialysis indefinitely. Patient is for AVF today 06/28/[address] Sotelo Imaging: Renal US: Increased echogenicity of the bilateral renal parenchymal cortices suggestive for medical renal disease. Bilateral renal cysts. Meds: Procrit MWF, Nephro-Magdalena, Phoslo VRE + UTI ON CONTACT Precautions ID Consulted - Dr. Joshua - help appreciated UA: 2+ protein, 1+ blood, 3+ LE, 36 WBC, 4RBC, moderate bacteria The urine culture shows E. Coli Started Cipro 250mg PO BID x 5 days, UC - 06/21/17 - VRE+ Spoke to Dr. Joshua - patient started on Zyvox 600mg IVP Q12H, Pending UC for ABX and length of course COPD Pulmonology consulted - Dr. Pierson- help appreciated - Dr. Bell is covering Chest xray: patchy opacities within lateral right upper lobe and b/l lower lobes may reflect multifocal infiltrate or atelectasis CT Chest: Patchy foci of ground-glass opacities associated with septal thickening and mild bronchiectasis and also associated with foci of honeycombing. Findings likely represent interstitial pneumonitis and the differential consideration includes mainly UIP and less likely nonspecific interstitial pneumonitis, desquamative interstitial pneumonia and chronic hypersensitivity pneumonitis. Foci of consolidation noted at the right lung along the right fissure may represent lung nodule or pleural thickening 3 months follow-up reassessment is recommended. Mild emphysema. Mild cardiomegaly. CXR ordered - no infiltrates or effusion noted, patient is asymptomatic - will continue to monitor CT CHEST 06/26/17: Interval improvement in interstitial lung disease identified previously. New a dependent atelectasis/infiltrate subsegmental and approximately symmetrical. Underlying bronchiectatic changes and residual interstitial findings at the lung bases. PT has been ambulating with patient and he starts to desaturate to 87-88% upon walking; pending recommendations from Pulmonary. Patient will most likely need home oxygen. Spoke to Dr. Bell, covering for Dr. Pierson - Will need outpatient bronchoscopy Esophageal Candiasis Started diflucan 100mg PO once, then Diflucan 50mg PO daily x 13 Anemia Ferrlecit x 8 days Continue to monitor Hx CHF Cardiology consulted - Dr. Moussa- workup of ischemic etiology would be done as outpatient. No shortness of breath is probably a diastolic dysfunction due to renal failure. Echo: global left ventricular hypokinesis, moderate pulmonary HTN, and also EF 45% Nonbleeding Gastric Ulcer Severe anemia from a lower GI Etiology and from renal failure GI consulted - Dr. Barnard- help appreciated On admission Hgb was 5 Because of uremia on labwork we also ordered 30 DDAVP x 1 dose now as he may have uremic bleeding S/P EGD: showing hiatal hernia, esophagitis, gastric ulcer, and a normal duodenum Nuclear Bleeding Scan: negative S/P 4 units PRBCs Hx of HTN Echo: global left ventricular hypokinesis, moderate pulmonary HTN, and also EF 45% Coreg 12.5mg PO BID, Cozaar 50mg PO daily Procardia XL 60mg PO daily Prophylactic Measures NO chemical anticoagulation due to severe anemia SCDs Protonix 40mg IV Q12H PT EVAL - DC HOME: RESTING RA-95%, ROOM AIR EXERTION AMB 50 F X 1- SPO2 88%, 2L NC O2 EXERTION AMB AND T/.F 50 F SPO2 95% Disposition: Pending outpatient dialysis set up by case management. Will continue PT - to assess if patient needs home O2. DW Dr. Mcallister, Marimar John DO, PGY-1 <Farzad Mcallister - Last Filed: 06/28/17 15:20> Objective - Vital Signs/Intake and Output Vital Signs (last 24 hours): Temp Pulse Resp BP Pulse Ox 97.6 F 79 18 84/57 L 99 06/28/17 12:05 06/28/17 12:05 06/28/17 12:05 06/28/17 12:05 06/28/17 12:05 Intake and Output: 06/28/17 06/28/17 06:59 18:59 Intake Total 600 350 Balance 600 350 - Medications Medications: Current Medications Acetaminophen (Tylenol 325mg Tab) 650 mg PO Q6 PRN PRN Reason: Pain, Mild (1-3) Last Admin: 06/17/17 18:00 Dose: 650 mg Albuterol/Ipratropium (Duoneb 3 Mg/0.5 Mg (3 Ml) Ud) 3 ml INH RQ6 [facility] Last Admin: 06/28/17 07:38 Dose: 3 ml Calcium Acetate (Phoslo) 1,334 mg PO TIDCC [facility] Last Admin: 06/28/17 13:44 Dose: 1,334 mg Carvedilol (Coreg) 25 mg PO BID [facility] Epoetin Connor (Procrit) 12,000 unit IV MWF [facility] Last Admin: 06/28/17 12:06 Dose: 12,000 unit Ergocalciferol (Drisdol 50,000 Intl Units Cap) 1 cap PO Q7D [facility] Last Admin: 06/27/17 09:36 Dose: 1 cap Fluconazole (Diflucan) 50 mg PO DAILY [facility] Stop: 07/03/17 10:01 Last Admin: 06/28/17 13:44 Dose: 50 mg Hydralazine HCl (Apresoline) 25 mg PO Q4 PRN PRN Reason: Other Linezolid (Zyvox) 600 mg PO Q12H [facility] Last Admin: 06/28/17 13:44 Dose: 600 mg Losartan Potassium (Cozaar) 100 mg PO QPM [facility] Last Admin: 06/27/17 17:35 Dose: 100 mg Nifedipine (Procardia Xl) 60 mg PO DAILY [facility] Last Admin: 06/28/17 10:33 Dose: 60 mg Pantoprazole Sodium (Protonix Ec Tab) 40 mg PO DAILY [facility] Last Admin: 06/28/17 13:44 Dose: 40 mg Vitamin B Complex/Vit C/Folic Acid (Nephro-Magdalena) 1 tab PO 0800 [facility] Last Admin: 06/28/17 13:44 Dose: 1 tab - Labs Labs: 06/28/17 06:20 06/28/17 06:20 PT 13.0 SECONDS (9.7-12.2) H 06/20/17 06:42 INR 1.2 06/20/17 06:42 APTT 35 SECONDS (21-34) H 06/20/17 06:42 Attending/Attestation - Attestation I have personally seen and examined this patient.: Yes I have fully participated in the care of the patient.: Yes I have reviewed all pertinent clinical information, including history, physical exam and plan: Yes Notes (Text): 06/28/17 15:20 Medical attending: Patient was seen and examined by me with the medical reimbursement specialist. Reviewed the above note by the resident and agree with the above. The patient was getting hemodialysis today when we saw him. He is not in any acute distress. Because of the heavy snowing weather at this time of the surgery for the creation of the aVF was changed to be done sometime tomorrow. Thank you very much, Farzad Mcallister
[2017-06-28 08:48] LABS: BANDS 1 % (0-2); EOSINOPHIL 8 % (0-4); LYMPHOCYTE 12 % (20-40); MONOCYTE 12 % (0-10); NEUTROPHIL 67 % (50-75); TOTAL CELLS COUNTED 100
[2017-06-28 08:49] LABS: ANISOCYTOSIS SLIGHT; HYPOCHROMIC SLIGHT; PLATELET ESTIMATE NORMAL (NORMAL); POIKILOCYTOSIS SLIGHT
[2017-06-28] MEDS: NIFEdipine 60 mg ER Tab PO SCH (10:33)
[2017-06-28] MEDS: Pantoprazole 40 mg EC Tab PO SCH ×2 (10:34→13:44)
[2017-06-28] MEDS: EPOETIN ALFA 4,000 UNIT/ML ML Dialysis IV SCH (12:06)
--- NOTE | 2017-06-28 13:19 | CP.PCM.PCO ---
Physician Communication Note - Physician Communication Note Physician Communication Note: OR canceled due to dialysis today. Rescheduled for tomorrow 06/29
--- NOTE | 2017-06-28 14:19 | CP.PCM.PN ---
Subjective - Date & Time of Evaluation Date of Evaluation: 06/28/17 Time of Evaluation: 14:18 - Subjective Subjective: Nephrology Consultation: Assessment: stable ESRD due to HTN severe Anemia with iron def and GI blood loss acidosis Hyperphosphatemia (E83.39), HTN (I12.9) active smoker and etoh on weekends hx of TIA, chronic sinusitis possible UTI, esophageal candidiasis, gastric ulcer Systolic CHF LVEF 45-50% COPD Plan plan for HD today as ordered. Also discussed with the patient about other dialysis Options such as PD patient will think and decide later on. Hypertension control with meds as ordered. on losartan and Coreg, nifedipine. Monitor Input/Output, daily weights and renal function with basic metabolic panel continue with phos binders, nephrovite, IV iron (s/p 1 gram loading dose) and epogen. pt had PRBC 06/16/17. avoid left arm phlebotomy. vascular surgery following for AVF kidney biopsy results suggest ESRD due to HTN Dose meds/antibiotics for reduced GFR. Avoid fleets enema/magnesium based laxatives. Avoid nephrotoxins/NSAIDs/ iodinated contrast (unless needed emergently) Glycemic control. pt to abstain from etoh and smoking Further work up/management as per primary team SW consult for outpt HD placement initiation. pt stable for d/c from renal perspective when has outpt spot for HD pt advised to abstain from smoking and alcohol. d/w as well Thanks for allowing me to participate in care of your patient. Will follow patient with you. Please call if any Qs. Dr Austyn Enciso Office: [phone] HPI: Pt is a 61 M with hx of hypertension (few years) when diagnosed with TIA, chronic sinusitis, activ smoker and etoh on weekends, hasn't been taking BP meds for last 1 year due to insurance issues presented with complaints of sickness x 2 weeks with fatigue, body aches and exertional dyspnoea. reports hx of hemrrhoids and bright red blood in stool and toilet paper Denies OTC/herbal meds or NSAIDs No recent iodinated contrast exposure. No obvious episodes of low BP. no recent antibiotics denies any renal issues in past ROS: Cardiovascular: No chest pain. Pulmonary: improved shortness of breath Gastrointestinal: denies abdominal pain No nausea. No vomiting. Genitourinary: No pain while urinating. Denies blood in urine. All other negative except as in HPI Physical Examination: General Appearance: comfortable, co-operative . Vitals reviewed and noted as below Head; Atraumatic, normocephalic ENT: no ulcers no thrush. Tongue is midline. Oropharynx: no rash or ulcers. EYES: Pupils are equal, round and reactive to light accommodation. Eye muscles and extraocular movement intact. Sclera is anicteric. Neck; supple no lymphadenopathy, no thyromegaly or bruit Lungs: normal respiratory rate/effort. Breath sounds bilateral equal and with basal rales Heart: Normal rate. s1s2 normal. No rub or gallop. Extremities: no edema. No varicose veins Neurological: Patient is alert, awake and oriented to person, place and time. No focal deficit. Strength bilateral appropriate and equal Skin: Warm and dry. Normal turgor. No rash. Palpitation: Normal elasticity for age Abdomen: Abdomen is soft. Bowel sounds +. There is no abdominal tenderness, no guarding/rigidity no organomegaly Psych: normal insight and normal affect/mood MSK: no joint tenderness or swelling. Digits and nails normal, no deformity : kidney or bladder not palpable Dialysis access: right chest permacath Labs/imaging reviewed. Past medical history, past surgical history, family history, social history, allergy reviewed and noted as below Family hx: no hx of CKD. Rest non-contributory Work up: urine pro/cr: 2 gram/day normal complements and urine cx: GNR TSAT 5% Ferritin 40 imaging: no obstruction Objective - Vital Signs/Intake and Output Vital Signs (last 24 hours): Temp Pulse Resp BP Pulse Ox 97.6 F 79 18 84/57 L 99 06/28/17 12:05 06/28/17 12:05 06/28/17 12:05 06/28/17 12:05 06/28/17 12:05 Intake and Output: 06/28/17 06/28/17 06:59 18:59 Intake Total 600 350 Balance 600 350 - Medications Medications: Current Medications Acetaminophen (Tylenol 325mg Tab) 650 mg PO Q6 PRN PRN Reason: Pain, Mild (1-3) Last Admin: 06/17/17 18:00 Dose: 650 mg Albuterol/Ipratropium (Duoneb 3 Mg/0.5 Mg (3 Ml) Ud) 3 ml INH RQ6 [facility] Last Admin: 06/28/17 07:38 Dose: 3 ml Calcium Acetate (Phoslo) 1,334 mg PO TIDCC [facility] Last Admin: 06/28/17 13:44 Dose: 1,334 mg Carvedilol (Coreg) 25 mg PO BID [facility] Epoetin Connor (Procrit) 12,000 unit IV MWF [facility] Last Admin: 06/28/17 12:06 Dose: 12,000 unit Ergocalciferol (Drisdol 50,000 Intl Units Cap) 1 cap PO Q7D [facility] Last Admin: 06/27/17 09:36 Dose: 1 cap Fluconazole (Diflucan) 50 mg PO DAILY [facility] Stop: 07/03/17 10:01 Last Admin: 06/28/17 13:44 Dose: 50 mg Hydralazine HCl (Apresoline) 25 mg PO Q4 PRN PRN Reason: Other Linezolid (Zyvox) 600 mg PO Q12H [facility] Last Admin: 06/28/17 13:44 Dose: 600 mg Losartan Potassium (Cozaar) 100 mg PO QPM [facility] Last Admin: 06/27/17 17:35 Dose: 100 mg Nifedipine (Procardia Xl) 60 mg PO DAILY [facility] Last Admin: 06/28/17 10:33 Dose: 60 mg Pantoprazole Sodium (Protonix Ec Tab) 40 mg PO DAILY [facility] Last Admin: 06/28/17 13:44 Dose: 40 mg Vitamin B Complex/Vit C/Folic Acid (Nephro-Magdalena) 1 tab PO 0800 [facility] Last Admin: 06/28/17 13:44 Dose: 1 tab - Labs Labs: 06/28/17 06:20 06/28/17 06:20 PT 13.0 SECONDS (9.7-12.2) H 06/20/17 06:42 INR 1.2 06/20/17 06:42 APTT 35 SECONDS (21-34) H 06/20/17 06:42
--- NOTE | 2017-06-28 18:08 | RAD ---
HISTORY: COMPARISON: 06/22/2017. TECHNIQUE: Chest PA and lateral FINDINGS: LINES AND TUBES: The right-sided dialysis catheter terminates in the right atrium. LUNG AND PLEURA: Again seen is chronic interstitial fibrosis worse in the right lung. There are calcified granulomas in the left upper lobe. There is superimposed patchy airspace disease in the right upper and lower lobes. HEART AND MEDIASTINUM: The heart is not enlarged. The hilar and mediastinal contours are within normal limits. SKELETAL STRUCTURES: The bony structures are within normal limits for the patient's age. VISUALIZED UPPER ABDOMEN: Normal. OTHER FINDINGS: None. IMPRESSION: Chronic interstitial fibrosis, worse in the right lung. Patchy airspace disease in the right upper and lower lobes could represent superimposed pneumonia. Follow-up is advised.
[2017-06-28 21:36] LABS: URINE BACTERIA RARE (<OCC); URINE BILIRUBIN NEGATIVE (NEGATIVE); URINE BLOOD NEGATIVE (NEGATIVE); URINE CLARITY Clear (Clear); URINE COLOR Yellow (YELLOW); URINE GLUCOSE (UA) 1+ mg/dL (Normal); URINE LEUKOCYTE ESTERASE NEG Leu/uL (Negative); URINE PROTEIN 2+ mg/dL (NEGATIVE); URINE UROBILINOGEN NORMAL mg/dL (0.2-1.0)
[2017-06-29] MEDS: Albuterol-Ipratrop 3 mg / 0.5 (3 ml) UD INH SCH ×3 (01:31→19:15)
--- NOTE | 2017-06-29 06:33 | CP.PCM.PN ---
<Marimar John - Last Filed: 06/29/17 06:31> Subjective - Date & Time of Evaluation Date of Evaluation: 06/29/17 Time of Evaluation: 07:00 - Subjective Subjective: Medicine Note for Hospitalist Service- Dr. Mcallister Patient was seen and examined at bedside. Patient has no acute complaints. Patient reports he is ambulating well, tolerating diet. NPO for AVF today. Denied fever, chills, chest pain, SOB, abdominal pain, n/v/d/c, or urinary symptoms. Patient is for AVF today 06/29/[address] Sotelo. Objective - Vital Signs/Intake and Output Vital Signs (last 24 hours): Temp Pulse Resp BP Pulse Ox 98.2 F 75 20 114/73 94 L 06/29/17 00:00 06/29/17 00:00 06/29/17 00:00 06/29/17 00:00 06/29/17 00:00 Intake and Output: 06/28/17 06/29/17 18:59 06:59 Intake Total 350 400 Balance 350 400 - Medications Medications: Current Medications Acetaminophen (Tylenol 325mg Tab) 650 mg PO Q6 PRN PRN Reason: Pain, Mild (1-3) Last Admin: 06/28/17 18:51 Dose: 650 mg Albuterol/Ipratropium (Duoneb 3 Mg/0.5 Mg (3 Ml) Ud) 3 ml INH RQ6 [facility] Last Admin: 06/29/17 01:31 Dose: 3 ml Calcium Acetate (Phoslo) 1,334 mg PO TIDCC [facility] Last Admin: 06/28/17 18:18 Dose: 1,334 mg Carvedilol (Coreg) 25 mg PO BID [facility] Last Admin: 06/28/17 18:17 Dose: 25 mg Epoetin Connor (Procrit) 12,000 unit IV MWF [facility] Last Admin: 06/28/17 12:06 Dose: 12,000 unit Ergocalciferol (Drisdol 50,000 Intl Units Cap) 1 cap PO Q7D [facility] Last Admin: 06/27/17 09:36 Dose: 1 cap Fluconazole (Diflucan) 50 mg PO DAILY [facility] Stop: 07/03/17 10:01 Last Admin: 06/28/17 13:44 Dose: 50 mg Hydralazine HCl (Apresoline) 25 mg PO Q4 PRN PRN Reason: Other Linezolid (Zyvox) 600 mg PO Q12H [facility] Last Admin: 06/29/17 00:20 Dose: 600 mg Losartan Potassium (Cozaar) 100 mg PO QPM [facility] Last Admin: 06/28/17 18:16 Dose: 100 mg Nifedipine (Procardia Xl) 60 mg PO DAILY [facility] Last Admin: 06/28/17 10:33 Dose: 60 mg Pantoprazole Sodium (Protonix Ec Tab) 40 mg PO DAILY [facility] Last Admin: 06/28/17 13:44 Dose: 40 mg Vitamin B Complex/Vit C/Folic Acid (Nephro-Magdalena) 1 tab PO 0800 [facility] Last Admin: 06/28/17 13:44 Dose: 1 tab - Labs Labs: 06/28/17 06:20 06/28/17 06:20 PT 13.0 SECONDS (9.7-12.2) H 06/20/17 06:42 INR 1.2 06/20/17 06:42 APTT 35 SECONDS (21-34) H 06/20/17 06:42 - Additional Findings Additional findings: - Constitutional Appears: No Acute Distress - Head Exam Head Exam: NORMAL INSPECTION, NORMOCEPHALIC - Eye Exam Eye Exam: EOMI, Normal appearance, PERRL - ENT Exam ENT Exam: Mucous Membranes Moist - Respiratory Exam Respiratory Exam: Decreased Breath Sounds, NORMAL BREATHING PATTERN - Cardiovascular Exam Cardiovascular Exam: REGULAR RHYTHM, right PERMACATH - GI/Abdominal Exam GI & Abdominal Exam: Soft, Normal Bowel Sounds. absent: Distended, Tenderness - Rectal Exam Rectal Exam: Deferred - Extremities Exam Extremities Exam: Normal Inspection. absent: Pedal Edema, Tenderness - Neurological Exam Neurological Exam: Alert, Awake, CN II-XII Intact, Normal Gait, Oriented x3 - Psychiatric Exam Psychiatric exam: Normal Affect, Normal Mood - Skin Skin Exam: Dry, Intact, Normal Color, Warm Assessment and Plan - Assessment and Plan (Free Text) Plan: ESRD General Surgery- Dr. Sotelo consulted - help appreciated Nephrology- Dr. Mckeon/ Dr. Enciso - help appreciated S/P Permacath 06/19/17 Dialysis MWF Creatinine improving S/P Renal Biopsy - with IR - Vascular sclerosis, hypertensive renovascular disease. Patient is ESRD will need dialysis indefinitely. Patient is for AVF today 06/29/[address] Sotelo Imaging: Renal US: Increased echogenicity of the bilateral renal parenchymal cortices suggestive for medical renal disease. Bilateral renal cysts. Meds: Procrit MWF, Nephro-Magdalena, Phoslo VRE + UTI ON CONTACT Precautions ID Consulted - Dr. Joshua - help appreciated UA: 2+ protein, 1+ blood, 3+ LE, 36 WBC, 4RBC, moderate bacteria The urine culture shows E. Coli Started Cipro 250mg PO BID x 5 days, UC - 06/21/17 - VRE+ Spoke to Dr. Joshua - patient started on Zyvox 600mg IVP Q12H, Repeat Urine Culture 06/28/17 - NO GROWTH - once discharge no need for ABX as per Dr. Joshua- since patient completed 7 day course. COPD Pulmonology consulted - Dr. Pierson- help appreciated - Dr. Bell is covering Chest xray: patchy opacities within lateral right upper lobe and b/l lower lobes may reflect multifocal infiltrate or atelectasis CT Chest: Patchy foci of ground-glass opacities associated with septal thickening and mild bronchiectasis and also associated with foci of honeycombing. Findings likely represent interstitial pneumonitis and the differential consideration includes mainly UIP and less likely nonspecific interstitial pneumonitis, desquamative interstitial pneumonia and chronic hypersensitivity pneumonitis. Foci of consolidation noted at the right lung along the right fissure may represent lung nodule or pleural thickening 3 months follow-up reassessment is recommended. Mild emphysema. Mild cardiomegaly. CXR ordered - no infiltrates or effusion noted, patient is asymptomatic - will continue to monitor CT CHEST 06/26/17: Interval improvement in interstitial lung disease identified previously. New a dependent atelectasis/infiltrate subsegmental and approximately symmetrical. Underlying bronchiectatic changes and residual interstitial findings at the lung bases. PT has been ambulating with patient and he starts to desaturate to 87-88% upon walking; pending recommendations from Pulmonary. Patient will most likely need home oxygen. Spoke to Dr. Bell, covering for Dr. Pierson - Will need outpatient bronchoscopy Esophageal Candiasis Started diflucan 100mg PO once, then Diflucan 50mg PO daily x 13 Anemia Ferrlecit x 8 days Continue to monitor Hx CHF Cardiology consulted - Dr. Cobb- workup of ischemic etiology would be done as outpatient. No shortness of breath is probably a diastolic dysfunction due to renal failure. Echo: global left ventricular hypokinesis, moderate pulmonary HTN, and also EF 45% Nonbleeding Gastric Ulcer Severe anemia from a lower GI Etiology and from renal failure GI consulted - Dr. Barnard- help appreciated On admission Hgb was 5 Because of uremia on labwork we also ordered 30 DDAVP x 1 dose now as he may have uremic bleeding S/P EGD: showing hiatal hernia, esophagitis, gastric ulcer, and a normal duodenum Nuclear Bleeding Scan: negative S/P 4 units PRBCs Hx of HTN Echo: global left ventricular hypokinesis, moderate pulmonary HTN, and also EF 45% Coreg 12.5mg PO BID, Cozaar 50mg PO daily Procardia XL 60mg PO daily Prophylactic Measures NO chemical anticoagulation due to severe anemia SCDs Protonix 40mg IV Q12H PT EVAL - DC HOME: RESTING RA-95%, ROOM AIR EXERTION AMB 50 F X 1- SPO2 88%, 2L NC O2 EXERTION AMB AND T/.F 50 F SPO2 95% Disposition: Pending outpatient dialysis set up by case management. Will continue PT - to assess if patient needs home O2. DW Dr. Mcallister, Marimar John DO, PGY-1 <Farzad Mcallister - Last Filed: 06/29/17 13:53> Objective - Vital Signs/Intake and Output Vital Signs (last 24 hours): Temp Pulse Resp BP Pulse Ox 99.4 F 84 20 160/90 H 96 06/29/17 07:53 06/29/17 07:53 06/29/17 07:53 06/29/17 09:55 06/29/17 07:53 Intake and Output: 06/29/17 06/29/17 06:59 18:59 Intake Total 400 Balance 400 - Medications Medications: Current Medications Acetaminophen (Tylenol 325mg Tab) 650 mg PO Q6 PRN PRN Reason: Pain, Mild (1-3) Last Admin: 06/28/17 18:51 Dose: 650 mg Albuterol/Ipratropium (Duoneb 3 Mg/0.5 Mg (3 Ml) Ud) 3 ml INH RQ6 [facility] Last Admin: 06/29/17 07:55 Dose: 3 ml Calcium Acetate (Phoslo) 1,334 mg PO TIDCC [facility] Last Admin: 06/29/17 12:56 Dose: Not Given Carvedilol (Coreg) 25 mg PO BID [facility] Last Admin: 06/29/17 09:55 Dose: 25 mg Epoetin Connor (Procrit) 12,000 unit IV MWF [facility] Last Admin: 06/28/17 12:06 Dose: 12,000 unit Ergocalciferol (Drisdol 50,000 Intl Units Cap) 1 cap PO Q7D [facility] Last Admin: 06/27/17 09:36 Dose: 1 cap Fluconazole (Diflucan) 50 mg PO DAILY [facility] Stop: 07/03/17 10:01 Last Admin: 06/29/17 09:55 Dose: Not Given Hydralazine HCl (Apresoline) 25 mg PO Q4 PRN PRN Reason: Other Linezolid (Zyvox) 600 mg PO Q12H [facility] Last Admin: 06/29/17 00:20 Dose: 600 mg Losartan Potassium (Cozaar) 100 mg PO QPM [facility] Last Admin: 06/28/17 18:16 Dose: 100 mg Nifedipine (Procardia Xl) 60 mg PO DAILY [facility] Last Admin: 06/29/17 09:55 Dose: 60 mg Pantoprazole Sodium (Protonix Ec Tab) 40 mg PO DAILY [facility] Last Admin: 06/29/17 09:56 Dose: Not Given Vitamin B Complex/Vit C/Folic Acid (Nephro-Magdalena) 1 tab PO 0800 [facility] Last Admin: 06/29/17 09:00 Dose: Not Given - Labs Labs: 06/29/17 07:46 06/29/17 07:46 PT 13.0 SECONDS (9.7-12.2) H 06/20/17 06:42 INR 1.2 06/20/17 06:42 APTT 35 SECONDS (21-34) H 06/20/17 06:42 Attending/Attestation - Attestation I have personally seen and examined this patient.: Yes I have fully participated in the care of the patient.: Yes I have reviewed all pertinent clinical information, including history, physical exam and plan: Yes Notes (Text): 06/29/17 13:53 Medical attending: Patient was seen and examined by me, agree with the above note by clinical medical transcriptionist. Family member was present in the room as well. The patient is for fistula creation later this afternoon. He feels well, he does not have any complaints or concerns at this time. From what I understand the caseworkers are probably can be able to find an outpatient dialysis for this, not on day. So it is possible he may be discharged relatively soon. We also explained to him that he'll take time for this AV fistula to mature, so in the meantime he's can continue to get dialysis. The dialysis catheter that he has. Thank you very much, Farzad Mcallister
[2017-06-29 07:55] LABS: BASO # 0.1 K/uL (0.0-0.2); BASO % 1.4 % (0.0-2.0); EOS # 0.2 K/uL (0.0-0.7); HEMOGLOBIN 8.3 g/dL (12.0-18.0); LYMPH # 0.8 K/uL (1.0-4.3); LYMPH % 10.3 % (20.0-40.0); MEAN CELL VOLUME 85.5 fL (80.0-94.0); MEAN CORPUSCULAR HEMOGLOBIN 27.9 pg (27.0-31.0); MEAN CORPUSCULAR HGB CONC 32.7 g/dL (33.0-37.0); MEAN PLATELET VOLUME 6.9 fL (7.2-11.7); MONO # 1.1 K/uL (0.0-0.8); NEUT # 5.7 K/uL (1.8-7.0); NEUT % 72.3 % (50.0-75.0); RBC 2.99 Mil/uL (4.40-5.90); RED CELL DISTRIBUTION WIDTH 16.6 % (11.5-14.5); WHITE BLOOD COUNT 7.9 K/uL (4.8-10.8)
[2017-06-29 08:10] LABS: CALCIUM 8.1 mg/dl (8.6-10.4)
[2017-06-29] MEDS: Multivitamin Vitamin B Complex (Nephro-Vite) Tab PO SCH (09:00)
[2017-06-29] MEDS ORDERED: Propofol 10 mg/ml Inj (20 ML) ONE (09:49)
[2017-06-29] MEDS ORDERED: Midazolam 2 MG/2 ML VIAL ONE (09:49)
[2017-06-29] MEDS: NIFEdipine 60 mg ER Tab PO SCH (09:55)
[2017-06-29] MEDS: Pantoprazole 40 mg EC Tab PO SCH (09:56)
[2017-06-29] MEDS ORDERED: HEPARIN-NS 5,000 UNITS/500 ML 5,000 UNIT/500 ML BAG IV ONE (10:18)
[2017-06-29] MEDS ORDERED: Lidocaine Hydrochloride 0 ML INJ ONE (10:24)
[2017-06-29] MEDS ORDERED: Sodium Chloride 0.9% 500 ML IV ONE (11:35)
[2017-06-29] MEDS ORDERED: ceFAZolin 1 gm in NS 1 GM/100 ML BAG IVPB ONE (11:40)
[2017-06-29] MEDS ORDERED: Papaverine Hydrochloride 30 mg/ml (2ml) ONE (12:24)
--- NOTE | 2017-06-29 13:55 | PCM.SURG1 ---
Surgeon's Initial Post Op Note - Surgeon's Notes Surgeon: Dr. Sotelo Assistive Technology Specialist: Chandra PGY1; Beto MS3 Type of Anesthesia: General LMA Pre-Operative Diagnosis: End stage renal disease Operative Findings: see operative report Post-Operative Diagnosis: same Operation Performed: Left Brachiocephalic AV fistula Specimen/Specimens Removed: none Estimated Blood Loss: EBL {In ML}: 25 Blood Products Given: N/A Drains Used: No Drains Post-Op Condition: Fair Date of Surgery/Procedure: 06/29/17 Time of Surgery/Procedure: 13:54
[2017-06-29] MEDS ORDERED: HYDROmorphone 0.5 mg/0.5 ml ISec IVP PRN (13:56)
--- NOTE | 2017-06-29 18:02 | CP.PCM.PN ---
Subjective - Date & Time of Evaluation Date of Evaluation: 06/29/17 Time of Evaluation: 07:00 - Subjective Subjective: still spiking recultured s/p av fistula Objective - Vital Signs/Intake and Output Vital Signs (last 24 hours): Temp Pulse Resp BP Pulse Ox 98.2 F 80 20 138/77 94 L 06/29/17 15:15 06/29/17 15:15 06/29/17 15:15 06/29/17 18:00 06/29/17 15:15 Intake and Output: 06/29/17 06/29/17 06:59 18:59 Intake Total 400 50 Balance 400 50 - Medications Medications: Current Medications Acetaminophen (Tylenol 325mg Tab) 650 mg PO Q6 PRN PRN Reason: Pain, Mild (1-3) Last Admin: 06/28/17 18:51 Dose: 650 mg Albuterol/Ipratropium (Duoneb 3 Mg/0.5 Mg (3 Ml) Ud) 3 ml INH RQ6 [facility] Last Admin: 06/29/17 07:55 Dose: 3 ml Calcium Acetate (Phoslo) 1,334 mg PO TIDCC [facility] Last Admin: 06/29/17 17:59 Dose: 1,334 mg Carvedilol (Coreg) 25 mg PO BID [facility] Last Admin: 06/29/17 18:00 Dose: 25 mg Epoetin Connor (Procrit) 12,000 unit IV MWF [facility] Last Admin: 06/28/17 12:06 Dose: 12,000 unit Ergocalciferol (Drisdol 50,000 Intl Units Cap) 1 cap PO Q7D [facility] Last Admin: 06/27/17 09:36 Dose: 1 cap Fluconazole (Diflucan) 50 mg PO DAILY [facility] Stop: 07/03/17 10:01 Last Admin: 06/29/17 18:00 Dose: 50 mg Hydralazine HCl (Apresoline) 25 mg PO Q4 PRN PRN Reason: Other Hydromorphone HCl (Dilaudid) 0.5 mg IVP Q4H PRN PRN Reason: Pain, moderate (4-7) Linezolid (Zyvox) 600 mg PO Q12H [facility] Last Admin: 06/29/17 18:00 Dose: 600 mg Losartan Potassium (Cozaar) 100 mg PO QPM [facility] Last Admin: 06/29/17 18:00 Dose: 100 mg Nifedipine (Procardia Xl) 60 mg PO DAILY [facility] Last Admin: 06/29/17 09:55 Dose: 60 mg Pantoprazole Sodium (Protonix Ec Tab) 40 mg PO DAILY [facility] Last Admin: 06/29/17 09:56 Dose: Not Given Vitamin B Complex/Vit C/Folic Acid (Nephro-Magdalena) 1 tab PO 0800 [facility] Last Admin: 06/29/17 09:00 Dose: Not Given - Labs Labs: 06/29/17 07:46 06/29/17 07:46 PT 13.0 SECONDS (9.7-12.2) H 06/20/17 06:42 INR 1.2 06/20/17 06:42 APTT 35 SECONDS (21-34) H 06/20/17 06:42 - Constitutional Appears: Non-toxic, Chronically Ill - Head Exam Head Exam: NORMOCEPHALIC - Eye Exam Eye Exam: PERRL. absent: Scleral icterus - ENT Exam ENT Exam: Mucous Membranes Dry - Neck Exam Neck Exam: absent: Lymphadenopathy - Respiratory Exam Respiratory Exam: Decreased Breath Sounds - Cardiovascular Exam Cardiovascular Exam: REGULAR RHYTHM, +S1, +S2 - GI/Abdominal Exam GI & Abdominal Exam: Distended, Soft Assessment and Plan (1) ARF (acute renal failure) Status: Acute (2) CHF (congestive heart failure), NYHA class II Status: Acute (3) Dyspnea on exertion Status: Acute (4) Interstitial lung disease Status: Acute (5) Severe anemia Status: Acute (6) UTI (urinary tract infection) Status: Acute
[2017-06-29] MEDS: HYDROmorphone 0.5 mg/0.5 ml ISec IVP PRN (21:47)
[2017-06-30] MEDS: Albuterol-Ipratrop 3 mg / 0.5 (3 ml) UD INH SCH ×3 (01:33→13:48)
[2017-06-30] MEDS: HYDROmorphone 0.5 mg/0.5 ml ISec IVP PRN (06:26)
--- NOTE | 2017-06-30 07:19 | OP ---
PROCEDURE DATE: 06/29/2017. PREOPERATIVE DIAGNOSIS: Renal failure. POSTOPERATIVE DIAGNOSIS: Renal failure. PROCEDURE: Brachiocephalic fistula bidirectional left elbow. SURGEON: Nahum Sotelo Jr., MD. HOSPITALITY MANAGER: Dr. Benjamin Artis. ANESTHESIOLOGIST: INDICATION FOR SURGERY : The patient is a 60-year-old man with GI bleeding, renal insufficiency, requires a fistula for permanent dialysis. OPERATIVE FINDINGS: There was a [id number] fistula created in a bidirectional fashion between the brachial artery and the cephalic vein at the elbow. PROCEDURE: The veins were marked on the skin. The vessels were then anastomosed using loupe magnification, heparin anticoagulation in the side-side to fashion with bidirectional flow and disruption of the valves distally. There was excellent flow through the fistula and there was a palpable pulse at the wrist when we were done. The blood loss for the procedure was approximately 25 mL. Skin was closed with 5-0 nylon sutures and skin sutures were applied. The operation carried out is brachiocephalic fistula left elbow, if this flow is not adequate then the forearm branch could be ligated to accelerate flow into the upper arm cephalic vein portion. Nahum Sotelo Jr., MD
[2017-06-30 08:22] LABS: BASO # 0.1 K/uL (0.0-0.2); BASO % 1.5 % (0.0-2.0); EOS # 0.2 K/uL (0.0-0.7); EOS % 2.2 % (0.0-4.0); HEMOGLOBIN 8.9 g/dL (12.0-18.0); LYMPH # 0.8 K/uL (1.0-4.3); LYMPH % 11.7 % (20.0-40.0); MEAN CELL VOLUME 85.8 fL (80.0-94.0); MEAN CORPUSCULAR HEMOGLOBIN 28.2 pg (27.0-31.0); MEAN CORPUSCULAR HGB CONC 32.8 g/dL (33.0-37.0); MEAN PLATELET VOLUME 6.9 fL (7.2-11.7); MONO # 0.6 K/uL (0.0-0.8); NEUT # 5.2 K/uL (1.8-7.0); NEUT % 75.6 % (50.0-75.0); NRBC % 0.1 % (0.0-2.0); RBC 3.16 Mil/uL (4.40-5.90); WHITE BLOOD COUNT 6.9 K/uL (4.8-10.8)
[2017-06-30] MEDS: Multivitamin Vitamin B Complex (Nephro-Vite) Tab PO SCH (08:27)
[2017-06-30 08:51] LABS: ALBUMIN 3.1 g/dL (3.5-5.0); CALCIUM 7.7 mg/dl (8.6-10.4)
[2017-06-30] MEDS: NIFEdipine 60 mg ER Tab PO SCH (09:00)
[2017-06-30] MEDS: Pantoprazole 40 mg EC Tab PO SCH (09:00)
[2017-06-30] MEDS ORDERED: Multivitamin Vitamin B Complex (Nephro-Vite) Tab PO SCH (09:46)
[2017-06-30 10:01] VITALS: O2SAT 95
--- NOTE | 2017-06-30 10:20 | CP.PCM.DIS ---
<Marimar John - Last Filed: 06/30/17 10:31> Provider - Provider Date of Admission: 06/16/17 11:04 Attending physician: Farzad Mcallister DO Time Spent in preparation of Discharge (in minutes): 55 Hospital Course - Lab Results Lab Results: Micro Results 06/28/17 08:30 Urine Urine Culture - Final No Growth (<1,000 CFU/ML) 06/28/17 19:20 Blood Blood Culture - Preliminary NO GROWTH AFTER 24 HOURS 06/27/17 Unknown Urine,Clean Catch Urine Culture - Final No Growth (<1,000 CFU/ML) 06/21/17 22:52 Urine Urine Culture - Final Vancomycin Resistant E.faecium 06/15/17 16:25 Blood Blood Culture - Final NO GROWTH AFTER 5 DAYS 06/15/17 16:25 Blood Gram Stain - Final TEST NOT PERFORMED 06/15/17 16:55 Blood Blood Culture - Final NO GROWTH AFTER 5 DAYS 06/15/17 16:55 Blood Gram Stain - Final TEST NOT PERFORMED 06/18/17 19:31 Naris MRSA Culture - Final MRSA NOT DETECTED 06/15/17 16:01 Urine Urine Culture - Final Escherichia Coli Most Recent Lab Values WBC 6.9 K/uL (4.8-10.8) 06/30/17 08:15 RBC 3.16 Mil/uL (4.40-5.90) L 06/30/17 08:15 Hgb 8.9 g/dL (12.0-18.0) L 06/30/17 08:15 Hct 27.1 % (35.0-51.0) L 06/30/17 08:15 MCV 85.8 fL (80.0-94.0) 06/30/17 08:15 MCH 28.2 pg (27.0-31.0) 06/30/17 08:15 MCHC 32.8 g/dL (33.0-37.0) L 06/30/17 08:15 RDW 16.0 % (11.5-14.5) H 06/30/17 08:15 Plt Count 251 K/uL (130-400) 06/30/17 08:15 MPV 6.9 fL (7.2-11.7) L 06/30/17 08:15 Neut % (Auto) 75.6 % (50.0-75.0) H 06/30/17 08:15 Lymph % (Auto) 11.7 % (20.0-40.0) L 06/30/17 08:15 Wayne % (Auto) 9.0 % (0.0-10.0) 06/30/17 08:15 Eos % (Auto) 2.2 % (0.0-4.0) 06/30/17 08:15 Baso % (Auto) 1.5 % (0.0-2.0) 06/30/17 08:15 Neut # (Auto) 5.2 K/uL (1.8-7.0) 06/30/17 08:15 Lymph # (Auto) 0.8 K/uL (1.0-4.3) L 06/30/17 08:15 Wayne # (Auto) 0.6 K/uL (0.0-0.8) 06/30/17 08:15 Eos # (Auto) 0.2 K/uL (0.0-0.7) 06/30/17 08:15 Baso # (Auto) 0.1 K/uL (0.0-0.2) 06/30/17 08:15 Neutrophils % (Manual) 67 % (50-75) 06/28/17 06:20 Band Neutrophils % 1 % (0-2) 06/28/17 06:20 Lymphocytes % (Manual) 12 % (20-40) L 06/28/17 06:20 Reactive Lymphs % 3 % (0-0) H 06/16/17 23:10 Monocytes % (Manual) 12 % (0-10) H 06/28/17 06:20 Eosinophils % (Manual) 8 % (0-4) H 06/28/17 06:20 Toxic Granulation Present 06/21/17 07:12 Platelet Estimate Normal (NORMAL) 06/28/17 06:20 Large Platelets Present 06/20/17 06:42 Giant Platelets Present 06/24/17 08:57 Polychromasia Slight 06/27/17 06:10 Hypochromasia (manual) Slight 06/28/17 06:20 Poikilocytosis (manual Slight 06/28/17 06:20 Anisocytosis (manual) Slight 06/28/17 06:20 Microcytosis (manual) Slight 06/25/17 08:42 Macrocytosis (manual) Slight 06/25/17 08:42 Target Cells Slight 06/21/17 07:12 Tear Drop Cells Slight 06/20/17 06:42 Ovalocytes Slight 06/25/17 08:42 Helmet Cells Slight 06/16/17 23:10 Whipple Cells Slight 06/20/17 06:42 Schistocytes Slight 06/25/17 08:42 Retic Count 3.1 % (0.5-1.5) H 06/16/17 06:18 PT 13.0 SECONDS (9.7-12.2) H 06/20/17 06:42 INR 1.2 06/20/17 06:42 APTT 35 SECONDS (21-34) H 06/20/17 06:42 Sodium 135 mmol/L (132-148) 06/30/17 08:15 Potassium 5.5 mmol/L (3.6-5.2) H 06/30/17 08:15 Chloride 97 mmol/L (98-107) L 06/30/17 08:15 Carbon Dioxide 25 mmol/L (22-30) 06/30/17 08:15 Anion Gap 19 (10-20) 06/30/17 08:15 BUN 47 mg/dL (9-20) H 06/30/17 08:15 Creatinine 9.5 mg/dL (0.8-1.5) H* D 06/30/17 08:15 Est GFR ( Amer) 7 06/30/17 08:15 Est GFR (Non-Af Amer) 6 06/30/17 08:15 Random Glucose 84 mg/dL (75-110) 06/30/17 08:15 Lactic Acid 0.6 mmol/L (0.7-2.1) L 06/16/17 17:30 Calcium 7.7 mg/dl (8.6-10.4) L 06/30/17 08:15 Phosphorus 7.2 mg/dL (2.5-4.5) H 06/30/17 08:15 Magnesium 2.0 mg/dL (1.6-2.3) 06/30/17 08:15 Iron 14 ug/dL (49-181) L 06/16/17 06:18 TIBC 289 ug/dL (250-450) 06/16/17 06:18 % Saturation 5 (20-55) L 06/16/17 06:18 Ferritin 41.3 ng/mL 06/16/17 06:18 Total Bilirubin 0.5 mg/dL (0.2-1.3) 06/30/17 08:15 AST 25 U/L (17-59) 06/30/17 08:15 ALT 38 U/L (21-72) 06/30/17 08:15 Alkaline Phosphatase 57 U/L (38-126) 06/30/17 08:15 Total Creatine Kinase 225 U/L (55-170) H 06/16/17 19:53 CK-MB (Mass) 2.88 ng/mL (0.0-3.38) 06/16/17 19:53 Troponin I 0.2450 ng/mL (0.00-0.120) H* 06/16/17 19:53 NT-Pro-B Natriuret Pep 41687 pg/mL (0-900) H 06/15/17 16:35 Total Protein 6.2 g/dL (6.3-8.3) L 06/30/17 08:15 Albumin 3.1 g/dL (3.5-5.0) L 06/30/17 08:15 Globulin 3.1 gm/dL (2.2-3.9) 06/30/17 08:15 Albumin/Globulin Ratio 1.0 (1.0-2.1) 06/30/17 08:15 25-OH Vitamin D Total 15.9 NG/ML (30.0-100.0) L 06/20/17 06:42 Calcium (PTH Intact) 7.3 mg/dL (8.6-10.3) L 06/20/17 06:42 PTH w/Ion &Tot Calcium 303 pg/mL (14-64) H 06/20/17 06:42 Urine Color Yellow (YELLOW) 06/28/17 21:30 Urine Clarity Clear (Clear) 06/28/17 21:30 Urine pH 9.0 (5.0-8.0) 06/28/17 21:30 Ur Specific [place] 1.006 (1.003-1.030) 06/28/17 21:30 Urine Protein 2+ mg/dL (NEGATIVE) H 06/28/17 21:30 Urine Glucose (UA) 1+ mg/dL (Normal) H 06/28/17 21:30 Urine Ketones Negative mg/dL (NEGATIVE) 06/28/17 21:30 Urine Blood Negative (NEGATIVE) 06/28/17 21:30 Urine Nitrate Negative (NEGATIVE) 06/28/17 21:30 Urine Bilirubin Negative (NEGATIVE) 06/28/17 21:30 Urine Urobilinogen Normal mg/dL (0.2-1.0) 06/28/17 21:30 Ur Leukocyte Esterase Neg [place]/uL (Negative) 06/28/17 21:30 Urine WBC (Auto) 2 /hpf (0-5) 06/28/17 21:30 Urine RBC (Auto) 1 /hpf (0-3) 06/28/17 21:30 Urine Bacteria Rare (<OCC) 06/28/17 21:30 Urine Eosinophils Positive (NEGATIVE) H 06/15/17 22:01 Ur Random Creatinine 65.7 mg/dL 06/15/17 22:01 U Random Total Protein 136.0 mg/dL (0.0-12.0) H 06/15/17 22:01 Urine Collection Time 24 HRS 06/17/17 13:03 Urine Total Volume 800 mL 06/17/17 13:03 Ur Protein 24 Hr Calc 1488.0 mg/24hr (42-225) H 06/17/17 13:03 Stool Occult Blood Positive (NEGATIVE) H 06/15/17 16:44 Urine Opiates Screen Negative (NEGATIVE) 06/17/17 06:46 Urine Methadone Screen Negative (NEGATIVE) 06/17/17 06:46 Ur Barbiturates Screen Negative (NEGATIVE) 06/17/17 06:46 Ur Phencyclidine Scrn Negative (NEGATIVE) 06/17/17 06:46 Ur Amphetamines Screen Negative (NEGATIVE) 06/17/17 06:46 U Benzodiazepines Scrn Negative (NEGATIVE) 06/17/17 06:46 U Oth Cocaine Metabols Negative (NEGATIVE) 06/17/17 06:46 U Cannabinoids Screen Negative (NEGATIVE) 06/17/17 06:46 KADEN Nuclear Membr Pat Positive (Negative) H 06/16/17 11:38 ANCA Screen Negative (NEGATIVE) 06/16/17 11:38 c-ANCA Titer TNP 06/16/17 11:38 Proteinase 3 (PR3) <1.0 AI (<1.0) 06/16/17 11:38 p-ANCA Titer TNP 06/16/17 11:38 Atypical p-ANCA Titer TNP 06/16/17 11:38 Myeloperoxidase Ab <1.0 AI (<1.0) 06/16/17 11:38 Double Strand DNA Ab <1 IU/mL 06/16/17 11:38 Glomerular Base Mem IgG <1.0 AI (<1.0) 06/16/17 11:38 Complement C3 104.0 mg/dL (88.0-165.0) 06/16/17 11:38 Complement C4 36.2 mg/dL (14.0-44.0) 06/16/17 11:38 Tot Complement (CH50) >60 U/mL (31-60) H 06/16/17 07:58 Hepatitis A IgM Ab Negative (NEGATIVE) 06/16/17 06:18 Hep Bs Antigen Negative (NEGATIVE) 06/16/17 06:18 Hep B Core IgM Ab Negative (NEGATIVE) 06/16/17 06:18 Hepatitis C Antibody Negative (NEGATIVE) 06/16/17 06:18 HIV 1&2 Antibody Screen Negative (NEGATIVE) 06/16/17 17:30 Blood Type B POSITIVE 06/15/17 16:35 Blood Type Confirm B POSITIVE 06/15/17 16:35 Antibody Screen Negative 06/15/17 16:35 - Hospital Course Hospital Course: Upon Admission: HPI: Patient is a 61 y/o male with past medical history of HTN, upper GI bleed, TIA, and sleep apnea, who presents to the ED with complaint of shortness of breath, wheezing, and blood in stool. He states the shortness of breath began about 2 weeks ago as he was walking to work, and now he cannot walk more than 2 blocks without feeling short of breath. The shortness of breath worsens upon any physical exertion and gets better with rest. As per patient, the shortness of breath is also present while sleeping and he needs to prop himself up in bed in order to sleep. Furthermore, within the same two weeks, he also noticed bright red blood in the toilet after defecation. He states the stool itself is brown in color, but there is blood in the toilet and on the paper after he wipes himself. His last bowel movement was this morning. Patient denies any of these events happening in the past. Patient currently has dyspnea on exertion, chronic dry cough, lightheadedness, general weakness, hemtaochezia, nocturia, and orthopnea. He denies fever, chills, CASTRO, vision changes, sore throat, dizziness, CP, abdominal pain, n/v, weight changes, and recent sick contacts. PMD: Dr. Dottie Alonzo Nephro: Dr. 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 Sotelo consulted - help appreciated Nephrology- Dr. Mckeon/ Dr. Encsio - help appreciated S/P Permacath 06/19/17 Dialysis MWF Creatinine improving S/P Renal Biopsy - with IR - Vascular sclerosis, hypertensive renovascular disease. Patient is ESRD will need dialysis indefinitely. AVF with Ashleigh 06/29/17 Imaging: Renal US: Increased echogenicity of the bilateral renal parenchymal cortices suggestive for medical renal disease. Bilateral renal cysts. Meds: Procrit MWF, Nephro-Magdalena, Phoslo VRE + UTI ON CONTACT Precautions ID Consulted - Dr. Joshua - help appreciated UA: 2+ protein, 1+ blood, 3+ LE, 36 WBC, 4RBC, moderate bacteria The urine culture shows E. Coli Started Cipro 250mg PO BID x 5 days, UC - 06/21/17 - VRE+ Spoke to Dr. Joshua - patient started on Zyvox 600mg IVP Q12H, Repeat Urine Culture 06/28/17 - NO GROWTH - once discharge no need for ABX as per Dr. Joshua- since patient completed 7 day course. COPD Pulmonology consulted - Dr. Pierson- help appreciated - Dr. Bell is covering Chest xray: patchy opacities within lateral right upper lobe and b/l lower lobes may reflect multifocal infiltrate or atelectasis CT Chest: Patchy foci of ground-glass opacities associated with septal thickening and mild bronchiectasis and also associated with foci of honeycombing. Findings likely represent interstitial pneumonitis and the differential consideration includes mainly UIP and less likely nonspecific interstitial pneumonitis, desquamative interstitial pneumonia and chronic hypersensitivity pneumonitis. Foci of consolidation noted at the right lung along the right fissure may represent lung nodule or pleural thickening 3 months follow-up reassessment is recommended. Mild emphysema. Mild cardiomegaly. CXR ordered - no infiltrates or effusion noted, patient is asymptomatic - will continue to monitor CT CHEST 06/26/17: Interval improvement in interstitial lung disease identified previously. New a dependent atelectasis/infiltrate subsegmental and approximately symmetrical. Underlying bronchiectatic changes and residual interstitial findings at the lung bases. PT has been ambulating with patient and he starts to desaturate to 87-88% upon walking; pending recommendations from Pulmonary. Patient will most likely need home oxygen. Spoke to Dr. Bell, covering for Dr. Pierson - Will need outpatient bronchoscopy Esophageal Candiasis Started diflucan 100mg PO once, then Diflucan 50mg PO daily x 13 - discharged with 3 more days worth Anemia Continue to monitor Hx CHF Cardiology consulted - Dr. Cobb- workup of ischemic etiology would be done as outpatient. No shortness of breath is probably a diastolic dysfunction due to renal failure. Echo: global left ventricular hypokinesis, moderate pulmonary HTN, and also EF 45% Nonbleeding Gastric Ulcer Severe anemia from a lower GI Etiology and from renal failure GI consulted - Dr. Barnard- help appreciated On admission Hgb was 5 Because of uremia on labwork we also ordered 30 DDAVP x 1 dose now as he may have uremic bleeding S/P EGD: showing hiatal hernia, esophagitis, gastric ulcer, and a normal duodenum Nuclear Bleeding Scan: negative S/P 4 units PRBCs Hx of HTN Echo: global left ventricular hypokinesis, moderate pulmonary HTN, and also EF 45% Coreg 12.5mg PO BID, Cozaar 50mg PO daily Procardia XL 60mg PO daily This is a brief summary of the patient's hospital course. please review EMR for full record. Discharge Exam - Additional Findings Additional findings: - Constitutional Appears: No Acute Distress - Head Exam Head Exam: NORMAL INSPECTION, NORMOCEPHALIC - Eye Exam Eye Exam: EOMI, Normal appearance, PERRL - ENT Exam ENT Exam: Mucous Membranes Moist - Respiratory Exam Respiratory Exam: Decreased Breath Sounds, NORMAL BREATHING PATTERN - Cardiovascular Exam Cardiovascular Exam: REGULAR RHYTHM, right PERMACATH - GI/Abdominal Exam GI & Abdominal Exam: Soft, Normal Bowel Sounds. absent: Distended, Tenderness - Rectal Exam Rectal Exam: Deferred - Extremities Exam Extremities Exam: Normal Inspection. absent: Pedal Edema, Tenderness AVF left arm + thrill - Neurological Exam Neurological Exam: Alert, Awake, CN II-XII Intact, Normal Gait, Oriented x3 - Psychiatric Exam Psychiatric exam: Normal Affect, Normal Mood - Skin Skin Exam: Dry, Intact, Normal Color, Warm Discharge Plan - Discharge Medications Prescriptions: Albuterol HFA [Ventolin HFA 90 mcg/actuation (8 g)] 2 puff IH [id number] PRN #1 inhaler PRN Reason: Shortness Of Breath Calcium Acetate [Phoslo] 1,334 mg PO TIDCC #90 tab Carvedilol [Coreg] 25 mg PO BID #60 tab Ergocalciferol [Drisdol 50,000 Intl Units Cap] 1 cap PO Q7D #4 cap Fluconazole [Diflucan] 50 mg PO DAILY #3 tab Losartan [Cozaar] 100 mg PO QPM #30 tab NIFEdipine ER [Procardia XL] 60 mg PO DAILY #30 ter Vitamin B Complex/Vit C/Folic [Nephro-Magdalena] 1 tab PO 0800 #30 tab - Follow Up Plan Condition: SERIOUS Disposition: HOME/ ROUTINE Instructions: Dialysis Diet , Albuterol, Calcium Acetate, Carvedilol, Ergocalciferol, Fluconazole, Losartan, Nifedipine, End Stage Kidney Disease (DC) , Dialysis and Diet Additional Instructions: Please continue all the medications as instructed. The only temporary medication is Diflucan 100mg by mouth for 3 more days for the esophageal candiasis. Ergocalciferol is once a week. The rest of the medications are DAILY. Please continue with dialysis MWF- Dr. Enciso - the workers compensation administrator will follow you at the dialysis center. Doctors you need to follow up: Dr. Sotelo- the vascular surgeon who placed the AV fistula - please call his office to see him in [address] Pierson - the dental laboratory assistant - for outpatient bronchoscopy and to evaluate if home oxygen is needed Dr. Barnard - the valet - for routine colonoscopy and to monitor your ulcer A certified flex endoscope reprocessor to follow up your congestive health failure - your heart function is at 45% Follow up with a primary care physician of your choice- if you do not have insurance then follow up with us in the [facility] - Dr. Marimar John was the medical logistics specialist managing your care. Please take care and be well. Referrals: Pancho Pierson MD [Staff Provider] - Raymundo Barnard [Staff Provider] - Nahum Sotelo Jr., MD [Staff Provider] - <Farzad Mcallister - Last Filed: 06/30/17 14:55> Provider - Provider Date of Admission: 06/16/17 11:04 Attending physician: Fazrad Mcallister DO Hospital Course - Lab Results Lab Results: Micro Results 06/28/17 08:30 Urine Urine Culture - Final No Growth (<1,000 CFU/ML) 06/28/17 19:20 Blood Blood Culture - Preliminary NO GROWTH AFTER 24 HOURS 06/27/17 Unknown Urine,Clean Catch Urine Culture - Final No Growth (<1,000 CFU/ML) 06/21/17 22:52 Urine Urine Culture - Final Vancomycin Resistant E.faecium 06/15/17 16:25 Blood Blood Culture - Final NO GROWTH AFTER 5 DAYS 06/15/17 16:25 Blood Gram Stain - Final TEST NOT PERFORMED 06/15/17 16:55 Blood Blood Culture - Final NO GROWTH AFTER 5 DAYS 06/15/17 16:55 Blood Gram Stain - Final TEST NOT PERFORMED 06/18/17 19:31 Naris MRSA Culture - Final MRSA NOT DETECTED 06/15/17 16:01 Urine Urine Culture - Final Escherichia Coli Most Recent Lab Values WBC 6.9 K/uL (4.8-10.8) 06/30/17 08:15 RBC 3.16 Mil/uL (4.40-5.90) L 06/30/17 08:15 Hgb 8.9 g/dL (12.0-18.0) L 06/30/17 08:15 Hct 27.1 % (35.0-51.0) L 06/30/17 08:15 MCV 85.8 fL (80.0-94.0) 06/30/17 08:15 MCH 28.2 pg (27.0-31.0) 06/30/17 08:15 MCHC 32.8 g/dL (33.0-37.0) L 06/30/17 08:15 RDW 16.0 % (11.5-14.5) H 06/30/17 08:15 Plt Count 251 K/uL (130-400) 06/30/17 08:15 MPV 6.9 fL (7.2-11.7) L 06/30/17 08:15 Neut % (Auto) 75.6 % (50.0-75.0) H 06/30/17 08:15 Lymph % (Auto) 11.7 % (20.0-40.0) L 06/30/17 08:15 Wayne % (Auto) 9.0 % (0.0-10.0) 06/30/17 08:15 Eos % (Auto) 2.2 % (0.0-4.0) 06/30/17 08:15 Baso % (Auto) 1.5 % (0.0-2.0) 06/30/17 08:15 Neut # (Auto) 5.2 K/uL (1.8-7.0) 06/30/17 08:15 Lymph # (Auto) 0.8 K/uL (1.0-4.3) L 06/30/17 08:15 Wayne # (Auto) 0.6 K/uL (0.0-0.8) 06/30/17 08:15 Eos # (Auto) 0.2 K/uL (0.0-0.7) 06/30/17 08:15 Baso # (Auto) 0.1 K/uL (0.0-0.2) 06/30/17 08:15 Neutrophils % (Manual) 67 % (50-75) 06/28/17 06:20 Band Neutrophils % 1 % (0-2) 06/28/17 06:20 Lymphocytes % (Manual) 12 % (20-40) L 06/28/17 06:20 Reactive Lymphs % 3 % (0-0) H 06/16/17 23:10 Monocytes % (Manual) 12 % (0-10) H 06/28/17 06:20 Eosinophils % (Manual) 8 % (0-4) H 06/28/17 06:20 Toxic Granulation Present 06/21/17 07:12 Platelet Estimate Normal (NORMAL) 06/28/17 06:20 Large Platelets Present 06/20/17 06:42 Giant Platelets Present 06/24/17 08:57 Polychromasia Slight 06/27/17 06:10 Hypochromasia (manual) Slight 06/28/17 06:20 Poikilocytosis (manual Slight 06/28/17 06:20 Anisocytosis (manual) Slight 06/28/17 06:20 Microcytosis (manual) Slight 06/25/17 08:42 Macrocytosis (manual) Slight 06/25/17 08:42 Target Cells Slight 06/21/17 07:12 Tear Drop Cells Slight 06/20/17 06:42 Ovalocytes Slight 06/25/17 08:42 Helmet Cells Slight 06/16/17 23:10 Sana Cells Slight 06/20/17 06:42 Schistocytes Slight 06/25/17 08:42 Retic Count 3.1 % (0.5-1.5) H 06/16/17 06:18 PT 13.0 SECONDS (9.7-12.2) H 06/20/17 06:42 INR 1.2 06/20/17 06:42 APTT 35 SECONDS (21-34) H 06/20/17 06:42 Sodium 135 mmol/L (132-148) 06/30/17 08:15 Potassium 5.5 mmol/L (3.6-5.2) H 06/30/17 08:15 Chloride 97 mmol/L (98-107) L 06/30/17 08:15 Carbon Dioxide 25 mmol/L (22-30) 06/30/17 08:15 Anion Gap 19 (10-20) 06/30/17 08:15 BUN 47 mg/dL (9-20) H 06/30/17 08:15 Creatinine 9.5 mg/dL (0.8-1.5) H* D 06/30/17 08:15 Est GFR ( Amer) 7 06/30/17 08:15 Est GFR (Non-Af Amer) 6 06/30/17 08:15 Random Glucose 84 mg/dL (75-110) 06/30/17 08:15 Lactic Acid 0.6 mmol/L (0.7-2.1) L 06/16/17 17:30 Calcium 7.7 mg/dl (8.6-10.4) L 06/30/17 08:15 Phosphorus 7.2 mg/dL (2.5-4.5) H 06/30/17 08:15 Magnesium 2.0 mg/dL (1.6-2.3) 06/30/17 08:15 Iron 14 ug/dL (49-181) L 06/16/17 06:18 TIBC 289 ug/dL (250-450) 06/16/17 06:18 % Saturation 5 (20-55) L 06/16/17 06:18 Ferritin 41.3 ng/mL 06/16/17 06:18 Total Bilirubin 0.5 mg/dL (0.2-1.3) 06/30/17 08:15 AST 25 U/L (17-59) 06/30/17 08:15 ALT 38 U/L (21-72) 06/30/17 08:15 Alkaline Phosphatase 57 U/L (38-126) 06/30/17 08:15 Total Creatine Kinase 225 U/L (55-170) H 06/16/17 19:53 CK-MB (Mass) 2.88 ng/mL (0.0-3.38) 06/16/17 19:53 Troponin I 0.2450 ng/mL (0.00-0.120) H* 06/16/17 19:53 NT-Pro-B Natriuret Pep 19800 pg/mL (0-900) H 06/15/17 16:35 Total Protein 6.2 g/dL (6.3-8.3) L 06/30/17 08:15 Albumin 3.1 g/dL (3.5-5.0) L 06/30/17 08:15 Globulin 3.1 gm/dL (2.2-3.9) 06/30/17 08:15 Albumin/Globulin Ratio 1.0 (1.0-2.1) 06/30/17 08:15 25-OH Vitamin D Total 15.9 NG/ML (30.0-100.0) L 06/20/17 06:42 Calcium (PTH Intact) 7.3 mg/dL (8.6-10.3) L 06/20/17 06:42 PTH w/Ion &Tot Calcium 303 pg/mL (14-64) H 06/20/17 06:42 Urine Color Yellow (YELLOW) 06/28/17 21:30 Urine Clarity Clear (Clear) 06/28/17 21:30 Urine pH 9.0 (5.0-8.0) 06/28/17 21:30 Ur Specific [place] 1.006 (1.003-1.030) 06/28/17 21:30 Urine Protein 2+ mg/dL (NEGATIVE) H 06/28/17 21:30 Urine Glucose (UA) 1+ mg/dL (Normal) H 06/28/17 21:30 Urine Ketones Negative mg/dL (NEGATIVE) 06/28/17 21:30 Urine Blood Negative (NEGATIVE) 06/28/17 21:30 Urine Nitrate Negative (NEGATIVE) 06/28/17 21:30 Urine Bilirubin Negative (NEGATIVE) 06/28/17 21:30 Urine Urobilinogen Normal mg/dL (0.2-1.0) 06/28/17 21:30 Ur Leukocyte Esterase Neg [place]/uL (Negative) 06/28/17 21:30 Urine WBC (Auto) 2 /hpf (0-5) 06/28/17 21:30 Urine RBC (Auto) 1 /hpf (0-3) 06/28/17 21:30 Urine Bacteria Rare (<OCC) 06/28/17 21:30 Urine Eosinophils Positive (NEGATIVE) H 06/15/17 22:01 Ur Random Creatinine 65.7 mg/dL 06/15/17 22:01 U Random Total Protein 136.0 mg/dL (0.0-12.0) H 06/15/17 22:01 Urine Collection Time 24 HRS 06/17/17 13:03 Urine Total Volume 800 mL 06/17/17 13:03 Ur Protein 24 Hr Calc 1488.0 mg/24hr (42-225) H 06/17/17 13:03 Stool Occult Blood Positive (NEGATIVE) H 06/15/17 16:44 Urine Opiates Screen Negative (NEGATIVE) 06/17/17 06:46 Urine Methadone Screen Negative (NEGATIVE) 06/17/17 06:46 Ur Barbiturates Screen Negative (NEGATIVE) 06/17/17 06:46 Ur Phencyclidine Scrn Negative (NEGATIVE) 06/17/17 06:46 Ur Amphetamines Screen Negative (NEGATIVE) 06/17/17 06:46 U Benzodiazepines Scrn Negative (NEGATIVE) 06/17/17 06:46 U Oth Cocaine Metabols Negative (NEGATIVE) 06/17/17 06:46 U Cannabinoids Screen Negative (NEGATIVE) 06/17/17 06:46 KADEN Nuclear Membr Pat Positive (Negative) H 06/16/17 11:38 ANCA Screen Negative (NEGATIVE) 06/16/17 11:38 c-ANCA Titer TNP 06/16/17 11:38 Proteinase 3 (PR3) <1.0 AI (<1.0) 06/16/17 11:38 p-ANCA Titer TNP 06/16/17 11:38 Atypical p-ANCA Titer TNP 06/16/17 11:38 Myeloperoxidase Ab <1.0 AI (<1.0) 06/16/17 11:38 Double Strand DNA Ab <1 IU/mL 06/16/17 11:38 Glomerular Base Mem IgG <1.0 AI (<1.0) 06/16/17 11:38 Complement C3 104.0 mg/dL (88.0-165.0) 06/16/17 11:38 Complement C4 36.2 mg/dL (14.0-44.0) 06/16/17 11:38 Tot Complement (CH50) >60 U/mL (31-60) H 06/16/17 07:58 Hepatitis A IgM Ab Negative (NEGATIVE) 06/16/17 06:18 Hep Bs Antigen Negative (NEGATIVE) 06/16/17 06:18 Hep B Core IgM Ab Negative (NEGATIVE) 06/16/17 06:18 Hepatitis C Antibody Negative (NEGATIVE) 06/16/17 06:18 HIV 1&2 Antibody Screen Negative (NEGATIVE) 06/16/17 17:30 Blood Type B POSITIVE 06/15/17 16:35 Blood Type Confirm B POSITIVE 06/15/17 16:35 Antibody Screen Negative 06/15/17 16:35 Attending/Attestation - Attestation I have personally seen and examined this patient.: Yes I have fully participated in the care of the patient.: Yes I have reviewed all pertinent clinical information, including history, physical exam and plan: Yes Notes (Text): Medical attending: Patient was seen and examined by me. Agree with the above note by the medical logistics specialist The patient had AVF placement yesterday. He also has outpatient HD placement as well. His Hgb have been stable since admission when he required multiple blood transfusions His HR and BP are also stable as well. He does have a low SpO2 when walking - however not symptomatic at this time. He will need to follow up with nephrology as well as pulmonology thank you Farzad Mcallister 06/30/17 14:54
[2017-06-30] MEDS: EPOETIN ALFA 4,000 UNIT/ML ML Dialysis IV SCH (10:36)
--- NOTE | 2017-06-30 11:58 | CP.PCM.PN ---
Subjective - Date & Time of Evaluation Date of Evaluation: 06/30/17 Time of Evaluation: 07:05 - Subjective Subjective: Vascular Surgery Progress note. Dr. Sotelo Pt seen and examined at bedside. No acute events overnight. No new complaints. Left AVF dressing clean, dry and intact. Does report mild pain at site. No N/V/ D. Tolerating diet. Objective - Vital Signs/Intake and Output Vital Signs (last 24 hours): Temp Pulse Resp BP Pulse Ox 98 F 88 18 125/77 95 06/30/17 09:15 06/30/17 09:15 06/30/17 09:15 06/30/17 11:45 06/30/17 09:15 Intake and Output: 06/30/17 06/30/17 06:59 18:59 Intake Total 600 250 Balance 600 250 - Medications Medications: Current Medications Acetaminophen (Tylenol 325mg Tab) 650 mg PO Q6 PRN PRN Reason: Pain, Mild (1-3) Last Admin: 06/28/17 18:51 Dose: 650 mg Albuterol/Ipratropium (Duoneb 3 Mg/0.5 Mg (3 Ml) Ud) 3 ml INH RQ6 [facility] Last Admin: 06/30/17 07:54 Dose: 3 ml Calcium Acetate (Phoslo) 1,334 mg PO TIDCC [facility] Last Admin: 06/30/17 08:27 Dose: 1,334 mg Carvedilol (Coreg) 25 mg PO BID [facility] Last Admin: 06/30/17 09:00 Dose: Not Given Epoetin Connor (Procrit) 12,000 unit IV MWF [facility] Last Admin: 06/30/17 10:36 Dose: 12,000 unit Ergocalciferol (Drisdol 50,000 Intl Units Cap) 1 cap PO Q7D [facility] Last Admin: 06/27/17 09:36 Dose: 1 cap Fluconazole (Diflucan) 50 mg PO DAILY [facility] Stop: 07/03/17 10:01 Last Admin: 06/30/17 09:00 Dose: 50 mg Hydralazine HCl (Apresoline) 25 mg PO Q4 PRN PRN Reason: Other Hydromorphone HCl (Dilaudid) 0.5 mg IVP Q4H PRN PRN Reason: Pain, moderate (4-7) Last Admin: 06/30/17 06:26 Dose: 0.5 mg Linezolid (Zyvox) 600 mg PO Q12H [facility] Last Admin: 06/30/17 06:14 Dose: 600 mg Losartan Potassium (Cozaar) 100 mg PO QPM [facility] Last Admin: 06/29/17 18:00 Dose: 100 mg Nifedipine (Procardia Xl) 60 mg PO DAILY [facility] Last Admin: 06/30/17 09:00 Dose: 60 mg Pantoprazole Sodium (Protonix Ec Tab) 40 mg PO DAILY [facility] Last Admin: 06/30/17 09:00 Dose: 40 mg Vitamin B Complex/Vit C/Folic Acid (Nephro-Magdalena) 1 tab PO 0800 [facility] - Labs Labs: 06/30/17 08:15 06/30/17 08:15 PT 13.0 SECONDS (9.7-12.2) H 06/20/17 06:42 INR 1.2 06/20/17 06:42 APTT 35 SECONDS (21-34) H 06/20/17 06:42 - Constitutional Appears: Well, Non-toxic, No Acute Distress - Head Exam Head Exam: ATRAUMATIC, NORMAL INSPECTION, NORMOCEPHALIC - Eye Exam Eye Exam: EOMI, Normal appearance - ENT Exam ENT Exam: Mucous Membranes Moist - Respiratory Exam Respiratory Exam: NORMAL BREATHING PATTERN. absent: Accessory Muscle Use, Wheezes, Respiratory Distress - Cardiovascular Exam Cardiovascular Exam: absent: JVD Additional comments: R IJ Permacath in place. Dressing clean, dry and intact. - GI/Abdominal Exam GI & Abdominal Exam: Soft. absent: Distended, Firm, Guarding, Rigid, Tenderness - Extremities Exam Additional comments: left AVF dressing in place: clean, dry and intact. Palpale radial pulses bilaterally. Warm hands bilaterally. Assessment and Plan - Assessment and Plan (Free Text) Assessment: 61yo M with ESRD; s/p left brachiocephalic AVF on 06/29/17. POD1 Plan: - Cleared for discharge from surgery standpoint - Pain management - Follow up with Dr. Sotelo in 1 week. Keep dressing clean and dry. No Bathing , no soaking. Okay to shower after covering AVF bandage with plastic wrap. - Keep left arm elevated to the level of the heart as much as possible. Further recs as per Dr. Ashleigh Artis PGY1 surgery pager: [phone]
[2017-06-30 13:03] VITALS: BP 129/81; PULSE 77; RESP 16; TEMP 97.4
--- NOTE | 2017-06-30 15:30 | CP.PCM.PN ---
Subjective - Date & Time of Evaluation Date of Evaluation: 06/30/17 Time of Evaluation: 15:29 - Subjective Subjective: Nephrology Consultation: Assessment: stable ESRD due to HTN severe Anemia with iron def and GI blood loss acidosis Hyperphosphatemia (E83.39), HTN (I12.9) active smoker and etoh on weekends hx of TIA, chronic sinusitis possible UTI, esophageal candidiasis, gastric ulcer Systolic CHF LVEF 45-50% COPD Plan plan for HD today as ordered. Also discussed with the patient about other dialysis Options such as PD patient will think and decide later on. Hypertension control with meds as ordered. on losartan and Coreg, nifedipine. Monitor Input/Output, daily weights and renal function with basic metabolic panel continue with phos binders, nephrovite, IV iron (s/p 1 gram loading dose) and epogen. pt had PRBC 06/16/17. kidney biopsy results suggest ESRD due to HTN Dose meds/antibiotics for reduced GFR. Avoid fleets enema/magnesium based laxatives. Avoid nephrotoxins/NSAIDs/ iodinated contrast (unless needed emergently) Glycemic control. pt to abstain from etoh and smoking Further work up/management as per primary team SW consult for outpt HD placement initiation. pt stable for d/c from renal perspective, has outpt spot for HD for monday pt advised to abstain from smoking and alcohol. d/w as well Thanks for allowing me to participate in care of your patient. Will follow patient with you. Please call if any Qs. d/w team Dr Austyn Enciso Office: [phone] HPI: Pt is a 61 M with hx of hypertension (few years) when diagnosed with TIA, chronic sinusitis, activ smoker and etoh on weekends, hasn't been taking BP meds for last 1 year due to insurance issues presented with complaints of sickness x 2 weeks with fatigue, body aches and exertional dyspnoea. reports hx of hemrrhoids and bright red blood in stool and toilet paper Denies OTC/herbal meds or NSAIDs No recent iodinated contrast exposure. No obvious episodes of low BP. no recent antibiotics denies any renal issues in past ROS: Cardiovascular: No chest pain. Pulmonary: improved shortness of breath Gastrointestinal: denies abdominal pain No nausea. No vomiting. Genitourinary: No pain while urinating. Denies blood in urine. All other negative except as in HPI Physical Examination: seen on HD General Appearance: comfortable, co-operative . Vitals reviewed and noted as below Head; Atraumatic, normocephalic ENT: no ulcers no thrush. Tongue is midline. Oropharynx: no rash or ulcers. EYES: Pupils are equal, round and reactive to light accommodation. Eye muscles and extraocular movement intact. Sclera is anicteric. Neck; supple no lymphadenopathy, no thyromegaly or bruit Lungs: normal respiratory rate/effort. Breath sounds bilateral equal and with basal rales Heart: Normal rate. s1s2 normal. No rub or gallop. Extremities: no edema. No varicose veins Neurological: Patient is alert, awake and oriented to person, place and time. No focal deficit. Strength bilateral appropriate and equal Skin: Warm and dry. Normal turgor. No rash. Palpitation: Normal elasticity for age Abdomen: Abdomen is soft. Bowel sounds +. There is no abdominal tenderness, no guarding/rigidity no organomegaly Psych: normal insight and normal affect/mood MSK: no joint tenderness or swelling. Digits and nails normal, no deformity : kidney or bladder not palpable Dialysis access: right chest permacath and s/p left AVF Labs/imaging reviewed. Past medical history, past surgical history, family history, social history, allergy reviewed and noted as below Family hx: no hx of CKD. Rest non-contributory Work up: urine pro/cr: 2 gram/day normal complements and urine cx: GNR TSAT 5% Ferritin 40 imaging: no obstruction Objective - Vital Signs/Intake and Output Vital Signs (last 24 hours): Temp Pulse Resp BP Pulse Ox 97.4 F L 77 16 129/81 95 06/30/17 12:45 06/30/17 12:45 06/30/17 12:45 06/30/17 12:45 06/30/17 12:45 Intake and Output: 06/30/17 06/30/17 06:59 18:59 Intake Total 600 250 Balance 600 250 - Medications Medications: Current Medications Acetaminophen (Tylenol 325mg Tab) 650 mg PO Q6 PRN PRN Reason: Pain, Mild (1-3) Last Admin: 06/28/17 18:51 Dose: 650 mg Albuterol/Ipratropium (Duoneb 3 Mg/0.5 Mg (3 Ml) Ud) 3 ml INH RQ6 [facility] Last Admin: 06/30/17 13:48 Dose: Not Given Calcium Acetate (Phoslo) 1,334 mg PO TIDCC [facility] Last Admin: 06/30/17 14:14 Dose: Not Given Carvedilol (Coreg) 25 mg PO BID [facility] Last Admin: 06/30/17 09:00 Dose: Not Given Epoetin Connor (Procrit) 12,000 unit IV MWF [facility] Last Admin: 06/30/17 10:36 Dose: 12,000 unit Ergocalciferol (Drisdol 50,000 Intl Units Cap) 1 cap PO Q7D [facility] Last Admin: 06/27/17 09:36 Dose: 1 cap Fluconazole (Diflucan) 50 mg PO DAILY [facility] Stop: 07/03/17 10:01 Last Admin: 06/30/17 09:00 Dose: 50 mg Hydralazine HCl (Apresoline) 25 mg PO Q4 PRN PRN Reason: Other Hydromorphone HCl (Dilaudid) 0.5 mg IVP Q4H PRN PRN Reason: Pain, moderate (4-7) Last Admin: 06/30/17 06:26 Dose: 0.5 mg Linezolid (Zyvox) 600 mg PO Q12H [facility] Last Admin: 06/30/17 06:14 Dose: 600 mg Losartan Potassium (Cozaar) 100 mg PO QPM [facility] Last Admin: 06/29/17 18:00 Dose: 100 mg Nifedipine (Procardia Xl) 60 mg PO DAILY [facility] Last Admin: 06/30/17 09:00 Dose: 60 mg Pantoprazole Sodium (Protonix Ec Tab) 40 mg PO DAILY [facility] Last Admin: 06/30/17 09:00 Dose: 40 mg Vitamin B Complex/Vit C/Folic Acid (Nephro-Magdalena) 1 tab PO 0800 [facility] - Labs Labs: 06/30/17 08:15 06/30/17 08:15 PT 13.0 SECONDS (9.7-12.2) H 06/20/17 06:42 INR 1.2 06/20/17 06:42 APTT 35 SECONDS (21-34) H 06/20/17 06:42
== END 2017-06-30 17:50 | disposition home or self-care (01) | DRG 553 ==
LOC: C.ER 15:06 → C.9E 18:20 → INTOOBSV 18:20 → C.7D 06-16 09:52 → OBSVTOIN 06-16 11:04 → C.9E 06-16 11:35 → C.9I 06-16 11:54 → C.3T 06-16 17:34 → C.9I 06-16 17:52 → C.3T 06-18 19:59
PROVIDERS: ADMIT Hospitalist; ATTEND Hospitalist
PROC: 5A1D70Z Performance of Urinary Filtration, Intermittent, Less than 6 Hours Per Day (ICD-10-PCS; 2017-06-16)
PROC: 0DB68ZX Excision of Stomach, Via Natural or Artificial Opening Endoscopic, Diagnostic (ICD-10-PCS; principal; 2017-06-16 13:27)
PROC: 5A1D70Z Performance of Urinary Filtration, Intermittent, Less than 6 Hours Per Day (ICD-10-PCS; 2017-06-17)
PROC: 02HV33Z Insertion of Infusion Device into Superior Vena Cava, Percutaneous Approach (ICD-10-PCS; 2017-06-19)
PROC: B5181ZA Fluoroscopy of Superior Vena Cava using Low Osmolar Contrast, Guidance (ICD-10-PCS; 2017-06-19)
PROC: 5A1D70Z Performance of Urinary Filtration, Intermittent, Less than 6 Hours Per Day (ICD-10-PCS; 2017-06-19)
PROC: 0TB03ZX Excision of Right Kidney, Percutaneous Approach, Diagnostic (ICD-10-PCS; 2017-06-20)
PROC: 03180ZD Bypass Left Brachial Artery to Upper Arm Vein, Open Approach (ICD-10-PCS; 2017-06-29)
DX: K25.9 Gastric ulcer, unspecified as acute or chronic, without hemorrhage or perforation (principal); B37.81 Candidal esophagitis; J96.91 Respiratory failure, unspecified with hypoxia; I13.2 Hypertensive heart and chronic kidney disease with heart failure and with stage 5 chronic kidney disease, or end stage renal disease; N17.9 Acute kidney failure, unspecified; E11.22 Type 2 diabetes mellitus with diabetic chronic kidney disease; E87.2 Acidosis; I27.20 Pulmonary hypertension, unspecified; I50.20 Unspecified systolic (congestive) heart failure; N18.6 End stage renal disease; N39.0 Urinary tract infection, site not specified; D50.9 Iron deficiency anemia, unspecified; F17.210 Nicotine dependence, cigarettes, uncomplicated; J84.89 Other specified interstitial pulmonary diseases; G47.33 Obstructive sleep apnea (adult) (pediatric); J32.9 Chronic sinusitis, unspecified; K44.9 Diaphragmatic hernia without obstruction or gangrene; Z83.3 Family history of diabetes mellitus; Z86.73 Personal history of transient ischemic attack (TIA), and cerebral infarction without residual deficits; Z99.2 Dependence on renal dialysis

== ENCOUNTER 2017-10-06 20:31 | Emergency (ER) | payer MEDICARE, OTHER ==
--- NOTE | 2017-10-06 21:41 | C.PDOC ---
History Of Present Illness 62 year old male, whose PMHx includes ESRD (on MWF hemodialysis since August 2017) and HTN presents to the ED for evaluation of lightheadedness noted earlier today. Patient states he was coming back from dialysis when he began feeling lightheaded. Patient states he normally gets 2.9L of fluids taken off, but only got 2.5L taken today. Patient currently states that his symptoms have resolved. He denies syncope, LOC, fever, chills, chest pain, shortness of breath, nausea, vomiting. This is the first time such symptoms have occurred since he started dialysis. Patient sees Dr. Sotelo for his left arm AV fistula. Time Seen by Provider: 10/06/17 20:42 Chief Complaint (Nursing): Syncope History Per: Patient History/Exam Limitations: no limitations Onset/Duration Of Symptoms: Hrs Current Symptoms Are (Timing): Gone Additional History Per: Patient Past Medical History Reviewed: Historical Data, Nursing Documentation, Vital Signs Vital Signs: Last Vital Signs Temp 97.9 F 10/06/17 23:06 Pulse 64 10/06/17 23:06 Resp 16 10/06/17 23:06 BP 107/74 10/06/17 23:06 Pulse Ox 98 10/06/17 23:06 - Medical History PMH: HTN (noncompliant with meds), End Stage Renal Disease Surgical History: No Surg Hx - [facility] Procedures (06/16/17) BYPASS LEFT BRACHIAL ARTERY TO UPPER ARM VEIN, OPEN APPROACH (06/16/17) EXCISION OF RIGHT KIDNEY, PERCUTANEOUS APPROACH, DIAGNOSTIC (06/16/17) EXCISION OF STOMACH, ENDO, DIAGN (06/16/17) FLUOROSCOPY OF SUP VENA CAVA USING L OSM CONTRAST, GUIDANCE (06/16/17) INSERTION OF INFUSION DEV INTO SUP VENA CAVA, PERC APPROACH (06/16/17) Family History: States: Unknown Family Hx - Social History Hx Alcohol Use: Yes Hx Substance Use: No - Immunization History Hx Tetanus Toxoid Vaccination: (unknown) Hx Influenza Vaccination: (unknown) Hx Pneumococcal Vaccination: (unknown) Review Of Systems Constitutional: Negative for: Fever, Chills Eyes: Negative for: Pain, Vision Change, Conjunctivae Inflammation ENT: Negative for: Ear Pain, Ear Discharge, Nose Pain Cardiovascular: Negative for: Chest Pain, Orthopnea, Paroxysmal Noc. Dyspnea Respiratory: Negative for: Cough, Shortness of Breath, SOB with Excertion, Pleuritic Pain, Sputum Gastrointestinal: Negative for: Nausea, Vomiting, Abdominal Pain, Diarrhea, Constipation, Melena, Hematochezia Genitourinary: Negative for: Dysuria, Frequency, Incontinence Musculoskeletal: Negative for: Neck Pain, Shoulder Pain, Arm Pain Skin: Negative for: Rash Neurological: Positive for: Other (lightheadedness. no syncope or LOC ). Negative for: Weakness, Numbness, Incoordination, Change in Speech, Confusion, Seizures, Altered Mental Status, Headache, Dizziness Psych: Negative for: Anxiety, Depression Physical Exam - Physical Exam Appears: Non-toxic, No Acute Distress, Other (comfortable, eating sandwich ) Skin: Normal Color, Warm, Dry Head: Atraumatic, Normacephalic Eye(s): bilateral: Normal Inspection, PERRL, EOMI Ear(s): Bilateral: Normal Nose: Normal Oral Mucosa: Moist Tongue: Normal Appearing Lips: Normal Appearing Teeth: Normal Dentition Gingiva: Normal Appearing Neck: Normal, Normal ROM, Supple Chest: Symmetrical, No Deformity, No Tenderness Cardiovascular: Rhythm Regular, No Murmur Respiratory: Normal Breath Sounds, No Rales, No Rhonchi, No Wheezing Gastrointestinal/Abdominal: Soft, No Tenderness, No Guarding, No Rebound Back: Normal Inspection Male Genital: Normal Inspection Extremity: Normal ROM, Capillary Refill (less than 2 seconds ), Other (left arm AV fistula with papable thrill) Neurological/Psych: Oriented x3, Normal Speech, Normal Cognition ED Course And Treatment - Laboratory Results Result Diagrams: 10/06/17 21:51 10/06/17 21:51 ECG: Interpreted By Me ECG Rhythm: Sinus Rhythm Interpretation Of ECG: Normal Sinus Rhythm at rate 60bpm. VA interval 172ms. QRS duration 96ms. No ischemic changes from prior. Rate From EC - Radiology CXR: Interpreted by Me, Viewed By Me CXR Interpretation: Yes: Other (no effusion, no infiltrates, unremarkable ) Progress Note: chemistry consistent with ESRD. white count: 12.5. hemoglobin: 13. troponin: 0.014. PNP: 4000 Medical Decision Making Medical Decision Making: Progress: Bloodwork, CXR, EKG ordered and reviewed. Disposition Counseled Patient/Family Regarding: Diagnosis - Disposition Disposition: HOME/ ROUTINE Disposition Time: 22:47 Condition: GOOD Additional Instructions: return if symptoms worsen or for chjest pain sob/ fever chills/ repeated dizziness Instructions: Dizziness, Nonvertigo, (DC), End Stage Kidney Disease (DC) Forms: [employer] (Nauruan) - Clinical Impression Clinical Impression: Dizziness, Near syncope, End stage kidney disease - Scribe Statement The provider has reviewed the documentation as recorded by the Scribe (Lizzy Cunningham) Provider Attestation: All medical record entries made by the Scribe were at my direction and personally dictated by me. I have reviewed the chart and agree that the record accurately reflects my personal performance of the history, physical exam, medical decision making, and the department course for this patient. I have also personally directed, reviewed, and agree with the discharge instructions and disposition.
[2017-10-06 21:54] LABS: BASO # 0.1 K/uL (0.0-0.2); BASO % 0.6 % (0.0-2.0); EOS # 0.4 K/uL (0.0-0.7); HEMOGLOBIN 13.9 g/dL (12.0-18.0); LYMPH # 1.3 K/uL (1.0-4.3); LYMPH % 10.5 % (20.0-40.0); MEAN CELL VOLUME 85.3 fL (80.0-94.0); MEAN CORPUSCULAR HEMOGLOBIN 28.1 pg (27.0-31.0); MEAN CORPUSCULAR HGB CONC 32.9 g/dL (33.0-37.0); MEAN PLATELET VOLUME 6.9 fL (7.2-11.7); MONO # 0.8 K/uL (0.0-0.8); MONO % 6.3 % (0.0-10.0); NEUT % 79.6 % (50.0-75.0); RBC 4.96 Mil/uL (4.40-5.90); RED CELL DISTRIBUTION WIDTH 16.9 % (11.5-14.5); WHITE BLOOD COUNT 12.5 K/uL (4.8-10.8)
[2017-10-06 22:20] LABS: TROPONIN I 0.014 ng/mL (0.00-0.120)
[2017-10-06 22:39] LABS: ALB/GLOB RATIO 1.2 (1.0-2.1); ALBUMIN 4.7 g/dL (3.5-5.0); CALCIUM 9.4 mg/dl (8.6-10.4)
[2017-10-06 23:08] VITALS: BP 107/74; PULSE 64; RESP 16; TEMP 97.9; O2SAT 98
--- NOTE | 2017-10-07 18:08 | RAD ---
HISTORY: chest pain COMPARISON: 06/28/2017 TECHNIQUE: Chest PA and lateral FINDINGS: LUNGS: No infiltrate. Small circumscribed nodule lower left chest in the interspace between the anterior left 5th and 6th ribs. Not evident previously. Possible nipple shadow. Recommend repeat PA chest radiography with nipple markers. No other pulmonary mass identified. Calcified granuloma noted in left apex. PLEURA: No significant pleural effusion identified. No pneumothorax apparent. CARDIOVASCULAR: Normal. OSSEOUS STRUCTURES: No significant abnormalities. VISUALIZED UPPER ABDOMEN: Normal. OTHER FINDINGS: None. IMPRESSION: No infiltrate. Circumscribed nodule lower left lung. Consider repeat chest PA with nipple markers.
--- NOTE | 2017-10-09 16:45 | CARD ---
APPROVED REPORT EKG Measurement Heart [id number] <Conclusion> Normal sinus rhythm Normal ECG
== END 2017-10-06 23:14 | disposition home or self-care (01) ==
LOC: C.ER 20:31
DX: I12.0 Hypertensive chronic kidney disease with stage 5 chronic kidney disease or end stage renal disease (principal); N18.6 End stage renal disease; Z99.2 Dependence on renal dialysis; R42 Dizziness and giddiness

== ENCOUNTER 2018-03-30 20:16 | Inpatient (IN) | payer MEDICARE, SELFPAY ==
--- NOTE | 2018-03-30 21:33 | C.PDOC ---
History Of Present Illness Patient sent in from dialysis for elevated blood pressure. Patient is currently speaking in complete sentences. He has Monday dialysis. Denies SOB, palpitations, dizziness, or chest pain. Time Seen by Provider: 03/30/18 21:32 Chief Complaint (Nursing): High Blood Pressure History Per: Patient History/Exam Limitations: no limitations Onset/Duration Of Symptoms: Hrs Associated Symptoms: denies: Chest Pain, Dyspnea, Dizziness, Blurred Vision, Focal Weakness, Headache Quality Of Symptoms: Asymptomatic Severity: None Pain Scale Rating Of: 0 Exacerbating Factor(s): Pos: None Recent travel outside of the [place]: No Additional History Per: Family Past Medical History Reviewed: Historical Data, Nursing Documentation, Vital Signs Vital Signs: Last Vital Signs Temp 97.9 F 03/30/18 21:06 Pulse 138 H 03/30/18 21:06 Resp 18 03/30/18 21:06 BP 92/65 L 03/30/18 21:06 Pulse Ox 97 03/30/18 21:06 - Medical History PMH: HTN (noncompliant with meds), End Stage Renal Disease - [facility] Procedures (06/16/17) BYPASS LEFT BRACHIAL ARTERY TO UPPER ARM VEIN, OPEN APPROACH (06/16/17) EXCISION OF RIGHT KIDNEY, PERCUTANEOUS APPROACH, DIAGNOSTIC (06/16/17) EXCISION OF STOMACH, ENDO, DIAGN (06/16/17) FLUOROSCOPY OF SUP VENA CAVA USING L OSM CONTRAST, GUIDANCE (06/16/17) INSERTION OF INFUSION DEV INTO SUP VENA CAVA, PERC APPROACH (06/16/17) Family History: States: No Known Family Hx - Social History Hx Alcohol Use: No Hx Substance Use: No - Immunization History Hx Tetanus Toxoid Vaccination: (unknown) Hx Influenza Vaccination: (unknown) Hx Pneumococcal Vaccination: (unknown) Review Of Systems Constitutional: Negative for: Fever, Chills Eyes: Negative for: Vision Change Cardiovascular: Negative for: Chest Pain, Palpitations Respiratory: Negative for: Cough, Shortness of Breath Gastrointestinal: Negative for: Nausea, Vomiting Musculoskeletal: Negative for: Back Pain Skin: Negative for: Rash Neurological: Negative for: Weakness, Dizziness Psych: Negative for: Anxiety Physical Exam - Physical Exam Appears: Non-toxic Skin: Warm, Dry Head: Normacephalic Eye(s): bilateral: Normal Inspection Oral Mucosa: Moist Neck: Supple Chest: Symmetrical, No Tenderness Cardiovascular: Rhythm Irregular (Tachycardic) Respiratory: No Rales, Rhonchi, No Wheezing Gastrointestinal/Abdominal: Soft, No Tenderness Back: Normal Inspection Extremity: Other (Left dialysis shunt with good thrill and bruit) Extremity: Bilateral: Atraumatic, Normal Color And Temperature Pulses: Left Dorsalis Pedis: Normal, Right Dorsalis Pedis: Normal Neurological/Psych: Oriented x3 Gait: Unable To Assess ED Course And Treatment - Laboratory Results Result Diagrams: 03/30/18 21:54 03/30/18 21:54 ECG: Interpreted By Me, Viewed By Me ECG Rhythm: Atrial Fibrillation (151), Nonspecific Changes (changed from 10/06/17) O2 Sat by Pulse Oximetry: 97 (Room air) Pulse Ox Interpretation: Normal Progress Note: EKG, blood work, and CXR ordered. Disposition Discussed With DrLoyda: Lucho Wesley Comment: accepted the pt on his service and took over the care at 10:28PM Counseled Patient/Family Regarding: Studies Performed, Diagnosis - Disposition Referrals: Non [facility] Provider, [Primary Care Provider] - Disposition: HOSPITALIZED Disposition Time: 21:33 Condition: FAIR Forms: [employer] (Moldovan) - POA Present On Arrival: Poor Glycemic Control - Clinical Impression Clinical Impression: New onset a-fib, Dialysis patient - Scribe Statement The provider has reviewed the documentation as recorded by the Scribe Rehan Fitzgerald All medical record entries made by the Scribe were at my direction and personally dictated by me. I have reviewed the chart and agree that the record accurately reflects my personal performance of the history, physical exam, m edical decision making, and the department course for this patient. I have also personally directed, reviewed, and agree with the discharge instructions and disposition. Decision To Admit - Pt Status Changed To: Hospital Disposition Of: Inpatient - Admit Certification Admit to Inpatient:: After my assessment, the patient will require hospitalization for at least two midnights. This is because of the severity of symptoms shown, intensity of services needed, and/or the medical risk in this patient being treated as an outpatient. - InPatient: Physician Admission Certification: I certify that this patient requires 2 or more midnights of care for the following reason:: After my assessment, the patient will require hospitalization for at least two midnights. This is because of the severity of symptoms shown, intensity of services needed, and/or the medical risk in this patient being treated as an outpatient. - . Bed Request Type: Telemetry Admitting Physician: Lucho Wesley Patient Diagnosis: New onset a-fib, Dialysis patient
[2018-03-30 21:58] LABS: BASO # 0.1 K/uL (0.0-0.2); BASO % 0.5 % (0.0-2.0); EOS # 0.1 K/uL (0.0-0.7); EOS % 0.7 % (0.0-4.0); HEMOGLOBIN 13.2 g/dL (12.0-18.0); LYMPH # 1.1 K/uL (1.0-4.3); LYMPH % 6.2 % (20.0-40.0); MEAN CELL VOLUME 91.7 fL (80.0-94.0); MEAN CORPUSCULAR HEMOGLOBIN 30.9 pg (27.0-31.0); MEAN CORPUSCULAR HGB CONC 33.7 g/dL (33.0-37.0); MONO # 1.3 K/uL (0.0-0.8); MONO % 7.4 % (0.0-10.0); NEUT # 14.8 K/uL (1.8-7.0); NEUT % 85.2 % (50.0-75.0); NRBC % 0.1 % (0.0-2.0); PLATELET COUNT 263 K/uL (130-400); RBC 4.26 Mil/uL (4.40-5.90); RED CELL DISTRIBUTION WIDTH 14.5 % (11.5-14.5); WHITE BLOOD COUNT 17.3 K/uL (4.8-10.8)
[2018-03-30 22:07] LABS: PROTHROMBIN TIME 11.3 SECONDS (9.7-12.2)
[2018-03-30 22:15] LABS: ALB/GLOB RATIO 1.3 (1.0-2.1); ALBUMIN 5.1 g/dL (3.5-5.0); CALCIUM 9.5 mg/dl (8.6-10.4)
[2018-03-30 22:26] LABS: TROPONIN I 0.014 ng/mL (0.00-0.120)
[2018-03-30 22:53] LABS: BANDS 2 % (0-2); LYMPHOCYTE 5 % (20-40); MONOCYTE 3 % (0-10); NEUTROPHIL 90 % (50-75); PLATELET ESTIMATE NORMAL (NORMAL); TOTAL CELLS COUNTED 100
--- NOTE | 2018-03-30 23:37 | CP.PCM.HP ---
<Dk Hernandez - Last Filed: 03/31/18 04:56> History of Present Illness - History of Present Illness History of Present Illness: PGY-1 H&P for Hospitalist (Dr. Wesley) This is a 62 year old male with PMH of HTN, TIA, ESRD on HD (MWF) COPD, glaucoma, who presents to the ED from dialysis session due to high blood pressure, noted to have rapid afib in the ED. Pt is unsure of how high the blood pressure reading was. He states that he was feeling fine prior to dialysis and underwent dialysis without any problems. However, as he was walking out he began to feel lightheaded and proceeded to fall back onto a chair. He thought that his BP was low. He endorses feeling some palpitations while in the ED, but nothing before. Denies fever, chills, chest pain, sob, blurry vision, epistaxis, abdo marquise pain, n/v/d, constipation, dysuria, hematuria, lower extremity pain or swelling, joint pain, muscle pain. Pt has no history of irregular heart rate in the past. Pt was noted to be tachycardic at 160 in the ED. EKG showed rapid afib. He was treated with Diltiazem 15 mg IVP, which converted him to NSR and repeat EKG shows NSR, no STTW changes. PMD: Dottie Jacome Nephrology: Dr. Billie Mckeon PMH: HTN, TIA, ESRD on HD (MWF) COPD, glaucoma PSH: AV fistula in left arm may 2017, septoplasty Meds: Travetan eye drops for glaucoma, Losartan 100 mg PO daily, Phosphate binder with meals Alls: NKDA SHx: (+) smoker, approximately 1/2 PPD x 40 years but has recently cut down, (-) etoh since may, (-) illicit drug use FHx: mother and brother with diabetes, (-) history of cancers in the family Present on Admission - Present on Admission Any Indicators Present on Admission: No Review of Systems - Review of Systems All systems: reviewed and no additional remarkable complaints except (as per HPI) Past Patient History - Infectious Disease Hx of Infectious Diseases: None - Past Medical History & Family History Past Medical History?: Yes Past Family History: Reviewed and not pertinent - Past Social History Smoking Status: Light Smoker < 10 Cigarettes Daily - CARDIAC Hx Hypertension: Yes (noncompliant with meds) - RENAL Hx Dialysis: Yes (MWF) - MUSCULOSKELETAL/RHEUMATOLOGICAL Hx Falls: No - PSYCHIATRIC Hx Substance Use: No - SURGICAL HISTORY Hx Surgeries: Yes Hx Arteriovenous Shunt: Yes - ANESTHESIA Hx Anesthesia: Yes Hx Anesthesia Reactions: No Hx Malignant Hyperthermia: No Meds Allergies/Adverse Reactions: Allergies Allergy/AdvReac Type Severity Reaction Status Date / Time No Known Allergies Allergy Verified 03/30/18 21:06 Physical Exam - Constitutional Appears: Non-toxic, No Acute Distress - Head Exam Head Exam: ATRAUMATIC, NORMAL INSPECTION - Eye Exam Eye Exam: EOMI, Normal appearance - ENT Exam ENT Exam: Mucous Membranes Moist - Respiratory Exam Respiratory Exam: Clear to Auscultation Bilateral. absent: Rales, Rhonchi, Wheezes - Cardiovascular Exam Cardiovascular Exam: REGULAR RHYTHM (distant heart sounds), +S1, +S2 - GI/Abdominal Exam GI & Abdominal Exam: Normal Bowel Sounds, Soft. absent: Distended, Guarding, Rebound, Rigid, Tenderness - Extremities Exam Extremities exam: Positive for: normal capillary refill, normal inspection, pedal pulses present. Negative for: calf tenderness, pedal edema - Back Exam Back exam: NORMAL INSPECTION - Neurological Exam Neurological exam: Alert, Oriented x3 - Skin Skin Exam: Dry, Normal Color, Warm Additional comments: (+) left arm av fistula Results - Vital Signs Recent Vital Signs: Last Vital Signs Temp 97.9 F 03/30/18 21:06 Pulse 116 H 03/30/18 22:26 Resp 12 03/30/18 22:26 BP 93/59 L 03/30/18 22:26 Pulse Ox 97 03/30/18 22:30 - Labs Result Diagrams: 03/31/18 04:24 03/30/18 21:54 Labs: Laboratory Results - last 24 hr 03/30/18 03/30/18 03/30/18 21:54 21:54 21:54 WBC 17.3 H RBC 4.26 L Hgb 13.2 Hct 39.0 MCV 91.7 D MCH 30.9 MCHC 33.7 RDW 14.5 Plt Count 263 MPV 7.0 L Neut % (Auto) 85.2 H Lymph % (Auto) 6.2 L Garza % (Auto) 7.4 Eos % (Auto) 0.7 Baso % (Auto) 0.5 Neut # (Auto) 14.8 H Lymph # (Auto) 1.1 Garza # (Auto) 1.3 H Eos # (Auto) 0.1 Baso # (Auto) 0.1 Neutrophils % (Manual) 90 H Band Neutrophils % 2 Lymphocytes % (Manual) 5 L Monocytes % (Manual) 3 Platelet Estimate Normal RBC Morphology Normal PT 11.3 INR 1.0 APTT 35 H Sodium 138 Potassium 4.0 Chloride 89 L Carbon Dioxide 36 H Anion Gap 17 BUN 30 H Creatinine 7.0 H Est GFR ( Amer) 10 Est GFR (Non-Af Amer) 8 Random Glucose 114 H Calcium 9.5 Total Bilirubin 0.5 AST 25 ALT 18 L Alkaline Phosphatase 114 Troponin I 0.0140 Total Protein 8.9 H Albumin 5.1 H Globulin 3.8 Albumin/Globulin Ratio 1.3 TSH 3rd Generation 1.07 Assessment & Plan - Assessment and Plan (Free Text) Assessment: This is a 62 year old male with PMH of HTN, TIA, ESRD on HD (MWF) COPD, glaucoma, who presents to the ED from dialysis session due to high blood pressure, noted to have rapid afib in the ED. He was treated with Diltiazem 15 mg IVP, which converted him to NSR and repeat EKG shows NSR, no STTW changes. Plan: New onset afib with RVR Admit to telemetry Noted to have rapid afib in the ED. He was treated with Diltiazem 15 mg IVP, which converted him to NSR and repeat EKG shows NSR, no STTW changes. Mg is 1.9 Phosphorous is 3.5 Cardio, Dr. Logan, consulted Troponin is 0.014 on admission F/u troponin q6h x2 Cardizem 40 mg PO QID for rate control F/u echocardiogram Leuokocytosis, likely reactive 17.3 on admission, no bands, pt afebrile CXR shows no infiltrates, increased pulmonary vascular markings, as read by att ending physician Blood culture x 2 No need for antibiotics at this time F/u repeat cbc ESRD on HD (MWF) s/p dialysis today BUN/Cr 30/7.0 on admission Nephrology, Dr. Mckeon, consulted CHF with pEF ECho from 05/2017 shows grade 1 diastolic dysfunction, global hypokinesis of left ventricle, LVEF 45-50%, RV systolic pressure is 38 mmHg, mild pulmonary hypertsion, left atrium mildly dilated, moderate MR, mild TR. F/u Echo Hx of HTN Losartan 100 mg PO on hold due to SBP being under 120 mmHg Hx of COPD Duonebs q6h PRN Case discussed with attending physician, Dr. Lupillo Hernandez PGY1 <Lucho Wesley - Last Filed: 03/31/18 05:16> Results - Vital Signs Recent Vital Signs: Last Vital Signs Temp 97.8 F 03/31/18 04:00 Pulse 73 03/31/18 04:00 Resp 20 03/31/18 04:00 BP 100/68 03/31/18 04:00 Pulse Ox 98 03/31/18 04:00 - Labs Result Diagrams: 03/31/18 04:24 03/31/18 04:24 Labs: Laboratory Results - last 24 hr 03/30/18 03/30/18 03/30/18 21:54 21:54 21:54 WBC 17.3 H RBC 4.26 L Hgb 13.2 Hct 39.0 MCV 91.7 D MCH 30.9 MCHC 33.7 RDW 14.5 Plt Count 263 MPV 7.0 L Neut % (Auto) 85.2 H Lymph % (Auto) 6.2 L Garza % (Auto) 7.4 Eos % (Auto) 0.7 Baso % (Auto) 0.5 Neut # (Auto) 14.8 H Lymph # (Auto) 1.1 Garza # (Auto) 1.3 H Eos # (Auto) 0.1 Baso # (Auto) 0.1 Neutrophils % (Manual) 90 H Band Neutrophils % 2 Lymphocytes % (Manual) 5 L Monocytes % (Manual) 3 Platelet Estimate Normal RBC Morphology Normal PT 11.3 INR 1.0 APTT 35 H Sodium 138 Potassium 4.0 Chloride 89 L Carbon Dioxide 36 H Anion Gap 17 BUN 30 H Creatinine 7.0 H Est GFR ( Amer) 10 Est GFR (Non-Af Amer) 8 Random Glucose 114 H Calcium 9.5 Phosphorus Magnesium Total Bilirubin 0.5 AST 25 ALT 18 L Alkaline Phosphatase 114 Troponin I 0.0140 Total Protein 8.9 H Albumin 5.1 H Globulin 3.8 Albumin/Globulin Ratio 1.3 TSH 3rd Generation 1.07 03/31/18 03/31/18 03/31/18 00:32 04:24 04:24 WBC 11.9 H RBC 3.87 L Hgb 11.6 L Hct 34.8 L MCV 90.0 MCH 29.9 MCHC 33.3 RDW 14.6 H Plt Count 270 MPV 7.5 Neut % (Auto) 74.3 Lymph % (Auto) 14.4 L Garza % (Auto) 8.5 Eos % (Auto) 2.1 Baso % (Auto) 0.7 Neut # (Auto) 8.8 H Lymph # (Auto) 1.7 Garza # (Auto) 1.0 H Eos # (Auto) 0.3 Baso # (Auto) 0.1 Neutrophils % (Manual) Band Neutrophils % Lymphocytes % (Manual) Monocytes % (Manual) Platelet Estimate RBC Morphology PT INR APTT Sodium 135 Potassium 4.1 Chloride 91 L Carbon Dioxide 35 H Anion Gap 13 BUN 39 H Creatinine 7.7 H* Est GFR ( Amer) 9 Est GFR (Non-Af Amer) 7 Random Glucose 114 H Calcium 8.8 Phosphorus 3.5 4.5 Magnesium 1.9 2.0 Total Bilirubin 0.8 AST 29 ALT 22 Alkaline Phosphatase 75 Troponin I Total Protein 7.7 Albumin 4.3 Globulin 3.4 Albumin/Globulin Ratio 1.3 TSH 3rd Generation Attending/Attestation - Attestation I have personally seen and examined this patient.: Yes I have fully participated in the care of the patient.: Yes I have reviewed all pertinent clinical information: Yes Notes (Text): 03/31/18 05:02 I saw and examined this patient shoulder to shoulder with Dr Hernandez. I agree with the assessment and plan outlined above. This is a 62 years old male with hx of HTN, TIA and ESRD on HD . . He complated his Hemodialysis, became lightheaded, found to have elevated blood pressure and sent to the ED where his blood pressure was 92/65mmHg and heart rate of 160s. He was given one bolus of IV Cardizem and converted to NSR. We will treat this patient as New Unset Atrial Fibrillation with Oral Cardizem for control of rate and blood pressure. Cardiac monitoring, Cardiac Consult and to follow ECHO for Valvulopathy left Atrial size, wall motion and ventricular function along with serial Troponin and EKG. He has a [id number] score of 3. We will defer Anticoagulant to the [facility]. Nephrology on consult. Other antihypertensive medications on hold because of low blood pressure. Lucho Wesley MD
[2018-03-31] MEDS ORDERED: Albuterol-Ipratrop 3 mg / 0.5 (3 ml) UD INH PRN (03:21)
[2018-03-31 04:28] LABS: BASO # 0.1 K/uL (0.0-0.2); BASO % 0.7 % (0.0-2.0); EOS # 0.3 K/uL (0.0-0.7); EOS % 2.1 % (0.0-4.0); HEMOGLOBIN 11.6 g/dL (12.0-18.0); LYMPH # 1.7 K/uL (1.0-4.3); LYMPH % 14.4 % (20.0-40.0); MEAN CORPUSCULAR HEMOGLOBIN 29.9 pg (27.0-31.0); MEAN CORPUSCULAR HGB CONC 33.3 g/dL (33.0-37.0); MEAN PLATELET VOLUME 7.5 fL (7.2-11.7); MONO % 8.5 % (0.0-10.0); NEUT # 8.8 K/uL (1.8-7.0); NEUT % 74.3 % (50.0-75.0); NRBC % 0.2 % (0.0-2.0); RBC 3.87 Mil/uL (4.40-5.90); RED CELL DISTRIBUTION WIDTH 14.6 % (11.5-14.5); WHITE BLOOD COUNT 11.9 K/uL (4.8-10.8)
[2018-03-31] MEDS ORDERED: Ergocalciferol 50,000 Intl Units Cap PO SCH (04:45)
[2018-03-31 04:58] LABS: ALB/GLOB RATIO 1.3 (1.0-2.1); ALBUMIN 4.3 g/dL (3.5-5.0); CALCIUM 8.8 mg/dl (8.6-10.4)
[2018-03-31 05:23] LABS: TROPONIN I 0.026 ng/mL (0.00-0.120)
[2018-03-31] MEDS: Multivitamin Vitamin B Complex (Nephro-Vite) Tab PO SCH (09:27)
[2018-03-31] MEDS ORDERED: NIFEdipine 60 mg ER Tab PO SCH ×2 (10:00)
--- NOTE | 2018-03-31 11:52 | RAD ---
Date of service: 03/30/2018 PROCEDURE: CHEST RADIOGRAPH, 1 VIEW HISTORY: Palpations COMPARISON: 10/06/2017. FINDINGS: LUNGS: The lungs are well inflated and clear. There is redemonstration of the week nodular opacity in the left lower lobe which may represent nipple shadow. There are fibrotic changes in the left upper lobe. PLEURA: No pneumothorax or pleural effusion. CARDIOVASCULAR: The heart is normal in size. No aortic atherosclerotic calcifications present. OSSEOUS STRUCTURES: Within normal limits for the patient's age. VISUALIZED UPPER ABDOMEN: Normal. OTHER FINDINGS: None. IMPRESSION: No active pulmonary disease. Vague nodular opacity in the left lower lobe may represent nipple shadow. Repeat radiographs with nipple markers are recommended.
--- NOTE | 2018-03-31 13:32 | CP.PCM.CON ---
History of Present Illness - History of Present Illness History of Present Illness: NEPHROLOGY CONSULT HPI: 62 year old male with PMH of HTN, TIA, ESRD on HD that developed hypertension and tachycardia p hd yesterday. he was found to be in atrial fibrillation she he came to the emergency room and was treated w/ diltizaem and converted into NSR. He is now asymptomatic. He denies n/v. He is awaiting to see a cardiologst. He has been compliant w/ HD ROS: a ful ldetailed ros is negative except as in my hpi PMH: ESRD MWF, HTN, TIA, COPD, glaucoma PSH: AV fistula in left arm may 2017, septoplasty Meds: as below Alls: NKDA SHx: (+) smoker, approximately 1/2 PPD (-) etoh since may, (-) illicit drug use FHx: mother and brother with diabetes, (-) history of cancers in the family pe: vs as below gen: nad sclera: anicteric op: clear neck: supple no thyromegaly cvP: +S1+s2 no rub lungs: cta b/l abd: soft nt nd no organomegaly ext: no edema neuro: a+ox3 no focal defecity psych: nml affect skin no rash labs nad imaging reviewed imp: ESRD/ HTN/ Afib/ Anemia of renal disease/Secondary hyperpara plan: HD MWF bp controlled f/u cardiology recc check tsh hgb stable no need for edil check phos continue phos binder Past Patient History - Infectious Disease Hx of Infectious Diseases: None - Past Medical History & Family History Past Medical History?: Yes Past Family History: Reviewed and not pertinent - Past Social History Smoking Status: Light Smoker < 10 Cigarettes Daily - CARDIAC Hx Hypertension: Yes (noncompliant with meds) - PULMONARY Hx Chronic Obstructive Pulmonary Disease (COPD): Yes - NEUROLOGICAL Hx Transient Ischemic Attacks (TIA): Yes (2010) - RENAL Hx Dialysis: Yes () - MUSCULOSKELETAL/RHEUMATOLOGICAL Hx Falls: No - PSYCHIATRIC Hx Substance Use: No - SURGICAL HISTORY Hx Surgeries: Yes Hx Arteriovenous Shunt: Yes - ANESTHESIA Hx Anesthesia: Yes Hx Anesthesia Reactions: No Hx Malignant Hyperthermia: No Meds Allergies/Adverse Reactions: Allergies Allergy/AdvReac Type Severity Reaction Status Date / Time No Known Allergies Allergy Verified 03/30/18 21:06 - Medications Medications: Current Medications Albuterol/Ipratropium (Duoneb 3 Mg/0.5 Mg (3 Ml) Ud) 3 ml INH RQ6 PRN PRN Reason: Shortness of Breath Calcium Acetate (Phoslo) 1,334 mg PO TIDCC ON LICENSE OF [facility] Last Admin: 03/31/18 09:26 Dose: 1,334 mg Diltiazem HCl (Cardizem) 30 mg PO QID ON LICENSE OF [facility] Last Admin: 03/31/18 09:27 Dose: 30 mg Ergocalciferol (Drisdol 50,000 Intl Units Cap) 1 cap PO Q7D ON LICENSE OF [facility] Last Admin: 03/31/18 05:36 Dose: 1 cap Heparin Sodium (Porcine) (Heparin) 5,000 units SC Q12 ON LICENSE OF [facility] Last Admin: 03/31/18 09:27 Dose: 5,000 units Losartan Potassium (Cozaar) 100 mg PO DAILY ON LICENSE OF [facility] Vitamin B Complex/Vit C/Folic Acid (Nephro-Magdalena) 1 tab PO 0800 ON LICENSE OF [facility] Last Admin: 03/31/18 09:27 Dose: 1 tab Results - Vital Signs Recent Vital Signs: Last Vital Signs Temp 98.0 F 03/31/18 07:00 Pulse 74 03/31/18 08:31 Resp 20 03/31/18 07:00 BP 124/75 03/31/18 07:00 Pulse Ox 98 03/31/18 07:00 - Labs Result Diagrams: 03/31/18 04:24 03/31/18 04:24 Labs: Laboratory Results - last 24 hr 03/30/18 03/30/18 03/30/18 21:54 21:54 21:54 WBC 17.3 H RBC 4.26 L Hgb 13.2 Hct 39.0 MCV 91.7 D MCH 30.9 MCHC 33.7 RDW 14.5 Plt Count 263 MPV 7.0 L Neut % (Auto) 85.2 H Lymph % (Auto) 6.2 L [place] % (Auto) 7.4 Eos % (Auto) 0.7 Baso % (Auto) 0.5 Neut # (Auto) 14.8 H Lymph # (Auto) 1.1 [place] # (Auto) 1.3 H Eos # (Auto) 0.1 Baso # (Auto) 0.1 Neutrophils % (Manual) 90 H Band Neutrophils % 2 Lymphocytes % (Manual) 5 L Monocytes % (Manual) 3 Platelet Estimate Normal RBC Morphology Normal PT 11.3 INR 1.0 APTT 35 H Sodium 138 Potassium 4.0 Chloride 89 L Carbon Dioxide 36 H Anion Gap 17 BUN 30 H Creatinine 7.0 H Est GFR ( Amer) 10 Est GFR (Non-Af Amer) 8 Random Glucose 114 H Calcium 9.5 Phosphorus Magnesium Total Bilirubin 0.5 AST 25 ALT 18 L Alkaline Phosphatase 114 Troponin I 0.0140 Total Protein 8.9 H Albumin 5.1 H Globulin 3.8 Albumin/Globulin Ratio 1.3 TSH 3rd Generation 1.07 03/31/18 03/31/18 03/31/18 00:32 04:24 04:24 WBC 11.9 H RBC 3.87 L Hgb 11.6 L Hct 34.8 L MCV 90.0 MCH 29.9 MCHC 33.3 RDW 14.6 H Plt Count 270 MPV 7.5 Neut % (Auto) 74.3 Lymph % (Auto) 14.4 L [place] % (Auto) 8.5 Eos % (Auto) 2.1 Baso % (Auto) 0.7 Neut # (Auto) 8.8 H Lymph # (Auto) 1.7 [place] # (Auto) 1.0 H Eos # (Auto) 0.3 Baso # (Auto) 0.1 Neutrophils % (Manual) Band Neutrophils % Lymphocytes % (Manual) Monocytes % (Manual) Platelet Estimate RBC Morphology PT INR APTT Sodium 135 Potassium 4.1 Chloride 91 L Carbon Dioxide 35 H Anion Gap 13 BUN 39 H Creatinine 7.7 H* Est GFR ( Amer) 9 Est GFR (Non-Af Amer) 7 Random Glucose 114 H Calcium 8.8 Phosphorus 3.5 4.5 Magnesium 1.9 2.0 Total Bilirubin 0.8 AST 29 ALT 22 Alkaline Phosphatase 75 Troponin I 0.0260 Total Protein 7.7 Albumin 4.3 Globulin 3.4 Albumin/Globulin Ratio 1.3 TSH 3rd Generation 03/31/18 11:10 WBC RBC Hgb Hct MCV MCH MCHC RDW Plt Count MPV Neut % (Auto) Lymph % (Auto) [place] % (Auto) Eos % (Auto) Baso % (Auto) Neut # (Auto) Lymph # (Auto) [place] # (Auto) Eos # (Auto) Baso # (Auto) Neutrophils % (Manual) Band Neutrophils % Lymphocytes % (Manual) Monocytes % (Manual) Platelet Estimate RBC Morphology PT INR APTT Sodium Potassium Chloride Carbon Dioxide Anion Gap BUN Creatinine Est GFR ( Amer) Est GFR (Non-Af Amer) Random Glucose Calcium Phosphorus Magnesium Total Bilirubin AST ALT Alkaline Phosphatase Troponin I 0.0260 Total Protein Albumin Globulin Albumin/Globulin Ratio TSH 3rd Generation
--- NOTE | 2018-03-31 15:28 | CP.PCM.CON ---
History of Present Illness - History of Present Illness History of Present Illness: 62 yo male h/o HTN, CRF, HD- admitted for Afib. We are asked to evaluate for RB. is present. Pt reports RB x 2 months- small amount. Occ constip. PMH- 1 y ago- UGIB- EGD- gastric ulcers. FH- denies GI Review of Systems - Constitutional Constitutional: absent: Fever, Lethargy, Weight Loss, Weakness - EENT Eyes: absent: Photophobia Nose/Mouth/Throat: absent: Lip Swelling - Cardiovascular Cardiovascular: Dyspnea, Rapid Heart Rate - Respiratory Respiratory: absent: Dyspnea, Hemoptysis, Wheezing - Gastrointestinal Gastrointestinal: Constipation, Hematochezia. absent: Abdominal Pain, Coffee Ground Emesis, Diarrhea, Dysphagia, Hematemesis, Melena, Nausea, Odynophagia, Vomiting - Genitourinary Genitourinary: absent: Dysuria - Musculoskeletal Musculoskeletal: absent: Muscle Cramps - Integumentary Integumentary: absent: Rash, Jaundice - Psychiatric Psychiatric: absent: Hallucinations, Memory Loss Past Patient History - Infectious Disease Hx of Infectious Diseases: None - Past Medical History & Family History Past Medical History?: Yes Past Family History: Reviewed and not pertinent - Past Social History Smoking Status: Light Smoker < 10 Cigarettes Daily - CARDIAC Hx Hypertension: Yes (noncompliant with meds) - PULMONARY Hx Chronic Obstructive Pulmonary Disease (COPD): Yes - NEUROLOGICAL Hx Transient Ischemic Attacks (TIA): Yes (2010) - RENAL Hx Dialysis: Yes () - MUSCULOSKELETAL/RHEUMATOLOGICAL Hx Falls: No - PSYCHIATRIC Hx Substance Use: No - SURGICAL HISTORY Hx Surgeries: Yes Hx Arteriovenous Shunt: Yes - ANESTHESIA Hx Anesthesia: Yes Hx Anesthesia Reactions: No Hx Malignant Hyperthermia: No Meds Allergies/Adverse Reactions: Allergies Allergy/AdvReac Type Severity Reaction Status Date / Time No Known Allergies Allergy Verified 03/30/18 21:06 - Medications Medications: Current Medications Albuterol/Ipratropium (Duoneb 3 Mg/0.5 Mg (3 Ml) Ud) 3 ml INH RQ6 PRN PRN Reason: Shortness of Breath Calcium Acetate (Phoslo) 1,334 mg PO TIDCC [facility] Last Admin: 03/31/18 13:49 Dose: 1,334 mg Diltiazem HCl (Cardizem) 30 mg PO QID [facility] Last Admin: 03/31/18 13:49 Dose: 30 mg Ergocalciferol (Drisdol 50,000 Intl Units Cap) 1 cap PO Q7D [facility] Last Admin: 03/31/18 05:36 Dose: 1 cap Heparin Sodium (Porcine) (Heparin) 5,000 units SC Q12 [facility] Last Admin: 03/31/18 09:27 Dose: 5,000 units Losartan Potassium (Cozaar) 100 mg PO DAILY [facility] Vitamin B Complex/Vit C/Folic Acid (Nephro-Magdalena) 1 tab PO 0800 [facility] Last Admin: 03/31/18 09:27 Dose: 1 tab Physical Exam - Constitutional Appears: Well - Respiratory Exam Respiratory Exam: Clear to Auscultation Bilateral - Cardiovascular Exam Cardiovascular Exam: RRR - GI/Abdominal Exam GI & Abdominal Exam: Normal Bowel Sounds, Soft. absent: Distended, Guarding, Mass, Tenderness - Extremities Exam Extremities exam: Negative for: calf tenderness - Neurological Exam Neurological exam: Alert, Oriented x3 Results - Vital Signs Recent Vital Signs: Last Vital Signs Temp 98.0 F 03/31/18 07:00 Pulse 74 03/31/18 08:31 Resp 20 03/31/18 07:00 BP 124/75 03/31/18 07:00 Pulse Ox 98 03/31/18 07:00 - Labs Result Diagrams: 03/31/18 04:24 03/31/18 04:24 Labs: Laboratory Results - last 24 hr 03/30/18 03/30/18 03/30/18 21:54 21:54 21:54 WBC 17.3 H RBC 4.26 L Hgb 13.2 Hct 39.0 MCV 91.7 D MCH 30.9 MCHC 33.7 RDW 14.5 Plt Count 263 MPV 7.0 L Neut % (Auto) 85.2 H Lymph % (Auto) 6.2 L [place] % (Auto) 7.4 Eos % (Auto) 0.7 Baso % (Auto) 0.5 Neut # (Auto) 14.8 H Lymph # (Auto) 1.1 [place] # (Auto) 1.3 H Eos # (Auto) 0.1 Baso # (Auto) 0.1 Neutrophils % (Manual) 90 H Band Neutrophils % 2 Lymphocytes % (Manual) 5 L Monocytes % (Manual) 3 Platelet Estimate Normal RBC Morphology Normal PT 11.3 INR 1.0 APTT 35 H Sodium 138 Potassium 4.0 Chloride 89 L Carbon Dioxide 36 H Anion Gap 17 BUN 30 H Creatinine 7.0 H Est GFR ( Amer) 10 Est GFR (Non-Af Amer) 8 Random Glucose 114 H Calcium 9.5 Phosphorus Magnesium Total Bilirubin 0.5 AST 25 ALT 18 L Alkaline Phosphatase 114 Troponin I 0.0140 Total Protein 8.9 H Albumin 5.1 H Globulin 3.8 Albumin/Globulin Ratio 1.3 TSH 3rd Generation 1.07 03/31/18 03/31/18 03/31/18 00:32 04:24 04:24 WBC 11.9 H RBC 3.87 L Hgb 11.6 L Hct 34.8 L MCV 90.0 MCH 29.9 MCHC 33.3 RDW 14.6 H Plt Count 270 MPV 7.5 Neut % (Auto) 74.3 Lymph % (Auto) 14.4 L [place] % (Auto) 8.5 Eos % (Auto) 2.1 Baso % (Auto) 0.7 Neut # (Auto) 8.8 H Lymph # (Auto) 1.7 [place] # (Auto) 1.0 H Eos # (Auto) 0.3 Baso # (Auto) 0.1 Neutrophils % (Manual) Band Neutrophils % Lymphocytes % (Manual) Monocytes % (Manual) Platelet Estimate RBC Morphology PT INR APTT Sodium 135 Potassium 4.1 Chloride 91 L Carbon Dioxide 35 H Anion Gap 13 BUN 39 H Creatinine 7.7 H* Est GFR ( Amer) 9 Est GFR (Non-Af Amer) 7 Random Glucose 114 H Calcium 8.8 Phosphorus 3.5 4.5 Magnesium 1.9 2.0 Total Bilirubin 0.8 AST 29 ALT 22 Alkaline Phosphatase 75 Troponin I 0.0260 Total Protein 7.7 Albumin 4.3 Globulin 3.4 Albumin/Globulin Ratio 1.3 TSH 3rd Generation 03/31/18 11:10 WBC RBC Hgb Hct MCV MCH MCHC RDW Plt Count MPV Neut % (Auto) Lymph % (Auto) [place] % (Auto) Eos % (Auto) Baso % (Auto) Neut # (Auto) Lymph # (Auto) [place] # (Auto) Eos # (Auto) Baso # (Auto) Neutrophils % (Manual) Band Neutrophils % Lymphocytes % (Manual) Monocytes % (Manual) Platelet Estimate RBC Morphology PT INR APTT Sodium Potassium Chloride Carbon Dioxide Anion Gap BUN Creatinine Est GFR ( Amer) Est GFR (Non-Af Amer) Random Glucose Calcium Phosphorus Magnesium Total Bilirubin AST ALT Alkaline Phosphatase Troponin I 0.0260 Total Protein Albumin Globulin Albumin/Globulin Ratio TSH 3rd Generation Assessment & Plan (1) New onset a-fib Status: Acute (2) CHF (congestive heart failure), NYHA class II Status: Acute (3) End stage kidney disease Status: Acute (4) Anemia Assessment and Plan: h/o anemia Status: Acute (5) Rectal bleed Assessment and Plan: for 2 months. Reports neg colonsocopy 2013. Consider hemorrhoids, polyp lesion. Discussed risk for cancer. I discussed with patient to see me in office to set up colonsocopy soon. Pt is undergoing evaluation now for new aa fib. Status: Acute (6) Gastric ulcer Assessment and Plan: in past Status: Acute
--- NOTE | 2018-03-31 19:48 | CP.PCM.PN ---
Subjective - Date & Time of Evaluation Date of Evaluation: 03/31/18 Time of Evaluation: 12:00 - Subjective Subjective: Seen and examined this morning.Patient feels better and he wants to go home. Denies chest pain He was brought from dialysis for high BP.He was in afib with RVR. He was given Cardizem and converted to sinus rhythm Denies history of afib He has history of GI bleeding,Had EGD in may 2017. History of blood transfusion due to anemia. He also has frequent bright red rectal bleeding within few months NOt seen by GI Objective - Vital Signs/Intake and Output Vital Signs (last 24 hours): Temp Pulse Resp BP Pulse Ox 98.1 F 69 20 107/70 96 03/31/18 17:56 03/31/18 17:56 03/31/18 17:56 03/31/18 17:56 03/31/18 17:56 - Medications Medications: Current Medications Albuterol/Ipratropium (Duoneb 3 Mg/0.5 Mg (3 Ml) Ud) 3 ml INH RQ6 PRN PRN Reason: Shortness of Breath Calcium Acetate (Phoslo) 1,334 mg PO TIDCC [facility] Last Admin: 03/31/18 13:49 Dose: 1,334 mg Diltiazem HCl (Cardizem) 30 mg PO QID [facility] Last Admin: 03/31/18 17:45 Dose: Not Given Ergocalciferol (Drisdol 50,000 Intl Units Cap) 1 cap PO Q7D [facility] Last Admin: 03/31/18 05:36 Dose: 1 cap Heparin Sodium (Porcine) (Heparin) 5,000 units SC Q12 [facility] Last Admin: 03/31/18 09:27 Dose: 5,000 units Losartan Potassium (Cozaar) 100 mg PO DAILY [facility] Vitamin B Complex/Vit C/Folic Acid (Nephro-Magdalena) 1 tab PO 0800 [facility] Last Admin: 03/31/18 09:27 Dose: 1 tab - Labs Labs: 03/31/18 04:24 03/31/18 04:24 PT 11.3 SECONDS (9.7-12.2) 03/30/18 21:54 INR 1.0 03/30/18 21:54 APTT 35 SECONDS (21-34) H 03/30/18 21:54 - Constitutional Appears: Non-toxic, No Acute Distress - Head Exam Head Exam: NORMAL INSPECTION - Eye Exam Eye Exam: Normal appearance - ENT Exam ENT Exam: Mucous Membranes Moist - Neck Exam Neck Exam: Full ROM - Respiratory Exam Respiratory Exam: Clear to Ausculation Bilateral, NORMAL BREATHING PATTERN - Cardiovascular Exam Cardiovascular Exam: REGULAR RHYTHM - GI/Abdominal Exam GI & Abdominal Exam: Soft, Normal Bowel Sounds - Extremities Exam Extremities Exam: Full ROM, Normal Inspection - Back Exam Back Exam: NORMAL INSPECTION - Neurological Exam Neurological Exam: Awake, Oriented x3 - Psychiatric Exam Psychiatric exam: Normal Affect, Normal Mood - Skin Skin Exam: Dry, Intact, Normal Color Assessment and Plan - Assessment and Plan (Free Text) Plan: New onset afib with RVR converted to sinus. patient is not started on anticoagulation due to recent lower GI bleeding continue telemetry,cardiology consult Noted to have rapid afib in the ED. He was treated with Diltiazem 15 mg IVP, wh ich converted him to NSR and repeat EKG shows NSR, no STTW changes. Cardiology Dr Smart normal troponin Cardizem 40 mg PO QID for rate control F/u echocardiogram Lower GI bleeding GI consult appreciated Leuokocytosis, likely reactive,coming down CXR shows no infiltrates, increased pulmonary vascular markings, as read by attending physician Blood culture x 2 No need for antibiotics at this time ESRD on HD (MWF) s/p dialysis today BUN/Cr 30/7.0 on admission Nephrology, Dr. Mckeon, consulted CHF with pEF ECho from 05/2017 shows grade 1 diastolic dysfunction, global hypokinesis of left ventricle, LVEF 45-50%, RV systolic pressure is 38 mmHg, mild pulmonary hypertsion, left atrium mildly dilated, moderate MR, mild TR. F/u Echo Hx of HTN Losartan 100 mg PO on hold due to SBP being under 120 mmHg Hx of COPD Duonebs q6h PRN
[2018-04-01] MEDS: Multivitamin Vitamin B Complex (Nephro-Vite) Tab PO SCH (08:11)
[2018-04-01 08:28] LABS: BASO # 0.1 K/uL (0.0-0.2); BASO % 0.9 % (0.0-2.0); EOS # 0.3 K/uL (0.0-0.7); EOS % 4.3 % (0.0-4.0); HEMOGLOBIN 11.1 g/dL (12.0-18.0); LYMPH # 1.7 K/uL (1.0-4.3); LYMPH % 21.3 % (20.0-40.0); MEAN CELL VOLUME 91.7 fL (80.0-94.0); MEAN CORPUSCULAR HEMOGLOBIN 31.3 pg (27.0-31.0); MEAN CORPUSCULAR HGB CONC 34.1 g/dL (33.0-37.0); MEAN PLATELET VOLUME 7.4 fL (7.2-11.7); MONO # 0.7 K/uL (0.0-0.8); MONO % 8.3 % (0.0-10.0); NEUT # 5.3 K/uL (1.8-7.0); NEUT % 65.2 % (50.0-75.0); NRBC % 0.2 % (0.0-2.0); RBC 3.54 Mil/uL (4.40-5.90); RED CELL DISTRIBUTION WIDTH 14.6 % (11.5-14.5); WHITE BLOOD COUNT 8.1 K/uL (4.8-10.8)
[2018-04-01 08:44] LABS: ALB/GLOB RATIO 1.5 (1.0-2.1); ALBUMIN 4.2 g/dL (3.5-5.0); CALCIUM 8.8 mg/dl (8.6-10.4)
--- NOTE | 2018-04-01 19:34 | CP.PCM.PN ---
<TaiwoBenedictoestrellita - Last Filed: 04/01/18 20:13> Subjective - Date & Time of Evaluation Date of Evaluation: 04/01/18 Time of Evaluation: 08:10 - Subjective Subjective: Resident Medicine Progress Note Patient seen and examined at bedside. No acute events reported overnight. Patient denies further palpitations or any other complaints. He further expresses interest of going home today to attend a libertarian. Discussed with patient the importance of cardiology evaluation prior to discharge since he had a new onset of atrial fibrillation. Patient denies fever, chills, headache, shortness of breath, chest pain, nausea ,vomiting, or urinary symptoms. Objective - Vital Signs/Intake and Output Vital Signs (last 24 hours): Temp Pulse Resp BP Pulse Ox 98.1 F 82 18 154/89 H 96 04/01/18 15:26 04/01/18 18:06 04/01/18 15:26 04/01/18 18:06 04/01/18 15:26 - Medications Medications: Current Medications Albuterol/Ipratropium (Duoneb 3 Mg/0.5 Mg (3 Ml) Ud) 3 ml INH RQ6 PRN PRN Reason: Shortness of Breath Calcium Acetate (Phoslo) 1,334 mg PO TIDCC [facility] Last Admin: 04/01/18 18:04 Dose: 1,334 mg Diltiazem HCl (Cardizem) 30 mg PO QID [facility] Last Admin: 04/01/18 18:05 Dose: 30 mg Ergocalciferol (Drisdol 50,000 Intl Units Cap) 1 cap PO Q7D [facility] Last Admin: 03/31/18 05:36 Dose: 1 cap Heparin Sodium (Porcine) (Heparin) 5,000 units SC Q12 [facility] Last Admin: 04/01/18 10:14 Dose: 5,000 units Losartan Potassium (Cozaar) 100 mg PO DAILY [facility] Vitamin B Complex/Vit C/Folic Acid (Nephro-Magdalena) 1 tab PO 0800 [facility] Last Admin: 04/01/18 08:11 Dose: 1 tab - Labs Labs: 04/01/18 08:07 04/01/18 08:07 PT 11.3 SECONDS (9.7-12.2) 03/30/18 21:54 INR 1.0 03/30/18 21:54 APTT 35 SECONDS (21-34) H 03/30/18 21:54 - Constitutional Appears: Non-toxic, No Acute Distress - Head Exam Head Exam: NORMAL INSPECTION, NORMOCEPHALIC - Eye Exam Eye Exam: EOMI, Normal appearance Pupil Exam: NORMAL ACCOMODATION - ENT Exam ENT Exam: Mucous Membranes Moist - Neck Exam Neck Exam: Normal Inspection - Respiratory Exam Respiratory Exam: Clear to Ausculation Bilateral, Wheezes, NORMAL BREATHING PATTERN. absent: Respiratory Distress - Cardiovascular Exam Cardiovascular Exam: REGULAR RHYTHM, +S1, +S2. absent: Murmur - Extremities Exam Extremities Exam: Full ROM, Normal Capillary Refill, Normal Inspection. absent: Joint Swelling, Pedal Edema - Neurological Exam Neurological Exam: Alert, Awake, Oriented x3 - Psychiatric Exam Psychiatric exam: Normal Affect, Normal Mood - Skin Skin Exam: Dry, Warm Assessment and Plan - Assessment and Plan (Free Text) Assessment: New onset afib with RVR converted to sinus. patient is not started on anticoagulation due to recent lower GI bleeding continue telemetry,cardiology consult Noted to have rapid afib in the ED. He was treated with Diltiazem 15 mg IVP, which converted him to NSR and repeat EKG shows NSR, no STTW changes. normal troponin Cardizem 40 mg PO QID for rate control Cardiology consult, Dr. Berry lua appreciated-agreed to evaluate the patient later today over text message Lower GI bleeding GI consult appreciated Recommended outpatient colonoscopy Leuokocytosis, resolved CXR shows no infiltrates, increased pulmonary vascular markings, as read by attending physician Blood culture x 2 Afebrile No need for antibiotics at this time ESRD on HD (MWF) s/p dialysis today BUN/Cr 30/7.0 on admission Nephrology, Dr. Mckeon, consulted Phos binder CHF with pEF ECho from 05/2017 shows grade 1 diastolic dysfunction, global hypokinesis of left ventricle, LVEF 45-50%, RV systolic pressure is 38 mmHg, mild pulmonary hypertsion, left atrium mildly dilated, moderate MR, mild TR. Echo f/u Hx of HTN Losartan 100 mg PO on hold due to SBP being under 120 mmHg Hx of COPD Duonebs q6h PRN Case discussed with attending Dr. Roy <Aylin Roy - Last Filed: 04/04/18 09:10> Objective - Vital Signs/Intake and Output Vital Signs (last 24 hours): Temp Pulse Resp BP Pulse Ox 97.5 F L 81 20 150/90 97 04/03/18 15:00 04/03/18 15:00 04/03/18 15:00 04/03/18 15:00 04/03/18 15:00 - Labs Labs: 04/03/18 07:32 04/03/18 07:32 PT 11.3 SECONDS (9.7-12.2) 03/30/18 21:54 INR 1.0 03/30/18 21:54 APTT 35 SECONDS (21-34) H 03/30/18 21:54 Attending/Attestation - Attestation I have personally seen and examined this patient.: Yes I have fully participated in the care of the patient.: Yes I have reviewed all pertinent clinical information, including history, physical exam and plan: Yes Notes (Text): Patient has no complain As per packing machine tender Dr Smart he will this patient this evening Spoke to Gastro enterologist. If cardio is planning to anticoagulant they will do colonoscopy earlier d/w the resident I agree with the documentation
--- NOTE | 2018-04-02 07:45 | CP.PCM.PN ---
<Dk Hernandez - Last Filed: 04/02/18 17:21> Subjective - Date & Time of Evaluation Date of Evaluation: 04/02/18 Time of Evaluation: 07:45 - Subjective Subjective: PGY1 Medicine progress note for Dr. Mcallister Pt was seen and examined at bedside. Pt denies any complaints at this time. Pt reports small amount of brb on tissue paper when wiping, endorses history of hemorrhoids. Pt to have dialysis today. Denies fever, chills, chest pain, sob, palpitations, dizziness, weakness, numbness or tingling, abdominal pain, n/v/d. Objective - Vital Signs/Intake and Output Vital Signs (last 24 hours): Temp Pulse Resp BP Pulse Ox 98.1 F 73 20 146/87 97 04/01/18 23:40 04/02/18 03:56 04/01/18 23:40 04/01/18 23:40 04/01/18 23:40 Intake and Output: 04/02/18 04/02/18 06:59 18:59 Intake Total 200 Balance 200 - Medications Medications: Current Medications Albuterol/Ipratropium (Duoneb 3 Mg/0.5 Mg (3 Ml) Ud) 3 ml INH RQ6 PRN PRN Reason: Shortness of Breath Calcium Acetate (Phoslo) 1,334 mg PO TIDCC [facility] Last Admin: 04/01/18 18:04 Dose: 1,334 mg Diltiazem HCl (Cardizem) 30 mg PO QID [facility] Last Admin: 04/01/18 21:51 Dose: 30 mg Ergocalciferol (Drisdol 50,000 Intl Units Cap) 1 cap PO Q7D [facility] Last Admin: 03/31/18 05:36 Dose: 1 cap Heparin Sodium (Porcine) (Heparin) 5,000 units SC Q12 [facility] Last Admin: 04/01/18 21:51 Dose: 5,000 units Lidocaine HCl (Xylocaine 2%) 0 ea TOP MWF [facility] Losartan Potassium (Cozaar) 100 mg PO DAILY [facility] Vitamin B Complex/Vit C/Folic Acid (Nephro-Miguel) 1 tab PO 0800 [facility] Last Admin: 04/01/18 08:11 Dose: 1 tab - Labs Labs: 04/01/18 08:07 04/01/18 08:07 PT 11.3 SECONDS (9.7-12.2) 03/30/18 21:54 INR 1.0 03/30/18 21:54 APTT 35 SECONDS (21-34) H 03/30/18 21:54 - Constitutional Appears: Non-toxic, No Acute Distress - Head Exam Head Exam: ATRAUMATIC, NORMAL INSPECTION - Eye Exam Eye Exam: EOMI, Normal appearance - ENT Exam ENT Exam: Mucous Membranes Moist - Respiratory Exam Respiratory Exam: Clear to Ausculation Bilateral. absent: Rales, Rhonchi, Wheezes - Cardiovascular Exam Cardiovascular Exam: REGULAR RHYTHM, +S1, +S2. absent: Tachycardia, Irregular Rhythm, Murmur - GI/Abdominal Exam GI & Abdominal Exam: Soft, Normal Bowel Sounds. absent: Distended, Firm, Guarding, Tenderness - Extremities Exam Extremities Exam: Normal Capillary Refill, Normal Inspection ((+) left av fistula with palpable thrill). absent: Calf Tenderness, Pedal Edema, Tenderness - Back Exam Back Exam: NORMAL INSPECTION. absent: CVA tenderness (L), CVA tenderness (R) - Neurological Exam Neurological Exam: Alert, Awake - Psychiatric Exam Psychiatric exam: Normal Affect, Normal Mood - Skin Skin Exam: Dry, Intact, Normal Color, Warm Assessment and Plan - Assessment and Plan (Free Text) Assessment: 62 year old male with PMH of HTN, TIA, ESRD on HD (MWF) COPD, glaucoma, admitted for elevated blood pressure s/p HD and noted to have Afib on EKG. Cardiology was consulted. GI consulted for positive blood in stool and acute drop in Hgb. Nephrology was consulted as patient is on dialysis schedule MW. Plan New onset afib with RVR Converted to sinus. patient is not started on anticoagulation due to recent lower GI bleeding Cardiology Consulted- Dr. Smart- recommendations appreciated TTE completed and interpreted by Dr. Smart, EF is not severely depressed However, patient has hx of TIA, so will get nuclear medicine myocardial perfusion imaging CHADsVASC score of 3, HASBLED score of 2, so would likely benefit from anticoagulation Will await myocardial perfusion imaging prior to initiating anticoagulation Continue telemetry Cardizem 30 mg PO QID Lower GI bleeding GI consult- Dr. Barone- outpatient colonoscopy H/H stable; VSS stable Leuokocytosis, likely reactive,coming down CXR shows no infiltrates, increased pulmonary vascular markings, as read by attending physician Blood culture x 2 No need for antibiotics at this time ESRD on HD (MWF) Nephrology consulted: Dr. Mckeon- recommendations appreciated HD MWF- dialysis today, well tolerated Phoslo 1334mg po tidcc [facility] Nephro-miguel daily Vit D [address]22 q7d CHF with pEF Echo from 05/2017 shows grade 1 diastolic dysfunction, global hypokinesis of left ventricle, LVEF 45-50%, RV systolic pressure is 38 mmHg, mild pulmonary hypertension, left atrium mildly dilated, moderate MR, mild TR. TTE completed and interpreted by Dr. Smart, EF is not severely depressed F/u official Echo reading Hx of HTN Restart Losartan 100 mg PO Hx of COPD Duonebs q6h PRN Dispo: pt has been NSR since initial Cardizem 15 mg IVP in the ED on admission. Rate control with Cardizem 30 mg PO QID. Pending myocardial perfusion imaging prior to initiating anticoagulation. Case discussed with attending physician, Dr. Ary Hernandez PGY1 <Farzad Mcallister H - Last Filed: 04/02/18 18:41> Objective - Vital Signs/Intake and Output Vital Signs (last 24 hours): Temp Pulse Resp BP Pulse Ox 98.1 F 92 H 20 123/80 98 04/02/18 18:12 04/02/18 18:12 04/02/18 18:12 04/02/18 18:12 04/02/18 18:12 Intake and Output: 04/02/18 04/02/18 06:59 18:59 Intake Total 200 Balance 200 - Medications Medications: Current Medications Albuterol/Ipratropium (Duoneb 3 Mg/0.5 Mg (3 Ml) Ud) 3 ml INH RQ6 PRN PRN Reason: Shortness of Breath Calcium Acetate (Phoslo) 1,334 mg PO TIDCC [facility] Last Admin: 04/02/18 18:14 Dose: 1,334 mg Diltiazem HCl (Cardizem) 30 mg PO QID [facility] Last Admin: 04/02/18 18:14 Dose: 30 mg Ergocalciferol (Drisdol 50,000 Intl Units Cap) 1 cap PO Q7D [facility] Last Admin: 03/31/18 05:36 Dose: 1 cap Heparin Sodium (Porcine) (Heparin) 5,000 units SC Q12 [facility] Last Admin: 04/02/18 10:23 Dose: 5,000 units Lidocaine HCl (Xylocaine 2%) 0 ea TOP MWF [facility] Last Admin: 04/02/18 11:29 Dose: 1 applic Losartan Potassium (Cozaar) 100 mg PO DAILY [facility] Vitamin B Complex/Vit C/Folic Acid (Nephro-Miguel) 1 tab PO 0800 [facility] Last Admin: 04/02/18 10:18 Dose: 1 tab - Labs Labs: 04/02/18 08:04 04/02/18 08:04 PT 11.3 SECONDS (9.7-12.2) 03/30/18 21:54 INR 1.0 03/30/18 21:54 APTT 35 SECONDS (21-34) H 03/30/18 21:54 Attending/Attestation - Attestation I have personally seen and examined this patient.: Yes I have fully participated in the care of the patient.: Yes I have reviewed all pertinent clinical information, including history, physical exam and plan: Yes Notes (Text): 04/02/18 18:39 Medical attending: Patient was seen and examined by me. Agree with the above note by the resident The patient was not in any acute distress at this time. In the morning when we had seen him he was NSR on the telemetry. When he intially came to the hospital he had a much faster HR and the 12 lead was concerning for atrial fibrillation. We are pending cardiology evaluation in case the patient needs anticoagualtion. Despite being NSR now Patient does have a relatively elevated CHADS criteria. Farzad Mcallister
[2018-04-02 08:11] LABS: BASO # 0.1 K/uL (0.0-0.2); BASO % 0.7 % (0.0-2.0); EOS # 0.4 K/uL (0.0-0.7); EOS % 4.7 % (0.0-4.0); HEMOGLOBIN 10.6 g/dL (12.0-18.0); LYMPH # 1.8 K/uL (1.0-4.3); LYMPH % 21.2 % (20.0-40.0); MEAN CELL VOLUME 91.3 fL (80.0-94.0); MEAN CORPUSCULAR HEMOGLOBIN 30.9 pg (27.0-31.0); MEAN CORPUSCULAR HGB CONC 33.9 g/dL (33.0-37.0); MEAN PLATELET VOLUME 7.4 fL (7.2-11.7); MONO # 0.7 K/uL (0.0-0.8); MONO % 8.3 % (0.0-10.0); NEUT # 5.4 K/uL (1.8-7.0); NEUT % 65.1 % (50.0-75.0); NRBC % 0.1 % (0.0-2.0); RBC 3.44 Mil/uL (4.40-5.90); RED CELL DISTRIBUTION WIDTH 14.6 % (11.5-14.5); WHITE BLOOD COUNT 8.3 K/uL (4.8-10.8)
[2018-04-02 08:41] LABS: ALB/GLOB RATIO 1.3 (1.0-2.1); ALBUMIN 3.9 g/dL (3.5-5.0); CALCIUM 8.3 mg/dl (8.6-10.4)
[2018-04-02] MEDS ORDERED: Lidocaine 2% Jelly (30 ml) TOP SCH (09:00)
--- NOTE | 2018-04-02 09:59 | CP.PCM.CON ---
History of Present Illness - History of Present Illness History of Present Illness: Gigi Baxter DO, PGY-1 Cardiology Consultation Note for Dr. Berry Mariae is a 62 year old male with PMH of HTN, ESRD (MWF dialysis), TIA, COPD, and glaucoma presented to ED on 03/30 from dialysis center for concern of abnormal heart rhythm. He was found to be in AFib with RVR. He was given diltiazem 15 mg IVP with conversion back to NSR. He was subsequently admitted to telemetry for continued monitoring. Since admission, he has maintained NSR and has had no additional episodes of AFib. Currently, he reports feeling fine and states he has had no additional episodes of palpitations or dizziness since his dialysis session last Monday. PMD: Dottie Jacome Nephrology: Dr. Billie Mckeon PMH: HTN, ESRD (MWF dialysis), TIA, COPD, and glaucoma PSH: AV fistula in L arm for dialysis, septoplasty Meds: Travetan eye drops for glaucoma, Losartan 100 mg daily, Phosphate binder with meals Alls: NKDA Soc Hx: admits to cigarette smoking 1/2 PPD for last 40 years, reports prior alcohol use but has not had a drink since last May, denies illicit drug use Fam Hx: mother and brother have DM2, denies family history of premature cardiac or MD Review of Systems - Constitutional Constitutional: absent: Chills, Fever - EENT Eyes: absent: Blurred Vision - Cardiovascular Cardiovascular: absent: Chest Pain, Diaphoresis, Dyspnea, Dyspnea on Exertion, Edema, Palpitations - Respiratory Respiratory: absent: Cough, Dyspnea Past Patient History - Infectious Disease Hx of Infectious Diseases: None - Past Medical History & Family History Past Medical History?: Yes Past Family History: Reviewed and not pertinent - Past Social History Smoking Status: Light Smoker < 10 Cigarettes Daily - CARDIAC Hx Hypertension: Yes (noncompliant with meds) - PULMONARY Hx Chronic Obstructive Pulmonary Disease (COPD): Yes - NEUROLOGICAL Hx Transient Ischemic Attacks (TIA): Yes (2010) - RENAL Hx Dialysis: Yes () - MUSCULOSKELETAL/RHEUMATOLOGICAL Hx Falls: No - PSYCHIATRIC Hx Substance Use: No - SURGICAL HISTORY Hx Surgeries: Yes Hx Arteriovenous Shunt: Yes - ANESTHESIA Hx Anesthesia: Yes Hx Anesthesia Reactions: No Hx Malignant Hyperthermia: No Meds Allergies/Adverse Reactions: Allergies Allergy/AdvReac Type Severity Reaction Status Date / Time No Known Allergies Allergy Verified 03/30/18 21:06 - Medications Medications: Current Medications Albuterol/Ipratropium (Duoneb 3 Mg/0.5 Mg (3 Ml) Ud) 3 ml INH RQ6 PRN PRN Reason: Shortness of Breath Calcium Acetate (Phoslo) 1,334 mg PO TIDCC [facility] Last Admin: 04/01/18 18:04 Dose: 1,334 mg Diltiazem HCl (Cardizem) 30 mg PO QID [facility] Last Admin: 04/01/18 21:51 Dose: 30 mg Ergocalciferol (Drisdol 50,000 Intl Units Cap) 1 cap PO Q7D [facility] Last Admin: 03/31/18 05:36 Dose: 1 cap Heparin Sodium (Porcine) (Heparin) 5,000 units SC Q12 [facility] Last Admin: 04/01/18 21:51 Dose: 5,000 units Lidocaine HCl (Xylocaine 2%) 0 ea TOP MWF [facility] Losartan Potassium (Cozaar) 100 mg PO DAILY [facility] Vitamin B Complex/Vit C/Folic Acid (Nephro-Magdalena) 1 tab PO 0800 [facility] Last Admin: 04/01/18 08:11 Dose: 1 tab Results - Vital Signs Recent Vital Signs: Last Vital Signs Temp 97.2 F L 04/02/18 07:10 Pulse 70 04/02/18 07:30 Resp 20 04/02/18 07:10 BP 160/88 H 04/02/18 07:10 Pulse Ox 95 04/02/18 07:10 - Labs Result Diagrams: 04/02/18 08:04 04/02/18 08:04 Labs: Laboratory Results - last 24 hr 04/02/18 04/02/18 08:04 08:04 WBC 8.3 RBC 3.44 L Hgb 10.6 L Hct 31.4 L MCV 91.3 MCH 30.9 MCHC 33.9 RDW 14.6 H Plt Count 236 MPV 7.4 Neut % (Auto) 65.1 Lymph % (Auto) 21.2 [place] % (Auto) 8.3 Eos % (Auto) 4.7 H Baso % (Auto) 0.7 Neut # (Auto) 5.4 Lymph # (Auto) 1.8 [place] # (Auto) 0.7 Eos # (Auto) 0.4 Baso # (Auto) 0.1 Sodium 134 Potassium 4.8 Chloride 89 L Carbon Dioxide 27 Anion Gap 23 H BUN 86 H Creatinine 14.5 H* D Est GFR ( Amer) 4 Est GFR (Non-Af Amer) 3 Random Glucose 85 Calcium 8.3 L Phosphorus 6.7 H Magnesium 2.2 Total Bilirubin 0.5 AST 16 L ALT 18 L Alkaline Phosphatase 83 Total Protein 6.8 Albumin 3.9 Globulin 3.0 Albumin/Globulin Ratio 1.3 Assessment & Plan - Assessment and Plan (Free Text) Assessment: 62 yo M with PMH of HTN, ESRD (MWF dialysis), TIA, COPD, and glaucoma presented from dialysis center with new onset AFib with RVR. In ED he was converted back to sinus rhythm with diltiazem 15 mg IVP. No additional episodes of AFib noted on telemetry over the weekend. Plan: AFib with RVR TSH within normal limits Troponin negative x 3 TTE completed and interpreted by Dr. Smart, EF is not severely depressed However, patient has hx of TIA, so will get nuclear medicine myocardial perfusio n imaging CHADsVASC score of 3, HASBLED score of 2, so would likely benefit from anticoagulation Will await myocardial perfusion imaging prior to initiating anticoagulation Case and plan reviewed and discussed with my attending Dr. Berry Baxter, IM Resident PGY-1
[2018-04-02] MEDS: Multivitamin Vitamin B Complex (Nephro-Vite) Tab PO SCH (10:18)
--- NOTE | 2018-04-02 15:48 | CP.PCM.PN ---
Subjective - Date & Time of Evaluation Date of Evaluation: 04/02/18 Time of Evaluation: 15:46 - Subjective Subjective: RENAL: seen on hd pe: vs as below gen: nad sclera: anicteric op: clear neck: supple no thyromegaly cvP: +S1+s2 no rub lungs: cta b/l abd: soft nt nd no organomegaly ext: no edema neuro: a+ox3 no focal defecity psych: nml affect skin no rash labs nad imaging reviewed imp: ESRD/ HTN/ Afib/ Anemia of renal disease/Secondary hyperpara plan: HD MWF bp relatively stable f/u cardiology hgb stable no need for edil please increase phoslo to 3 tabs po tid w/ meals Objective - Vital Signs/Intake and Output Vital Signs (last 24 hours): Temp Pulse Resp BP Pulse Ox 97.4 F L 69 16 166/92 H 97 04/02/18 13:35 04/02/18 14:18 04/02/18 14:18 04/02/18 15:15 04/02/18 13:35 Intake and Output: 04/02/18 04/02/18 06:59 18:59 Intake Total 200 Balance 200 - Medications Medications: Current Medications Albuterol/Ipratropium (Duoneb 3 Mg/0.5 Mg (3 Ml) Ud) 3 ml INH RQ6 PRN PRN Reason: Shortness of Breath Calcium Acetate (Phoslo) 1,334 mg PO TIDCC [facility] Last Admin: 04/02/18 13:30 Dose: Not Given Diltiazem HCl (Cardizem) 30 mg PO QID [facility] Last Admin: 04/02/18 13:29 Dose: Not Given Ergocalciferol (Drisdol 50,000 Intl Units Cap) 1 cap PO Q7D [facility] Last Admin: 03/31/18 05:36 Dose: 1 cap Heparin Sodium (Porcine) (Heparin) 5,000 units SC Q12 [facility] Last Admin: 04/02/18 10:23 Dose: 5,000 units Lidocaine HCl (Xylocaine 2%) 0 ea TOP MWF [facility] Last Admin: 04/02/18 11:29 Dose: 1 applic Losartan Potassium (Cozaar) 100 mg PO DAILY [facility] Vitamin B Complex/Vit C/Folic Acid (Nephro-Magdalena) 1 tab PO 0800 [facility] Last Admin: 04/02/18 10:18 Dose: 1 tab - Labs Labs: 04/02/18 08:04 04/02/18 08:04 PT 11.3 SECONDS (9.7-12.2) 03/30/18 21:54 INR 1.0 03/30/18 21:54 APTT 35 SECONDS (21-34) H 03/30/18 21:54
--- NOTE | 2018-04-02 15:52 | CP.PCM.PN ---
Subjective - Date & Time of Evaluation Date of Evaluation: 04/02/18 Time of Evaluation: 15:50 - Subjective Subjective: f/u rectal bleed Cardiac workup in progress Seen in HD Denies bleeding. Hgb stable Objective - Vital Signs/Intake and Output Vital Signs (last 24 hours): Temp Pulse Resp BP Pulse Ox 97.4 F L 69 16 166/92 H 97 04/02/18 13:35 04/02/18 14:18 04/02/18 14:18 04/02/18 15:15 04/02/18 13:35 Intake and Output: 04/02/18 04/02/18 06:59 18:59 Intake Total 200 Balance 200 - Medications Medications: Current Medications Albuterol/Ipratropium (Duoneb 3 Mg/0.5 Mg (3 Ml) Ud) 3 ml INH RQ6 PRN PRN Reason: Shortness of Breath Calcium Acetate (Phoslo) 1,334 mg PO TIDCC [facility] Last Admin: 04/02/18 13:30 Dose: Not Given Diltiazem HCl (Cardizem) 30 mg PO QID [facility] Last Admin: 04/02/18 13:29 Dose: Not Given Ergocalciferol (Drisdol 50,000 Intl Units Cap) 1 cap PO Q7D [facility] Last Admin: 03/31/18 05:36 Dose: 1 cap Heparin Sodium (Porcine) (Heparin) 5,000 units SC Q12 [facility] Last Admin: 04/02/18 10:23 Dose: 5,000 units Lidocaine HCl (Xylocaine 2%) 0 ea TOP MWF [facility] Last Admin: 04/02/18 11:29 Dose: 1 applic Losartan Potassium (Cozaar) 100 mg PO DAILY [facility] Vitamin B Complex/Vit C/Folic Acid (Nephro-Magdalena) 1 tab PO 0800 [facility] Last Admin: 04/02/18 10:18 Dose: 1 tab - Labs Labs: 04/02/18 08:04 04/02/18 08:04 PT 11.3 SECONDS (9.7-12.2) 03/30/18 21:54 INR 1.0 03/30/18 21:54 APTT 35 SECONDS (21-34) H 03/30/18 21:54 - Constitutional Appears: Well, No Acute Distress - Respiratory Exam Respiratory Exam: NORMAL BREATHING PATTERN - GI/Abdominal Exam GI & Abdominal Exam: Soft. absent: Tenderness Assessment and Plan (1) New onset a-fib Assessment & Plan: cardiac workup in progress Status: Acute (2) Rectal bleed Assessment & Plan: stable outpt f/u for colonoscopy recommended Status: Acute
[2018-04-02 17:39] VITALS: RESP 20
--- NOTE | 2018-04-02 17:55 | CARD ---
APPROVED REPORT Date of service: 04/02/2018 EXAM: Two-dimensional and M-mode echocardiogram with Doppler and color Doppler. Other Information Quality : GoodRhythm : INDICATION CVA/TIA Atrial Fibrillation COPD RISK FACTORS Hypertension Hyperlipidemia 2D DIMENSIONS IVSd0.9 (0.7-1.1cm)LVDd5.0 (3.9-5.9cm) PWd0.9 (0.7-1.1cm)LA Eknfoa81 (18-58mL) LVDs3.4 (2.5-4.0cm)FS (%) 32.8 % LVEF (%)60.9 (>50%)LVEF (St's)64.79 % IVC0.00 cm M-Mode DIMENSIONS RVDd2.02 (2.1-3.2cm)Left Atrium (MM)3.31 (2.5-4.0cm) IVSd0.94 (0.7-1.1cm)Aortic Root3.53 (2.2-3.7cm) LVDd5.40 (4.0-5.6cm)Aortic Cusp Exc.1.84 (1.5-2.0cm) PWd1.02 (0.7-1.1cm)FS (%) 28 % LVDs3.90 (2.0-3.8cm)LVEF (%)53 (>50%) Mitral Valve MV E Aimrdmuw44.8cm/sMV A Yciqyjaq691.7cm/sE/A ratio0.6 LVQJ936.36 cm/s TDI Lateral E' Peak V6.80cm/sMedial E' Peak V5.71cm/sE/Lateral E'11.3 E/Medial E'13.5 Tricuspid Valve TR Peak Yzxtauzj250qe/sTR Peak Gr.80pqKrZNOI37vcKw LEFT VENTRICLE The left ventricle is normal size. There is normal left ventricular wall thickness. The left ventricular function is normal. The left ventricular ejection fraction is within the normal range. 75% No regional wall motion abnormalities noted. Transmitral Doppler flow pattern is Grade I-abnormal relaxation pattern. No left ventricle thrombus noted on this study. There is no ventricular septal defect visualized. There is no left ventricular aneurysm. There is no mass noted in the left ventricle. RIGHT VENTRICLE The right ventricle is normal size. There is normal right ventricular wall thickness. The right ventricular systolic function is normal. ATRIA The left atrial volume index is mildly elevated. The right atrium size is normal. The interatrial septum is intact with no evidence for an atrial septal defect. AORTIC VALVE The aortic valve is normal in structure and function. No aortic regurgitation is present. There is no aortic valvular stenosis. There is no aortic valvular vegetation. MITRAL VALVE The mitral valve is normal in structure and function. There is no evidence of mitral valve prolapse. There is no mitral valve stenosis. There is mild mitral valve regurgitation noted. TRICUSPID VALVE The tricuspid valve is normal in structure and function. There is no tricuspid valve regurgitation noted. There is no tricuspid valve prolapse or vegetation. There is no tricuspid valve stenosis. PULMONIC VALVE The pulmonary valve is normal in structure and function. There is no pulmonic valvular regurgitation. There is no pulmonic valvular stenosis. GREAT VESSELS The aortic root is normal in size. The ascending aorta is upper normal 3.7 cm. The pulmonary artery is normal. The IVC is normal in size and collapses >50% with inspiration. PERICARDIAL EFFUSION The pericardium appears normal. There is no pleural effusion. <Conclusion> Normal left ventricualr systolic function and doppler. Type I diastolic dysfunction. The left atrial volume index is mildly elevated.
[2018-04-03 07:44] LABS: BASO # 0.1 K/uL (0.0-0.2); EOS # 0.3 K/uL (0.0-0.7); EOS % 3.9 % (0.0-4.0); LYMPH # 1.6 K/uL (1.0-4.3); LYMPH % 19.7 % (20.0-40.0); MEAN CELL VOLUME 91.9 fL (80.0-94.0); MEAN CORPUSCULAR HEMOGLOBIN 30.9 pg (27.0-31.0); MEAN CORPUSCULAR HGB CONC 33.7 g/dL (33.0-37.0); MEAN PLATELET VOLUME 7.4 fL (7.2-11.7); MONO # 0.7 K/uL (0.0-0.8); MONO % 8.2 % (0.0-10.0); NEUT # 5.4 K/uL (1.8-7.0); NEUT % 67.2 % (50.0-75.0); RBC 3.87 Mil/uL (4.40-5.90); RED CELL DISTRIBUTION WIDTH 14.8 % (11.5-14.5)
[2018-04-03 08:16] LABS: ALB/GLOB RATIO 1.3 (1.0-2.1); ALBUMIN 4.4 g/dL (3.5-5.0); CALCIUM 8.9 mg/dl (8.6-10.4)
[2018-04-03] MEDS: Multivitamin Vitamin B Complex (Nephro-Vite) Tab PO SCH ×2 (09:49→13:14)
--- NOTE | 2018-04-03 12:53 | CP.PCM.PN ---
Subjective - Date & Time of Evaluation Date of Evaluation: 04/03/18 Time of Evaluation: 12:52 - Subjective Subjective: RENAL: feels better. no CP/SOB for stress test want to go home soon pe: vs as below gen: nad sclera: anicteric op: clear neck: supple no thyromegaly cvP: +S1+s2 no rub lungs: cta b/l abd: soft nt nd no organomegaly ext: no edema neuro: a+ox3 no focal defecity psych: nml affect skin no rash labs nad imaging reviewed imp: ESRD/ HTN/ Afib/ Anemia of renal disease/Secondary hyperpara plan: HD MWF as ordered bp relatively stable f/u cardiology hgb stable no need for edil Objective - Vital Signs/Intake and Output Vital Signs (last 24 hours): Temp Pulse Resp BP Pulse Ox 97.6 F 68 20 146/88 96 04/03/18 07:00 04/03/18 07:15 04/03/18 07:00 04/03/18 07:00 04/03/18 07:00 - Medications Medications: Current Medications Albuterol/Ipratropium (Duoneb 3 Mg/0.5 Mg (3 Ml) Ud) 3 ml INH RQ6 PRN PRN Reason: Shortness of Breath Calcium Acetate (Phoslo) 1,334 mg PO TIDCC [facility] Last Admin: 04/03/18 09:50 Dose: Not Given Diltiazem HCl (Cardizem) 30 mg PO QID [facility] Last Admin: 04/03/18 11:01 Dose: Not Given Ergocalciferol (Drisdol 50,000 Intl Units Cap) 1 cap PO Q7D [facility] Last Admin: 03/31/18 05:36 Dose: 1 cap Lidocaine HCl (Xylocaine 2%) 0 ea TOP MWF [facility] Last Admin: 04/02/18 11:29 Dose: 1 applic Losartan Potassium (Cozaar) 100 mg PO DAILY [facility] Last Admin: 04/03/18 11:01 Dose: Not Given Vitamin B Complex/Vit C/Folic Acid (Nephro-Magdalena) 1 tab PO 0800 [facility] Last Admin: 04/03/18 09:49 Dose: Not Given - Labs Labs: 04/03/18 07:32 04/03/18 07:32 PT 11.3 SECONDS (9.7-12.2) 03/30/18 21:54 INR 1.0 03/30/18 21:54 APTT 35 SECONDS (21-34) H 03/30/18 21:54
--- NOTE | 2018-04-03 13:08 | CP.PCM.PN ---
Subjective - Date & Time of Evaluation Date of Evaluation: 04/03/18 Time of Evaluation: 11:00 - Subjective Subjective: Gigi Baxter DO, PGY-1 Cardiology Progress Note for Dr. Smart Patient was seen and examined at bedside this AM during stress test. He offers no new complaints and states he feels fine. Stress test this AM showed no sign ificant ischemia. Objective - Vital Signs/Intake and Output Vital Signs (last 24 hours): Temp Pulse Resp BP Pulse Ox 97.6 F 68 20 146/88 96 04/03/18 07:00 04/03/18 07:15 04/03/18 07:00 04/03/18 07:00 04/03/18 07:00 - Medications Medications: Current Medications Albuterol/Ipratropium (Duoneb 3 Mg/0.5 Mg (3 Ml) Ud) 3 ml INH RQ6 PRN PRN Reason: Shortness of Breath Calcium Acetate (Phoslo) 1,334 mg PO TIDCC [facility] Last Admin: 04/03/18 09:50 Dose: Not Given Diltiazem HCl (Cardizem) 30 mg PO QID [facility] Last Admin: 04/03/18 11:01 Dose: Not Given Ergocalciferol (Drisdol 50,000 Intl Units Cap) 1 cap PO Q7D [facility] Last Admin: 03/31/18 05:36 Dose: 1 cap Lidocaine HCl (Xylocaine 2%) 0 ea TOP MWF [facility] Last Admin: 04/02/18 11:29 Dose: 1 applic Losartan Potassium (Cozaar) 100 mg PO DAILY [facility] Last Admin: 04/03/18 11:01 Dose: Not Given Vitamin B Complex/Vit C/Folic Acid (Nephro-Magdalena) 1 tab PO 0800 [facility] Last Admin: 04/03/18 09:49 Dose: Not Given - Labs Labs: 04/03/18 07:32 04/03/18 07:32 PT 11.3 SECONDS (9.7-12.2) 03/30/18 21:54 INR 1.0 03/30/18 21:54 APTT 35 SECONDS (21-34) H 03/30/18 21:54 - Constitutional Appears: Non-toxic, No Acute Distress - Head Exam Head Exam: ATRAUMATIC, NORMOCEPHALIC - Eye Exam Eye Exam: EOMI, Normal appearance, PERRL - ENT Exam ENT Exam: Mucous Membranes Moist - Neck Exam Neck Exam: Full ROM, Normal Inspection - Respiratory Exam Respiratory Exam: Clear to Ausculation Bilateral. absent: Accessory Muscle Use, Rales, Rhonchi, Wheezes, Respiratory Distress - Cardiovascular Exam Cardiovascular Exam: REGULAR RHYTHM, RRR, +S1, +S2. absent: Gallop, Rubs, Murmur - GI/Abdominal Exam GI & Abdominal Exam: Soft. absent: Guarding, Tenderness - Extremities Exam Extremities Exam: Full ROM, Normal Inspection - Back Exam Back Exam: NORMAL INSPECTION - Neurological Exam Neurological Exam: Alert, Awake, Oriented x3 - Psychiatric Exam Psychiatric exam: Normal Affect, Normal Mood - Skin Skin Exam: Dry, Intact, Warm Assessment and Plan - Assessment and Plan (Free Text) Assessment: 62 yo M with PMH of HTN, ESRD (MWF dialysis), TIA, COPD, and glaucoma presented from dialysis center with new onset AFib with RVR. In ED he was converted back to sinus rhythm with diltiazem 15 mg IVP. No additional episodes of AFib noted on telemetry since admission. Plan: AFib with RVR TSH within normal limits Troponin negative x 3 TTE completed and found LVEF of 60-65% Joyce scan stress test without concerning changes on EKG CHADsVASC score of 3, HASBLED score of 2, so would likely benefit from anticoagulation Will start xarelto 20 mg PO with dinner May follow up with Dr. Smart within 2 weeks after discharge Case and plan reviewed and discussed with my attending Dr. Berry Baxter DO IM Resident PGY-1
--- NOTE | 2018-04-03 14:30 | CP.PCM.DIS ---
<Dk Hernandez - Last Filed: 04/03/18 16:23> Provider - Provider Date of Admission: 03/30/18 22:26 Attending physician: Lucho Wesley Consults: 03/31/18 06:00 Nephrology Consult Routine Comment: Consulting Provider: Barbara Mckeon Consulting Physician: Barbara Mckeon Reason for Consult: ESRD 03/31/18 13:05 Cardiology Consult Routine Comment: Consulting Provider: Koko Smart Consulting Physician: Koko Smart Reason for Consult: new onset afib 03/31/18 13:06 Gastroenterology Consult Routine Comment: Consulting Provider: Satya Barone Consulting Physician: Satya Barone Reason for Consult: blood in stool, new onset afib Time Spent in preparation of Discharge (in minutes): 35 Hospital Course - Lab Results Lab Results: Micro Results 03/31/18 05:00 Blood-Venous Blood Culture - Preliminary NO GROWTH AFTER 3 DAYS 03/31/18 04:30 Blood-Venous Blood Culture - Preliminary NO GROWTH AFTER 3 DAYS Most Recent Lab Values WBC 8.0 K/uL (4.8-10.8) 04/03/18 07:32 RBC 3.87 Mil/uL (4.40-5.90) L 04/03/18 07:32 Hgb 12.0 g/dL (12.0-18.0) 04/03/18 07:32 Hct 35.6 % (35.0-51.0) 04/03/18 07:32 MCV 91.9 fL (80.0-94.0) 04/03/18 07:32 MCH 30.9 pg (27.0-31.0) 04/03/18 07:32 MCHC 33.7 g/dL (33.0-37.0) 04/03/18 07:32 RDW 14.8 % (11.5-14.5) H 04/03/18 07:32 Plt Count 253 K/uL (130-400) 04/03/18 07:32 MPV 7.4 fL (7.2-11.7) 04/03/18 07:32 Neut % (Auto) 67.2 % (50.0-75.0) 04/03/18 07:32 Lymph % (Auto) 19.7 % (20.0-40.0) L 04/03/18 07:32 Hudson % (Auto) 8.2 % (0.0-10.0) 04/03/18 07:32 Eos % (Auto) 3.9 % (0.0-4.0) 04/03/18 07:32 Baso % (Auto) 1.0 % (0.0-2.0) 04/03/18 07:32 Neut # (Auto) 5.4 K/uL (1.8-7.0) 04/03/18 07:32 Lymph # (Auto) 1.6 K/uL (1.0-4.3) 04/03/18 07:32 Hudson # (Auto) 0.7 K/uL (0.0-0.8) 04/03/18 07:32 Eos # (Auto) 0.3 K/uL (0.0-0.7) 04/03/18 07:32 Baso # (Auto) 0.1 K/uL (0.0-0.2) 04/03/18 07:32 Neutrophils % (Manual) 90 % (50-75) H 03/30/18 21:54 Band Neutrophils % 2 % (0-2) 03/30/18 21:54 Lymphocytes % (Manual) 5 % (20-40) L 03/30/18 21:54 Monocytes % (Manual) 3 % (0-10) 03/30/18 21:54 Platelet Estimate Normal (NORMAL) 03/30/18 21:54 RBC Morphology Normal 03/30/18 21:54 PT 11.3 SECONDS (9.7-12.2) 03/30/18 21:54 INR 1.0 03/30/18 21:54 APTT 35 SECONDS (21-34) H 03/30/18 21:54 Sodium 137 mmol/L (132-148) 04/03/18 07:32 Potassium 5.1 mmol/L (3.6-5.2) 04/03/18 07:32 Chloride 94 mmol/L (98-107) L 04/03/18 07:32 Carbon Dioxide 27 mmol/L (22-30) 04/03/18 07:32 Anion Gap 21 (10-20) H 04/03/18 07:32 BUN 45 mg/dL (9-20) H 04/03/18 07:32 Creatinine 10.4 mg/dL (0.8-1.5) H* D 04/03/18 07:32 Est GFR ( Amer) 6 04/03/18 07:32 Est GFR (Non-Af Amer) 5 04/03/18 07:32 Random Glucose 91 mg/dL (75-110) 04/03/18 07:32 Calcium 8.9 mg/dl (8.6-10.4) 04/03/18 07:32 Phosphorus 5.7 mg/dL (2.5-4.5) H 04/03/18 07:32 Magnesium 2.1 mg/dL (1.6-2.3) 04/03/18 07:32 Total Bilirubin 0.4 mg/dL (0.2-1.3) 04/03/18 07:32 AST 20 U/L (17-59) 04/03/18 07:32 ALT 18 U/L (21-72) L 04/03/18 07:32 Alkaline Phosphatase 95 U/L (38-126) 04/03/18 07:32 Troponin I 0.0260 ng/mL (0.00-0.120) 03/31/18 11:10 Total Protein 7.8 g/dL (6.3-8.3) 04/03/18 07:32 Albumin 4.4 g/dL (3.5-5.0) 04/03/18 07:32 Globulin 3.3 gm/dL (2.2-3.9) 04/03/18 07:32 Albumin/Globulin Ratio 1.3 (1.0-2.1) 04/03/18 07:32 TSH 3rd Generation 1.07 mIU/L (0.46-4.68) 03/30/18 21:54 - Hospital Course Hospital Course: On admission: This is a 62 year old male with PMH of HTN, TIA, ESRD on HD (MWF) COPD, glaucoma, who presents to the ED from dialysis session due to high blood pressure, noted to have rapid afib in the ED. Pt is unsure of how high the blood pressure reading was. He states that he was feeling fine prior to dialysis and underwent dialysis without any problems. However, as he was walking out he began to feel lightheaded and proceeded to fall back onto a chair. He thought that his BP was low. He endorses feeling some palpitations while in the ED, but nothing before. Denies fever, chills, chest pain, sob, blurry vision, epistaxis, abdominal pain, n/v/d, constipation, dysuria, hematuria, lower extremity pain or swelling, joint pain, muscle pain. Pt has no history of irregular heart rate in the past. Pt was noted to be tachycardic at 160 in the ED. EKG showed rapid afib. He was treated with Diltiazem 15 mg IVP, which converted him to NSR and repeat EKG shows NSR, no STTW changes. Hospital course: Pt was under the care of [facility] physicians from 03/30-04/03. Pt noted to have rapid afib in the ED. He was treated with Diltiazem 15 mg IVP, which converted him to NSR and repeat EKG shows NSR, no STTW changes. Mag and phos were normal. Cardiology, Dr. Smart, was consulted for new onset afib. GI, Dr. Barone, consulted for blood in the stool. Dr. Barone recommended outpatient follow up with colonoscopy. Nephrology, Dr. Mckeon, consulted for ESRD. Pt had dialysis while in the hospital, well tolerated. Joyce scan stress test without concerning changes on EKG as per Cardio. As per cardio: CHADsVASC score of 3, HASBLED score of 2, so would likely benefit from anticoagulation. Pt will be started on xarelto 20 mg PO. Pt will also be discharged with scripts for Cardizem 30 mg PO QID, which he has been tolerating well during hospitalization. He has had no evidence of afib, and remained in NSR, during hospitalization. Images: Myocardial perfusion scan (04/03) shows no signs of ischemia as per cardiology. Echocardiogram (03/31) shows normal LV systolic function and doppler. Type I diastolic dysfunction. Left atrial volume index is mildly elevated. CXR (03/30) shows no pulmonary disease. This is a summary of the hospital course, please see EMR for full details. Discharge Exam - Head Exam Head Exam: ATRAUMATIC, NORMOCEPHALIC - Eye Exam Eye Exam: EOMI, Normal appearance - ENT Exam ENT Exam: Mucous Membranes Moist - Respiratory Exam Respiratory Exam: Clear to PA & Lateral, NORMAL BREATHING PATTERN, UNREMARKABLE - Cardiovascular Exam Cardiovascular Exam: REGULAR RHYTHM, +S1, +S2 - GI/Abdominal Exam GI & Abdominal Exam: Normal Bowel Sounds, Soft. absent: Tenderness - Extremities Exam Extremities exam: normal capillary refill, normal inspection, pedal pulses present Additional comments: no pedal edema, no calf tenderness - Back Exam Back exam: NORMAL INSPECTION. absent: CVA tenderness (L), CVA tenderness (R) - Neurological Exam Neurological exam: Alert, Normal Gait, Oriented x3 - Psychiatric Exam Psychiatric exam: Normal Affect, Normal Mood - Skin Skin Exam: Dry, Normal Color, Warm Additional comments: left av fistula with palpable thrill Discharge Plan - Discharge Medications Prescriptions: RX: diltiaZEM [Cardizem] 30 mg PO QID #56 tab RX: Rivaroxaban [Xarelto] 20 mg PO DIN #14 tab - Follow Up Plan Condition: FAIR Disposition: HOME/ ROUTINE Instructions: Dialysis Diet , Rivaroxaban, Atrial Fibrillation (DC), Heart Failure, Adult (DC), Diltiazem, End Stage Kidney Disease (DC) Additional Instructions: Pt is medically stable for discharge home as per Dr. Mcallister. Pt should continue to take his home medications as previously prescribed. Additionally, pt should start Cardizem 30 mg by mouth four times a day, and Xarelto 20 mg by mouth nightly. Pt should follow up with his weight loss sales consultant, or Dr. Smart, within 2 weeks of discharge. Pt should follow up with his PMD within 2 weeks of discharge. Pt should follow up with GI, Dr. Barone, for outpatient colonoscopy. Pt should continue to see his tour guide regularly. Should symptoms worsen, patient should return to the nearest Emergency Department for evaluation. Instructions explained to the patient, who understands and agrees with discharge plan. Referrals: Barbara Mckeon MD [Staff Provider] - Koko Smart MD [Staff Provider] - Non [facility] Provider, [Non-Staff] - Satya Barone MD [Staff Provider] - <Farzad Mcallister - Last Filed: 04/03/18 16:53> Provider - Provider Date of Admission: 03/30/18 22:26 Attending physician: Lucho Wesley Consults: 03/31/18 06:00 Nephrology Consult Routine Comment: Consulting Provider: Barbara Mckeon Consulting Physician: Barbara Mckeon Reason for Consult: ESRD 03/31/18 13:05 Cardiology Consult Routine Comment: Consulting Provider: Koko Smart Consulting Physician: Koko Smart Reason for Consult: new onset afib 03/31/18 13:06 Gastroenterology Consult Routine Comment: Consulting Provider: Satya Barone Consulting Physician: Satya Barone Reason for Consult: blood in stool, new onset afib Hospital Course - Lab Results Lab Results: Micro Results 03/31/18 05:00 Blood-Venous Blood Culture - Preliminary NO GROWTH AFTER 3 DAYS 03/31/18 04:30 Blood-Venous Blood Culture - Preliminary NO GROWTH AFTER 3 DAYS Most Recent Lab Values WBC 8.0 K/uL (4.8-10.8) 04/03/18 07:32 RBC 3.87 Mil/uL (4.40-5.90) L 04/03/18 07:32 Hgb 12.0 g/dL (12.0-18.0) 04/03/18 07:32 Hct 35.6 % (35.0-51.0) 04/03/18 07:32 MCV 91.9 fL (80.0-94.0) 04/03/18 07:32 MCH 30.9 pg (27.0-31.0) 04/03/18 07:32 MCHC 33.7 g/dL (33.0-37.0) 04/03/18 07:32 RDW 14.8 % (11.5-14.5) H 04/03/18 07:32 Plt Count 253 K/uL (130-400) 04/03/18 07:32 MPV 7.4 fL (7.2-11.7) 04/03/18 07:32 Neut % (Auto) 67.2 % (50.0-75.0) 04/03/18 07:32 Lymph % (Auto) 19.7 % (20.0-40.0) L 04/03/18 07:32 Hudson % (Auto) 8.2 % (0.0-10.0) 04/03/18 07:32 Eos % (Auto) 3.9 % (0.0-4.0) 04/03/18 07:32 Baso % (Auto) 1.0 % (0.0-2.0) 04/03/18 07:32 Neut # (Auto) 5.4 K/uL (1.8-7.0) 04/03/18 07:32 Lymph # (Auto) 1.6 K/uL (1.0-4.3) 04/03/18 07:32 Hudson # (Auto) 0.7 K/uL (0.0-0.8) 04/03/18 07:32 Eos # (Auto) 0.3 K/uL (0.0-0.7) 04/03/18 07:32 Baso # (Auto) 0.1 K/uL (0.0-0.2) 04/03/18 07:32 Neutrophils % (Manual) 90 % (50-75) H 03/30/18 21:54 Band Neutrophils % 2 % (0-2) 03/30/18 21:54 Lymphocytes % (Manual) 5 % (20-40) L 03/30/18 21:54 Monocytes % (Manual) 3 % (0-10) 03/30/18 21:54 Platelet Estimate Normal (NORMAL) 03/30/18 21:54 RBC Morphology Normal 03/30/18 21:54 PT 11.3 SECONDS (9.7-12.2) 03/30/18 21:54 INR 1.0 03/30/18 21:54 APTT 35 SECONDS (21-34) H 03/30/18 21:54 Sodium 137 mmol/L (132-148) 04/03/18 07:32 Potassium 5.1 mmol/L (3.6-5.2) 04/03/18 07:32 Chloride 94 mmol/L (98-107) L 04/03/18 07:32 Carbon Dioxide 27 mmol/L (22-30) 04/03/18 07:32 Anion Gap 21 (10-20) H 04/03/18 07:32 BUN 45 mg/dL (9-20) H 04/03/18 07:32 Creatinine 10.4 mg/dL (0.8-1.5) H* D 04/03/18 07:32 Est GFR ( Amer) 6 04/03/18 07:32 Est GFR (Non-Af Amer) 5 04/03/18 07:32 Random Glucose 91 mg/dL (75-110) 04/03/18 07:32 Calcium 8.9 mg/dl (8.6-10.4) 04/03/18 07:32 Phosphorus 5.7 mg/dL (2.5-4.5) H 04/03/18 07:32 Magnesium 2.1 mg/dL (1.6-2.3) 04/03/18 07:32 Total Bilirubin 0.4 mg/dL (0.2-1.3) 04/03/18 07:32 AST 20 U/L (17-59) 04/03/18 07:32 ALT 18 U/L (21-72) L 04/03/18 07:32 Alkaline Phosphatase 95 U/L (38-126) 04/03/18 07:32 Troponin I 0.0260 ng/mL (0.00-0.120) 03/31/18 11:10 Total Protein 7.8 g/dL (6.3-8.3) 04/03/18 07:32 Albumin 4.4 g/dL (3.5-5.0) 04/03/18 07:32 Globulin 3.3 gm/dL (2.2-3.9) 04/03/18 07:32 Albumin/Globulin Ratio 1.3 (1.0-2.1) 04/03/18 07:32 TSH 3rd Generation 1.07 mIU/L (0.46-4.68) 03/30/18 21:54 Attending/Attestation - Attestation I have personally seen and examined this patient.: Yes I have fully participated in the care of the patient.: Yes I have reviewed all pertinent clinical information, including history, physical exam and plan: Yes Notes (Text): 04/03/18 16:49 Medical attending: Patient was seen and examined by me, Agree with the above note by the resident The patient was not in any acute distress when we came and saw him this afternoon. He had just returned from stress test. He will need to be on anticoagulation and will be on Xarelto 20 once a day Continue also the cardizem PO Currently he is NSR, as mentioned previously he came to the hospital in AFIB w JUAN Mcallister
[2018-04-03 16:25] VITALS: BP 150/90; PULSE 81; TEMP 97.5; O2SAT 97
[2018-04-03] MEDS ORDERED: Hydrocortisone 2.5% Rectal Cream(30 gm) PR SCH (18:00)
--- NOTE | 2018-04-03 19:02 | CARD ---
APPROVED REPORT Date of service: 03/30/2018 EKG Measurement Heart [id number] <Conclusion> Normal sinus rhythm Normal ECG
--- NOTE | 2018-04-03 19:02 | CARD ---
APPROVED REPORT Date of service: 03/30/2018 EKG Measurement Heart [id number] <Conclusion> Atrial fibrillation with rapid ventricular response Abnormal ECG
--- NOTE | 2018-04-03 21:39 | PQF ---
PROVIDER RESPONSE TEXT: This patient has Chronic Diastolic CHF on this admission, with preserved EF. REVIEWER QUERY TEXT: CHF Acuity and Type Congestive Heart Failure is documented in the Medical Record. Please document the type and acuity (in cludes probable or suspected) Such as: Type: Also please document the underlying cause of the CHF (includes probable or suspected) The patient's Clinical Indicators include: ?62 y/o male Patient sent in from dialysis for elevated blood pressure. Patient is currently speaking in complete sentences. He has Monday dialysis?. ?He states that he was feeling fine prior to dialysis and underwent dialysis without any problems. However, as he was walking out he beg an to feel lightheaded and proceeded to fall back onto a chair?. ECHO: Normal left ventricular systolic function and doppler. Type I diastolic dysfunction. The left atrial volume index is mildly elevated. Dr. Roy documented: ECho from 05/2017 shows grade 1 diastolic dysfunction, global hypokinesis of left ventricle, LVEF 45-50%, RV systolic pressure is 38 mmHg, mild pulmonary hypertsion, left atrium mildly dilated, moderate MR, mild TR. DR. Barone documented (2) CHF (congestive heart failure), NYHA class II, Status: Acute . Please consider verify and specify, if agree. Query created by: Derek Villalobos on 04/03/2018 11:16 AM Electronically signed by: Lucho Wesley MD 04/03/2018 9:36 PM
== END 2018-04-03 16:28 | disposition home or self-care (01) | DRG 308 ==
LOC: C.ER 20:16 → SUPCPDRO 20:16 → C.6T 22:26
PROVIDERS: ADMIT Internal Medicine; ATTEND Internal Medicine
PROC: 5A1D70Z Performance of Urinary Filtration, Intermittent, Less than 6 Hours Per Day (ICD-10-PCS; principal; 2018-04-02)
DX: I48.91 Unspecified atrial fibrillation (principal); N18.6 End stage renal disease; I13.2 Hypertensive heart and chronic kidney disease with heart failure and with stage 5 chronic kidney disease, or end stage renal disease; I50.32 Chronic diastolic (congestive) heart failure; N25.81 Secondary hyperparathyroidism of renal origin; K92.1 Melena; J44.9 Chronic obstructive pulmonary disease, unspecified; H40.9 Unspecified glaucoma; F17.210 Nicotine dependence, cigarettes, uncomplicated; D63.1 Anemia in chronic kidney disease; Z87.11 Personal history of peptic ulcer disease; Z86.73 Personal history of transient ischemic attack (TIA), and cerebral infarction without residual deficits; Z91.14 Patient's other noncompliance with medication regimen; Z99.2 Dependence on renal dialysis; Z83.3 Family history of diabetes mellitus

== ENCOUNTER 2018-07-13 19:54 | Emergency (ER) | payer MEDICARE, SELFPAY ==
[2018-07-13 20:16] VITALS: O2SAT 100
[2018-07-13 20:34] LABS: BASO # 0.1 K/uL (0.0-0.2); BASO % 1.2 % (0.0-2.0); EOS # 0.3 K/uL (0.0-0.7); EOS % 3.5 % (0.0-4.0); HEMOGLOBIN 12.1 g/dL (12.0-18.0); LYMPH # 1.4 K/uL (1.0-4.3); LYMPH % 15.8 % (20.0-40.0); MEAN CELL VOLUME 94.2 fL (80.0-94.0); MEAN CORPUSCULAR HEMOGLOBIN 30.9 pg (27.0-31.0); MEAN CORPUSCULAR HGB CONC 32.8 g/dL (33.0-37.0); MEAN PLATELET VOLUME 7.1 fL (7.2-11.7); MONO # 0.7 K/uL (0.0-0.8); MONO % 7.6 % (0.0-10.0); NEUT # 6.3 K/uL (1.8-7.0); NEUT % 71.9 % (50.0-75.0); RBC 3.92 Mil/uL (4.40-5.90); RED CELL DISTRIBUTION WIDTH 15.8 % (11.5-14.5); WHITE BLOOD COUNT 8.8 K/uL (4.8-10.8)
[2018-07-13 21:04] LABS: ALB/GLOB RATIO 1.3 (1.0-2.1); CALCIUM 9.6 mg/dl (8.6-10.4); TROPONIN I 0.018 ng/mL (0.00-0.120)
--- NOTE | 2018-07-13 21:55 | C.PDOC ---
History Of Present Illness 62 year old male presents to the emergency department status-post having a syncopal episode after dialysis today. Patient states that he usually feels near syncope after dialysis. Patient states that he had transient, normal dialysis today, but he gradually syncopized after leaving. Time Seen by Provider: 07/13/18 20:20 Chief Complaint (Nursing): Syncope History Per: Patient History/Exam Limitations: no limitations Onset/Duration Of Symptoms: Hrs Current Symptoms Are (Timing): Still Present Activity At Onset Of Symptoms: Walking Associated Symptoms Preceding Syncopal Episode: Other (gradual onset) Seizure Or Post-ictal Symptoms: None Possible Causative Factor(s): Other (dialysis) Fall Associated With With Symptoms: No Injury As Result Of Fall Past Medical History Reviewed: Historical Data, Nursing Documentation, Vital Signs Vital Signs: Last Vital Signs Temp 98.7 F 07/13/18 20:09 Pulse 66 07/13/18 20:09 Resp 20 07/13/18 20:09 BP 103/70 07/13/18 20:09 Pulse Ox 100 07/13/18 20:09 - Medical History PMH: Atrial Fibrillation, COPD, HTN (noncompliant with meds), End Stage Renal Disease, TIA (2010) Surgical History: No Surg Hx - [facility] Procedures (03/30/18) BYPASS LEFT BRACHIAL ARTERY TO UPPER ARM VEIN, OPEN APPROACH (06/16/17) EXCISION OF RIGHT KIDNEY, PERCUTANEOUS APPROACH, DIAGNOSTIC (06/16/17) EXCISION OF STOMACH, ENDO, DIAGN (06/16/17) FLUOROSCOPY OF SUP VENA CAVA USING L OSM CONTRAST, GUIDANCE (06/16/17) INSERTION OF INFUSION DEV INTO SUP VENA CAVA, PERC APPROACH (06/16/17) Family History: States: No Known Family Hx - Social History Hx Alcohol Use: No Hx Substance Use: No - Immunization History Hx Tetanus Toxoid Vaccination: No (unknown) Hx Influenza Vaccination: No (unknown) Hx Pneumococcal Vaccination: No (unknown) Review Of Systems Except As Marked, All Systems Reviewed And Found Negative. Constitutional: Negative for: Fever, Chills Cardiovascular: Negative for: Chest Pain Respiratory: Negative for: Cough, Shortness of Breath Gastrointestinal: Negative for: Nausea, Vomiting, Abdominal Pain, Diarrhea Neurological: Positive for: Other (syncope) Physical Exam - Physical Exam Appears: Non-toxic, No Acute Distress Skin: Normal Color, Warm, Dry Head: Atraumatic, Normacephalic Eye(s): bilateral: Normal Inspection, PERRL, EOMI Nose: Normal Oral Mucosa: Moist Neck: Normal, Supple Chest: Symmetrical, No Tenderness Cardiovascular: Rhythm Regular, No Murmur Respiratory: Normal Breath Sounds, No Rales, No Rhonchi, No Wheezing Gastrointestinal/Abdominal: Soft, No Tenderness, No Guarding, No Rebound Extremity: Normal ROM, No Tenderness, Other (AV fistula present to left upper arm) Neurological/Psych: Oriented x3, Normal Speech, Normal Cognition ED Course And Treatment - Laboratory Results Result Diagrams: 07/13/18 20:31 07/13/18 20:31 Lab Results: Troponin I 0.0180 ng/mL (0.00-0.120) 07/13/18 20:31 Total Bilirubin 0.7 mg/dL (0.2-1.3) 07/13/18 20:31 AST 41 U/L (17-59) 07/13/18 20:31 ALT 7 U/L (21-72) L D 07/13/18 20:31 Alkaline Phosphatase 94 U/L (38-126) 07/13/18 20:31 Total Protein 8.7 g/dL (6.3-8.3) H 07/13/18 20:31 Albumin 5.0 g/dL (3.5-5.0) 07/13/18 20:31 Globulin 3.7 gm/dL (2.2-3.9) 07/13/18 20:31 Albumin/Globulin Ratio 1.3 (1.0-2.1) 07/13/18 20:31 O2 Sat by Pulse Oximetry: 100 (RA) Pulse Ox Interpretation: Normal Medical Decision Making Medical Decision Making: typical near-syncope after HD today with syncope Ate dinner and feels better, BP improved wants d/c home normal labs/EKG prob related to fluid changes and decreased volume s/p HD Plan: EKG Chemistry CBC CXR Glucose POC Disposition Doctor Will See Patient In The: Office Counseled Patient/Family Regarding: Studies Performed, Diagnosis - Disposition Referrals: [facility] [Outside] [facility] [Outside] [facility] [Outside] [facility] [Outside] Zachary Jacobo MD [Staff Provider] - Disposition: HOME/ ROUTINE Disposition Time: 21:55 Condition: GOOD Additional Instructions: normal/typical post-dialysis labs outpatient follow-up with your [facility] as needed. Instructions: Syncope (Fainting), Vasovagal Response Forms: [facility] (Jamaican) - Clinical Impression Clinical Impression: Syncope - Scribe Statement The provider has reviewed the documentation as recorded by the Scribe (Francesco Thorne) Provider Attestation: All medical record entries made by the Scribe were at my direction and personally dictated by me. I have reviewed the chart and agree that the record accurately reflects my personal performance of the history, physical exam, medical decision making, and the department course for this patient. I have also personally directed, reviewed, and agree with the discharge instructions and disposition.
[2018-07-13 21:56] VITALS: BP 111/67; PULSE 70; RESP 16; TEMP 98.4
--- NOTE | 2018-07-14 18:28 | RAD ---
Date of service: 07/13/2018 PROCEDURE: CHEST RADIOGRAPH, 1 VIEW HISTORY: SOB COMPARISON: 03/30/2018 FINDINGS: LUNGS: Clear. PLEURA: No pneumothorax or pleural fluid seen. CARDIOVASCULAR: No aortic atherosclerotic calcification present. Normal. OSSEOUS STRUCTURES: No significant abnormalities. VISUALIZED UPPER ABDOMEN: Normal. OTHER FINDINGS: None. IMPRESSION: No active disease.
--- NOTE | 2018-07-17 21:48 | CARD ---
APPROVED REPORT Date of service: 07/13/2018 EKG Measurement Heart [id number] <Conclusion> Normal sinus rhythm Normal ECG
== END 2018-07-13 22:04 | disposition home or self-care (01) ==
LOC: C.ER 19:54
DX: R55 Syncope and collapse (principal); I12.0 Hypertensive chronic kidney disease with stage 5 chronic kidney disease or end stage renal disease; I48.91 Unspecified atrial fibrillation; N18.6 End stage renal disease; Z86.73 Personal history of transient ischemic attack (TIA), and cerebral infarction without residual deficits; Z99.2 Dependence on renal dialysis; F17.210 Nicotine dependence, cigarettes, uncomplicated

== ENCOUNTER 2018-07-26 07:05 | Day surgery (SDC) | payer MEDICARE ==
[2018-07-25 14:54] VITALS: BMI 24.1
[2018-07-26 07:30] VITALS: TEMP 97; O2SAT 98
[2018-07-26 08:25] LABS: CALCIUM 9.2 mg/dl (8.6-10.4)
--- NOTE | 2018-07-26 09:17 | CP.SDSHP ---
Same Day Surgery H & P - History Proposed Procedure: colonoscopy Pre-Op Diagnosis: rectal bleeding - Previous Medical/Surgical History Cardiac: Hypertension Endocrine/Metabolic: Renal Disease Comments: CRF HD - Allergies Allergies: Allergies No Known Allergies Allergy (Verified 07/26/18 07:29) - Physical Exam Vital Signs: Vital Signs 07/26/18 07/26/18 07:20 07:29 Temperature 97.0 F L 97.0 F L Pulse Rate 78 78 Respiratory 19 19 Rate Blood Pressure 116/76 116/76 O2 Sat by Pulse 98 98 Oximetry Mental Status: Alert & Oriented x3 Neuro: WNL Heart: WNL Lungs: WNL GI: WNL - {Optional Preform as Required} Abdomen: WNL - Impression Impression: rectal bleed Pt. Evaluated Today:Candidate for Anesthesia & Procedure: Yes - Date & Time Date: 07/26/18 Time: 09:05 Short Stay Discharge - Short Stay Discharge Admitting Diagnosis/Reason for Visit: RECTAL BLEED Disposition: HOME/ ROUTINE
[2018-07-26] MEDS ORDERED: Sodium Chloride 0.9% 500 ML IV ONE ×2 (09:22)
[2018-07-26] MEDS ORDERED: Lactated Ringer's 500 ML IV ONE (09:22)
[2018-07-26] MEDS ORDERED: Midazolam 2 MG/2 ML VIAL ONE (09:22)
[2018-07-26] MEDS ORDERED: Propofol 10 mg/ml Inj (20 ML) ONE (09:23)
[2018-07-26 09:24] VITALS: PULSE 72; RESP 14
[2018-07-26 10:36] VITALS: BP 11/69
== END 2018-07-26 10:36 | disposition home or self-care (01) ==
LOC: C.ENDO 07:05
PROVIDERS: ATTEND Internal Medicine Gastroenterology
DX: K62.5 Hemorrhage of anus and rectum (principal); D12.5 Benign neoplasm of sigmoid colon; K64.8 Other hemorrhoids
CPT/HCPCS: 36415; 45380; 80048; 88305; J2250; J2704; J7030